=== PATIENT | female | born 1930 | race Two or more races ===

== ENCOUNTER 2016-07-31 20:27 | Inpatient (IN) | payer MEDICAID ==
[~2016-07-31] VITALS: Ht 167.6 cm; Wt 63.5 kg
[~2016-07-31 20:27] MED LIST: ALBUTEROL2.5 MG/3 M INH; ATENOLOL100 MG ORAL; ATIVAN1 MG ORAL; BENADRYL25 M3 PO; CARVEDILOL3.125 MG ORAL; CEPHALEXIN500 M1 ORAL; CLONIDINE HCL0.1 MG PO; COLACE100 MG ORAL; DONEPEZIL HCL10 M2 ORAL; IBUPROFEN600 MG ORAL; LEVAQUIN500 MG ORAL; LORAZEPAM1 MG ORAL; LOSARTAN POTASS50 MG ORAL; NORCO 10-325 T1 EACH ORAL; OMEPRAZOLE20 M3 ORAL; POTASSIUM20 MEQ/15 PO; PROTONIX40 MG ORAL; QUETIAPINE FUMA25 MG ORAL; RISPERDAL0.25 MG ORAL; RISPERDAL0.5 MG ORAL; SEROQUEL25 MG ORAL; SEROQUEL50 MG ORAL; TYLENOL EXTRA500 MG ORAL
--- NOTE | 2016-07-31 21:28 | Emergency Room Report ---
History of Present Illness General Chief Complaint: shortness of breath Source: Family Member Present Illness HPI Patient is a 86-year-old female who presented after increased fever difficulty breathing. Patient gradual onset of symptoms of the past 2 hours. Patient had a productive cough. Patient recently been discharged from the hospital after pneumonia. Patient prior history of IVC filter placement. She's not currently taking anticoagulation. Patient was noted to have increased difficulty breathing was brought back to the hospital.Per family she does not have a primary care Dr.Cough is reportedly productive nature. Allergies: Coded Allergies: No Known Allergies (Unverified , 05/07/16) Patient History Reviewed Nursing Documentation: PMH: Agreed, PSxH: Agreed Nursing Documentation-PMH Hx Cardiac Problems: Yes Hx Hypertension: Yes Hx Cancer: No Hx Gastrointestinal Problems: Yes Hx Neurological Problems: Yes - ANEURYSM BRAIN Hx Dementia: Yes Review of Systems All Other Systems: negative except mentioned in HPI Physical Exam General Appearance: moderate distress, lethargic ENT: other - dark fluid in oropharynx Neck: supple Respiratory: chest non-tender, lungs clear, normal breath sounds Cardiovascular #1: regular rate, rhythm, no edema Gastrointestinal: non tender, soft, no mass Musculoskeletal: back normal, digits/nails normal Neurologic: alert, oriented x3, responsive Psychiatric: judgement/insight normal Skin: normal color, no rash, warm/dry Medical Decision Making Diagnostic Impression: Primary Impression: HCAP (healthcare-associated pneumonia) Additional Impression: Sepsis ER Course Patient presented for shortness of breath.Differential included but was not limited to anemia, pneumonia, pneumothorax, myocardial infarction, pericardial effusion, congestive heart failure, acidosis. Because of complexity of patient' s case laboratory testing and imaging studies were ordered. The laboratory studies showed normal white blood count as well as normal lactate. Patient appears to have pneumonia. The patient may have some GI bleeding and she did have some dark material in her oropharynx. Dr. Cristi Hazel was contacted for inpatient management Labs Test 07/31/16 22:30 White Blood Count 6.9 K/UL (4.8-10.8) Red Blood Count 4.68 M/UL (4.20-5.40) Hemoglobin 13.6 G/DL (12.0-16.0) Hematocrit 43.5 % (37.0-47.0) Mean Corpuscular Volume 93 FL (80-99) Mean Corpuscular Hemoglobin 29.0 PG (27.0-31.0) Mean Corpuscular Hemoglobin Concent 31.2 G/DL (32.0-36.0) Red Cell Distribution Width 13.6 % (11.6-14.8) Platelet Count 149 K/UL (150-450) Mean Platelet Volume 9.0 FL (6.5-10.1) Neutrophils (%) (Auto) 65.3 % (45.0-75.0) Lymphocytes (%) (Auto) 16.9 % (20.0-45.0) Monocytes (%) (Auto) 12.9 % (1.0-10.0) Eosinophils (%) (Auto) 3.1 % (0.0-3.0) Basophils (%) (Auto) 1.8 % (0.0-2.0) Prothrombin Time 11.1 SEC (9.30-11.50) Prothromb Time International Ratio 1.1 (0.9-1.1) Activated Partial Thromboplast Time 26 SEC (23-33) Sodium Level 141 mEQ/L (135-145) Potassium Level 4.4 mEQ/L (3.4-4.9) Chloride Level 100 mEQ/L (98-107) Carbon Dioxide Level 29 mEQ/L (20-30) Anion Gap 12 (5-15) Blood Urea Nitrogen 10 mg/dL (7-23) Creatinine 0.8 mg/dL (0.5-0.9) Estimat Glomerular Filtration Rate mL/min (>60) Glucose Level 107 mg/dL (74-106) Lactic Acid Level 1.10 mmol/L (0.66-2.22) Calcium Level 9.1 mg/dL (8.6-10.2) Total Bilirubin 0.3 mg/dL (0.0-1.2) Aspartate Amino Transf (AST/SGOT) 18 U/L (5-40) Alanine Aminotransferase (ALT/SGPT) 11 U/L (3-33) Alkaline Phosphatase 85 U/L (35-104) Total Creatine Kinase 14 U/L (26-140) Creatine Kinase MB < 1.5 ng/mL (< 3.8) Creatine Kinase MB Relative Index Troponin I < 0.30 ng/mL (<=0.30) Total Protein 7.2 g/dL (6.6-8.7) Albumin 3.7 g/dL (3.5-5.2) Globulin 3.5 g/dL Albumin/Globulin Ratio 1.0 (1.0-2.7) EKG Diagnostic Results Rate: normal Rhythm: NSR ST Segments: no acute changes Rhythm Strip Diag. Results EP Interpretation: yes Rhythm: NSR, no PVC's, no ectopy Status: unchanged Disposition: ADMITTED INPATIENT CliffSimba Jul 31, 2016 21:28
[2016-07-31] MEDS ORDERED: Pantoprazole Inj IVP ONE (21:30)
[2016-07-31] MEDS ORDERED: Unasyn 3gm Inj ONE ×2 (22:52→23:54)
[2016-07-31] MEDS: Ampicillin/Sulbactam Sod 3 GM in NS 100 ML IVPB SCH ×2 (22:58→23:59)
[2016-07-31 23:04] LABS: BASOPHILS % (AUTO) 1.8 % (0.0-2.0); EOSINOPHILS % (AUTO) 3.1 % (0.0-3.0); LYMPHOCYTES % (AUTO) 16.9 % (20.0-45.0); MEAN CORPUSCULAR HGB CONC 31.2 G/DL (32.0-36.0); MEAN CORPUSCULAR VOLUME 93 FL (80-99); MONOCYTES % (AUTO) 12.9 % (1.0-10.0); NEUTROPHILS % (AUTO) 65.3 % (45.0-75.0); PLATELET COUNT 149 K/UL (150-450); RED BLOOD COUNT 4.68 M/UL (4.20-5.40); RED CELL DISTRIBUTION WIDTH 13.6 % (11.6-14.8); WHITE BLOOD COUNT 6.9 K/UL (4.8-10.8)
[2016-07-31 23:08] VITALS: BP 153/74
[2016-07-31 23:17] LABS: INR 1.1 (0.9-1.1); PROTHROMBIN TIME 11.1 SEC (9.30-11.50)
[2016-07-31 23:25] LABS: TROPONIN I < 0.30 ng/mL (<=0.30)
[2016-07-31 23:28] LABS: ALANINE AMINOTRANSFERASE 11 U/L (3-33); ANION GAP 12 (5-15); ASPARTATE AMINO TRANSFERASE 18 U/L (5-40); CALCIUM 9.1 mg/dL (8.6-10.2); CARBON DIOXIDE 29 mEQ/L (20-30); CHLORIDE 100 mEQ/L (98-107); CREATININE 0.8 mg/dL (0.5-0.9); HEMOLYSIS 9; POTASSIUM 4.4 mEQ/L (3.4-4.9); SODIUM 141 mEQ/L (135-145); TOTAL PROTEIN 7.2 g/dL (6.6-8.7)
[2016-07-31 23:38] LABS: CKMB < 1.5 ng/mL (< 3.8)
[2016-08-01] VITALS (8 sets, daily range): BP systolic 133–165; BP diastolic 70–92
[2016-08-01] MEDS ORDERED: Norco 10mg/325mg tab ORAL PRN (01:45)
[2016-08-01] MEDS ORDERED: DuoNeb 0.5-3(2.5)mg/3ml neb HHN PRN (01:45)
[2016-08-01] MEDS ORDERED: LORazepam 1mg tab ORAL PRN (01:45)
[2016-08-01] MEDS: Docusate 100mg cap ORAL SCH (09:16)
[2016-08-01] MEDS: Losartan 50mg tab ORAL SCH ×2 (09:16→22:17)
[2016-08-01] MEDS: Heparin 5000 units/ml inj SUBQ SCH ×2 (09:18→22:19)
[2016-08-01] MEDS ORDERED: Acetaminophen 650 MG SUPP RECTAL PRN (09:30)
--- NOTE | 2016-08-01 10:26 | Wound Care Consultation ---
Wound Assessment Wound Assessment #1: Wound Number: #1 Wound Present on Admission: Yes New Wound: No Status Change of Wound: No Wound Location Body Site: perineal area - extending to perianal Wound Type: chemical burn Chasidy Test: Does not Chasidy Percent of Wound [place]/Red: 100 Wound Drainage Amount: None Wound Drainage Odor: None/Absent Tissue Surrounding Wound: Macerated Wound General Appearance: Reddened, Open to air Wound Assessment #2: Wound Number: #2 Wound Present on Admission: Yes New Wound: No Status Change of Wound: No Wound Location Body Site Modif: right Wound Location Body Site: buttocks Wound Type: pressure ulcer Chasidy Test: Does not Chasidy Pressure Ulcer Stage: deep tissue injury Wound Thickness: Full Thickness Wound Length: 1.0 Wound Width: 1.0 Wound Depth: utd Percent of Wound Purple/Maroon: 100 Wound Drainage Amount: None Wound Drainage Odor: None/Absent Tissue Surrounding Wound: Erythemic Wound General Appearance: Reddened Wound Assessment #3: Wound Number: #3 Wound Present on Admission: Yes New Wound: No Status Change of Wound: No Wound Location Body Site Modif: mid Wound Location Body Site: sacral Wound Type: pressure ulcer Chasidy Test: Does not Chasidy Pressure Ulcer Stage: I Wound Thickness: Partial Thickness Wound Length: 4.0 Wound Width: 4.0 Percent of Wound [place]/Red: 100 Wound Drainage Amount: None Wound Drainage Odor: None/Absent Tissue Surrounding Wound: Erythemic Wound General Appearance: Reddened Wound Assessment #4: Wound Number: #4 Wound Present on Admission: Yes New Wound: No Status Change of Wound: No Wound Location Body Site Modif: left Wound Location Body Site: thigh - upper inner Wound Type: chemical burn Chasidy Test: Does not Chasidy Percent of Wound [place]/Red: 100 Wound Drainage Amount: None Wound Drainage Odor: None/Absent Tissue Surrounding Wound: Macerated Wound General Appearance: Reddened Wound Assessment #5: Wound Present on Admission: Yes New Wound: No Status Change of Wound: No Wound Location Body Site Modif: right Wound Location Body Site: thigh - upper inner Wound Type: pressure ulcer Chasidy Test: Does not Chasidy Percent of Wound [place]/Red: 100 Wound Drainage Amount: None Wound Drainage Odor: None/Absent Tissue Surrounding Wound: Macerated Wound General Appearance: Reddened Wound Comment #1 Perineal area extending to perianal chemical burn. #2 Right inner thigh Chemical Burn. #3 Left inner thigh Chemical Burn. #4 Mid Sacral Pressure Ulcer stage I. #5 Right Buttock Pressure Ulcer Deep Tissue Injury. Recommendation. -Local wound care as ordered. -Low air loss Overlay. -Keep Clean and dry. -Gentle pericare as needed. -Turn and reposition. -Assess and notify MD if any changes are noted. -Optimize Nutrition. JESSA SHAFFER Aug 01, 2016 10:26
--- NOTE | 2016-08-01 12:41 | Consultation ---
Consult Note Consult Note [id number] ANGEL WATERS M.D. Aug 01, 2016 12:41
[2016-08-01] MEDS: LORazepam Inj 2mg/ml 1ml IV PRN ×2 (13:59→18:56)
--- NOTE | 2016-08-01 14:57 | Pulmonology Progress Note ---
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 aneurysm, recent DVT S/P IVC f BIB family with several days of cough and low grade fevers. Tm 101.8, no WCt, on 1-2L O2. Cough productive of mucoid phlegm, ? had CXR in ED. Got Unasyn in ED, now on CTX per ID. Rosa puree diet, no N/V/D/C/abdominal pain or urinary complaints. No H/O lung dz PMH: Dementia, DVT S/P IVC filter, HTN, ? 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 MEDS: Reviewed SHx: No T/E/D use FHx: N/C ROS: Negative other than HPI Objective Last 24 Hour Vital Signs Date Time Temp Pulse Resp B/P Pulse Ox O2 Delivery O2 Flow Rate FiO2 08/01/16 12:00 97.7 74 24 141/81 94 Nasal Cannula 2.0 28 08/01/16 09:16 143/79 08/01/16 08:00 67 08/01/16 08:00 101.7 82 30 160/91 92 Nasal Cannula 2.0 08/01/16 07:55 97 Nasal Cannula 2.0 28 08/01/16 07:55 76 18 Nasal Cannula 2.0 08/01/16 04:38 98.2 75 30 143/79 93 Nasal Cannula 2.0 08/01/16 03:56 72 08/01/16 01:57 98.2 74 28 144/92 94 Nasal Cannula 2.0 08/01/16 01:51 77 08/01/16 01:35 100.1 76 29 133/70 95 Nasal Cannula 2.0 08/01/16 01:34 100.1 76 29 165/84 95 Nasal Cannula 2.0 08/01/16 00:07 100.1 76 29 165/84 95 Nasal Cannula 2.0 07/31/16 23:10 75 34 Nasal Cannula 3.0 07/31/16 23:08 100.1 75 34 153/74 96 Nasal Cannula 3.0 07/31/16 21:18 100.2 84 38 172/74 89 Nasal Cannula 2.0 Intake and Output 07/31/16 08/01/16 19:00 07:00 Intake Total 1100 ml Balance 1100 ml Intake IV Total 1100 ml # Voids 2 # Bowel Movements 1 General Appearance: no acute distress, other - demented female HEENT: normocephalic, atraumatic, mucous membranes moist Respiratory/Chest: rhonchi - scattered Cardiovascular: normal peripheral pulses, normal rate, regular rhythm Abdomen: normal bowel sounds, soft, non tender, no organomegaly, non distended Extremities: no cyanosis, no clubbing, no edema Laboratory Tests 07/31/16 22:30: White Blood Count 6.9, Red Blood Count 4.68, Hemoglobin 13.6, Hematocrit 43.5, Mean Corpuscular Volume 93, Mean Corpuscular Hemoglobin 29.0, Mean Corpuscular Hemoglobin Concent 31.2L, Red Cell Distribution Width 13.6, Platelet Count 149L , Mean Platelet Volume 9.0, Neutrophils (%) (Auto) 65.3, Lymphocytes (%) (Auto) 16.9L, Monocytes (%) (Auto) 12.9H, Eosinophils (%) (Auto) 3.1H, Basophils (%) ( Auto) 1.8, Prothrombin Time 11.1, Prothromb Time International Ratio 1.1, Activated Partial Thromboplast Time 26, Sodium Level 141, Potassium Level 4.4, Chloride Level 100, Carbon Dioxide Level 29, Anion Gap 12, Blood Urea Nitrogen 10, Creatinine 0.8, Estimat Glomerular Filtration Rate , Glucose Level 107H, Lactic Acid Level 1.10, Calcium Level 9.1, Total Bilirubin 0.3, Aspartate Amino Transf (AST/SGOT) 18, Alanine Aminotransferase (ALT/SGPT) 11, Alkaline Phosphatase 85, Total Creatine Kinase 14L, Creatine Kinase MB < 1.5, Creatine Kinase MB Relative Index , Troponin I < 0.30, Total Protein 7.2, Albumin 3.7, Globulin 3.5, Albumin/Globulin Ratio 1.0 Current Medications Medications (Trade) Dose Ordered Sig/[place] Route PRN Reason Start Time Stop Time Status Last Admin Dose Admin Acetaminophen 650 mg 650 mg Q4H PRN RECTAL Fever/Headache/Mild Pain 08/01/16 09:30 08/31/16 09:29 08/01/16 10:04 Acetaminophen/ Hydrocodone Bitart ([place] 10/325) 1 ea Q6H PRN ORAL Pain Scale (6-10) 08/01/16 01:45 08/08/16 01:44 Albuterol/ Ipratropium (DuoNeb 0.5-3(2.5)mg/3ml) 3 ml Q4H PRN HHN Shortness of Breath 08/01/16 01:45 08/06/16 01:44 Ceftriaxone Sodium/Dextrose (Rocephin/D5W 50ml) 50 ml @ 100 mls/hr Q24H IVPB 08/01/16 14:00 08/08/16 13:59 Clonidine HCl (Catapres) 0.1 mg Q6H PRN ORAL For High Blood Pressure 08/01/16 01:45 08/31/16 01:44 Dextrose (Dextrose 50%) STAT PRN IV Hypoglycemia 08/01/16 01:45 08/31/16 01:44 Diphenhydramine HCl (Benadryl) 25 mg Q6H PRN ORAL Itching/Pruritis 08/01/16 01:45 08/31/16 01:44 Docusate Sodium (Colace) 100 mg DAILY ORAL 08/01/16 09:00 08/31/16 08:59 08/01/16 09:16 Heparin Sodium (Porcine) (Heparin 5000 units/ml) 5,000 units EVERY 12 HOURS SUBQ 08/01/16 09:00 08/31/16 08:59 08/01/16 09:18 Lorazepam (Ativan 2mg/ml 1ml) 1 mg Q4H PRN IV For Anxiety 08/01/16 13:45 08/08/16 13:44 08/01/16 13:59 Lorazepam (Ativan) 1 mg Q8H PRN ORAL For Anxiety 08/01/16 01:45 08/08/16 01:44 Losartan Potassium (Cozaar) 50 mg Q12HR ORAL 08/01/16 09:00 08/31/16 08:59 08/01/16 09:16 Pantoprazole (Protonix) 40 mg Q12H PRN ORAL Abdominal cramps 08/01/16 01:45 08/31/16 01:44 ONUR RAINES M.D. Aug 01, 2016 14:57
[2016-08-01] MEDS: cefTRIAXone 1 GM in D5W 50 ML IVPB SCH (15:15)
--- NOTE | 2016-08-01 16:42 | Diagnostic Imaging Report ---
Indication: COPD, shortness of breath Technique: One view of the chest Comparison: 07/31/2016 Findings: Bilateral chronic appearing interstitial disease is again demonstrated. No new infiltrates. Heart size is normal. Aorta is tortuous and calcified. Findings are unchanged Impression: Unchanged, over one day, findings as above.
[2016-08-01] MEDS: guaiFENesin 600mg tab ORAL SCH (17:26)
--- NOTE | 2016-08-01 18:12 | Cardiac Electrophysiology PN ---
Subjective Subjective [id number] Objective Last 24 Hour Vital Signs Date Time Temp Pulse Resp B/P Pulse Ox O2 Delivery O2 Flow Rate FiO2 08/01/16 16:17 Nasal Cannula 2.0 08/01/16 16:13 98.2 84 21 135/73 93 Room Air 3.0 08/01/16 16:00 81 08/01/16 12:00 97.7 74 24 141/81 94 Nasal Cannula 2.0 08/01/16 10:34 97.7 08/01/16 09:16 143/79 08/01/16 08:00 67 08/01/16 08:00 101.7 82 30 160/91 92 Nasal Cannula 2.0 08/01/16 07:55 97 Nasal Cannula 2.0 08/01/16 07:55 76 18 Nasal Cannula 2.0 08/01/16 04:38 98.2 75 30 143/79 93 Nasal Cannula 2.0 08/01/16 03:56 72 08/01/16 01:57 98.2 74 28 144/92 94 Nasal Cannula 2.0 08/01/16 01:51 77 08/01/16 01:35 100.1 76 29 133/70 95 Nasal Cannula 2.0 08/01/16 01:34 100.1 76 29 165/84 95 Nasal Cannula 2.0 08/01/16 00:07 100.1 76 29 165/84 95 Nasal Cannula 2.0 07/31/16 23:10 75 34 Nasal Cannula 3.0 07/31/16 23:08 100.1 75 34 153/74 96 Nasal Cannula 3.0 07/31/16 21:18 100.2 84 38 172/74 89 Nasal Cannula 2.0 Intake and Output 07/31/16 08/01/16 19:00 07:00 Intake Total 1100 ml Balance 1100 ml Intake IV Total 1100 ml # Voids 2 # Bowel Movements 1 Laboratory Tests Test 07/31/16 22:30 08/01/16 16:15 White Blood Count 6.9 K/UL (4.8-10.8) Red Blood Count 4.68 M/UL (4.20-5.40) Hemoglobin 13.6 G/DL (12.0-16.0) Hematocrit 43.5 % (37.0-47.0) Mean Corpuscular Volume 93 FL (80-99) Mean Corpuscular Hemoglobin 29.0 PG (27.0-31.0) Mean Corpuscular Hemoglobin Concent 31.2 G/DL (32.0-36.0) L Red Cell Distribution Width 13.6 % (11.6-14.8) Platelet Count 149 K/UL (150-450) L Mean Platelet Volume 9.0 FL (6.5-10.1) Neutrophils (%) (Auto) 65.3 % (45.0-75.0) Lymphocytes (%) (Auto) 16.9 % (20.0-45.0) L Monocytes (%) (Auto) 12.9 % (1.0-10.0) H Eosinophils (%) (Auto) 3.1 % (0.0-3.0) H Basophils (%) (Auto) 1.8 % (0.0-2.0) Prothrombin Time 11.1 SEC (9.30-11.50) Prothromb Time International Ratio 1.1 (0.9-1.1) Activated Partial Thromboplast Time 26 SEC (23-33) Sodium Level 141 mEQ/L (135-145) Potassium Level 4.4 mEQ/L (3.4-4.9) Chloride Level 100 mEQ/L (98-107) Carbon Dioxide Level 29 mEQ/L (20-30) Anion Gap 12 (5-15) Blood Urea Nitrogen 10 mg/dL (7-23) Creatinine 0.8 mg/dL (0.5-0.9) Estimat Glomerular Filtration Rate mL/min (>60) Glucose Level 107 mg/dL (74-106) H Lactic Acid Level 1.10 mmol/L (0.66-2.22) Calcium Level 9.1 mg/dL (8.6-10.2) Total Bilirubin 0.3 mg/dL (0.0-1.2) Aspartate Amino Transf (AST/SGOT) 18 U/L (5-40) Alanine Aminotransferase (ALT/SGPT) 11 U/L (3-33) Alkaline Phosphatase 85 U/L (35-104) Total Creatine Kinase 14 U/L (26-140) L Creatine Kinase MB < 1.5 ng/mL (< 3.8) Creatine Kinase MB Relative Index Troponin I < 0.30 ng/mL (<=0.30) Total Protein 7.2 g/dL (6.6-8.7) Albumin 3.7 g/dL (3.5-5.2) Globulin 3.5 g/dL Albumin/Globulin Ratio 1.0 (1.0-2.7) D-Dimer 5730 ng/mL (<500) H Pro-B-Type Natriuretic Peptide 719 pg/mL (0-450) H TURNER ALLAN Aug 01, 2016 18:12
--- NOTE | 2016-08-01 18:17 | Consultation ---
DATE OF CONSULTATION: INFECTIOUS DISEASE CONSULTATION REFERRING PHYSICIAN: Cristi Hazel M.D. REASON FOR CONSULTATION: Evaluation of the patient for pneumonia, antibiotic management. HISTORY OF PRESENT ILLNESS: The patient is an 86-year-old female with multiple medical problems as listed below, who was admitted to this medical center for shortness of breath. The patient also has been recently admitted to this medical center due to E. coli and klebsiella urinary tract infection. The patient overall is a poor historian. This admission the patient was admitted for fever and pneumonia. Infectious Disease consultation has been requested for further evaluation of the patient's antibiotic management. PAST MEDICAL HISTORY: 1. History of cataract surgery. 2. History of dysphagia. 3. History of CVA. 4. History of brain aneurysm. 5. Dementia. 6. Hypertension. 7. History of urinary tract infection. 8. Depression. 9. Anxiety. MEDICATIONS: The patient received one dose of intravenous Unasyn in the emergency room. ALLERGIES: No known drug allergies. FAMILY HISTORY: Unavailable. REVIEW OF SYSTEMS: Limited, much of the information gathered as mentioned above. PHYSICAL EXAMINATION: VITAL SIGNS: Temperature 101.7 degrees, pulse 86, respiratory rate 18, and blood pressure 160/91. HEENT: Mild pale conjunctivae. NECK: No lymphadenopathy. CHEST: Coarse breathing sounds. HEART: S1 and S2. ABDOMEN: Soft and nontender. EXTREMITIES: No cyanosis. NEUROLOGIC: Awake. Poor historian. LABORATORY AND DIAGNOSTIC DATA: White blood cell 6.9, hemoglobin 13, and platelet 149,000. Urinalysis 20-30 white blood cells. BUN 10 and creatinine 0.8. ALT, AST, and alkaline phosphatase within normal range. Blood culture is pending. Urine is pending. Chest x-ray and laboratories pending. ASSESSMENT: The patient is an 86-year-old female with multiple medical problems as listed above, who came to the hospital with shortness of breath and fever. Chest x-ray result is pending, however, the patient's urinalysis showed significant pyuria. The patient may have underlying urinary tract infection. Also underlying pneumonia is a consideration. The patient would benefit from empiric antibiotic treatment till we get further information from cultures. PLAN: 1. We will start the patient on IV Rocephin. 2. Monitor blood cultures (blood, urine and sputum). 3. Chest x-ray. 4. Monitor CBC and BMP. Monitor the patient's clinical course and labs and based on those, we will do further recommendations. Thank you for this consultation. I will follow the patient during this hospitalization. Tai Reece M.D. DR: HUMAIRA JOB#: [id number] CC:
--- NOTE | 2016-08-01 21:10 | History and Physical ---
History of Present Illness General Date patient seen: Aug 01, 2016 Reason for Hospitalization: Dyspnea/Respdistress Present Illness HPI The patient is unable to provide any history at this time due to her mental state, sitter at bedside who reported pt being agitated throughout the day, history is therefore obtained from ED record, according to record, patient is an 86-year-old female, who presented from home with fever, difficulty breathing and productive cough. Patient was recently discharged from the hospital after being treated for pneumonia. 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 Not currently on anticoagulant. Allergies: Coded Allergies: No Known Allergies (Unverified , 05/07/16) Medication History Scheduled Cephalexin* (Cephalexin*), 500 MG ORAL BID, (Reported) Docusate Sodium* (Colace*), 100 MG ORAL DAILY, (Reported) Losartan Potassium* (Losartan Potassium*), 50 MG ORAL Q12HR, (Reported) Potassium Chloride (Potassium Chloride), 20 MEQ PO BID, (Reported) Scheduled PRN Acetaminophen* (Tylenol Extra Strength*), 650 MG ORAL Q4HR PRN for Mild Pain ( Pain Scale 1-3), (Reported) Albuterol Sulfate* (Albuterol Sulfate Hhn*), 3 ML INH Q4H PRN for Shortness of Breath, (Reported) Clonidine Hcl (Clonidine Hcl), 0.1 MG PO PRN PRN for For High Blood Pressure, ( Reported) Diphenhydramine HCl (Benadryl), 25 MG PO PRN PRN for Itching/Pruritis, (Reported ) Hydrocodone Bit/Acetaminophen 10-325* ([place] 10-325*), 1 TAB ORAL Q8HR PRN for Pain Scale (6-10), (Reported) Lorazepam* (Ativan*), 1 MG ORAL Q8HR PRN for For Anxiety, (Reported) Pantoprazole* (Protonix*), 40 MG ORAL Q12HR PRN for Abdominal cramps, (Reported) Patient History Limited by: medical condition Healthcare decision maker Mary Clemente (daughter) Resuscitation status Full Code Advanced Directive on File No Past Medical/Surgical History Past Medical/Surgical History: (1) History of cataract surgery (2) Dysphagia (3) CVA (cerebral vascular accident) (4) Brain aneurysm (5) Depression (6) HTN (hypertension) (7) Alzheimer's dementia (8) HCAP (healthcare-associated pneumonia) Family History Family History: Patient reports no known family medical history. Social History Social History: (1) Non-smoker (2) No history of alcohol use (3) No illicit drug use Review of Systems All Other Systems: negative except mentioned in HPI Physical Exam General Appearance: alert, confused Lines, tubes and drains: peripheral HEENT: normocephalic, atraumatic Neck: normal alignment, supple, normal inspection Respiratory/Chest: decreased breath sounds Cardiovascular/Chest: normal rate, regular rhythm, no JVD Abdomen: non tender, soft, no organomegaly, no mass Extremities: normal range of motion, non-tender, normal inspection, no calf tenderness Skin Exam: normal pigmentation, warm/dry Neurologic: alert, disoriented Last 24 Hour Vital Signs Date Time Temp Pulse Resp B/P Pulse Ox O2 Delivery O2 Flow Rate FiO2 08/01/16 18:56 95 Nasal Cannula 2.0 08/01/16 18:56 88 18 Nasal Cannula 2.0 08/01/16 18:56 Nasal Cannula 2.0 08/01/16 16:17 Nasal Cannula 2.0 08/01/16 16:13 98.2 84 21 135/73 93 Room Air 3.0 08/01/16 16:00 81 08/01/16 12:00 97.7 74 24 141/81 94 Nasal Cannula 2.0 08/01/16 10:34 97.7 08/01/16 09:16 143/79 08/01/16 08:00 67 08/01/16 08:00 101.7 82 30 160/91 92 Nasal Cannula 2.0 08/01/16 07:55 97 Nasal Cannula 2.0 08/01/16 07:55 76 18 Nasal Cannula 2.0 08/01/16 04:38 98.2 75 30 143/79 93 Nasal Cannula 2.0 08/01/16 03:56 72 08/01/16 01:57 98.2 74 28 144/92 94 Nasal Cannula 2.0 08/01/16 01:51 77 08/01/16 01:35 100.1 76 29 133/70 95 Nasal Cannula 2.0 08/01/16 01:34 100.1 76 29 165/84 95 Nasal Cannula 2.0 08/01/16 00:07 100.1 76 29 165/84 95 Nasal Cannula 2.0 07/31/16 23:10 75 34 Nasal Cannula 3.0 07/31/16 23:08 100.1 75 34 153/74 96 Nasal Cannula 3.0 07/31/16 21:18 100.2 84 38 172/74 89 Nasal Cannula 2.0 Intake and Output 07/31/16 08/01/16 19:00 07:00 Intake Total 1100 ml Balance 1100 ml IV Total 1100 ml # Voids 2 # Bowel Movements 1 Laboratory Tests Test 07/31/16 22:30 08/01/16 16:15 White Blood Count 6.9 K/UL (4.8-10.8) Red Blood Count 4.68 M/UL (4.20-5.40) Hemoglobin 13.6 G/DL (12.0-16.0) Hematocrit 43.5 % (37.0-47.0) Mean Corpuscular Volume 93 FL (80-99) Mean Corpuscular Hemoglobin 29.0 PG (27.0-31.0) Mean Corpuscular Hemoglobin Concent 31.2 G/DL (32.0-36.0) L Red Cell Distribution Width 13.6 % (11.6-14.8) Platelet Count 149 K/UL (150-450) L Mean Platelet Volume 9.0 FL (6.5-10.1) Neutrophils (%) (Auto) 65.3 % (45.0-75.0) Lymphocytes (%) (Auto) 16.9 % (20.0-45.0) L Monocytes (%) (Auto) 12.9 % (1.0-10.0) H Eosinophils (%) (Auto) 3.1 % (0.0-3.0) H Basophils (%) (Auto) 1.8 % (0.0-2.0) Prothrombin Time 11.1 SEC (9.30-11.50) Prothromb Time International Ratio 1.1 (0.9-1.1) Activated Partial Thromboplast Time 26 SEC (23-33) Sodium Level 141 mEQ/L (135-145) Potassium Level 4.4 mEQ/L (3.4-4.9) Chloride Level 100 mEQ/L (98-107) Carbon Dioxide Level 29 mEQ/L (20-30) Anion Gap 12 (5-15) Blood Urea Nitrogen 10 mg/dL (7-23) Creatinine 0.8 mg/dL (0.5-0.9) Estimat Glomerular Filtration Rate mL/min (>60) Glucose Level 107 mg/dL (74-106) H Lactic Acid Level 1.10 mmol/L (0.66-2.22) Calcium Level 9.1 mg/dL (8.6-10.2) Total Bilirubin 0.3 mg/dL (0.0-1.2) Aspartate Amino Transf (AST/SGOT) 18 U/L (5-40) Alanine Aminotransferase (ALT/SGPT) 11 U/L (3-33) Alkaline Phosphatase 85 U/L (35-104) Total Creatine Kinase 14 U/L (26-140) L Creatine Kinase MB < 1.5 ng/mL (< 3.8) Creatine Kinase MB Relative Index Troponin I < 0.30 ng/mL (<=0.30) Total Protein 7.2 g/dL (6.6-8.7) Albumin 3.7 g/dL (3.5-5.2) Globulin 3.5 g/dL Albumin/Globulin Ratio 1.0 (1.0-2.7) D-Dimer 5730 ng/mL (<500) H Pro-B-Type Natriuretic Peptide 719 pg/mL (0-450) H Height (Feet): 5 Height (Inches): 6.00 Weight (Pounds): 140 Medications Current Medications Medications (Trade) Dose Ordered Sig/Arabella Route PRN Reason Start Time Stop Time Status Last Admin Dose Admin Acetaminophen 650 mg 650 mg Q4H PRN RECTAL Fever/Headache/Mild Pain 08/01/16 09:30 08/31/16 09:29 08/01/16 10:04 Acetaminophen/ Hydrocodone Bitart ([place] [address]) 1 ea Q6H PRN ORAL Pain Scale (6-10) 08/01/16 01:45 08/08/16 01:44 Albuterol/ Ipratropium (DuoNeb 0.5-3(2.5)mg/3ml) 3 ml Q4H PRN HHN Shortness of Breath 08/01/16 01:45 08/06/16 01:44 Ceftriaxone Sodium/Dextrose (Rocephin/D5W 50ml) 50 ml @ 100 mls/hr Q24H IVPB 08/01/16 14:00 08/08/16 13:59 08/01/16 15:15 Clonidine HCl (Catapres) 0.1 mg Q6H PRN ORAL For High Blood Pressure 08/01/16 01:45 08/31/16 01:44 Dextrose (Dextrose 50%) STAT PRN IV Hypoglycemia 08/01/16 01:45 08/31/16 01:44 Diphenhydramine HCl (Benadryl) 25 mg Q6H PRN ORAL Itching/Pruritis 08/01/16 01:45 08/31/16 01:44 Docusate Sodium (Colace) 100 mg DAILY ORAL 08/01/16 09:00 08/31/16 08:59 08/01/16 09:16 Guaifenesin (Mucinex) 600 mg TWICE A DAY ORAL 08/01/16 18:00 08/31/16 17:59 08/01/16 17:26 Guaifenesin (Robitussin) 100 mg Q4H PRN ORAL For Cough 08/01/16 15:00 08/31/16 14:59 Heparin Sodium (Porcine) (Heparin 5000 units/ml) 5,000 units EVERY 12 HOURS SUBQ 08/01/16 09:00 08/31/16 08:59 08/01/16 09:18 Lorazepam (Ativan 2mg/ml 1ml) 1 mg Q4H PRN IV For Anxiety 08/01/16 13:45 08/08/16 13:44 08/01/16 18:56 Lorazepam (Ativan) 1 mg Q8H PRN ORAL For Anxiety 08/01/16 01:45 08/08/16 01:44 Losartan Potassium (Cozaar) 50 mg Q12HR ORAL 08/01/16 09:00 08/31/16 08:59 08/01/16 09:16 Pantoprazole (Protonix) 40 mg Q12H PRN ORAL Abdominal cramps 08/01/16 01:45 08/31/16 01:44 Objective Narrative XRAY Chest 1v Indication: COPD, shortness of breath Technique: One view of the chest Comparison: 07/31/2016 Findings: Bilateral chronic appearing interstitial disease is again demonstrated. No new infiltrates. Heart size is normal. Aorta is tortuous and calcified. Findings are unchanged Impression: Unchanged, over one day Assessment/Plan Problem List: (1) Dyspnea ICD Codes: R06.00 - Dyspnea, unspecified SNOMED: 511649407 (2) Respiratory distress ICD Codes: R06.00 - Dyspnea, unspecified SNOMED: 066337731 (3) Congestive heart failure (CHF) ICD Codes: I50.9 - Heart failure, unspecified SNOMED: 68956635 Assessment/Plan Pulmonary hygiene/mobilize per pulmo Continue neb prn and abx Continue abx per ID Hematology consult, will follow up with rec Cardiology consult DVT prophylaxis with Hep SQ Aspiration precautions Monitor volumes Chest CT angiogram to rule out pulmonary embolism Hellen Eaton N.P. Aug 01, 2016 21:10
[2016-08-02] VITALS: BP 138/75
--- NOTE | 2016-08-02 00:28 | Consultation ---
DATE OF CONSULTATION: 08/01/2016 CARDIOLOGY CONSULTATION REASON FOR CONSULTATION: Evaluation of hypertension and tachycardia, the patient also is short of breath. HISTORY OF PRESENT ILLNESS: The patient is an 86-year-old lady with history of hypertension, dementia, and history of DVT status post IVC filter as well as history of questionable abdominal aortic aneurysm brought in by family for several days of cough and low-grade fever. The patient had temperature of 101.8. The patient was started on antibiotic in the emergency room and was admitted to step-down unit for community-acquired pneumonia. Cardiology consultation was obtained for further evaluation and management. At the time of my evaluation, the patient is confused, pleasantly but denies any chest pain. REVIEW OF SYSTEMS: Negative. PAST MEDICAL HISTORY: 1. Hypertension. 2. History of brain aneurysm. 3. Dementia. 4. Deep venous thrombosis, status post IVC filter but not on any anticoagulation. PHYSICAL EXAMINATION: VITAL SIGNS: Blood pressure is 135/73, pulse 84, respirations 20, and temperature 98.2. HEAD AND NECK: Shows no JVD. LUNGS: Coarse rhonchi. CARDIOVASCULAR: Tachycardic S1 and S2 with no gallop or murmur. ABDOMEN: Soft. EXTREMITIES: No pitting edema. LABORATORY DATA: White count 6.9, hemoglobin 13.6, hematocrit 42.5, and platelet count 149,000. Sodium 141, potassium 4.4, BUN of 10, creatinine 0.8, and glucose of 107. Troponin is negative. INR is 1.1. D-dimer 5730. ASSESSMENT AND PLAN: 1. Shortness of breath and tachycardia as well as D-dimer more than 5000. The patient will be undergoing Chest CT angiogram to rule out pulmonary embolism and was already evaluated by Dr. Marcial Chambers. I will order an EKG as well as echocardiogram to evaluate for ejection fraction and wall motion abnormality as well. 2. Hypertension. Continue Cozaar 50 mg b.i.d. and p.r.n. clonidine. 3. Pneumonia on ceftriaxone and albuterol. Thank very much, Dr. Hazel, for allowing me to participate in the care of this patient. Please do not hesitate to contact for any questions regarding my evaluation. Jose Guadalupe Warren M.D. DR: Liudmila JOB#: [id number] CC:
[2016-08-02 04:00] VITALS: BP 138/97
--- NOTE | 2016-08-02 05:38 | Consultation ---
DATE OF CONSULTATION: 08/01/2016 NOTE: POOR AUDIO HEMATOLOGY/ONCOLOGY CONSULTATION CONSULTING PHYSICIAN: Cabrera Hernandez M.D. REQUESTING PHYSICIAN: Cristi Hazel M.D. REASON FOR CONSULTATION: Evaluation of thrombocytopenia and bilateral DVT. IDENTIFICATION: Dear Dr. Cristi Hazel, The patient is a pleasant 86-year-old female, who was seen before approximately two months ago in May. 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 At this time, she presents to [facility] with E. coli UTI, upon imaging of x-ray. Infectious Disease service was consulted. The patient was started on antibiotics and Hematology service was consulted DVT. PAST MEDICAL HISTORY: , CVA, brain aneurysm, depression, dementia, . PAST SURGICAL HISTORY: . MEDICATIONS: At home, Colace, . ALLERGIES: No known drug allergies. PAST SOCIAL HISTORY: No alcohol, tobacco, or illicit drug use. FAMILY HISTORY: Noncontributory. REVIEW OF SYSTEMS: Difficult to obtain, most of the history is obtained with the patient's . The patient denied headache, ____.Pulmonary: No coughing or shortness of breath. Cardiovascular: No chest pain, tightness, or palpitations. Gastrointestinal: No nausea, vomiting, or diarrhea. Genitourinary: No dysuria, frequency, or urgency. Musculoskeletal: No joint swelling, muscle pain, or trauma. Neurologic: . PHYSICAL EXAMINATION: GENERAL: The patient is in no acute distress. VITAL SIGNS: Temperature 100.2 degrees Fahrenheit, pulse of 84, respiratory rate , blood pressure 172/74, and pulse oximetry is 99% on 2 liters nasal cannula. PULMONARY: Decreased breath sounds bilaterally. CARDIOVASCULAR: Regular rate and rhythm. ABDOMEN: Soft, nontender, and nondistended. EXTREMITIES: A 1+ edema. LABORATORY DATA: WBC , hemoglobin 13.6, hematocrit 44, and platelet count of 129,000. Imaging, chest x-ray shows bilateral ____ interstitial disease. Doppler imaging done before approximately one month ago shows bilateral DVTs. Also the patient with elevated D-dimer concerning for history of ongoing given the patient's history of DVT in the past, which was documented. The patient is status post IVC filter placement and currently off the anticoagulation. DVT , status post IVC filter placement bilaterally of the femoral veins. has been improved. . Thrombocytopenia, new onset, currently . Pneumonia. of the right femoral. Status post open reduction and internal fixation. RECOMMENDATIONS: maintain hemoglobin above ____. lower extremities. Elevated D-dimer the patient is having active clotting, which will be evaluated with duplex . . Coumadin was discontinued. Considered Coumadin tomorrow evening if there is no contraindication of IVC filter. placed on approximately two to three months ago and should be removed with the patient is now being. We will discuss . Continue nutritional support. Followup Renal as well as Cardiology and Infectious Disease recommendations. Discussed with staff. Consider also in regards to restarting Coumadin. Thank you, Dr. Hazel, for this kind referral. Please do not hesitate to contact me with any further questions. Cabrera Hernandez M.D. DR: Catherine JOB#: [id number] CC:
[2016-08-02 05:47] LABS: BASOPHILS % (AUTO) 1.2 % (0.0-2.0); EOSINOPHILS % (AUTO) 2.3 % (0.0-3.0); LYMPHOCYTES % (AUTO) 20.9 % (20.0-45.0); MEAN CORPUSCULAR HEMOGLOBIN 29.9 PG (27.0-31.0); MEAN CORPUSCULAR HGB CONC 31.9 G/DL (32.0-36.0); MEAN CORPUSCULAR VOLUME 94 FL (80-99); MEAN PLATELET VOLUME 8.7 FL (6.5-10.1); MONOCYTES % (AUTO) 11.8 % (1.0-10.0); NEUTROPHILS % (AUTO) 63.9 % (45.0-75.0); PLATELET COUNT 152 K/UL (150-450); RED BLOOD COUNT 4.04 M/UL (4.20-5.40); RED CELL DISTRIBUTION WIDTH 13.8 % (11.6-14.8); WHITE BLOOD COUNT 6.1 K/UL (4.8-10.8)
[2016-08-02 05:59] LABS: ANION GAP 14 (5-15); CALCIUM 8.7 mg/dL (8.6-10.2); CARBON DIOXIDE 26 mEQ/L (20-30); CHLORIDE 98 mEQ/L (98-107); CREATININE 0.6 mg/dL (0.5-0.9); HEMOLYSIS 0; POTASSIUM 3.7 mEQ/L (3.4-4.9); SODIUM 138 mEQ/L (135-145)
[2016-08-02 06:00] LABS: TROPONIN I < 0.30 ng/mL (<=0.30)
[2016-08-02 08:00] VITALS: BP 148/91
[2016-08-02] MEDS: Losartan 50mg tab ORAL SCH ×2 (08:34→20:58)
[2016-08-02] MEDS: Docusate 100mg cap ORAL SCH (08:34)
[2016-08-02] MEDS: guaiFENesin 600mg tab ORAL SCH ×2 (08:44→17:51)
--- NOTE | 2016-08-02 08:44 | Diagnostic Imaging Report ---
ndication: Shortness of breath Technique: IV administration nonionic contrast. Spiral acquisitions obtained from the lung bases to the lung apices. Multiplanar and 3-D reconstructions were generated. Total dose length product 574 mGycm. CTDIvol(s) 12, 12, 12, 12, 12, 12, 17 mGy Comparison: None Findings: Exam is limited due to motion artifact. Pulmonary arterial opacification is adequate. No definite evidence of acute pulmonary embolus demonstrated. No evidence of thoracic aortic aneurysm or dissection. Normal caliber pulmonary arteries. Normal heart, no evidence of right ventricular chamber dilatation. Motion artifact limits assessment of the pulmonary parenchyma. There is diffuse groundglass opacity which is probably exaggerated by the motion artifact. Is there is bilateral diffuse mild centrilobular interstitial septal thickening, especially in the lower lobes. There may be some centrilobular micro-nodularity as well Some atelectatic bands are seen at the left lung base. Is questionably a cystic space in the superior segment of the right lower lobe. No focal dense consolidation is demonstrated. No effusions. A calcified granulomata is seen in the superior segment of the right lower lobe. There are also calcified granulomatous right hilar and paratracheal lymph nodes. The heart is normal in size, although there is suggestion of left ventricular muscular hypertrophy. There are prominent mediastinal lymph nodes, with large right paratracheal node measuring up to 22 mm in diameter. The included thyroid is unremarkable. No axillary or chest wall mass or adenopathy is demonstrated. There is a mild wedge compression fracture deformity of the T12 vertebral body. The included upper abdominal anatomy is unremarkable. Impression: Somewhat limited exam, due to respiratory motion artifact. Negative for acute pulmonary embolus or other acute thoracic vascular pathology Diffuse ground glass opacity, possibly due to respiratory motion artifact, but diffuse parenchymal disease such as pulmonary edema not excludable. Correlate with clinical findings Diffuse bilateral interstitial disease, possibly with micro-nodularity, disseminated inflammatory lesions a possibility. Evidence of old granulomatous disease T12 compression fracture deformity, age indeterminate but suspect chronic This agrees with the preliminary interpretation provided overnight by Dr. Patten The CT scanner at [facility] is accredited by the [employer] and the scans are performed using protocols designed to limit radiation exposure to as low as reasonably achievable to attain images of sufficient resolution adequate for diagnostic evaluation.
[2016-08-02] MEDS: Heparin 5000 units/ml inj SUBQ SCH (08:46)
--- NOTE | 2016-08-02 11:53 | Infectious Diseases Prog Note ---
Assessment/Plan Assessment/Plan A: The patient is an 86-year-old female Pneumonia Shortness of breath and fever Chest CT: Diffuse bilateral interstitial disease, possibly with micro- nodularity, disseminated inflammatory lesions a possibility. UTI , probable Blood Cx :GPC ? contaminant History of cataract surgery. History of dysphagia. CVA. History of brain aneurysm. Dementia. Hypertension. Depression. Anxiety pyuria. PLAN: Cont patient on IV Rocephin d # 2 , add Zithro and IV Vanco d# 1 Monitor blood cultures (blood, urine and sputum). Chest x-ray. Monitor CBC and BMP. Subjective Allergies: Coded Allergies: No Known Allergies (Unverified , 05/07/16) Objective Vital Signs Last 24 Hour Vital Signs Date Time Temp Pulse Resp B/P Pulse Ox O2 Delivery O2 Flow Rate FiO2 08/02/16 08:34 148/91 08/02/16 08:00 98.1 90 19 148/91 94 Room Air 08/02/16 08:00 86 08/02/16 04:00 85 08/02/16 04:00 97.3 82 22 138/97 96 Room Air 08/02/16 00:00 80 08/02/16 00:00 97.6 80 22 138/75 96 Room Air 08/01/16 22:17 142/80 08/01/16 20:00 98.4 87 22 142/80 95 Room Air 08/01/16 18:56 95 Nasal Cannula 2.0 28 08/01/16 18:56 88 18 Nasal Cannula 2.0 28 08/01/16 18:56 Nasal Cannula 2.0 28 08/01/16 16:17 Nasal Cannula 2.0 28 08/01/16 16:13 98.2 84 21 135/73 93 Room Air 3.0 08/01/16 16:00 81 08/01/16 12:00 97.7 74 24 141/81 94 Nasal Cannula 2.0 28 Height (Feet): 5 Height (Inches): 6.00 Weight (Pounds): 140 Microbiology Date/Time Source Procedure Growth Status 07/31/16 22:45 Blood Blood Culture - Preliminary Resulted 07/31/16 22:30 Blood Blood Culture - Preliminary Resulted 08/01/16 16:30 Sputum Expectorated Gram Stain - Final Resulted 08/01/16 16:30 Sputum Expectorated Sputum Culture - Preliminary Resulted 08/01/16 16:30 Urine,Clean Catch Urine Culture - Preliminary NO GROWTH Resulted Laboratory Tests Test 08/01/16 16:15 08/02/16 03:45 D-Dimer 5730 ng/mL (<500) H Pro-B-Type Natriuretic Peptide 719 pg/mL (0-450) H 642 pg/mL (0-450) H White Blood Count 6.1 K/UL (4.8-10.8) Red Blood Count 4.04 M/UL (4.20-5.40) L Hemoglobin 12.1 G/DL (12.0-16.0) Hematocrit 37.8 % (37.0-47.0) Mean Corpuscular Volume 94 FL (80-99) Mean Corpuscular Hemoglobin 29.9 PG (27.0-31.0) Mean Corpuscular Hemoglobin Concent 31.9 G/DL (32.0-36.0) L Red Cell Distribution Width 13.8 % (11.6-14.8) Platelet Count 152 K/UL (150-450) Mean Platelet Volume 8.7 FL (6.5-10.1) Neutrophils (%) (Auto) 63.9 % (45.0-75.0) Lymphocytes (%) (Auto) 20.9 % (20.0-45.0) Monocytes (%) (Auto) 11.8 % (1.0-10.0) H Eosinophils (%) (Auto) 2.3 % (0.0-3.0) Basophils (%) (Auto) 1.2 % (0.0-2.0) Sodium Level 138 mEQ/L (135-145) Potassium Level 3.7 mEQ/L (3.4-4.9) Chloride Level 98 mEQ/L (98-107) Carbon Dioxide Level 26 mEQ/L (20-30) Anion Gap 14 (5-15) Blood Urea Nitrogen 9 mg/dL (7-23) Creatinine 0.6 mg/dL (0.5-0.9) Estimat Glomerular Filtration Rate mL/min (>60) Glucose Level 86 mg/dL (74-106) Calcium Level 8.7 mg/dL (8.6-10.2) Troponin I < 0.30 ng/mL (<=0.30) Thyroid Stimulating Hormone (TSH) 2.200 uIU/mL (0.300-4.500) Free Thyroxine 1.17 ng/dL (0.86-1.85) Current Medications Medications (Trade) Dose Ordered Sig/Arabella Route PRN Reason Start Time Stop Time Status Last Admin Dose Admin Acetaminophen 650 mg 650 mg Q4H PRN RECTAL Fever/Headache/Mild Pain 08/01/16 09:30 08/31/16 09:29 08/01/16 10:04 Acetaminophen/ Hydrocodone Bitart ([place] 10) 1 ea Q6H PRN ORAL Pain Scale (6-10) 08/01/16 01:45 08/08/16 01:44 Albuterol/ Ipratropium (DuoNeb 0.5-3(2.5)mg/3ml) 3 ml Q4H PRN HHN Shortness of Breath 08/01/16 01:45 08/06/16 01:44 Ceftriaxone Sodium/Dextrose (Rocephin/D5W 50ml) 50 ml @ 100 mls/hr Q24H IVPB 08/01/16 14:00 08/08/16 13:59 08/01/16 15:15 Clonidine HCl (Catapres) 0.1 mg Q6H PRN ORAL For High Blood Pressure 08/01/16 01:45 08/31/16 01:44 Dextrose (Dextrose 50%) STAT PRN IV Hypoglycemia 08/01/16 01:45 08/31/16 01:44 Diphenhydramine HCl (Benadryl) 25 mg Q6H PRN ORAL Itching/Pruritis 08/01/16 01:45 08/31/16 01:44 Docusate Sodium (Colace) 100 mg DAILY ORAL 08/01/16 09:00 08/31/16 08:59 08/02/16 08:34 Guaifenesin (Mucinex) 600 mg TWICE A DAY ORAL 08/01/16 18:00 08/31/16 17:59 08/02/16 08:44 Guaifenesin (Robitussin) 100 mg Q4H PRN ORAL For Cough 08/01/16 15:00 08/31/16 14:59 Heparin Sodium (Porcine) (Heparin 5000 units/ml) 5,000 units EVERY 12 HOURS SUBQ 08/01/16 09:00 08/31/16 08:59 08/02/16 08:46 Lorazepam (Ativan 2mg/ml 1ml) 1 mg Q4H PRN IV For Anxiety 08/01/16 13:45 08/08/16 13:44 08/01/16 18:56 Lorazepam (Ativan) 1 mg Q8H PRN ORAL For Anxiety 08/01/16 01:45 08/08/16 01:44 Losartan Potassium (Cozaar) 50 mg Q12HR ORAL 08/01/16 09:00 08/31/16 08:59 08/02/16 08:34 Pantoprazole (Protonix) 40 mg Q12H PRN ORAL Abdominal cramps 08/01/16 01:45 08/31/16 01:44 ANGEL WATERS M.D. Aug 02, 2016 11:53
[2016-08-02 12:00] VITALS: BP 130/74
--- NOTE | 2016-08-02 12:53 | Pulmonology Progress Note ---
Assessment/Plan Problems: (1) HCAP (healthcare-associated pneumonia) (2) Alzheimer's dementia (3) HTN (hypertension) (4) DVT (deep venous thrombosis) (5) Gram positive bacterial infection Assessment & Plan: ? contaminant Assessment/Plan -Optimize pulmonary hygiene/mobilize as tolerated -PRN O2 -PRN nebs -Continue abx per ID, F/U repeat CX's -Monitor volumes -Has IVC filter, continue Hep SQ -ENDOSCOPY TECHNICIAN eval, aspiration precautions -F/U cards recs and TTE -Full code Subjective Allergies: Coded Allergies: No Known Allergies (Unverified , 05/07/16) Subjective Tm 98.4, VSS, stable on RA Cough better, + SOB, no F/C D-dimer > 5K --> CT-A: No PE + faint b nodularity and GGO's/poor study with lots of artifact Objective Last 24 Hour Vital Signs Date Time Temp Pulse Resp B/P Pulse Ox O2 Delivery O2 Flow Rate FiO2 08/02/16 12:00 90 08/02/16 08:34 148/91 08/02/16 08:00 98.1 90 19 148/91 94 Room Air 08/02/16 08:00 86 08/02/16 04:00 85 08/02/16 04:00 97.3 82 22 138/97 96 Room Air 08/02/16 00:00 80 08/02/16 00:00 97.6 80 22 138/75 96 Room Air 08/01/16 22:17 142/80 08/01/16 20:00 98.4 87 22 142/80 95 Room Air 08/01/16 18:56 95 Nasal Cannula 2.0 08/01/16 18:56 88 18 Nasal Cannula 2.0 08/01/16 18:56 Nasal Cannula 2.0 28 08/01/16 16:17 Nasal Cannula 2.0 08/01/16 16:13 98.2 84 21 135/73 93 Room Air 3.0 08/01/16 16:00 81 Intake and Output 08/01/16 08/02/16 19:00 07:00 Intake Total 290 ml 0 ml Output Total 800 ml Balance 290 ml -800 ml Intake Oral 240 ml 0 ml IV Total 50 ml Output Urine Total 800 ml # Bowel Movements 2 2 General Appearance: no acute distress, cachetic HEENT: normocephalic, atraumatic, mucous membranes moist Respiratory/Chest: chest wall non-tender, rhonchi - scattered Cardiovascular: normal peripheral pulses, normal rate, regular rhythm Abdomen: normal bowel sounds, soft, non tender, no organomegaly, non distended Extremities: no cyanosis, no clubbing, no edema Microbiology Date/Time Source Procedure Growth Status 07/31/16 22:45 Blood Blood Culture - Preliminary Resulted 07/31/16 22:30 Blood Blood Culture - Preliminary Resulted 08/01/16 16:30 Sputum Expectorated Gram Stain - Final Resulted 08/01/16 16:30 Sputum Expectorated Sputum Culture - Preliminary Resulted 08/01/16 16:30 Urine,Clean Catch Urine Culture - Preliminary NO GROWTH Resulted Laboratory Tests 08/01/16 16:15: D-Dimer 5730H, Pro-B-Type Natriuretic Peptide 719H 08/02/16 03:45: Pro-B-Type Natriuretic Peptide 642H, White Blood Count 6.1, Red Blood Count 4.04L, Hemoglobin 12.1, Hematocrit 37.8, Mean Corpuscular Volume 94, Mean Corpuscular Hemoglobin 29.9, Mean Corpuscular Hemoglobin Concent 31.9L, Red Cell Distribution Width 13.8, Platelet Count 152, Mean Platelet Volume 8.7, Neutrophils (%) (Auto) 63.9, Lymphocytes (%) (Auto) 20.9, Monocytes (%) (Auto) 11.8H, Eosinophils (%) (Auto) 2.3, Basophils (%) (Auto) 1.2, Sodium Level 138, Potassium Level 3.7, Chloride Level 98, Carbon Dioxide Level 26, Anion Gap 14, Blood Urea Nitrogen 9, Creatinine 0.6, Estimat Glomerular Filtration Rate , Glucose Level 86, Calcium Level 8.7, Troponin I < 0.30, Thyroid Stimulating Hormone (TSH) 2.200, Free Thyroxine 1.17 Current Medications Medications (Trade) Dose Ordered Sig/Arabella Route PRN Reason Start Time Stop Time Status Last Admin Dose Admin Acetaminophen 650 mg 650 mg Q4H PRN RECTAL Fever/Headache/Mild Pain 08/01/16 09:30 08/31/16 09:29 08/01/16 10:04 Acetaminophen/ Hydrocodone Bitart ([place] 10/325) 1 ea Q6H PRN ORAL Pain Scale (6-10) 08/01/16 01:45 08/08/16 01:44 Albuterol/ Ipratropium (DuoNeb 0.5-3(2.5)mg/3ml) 3 ml Q4H PRN HHN Shortness of Breath 08/01/16 01:45 08/06/16 01:44 Azithromycin/ Dextrose (Zithromax/D5W 250ml) 250 ml @ 250 mls/hr Q24HRS IVPB 08/02/16 12:00 08/08/16 12:59 UNV Ceftriaxone Sodium/Dextrose (Rocephin/D5W 50ml) 50 ml @ 100 mls/hr Q24H IVPB 08/01/16 14:00 08/08/16 13:59 08/01/16 15:15 Clonidine HCl (Catapres) 0.1 mg Q6H PRN ORAL For High Blood Pressure 08/01/16 01:45 08/31/16 01:44 Dextrose (Dextrose 50%) STAT PRN IV Hypoglycemia 08/01/16 01:45 08/31/16 01:44 Diphenhydramine HCl (Benadryl) 25 mg Q6H PRN ORAL Itching/Pruritis 08/01/16 01:45 08/31/16 01:44 Docusate Sodium (Colace) 100 mg DAILY ORAL 08/01/16 09:00 08/31/16 08:59 08/02/16 08:34 Guaifenesin (Mucinex) 600 mg TWICE A DAY ORAL 08/01/16 18:00 08/31/16 17:59 08/02/16 08:44 Guaifenesin (Robitussin) 100 mg Q4H PRN ORAL For Cough 08/01/16 15:00 08/31/16 14:59 Heparin Sodium (Porcine) (Heparin 5000 units/ml) 5,000 units EVERY 12 HOURS SUBQ 08/01/16 09:00 08/31/16 08:59 08/02/16 08:46 Lorazepam (Ativan 2mg/ml 1ml) 1 mg Q4H PRN IV For Anxiety 08/01/16 13:45 08/08/16 13:44 08/01/16 18:56 Lorazepam (Ativan) 1 mg Q8H PRN ORAL For Anxiety 08/01/16 01:45 08/08/16 01:44 Losartan Potassium (Cozaar) 50 mg Q12HR ORAL 08/01/16 09:00 08/31/16 08:59 08/02/16 08:34 Pantoprazole (Protonix) 40 mg Q12H PRN ORAL Abdominal cramps 08/01/16 01:45 08/31/16 01:44 Vancomycin HCl 1 ea 1 ea DAILY PRN MISC Per rx protocol 08/02/16 12:00 09/01/16 11:59 ONUR GAMBLE M.D. Aug 02, 2016 12:52
[2016-08-02] MEDS: cefTRIAXone 1 GM in D5W 50 ML IVPB SCH (13:21)
--- NOTE | 2016-08-02 14:01 | Cardiology Report ---
APPROVED REPORT EKG Measurement Heart [id number] Normal sinus rhythm Low voltage QRS Cannot rule out Anterior infarct, age undetermined Abnormal ECG
--- NOTE | 2016-08-02 14:24 | General Progress Note ---
Assessment/Plan Assessment/Plan ASSESSMENT: #. DVT of the lower extremities - s/p ivc filter and in recent past on coumadin --> Will see if IVC filter can be removed since was placed here and patient now not bleeding and h/h are adequate #. Anemia potentially secondary to anemia of chronic disease versus hemodilution. Improved #. Leukocytosis. Improved #. Trochanteric fracture of the right femur status post open reduction and internal fixation and repair pending further evaluation. #. Sepsis. #. Acute posthemorrhagic anemia. #. PNA RECOMMENDATIONS: 1. Consider to restart coumadin if IVC removed 2. DVT ppx heparin 3. Goal INR 2-3 if coumadin restated 4. Consider removal of IVC filter 5. Continue antibiotics as needed 6. Transfuse if hemoglobin less than 7.5 7. Continue nutritional support. 8. Staff Thank you, Cabrera Hernandez MD Subjective Constitutional: Reports: no symptoms HEENT: Reports: no symptoms Cardiovascular: Reports: no symptoms Respiratory: Reports: no symptoms Gastrointestinal/Abdominal: Reports: poor appetite Genitourinary: Reports: no symptoms Neurologic/Psychiatric: Reports: no symptoms Endocrine: Reports: no symptoms Hematologic/Lymphatic: Reports: anemia Allergies: Coded Allergies: No Known Allergies (Unverified , 05/07/16) Subjective stable, no issues overnight Objective Last 24 Hour Vital Signs Date Time Temp Pulse Resp B/P Pulse Ox O2 Delivery O2 Flow Rate FiO2 08/02/16 12:00 98.2 86 20 130/74 94 Room Air 08/02/16 12:00 90 08/02/16 08:34 148/91 08/02/16 08:00 98.1 90 19 148/91 94 Room Air 08/02/16 08:00 86 08/02/16 04:00 85 08/02/16 04:00 97.3 82 22 138/97 96 Room Air 08/02/16 00:00 80 08/02/16 00:00 97.6 80 22 138/75 96 Room Air 08/01/16 22:17 142/80 08/01/16 20:00 98.4 87 22 142/80 95 Room Air 08/01/16 18:56 95 Nasal Cannula 2.0 08/01/16 18:56 88 18 Nasal Cannula 2.0 08/01/16 18:56 Nasal Cannula 2.0 08/01/16 16:17 Nasal Cannula 2.0 28 08/01/16 16:13 98.2 84 21 135/73 93 Room Air 3.0 08/01/16 16:00 81 Intake and Output 08/01/16 08/02/16 19:00 07:00 Intake Total 290 ml 0 ml Output Total 800 ml Balance 290 ml -800 ml Intake Oral 240 ml 0 ml IV Total 50 ml Output Urine Total 800 ml # Bowel Movements 2 2 Laboratory Tests 08/01/16 16:15: D-Dimer 5730H, Pro-B-Type Natriuretic Peptide 719H 08/02/16 03:45: Pro-B-Type Natriuretic Peptide 642H, White Blood Count 6.1, Red Blood Count 4.04L, Hemoglobin 12.1, Hematocrit 37.8, Mean Corpuscular Volume 94, Mean Corpuscular Hemoglobin 29.9, Mean Corpuscular Hemoglobin Concent 31.9L, Red Cell Distribution Width 13.8, Platelet Count 152, Mean Platelet Volume 8.7, Neutrophils (%) (Auto) 63.9, Lymphocytes (%) (Auto) 20.9, Monocytes (%) (Auto) 11.8H, Eosinophils (%) (Auto) 2.3, Basophils (%) (Auto) 1.2, Sodium Level 138, Potassium Level 3.7, Chloride Level 98, Carbon Dioxide Level 26, Anion Gap 14, Blood Urea Nitrogen 9, Creatinine 0.6, Estimat Glomerular Filtration Rate , Glucose Level 86, Calcium Level 8.7, Troponin I < 0.30, Thyroid Stimulating Hormone (TSH) 2.200, Free Thyroxine 1.17 Height (Feet): 5 Height (Inches): 6.00 Weight (Pounds): 140 General Appearance: no apparent distress EENT: TMs normal Neck: supple Cardiovascular: regular rhythm Respiratory/Chest: normal breath sounds Abdomen: soft Extremities: non-tender Edema: 1+ Leg (L), 1+ Leg (R) Edema: mild edema Neurologic: alert Cabrera Hernandez Aug 02, 2016 14:24
[2016-08-02 16:00] VITALS: BP 138/85
[2016-08-02] MEDS ORDERED: Vancomycin 1gm/D5W 250ml IVPB ONE ×2 (16:00)
--- NOTE | 2016-08-02 16:17 | Cardiac Electrophysiology PN ---
Assessment/Plan Assessment/Plan 1. Shortness of breath and tachycardia as well as D-dimer more than 5000 and bilateral LE DVT. Chest CT angiogram showed no pulmonary embolism I will order an EKG as well as echocardiogram to evaluate for ejection fraction and wall motion abnormality as well. 2. Hypertension. Continue Cozaar 50 mg b.i.d. and p.r.n. clonidine. 3. Pneumonia on ceftriaxone and albuterol. 4. Bilateral LE DVT Heparin drip per Dr. Barron. S/P IVC filter. MONIQUE RN Subjective Subjective Alert in NAD. No arrhythmia on tele. Objective Last 24 Hour Vital Signs Date Time Temp Pulse Resp B/P Pulse Ox O2 Delivery O2 Flow Rate FiO2 08/02/16 12:00 98.2 86 20 130/74 94 Room Air 08/02/16 12:00 90 08/02/16 08:34 148/91 08/02/16 08:00 98.1 90 19 148/91 94 Room Air 08/02/16 08:00 86 08/02/16 06:55 93 Nasal Cannula 2.0 08/02/16 06:55 Nasal Cannula 2.0 28 08/02/16 06:55 94 20 Nasal Cannula 2.0 28 08/02/16 04:00 85 08/02/16 04:00 97.3 82 22 138/97 96 Room Air 08/02/16 00:00 80 08/02/16 00:00 97.6 80 22 138/75 96 Room Air 08/01/16 22:17 142/80 08/01/16 20:00 98.4 87 22 142/80 95 Room Air 08/01/16 18:56 95 Nasal Cannula 2.0 08/01/16 18:56 88 18 Nasal Cannula 2.0 08/01/16 18:56 Nasal Cannula 2.0 28 08/01/16 16:17 Nasal Cannula 2.0 08/01/16 16:13 98.2 84 21 135/73 93 Room Air 3.0 Intake and Output 08/01/16 08/02/16 19:00 07:00 Intake Total 290 ml 0 ml Output Total 800 ml Balance 290 ml -800 ml Intake Oral 240 ml 0 ml IV Total 50 ml Output Urine Total 800 ml # Bowel Movements 2 2 Laboratory Tests Test 08/01/16 16:15 08/02/16 03:45 D-Dimer 5730 ng/mL (<500) H Pro-B-Type Natriuretic Peptide 719 pg/mL (0-450) H 642 pg/mL (0-450) H White Blood Count 6.1 K/UL (4.8-10.8) Red Blood Count 4.04 M/UL (4.20-5.40) L Hemoglobin 12.1 G/DL (12.0-16.0) Hematocrit 37.8 % (37.0-47.0) Mean Corpuscular Volume 94 FL (80-99) Mean Corpuscular Hemoglobin 29.9 PG (27.0-31.0) Mean Corpuscular Hemoglobin Concent 31.9 G/DL (32.0-36.0) L Red Cell Distribution Width 13.8 % (11.6-14.8) Platelet Count 152 K/UL (150-450) Mean Platelet Volume 8.7 FL (6.5-10.1) Neutrophils (%) (Auto) 63.9 % (45.0-75.0) Lymphocytes (%) (Auto) 20.9 % (20.0-45.0) Monocytes (%) (Auto) 11.8 % (1.0-10.0) H Eosinophils (%) (Auto) 2.3 % (0.0-3.0) Basophils (%) (Auto) 1.2 % (0.0-2.0) Sodium Level 138 mEQ/L (135-145) Potassium Level 3.7 mEQ/L (3.4-4.9) Chloride Level 98 mEQ/L (98-107) Carbon Dioxide Level 26 mEQ/L (20-30) Anion Gap 14 (5-15) Blood Urea Nitrogen 9 mg/dL (7-23) Creatinine 0.6 mg/dL (0.5-0.9) Estimat Glomerular Filtration Rate mL/min (>60) Glucose Level 86 mg/dL (74-106) Calcium Level 8.7 mg/dL (8.6-10.2) Troponin I < 0.30 ng/mL (<=0.30) Thyroid Stimulating Hormone (TSH) 2.200 uIU/mL (0.300-4.500) Free Thyroxine 1.17 ng/dL (0.86-1.85) Microbiology Date/Time Source Procedure Growth Status 07/31/16 22:45 Blood Blood Culture - Preliminary Resulted 07/31/16 22:30 Blood Blood Culture - Preliminary Resulted 08/01/16 16:30 Sputum Expectorated Gram Stain - Final Resulted 08/01/16 16:30 Sputum Expectorated Sputum Culture - Preliminary Resulted 08/01/16 16:30 Urine,Clean Catch Urine Culture - Preliminary NO GROWTH Resulted Objective HEAD AND NECK: Shows no JVD. LUNGS: Coarse rhonchi. CARDIOVASCULAR: Tachycardic S1 and S2 with no gallop or murmur. ABDOMEN: Soft. EXTREMITIES: No pitting edema. TURNER ALLAN Aug 02, 2016 16:17
[2016-08-02] MEDS: Enoxaparin 60mg Inj SUBQ SCH (17:50)
--- NOTE | 2016-08-02 18:26 | General Progress Note ---
Assessment/Plan Problem List: (1) Dyspnea ICD Codes: R06.00 - Dyspnea, unspecified SNOMED: 369339776 (2) Respiratory distress ICD Codes: R06.00 - Dyspnea, unspecified SNOMED: 130743466 (3) Congestive heart failure (CHF) ICD Codes: I50.9 - Heart failure, unspecified SNOMED: 55588784 (4) HCAP (healthcare-associated pneumonia) ICD Codes: J18.9 - Pneumonia, unspecified organism SNOMED: 464468435 Status: stable, progressing Assessment/Plan Pulmonary hygiene/mobilize as tolerated per pulmo Continue abx per ID Hematology F/U Has IVC filter, continue lovenox SQ Aspiration precautions AM labs Subjective ROS Limited/Unobtainable: Yes Allergies: Coded Allergies: No Known Allergies (Unverified , 05/07/16) Subjective Pt's daughter at bedside upset that the pt was discharged last visit without a chest xray, she stated that she had to bring the pt back to the hospital when she could not stop coughing at home and was short of breath, stated that she was very disappointed with the care Objective Last 24 Hour Vital Signs Date Time Temp Pulse Resp B/P Pulse Ox O2 Delivery O2 Flow Rate FiO2 08/02/16 16:00 98.6 92 14 138/85 95 08/02/16 16:00 89 08/02/16 12:00 98.2 86 20 130/74 94 Room Air 08/02/16 12:00 90 08/02/16 08:34 148/91 08/02/16 08:00 98.1 90 19 148/91 94 Room Air 08/02/16 08:00 86 08/02/16 06:55 93 Nasal Cannula 2.0 28 08/02/16 06:55 Nasal Cannula 2.0 28 08/02/16 06:55 94 20 Nasal Cannula 2.0 28 08/02/16 04:00 85 08/02/16 04:00 97.3 82 22 138/97 96 Room Air 08/02/16 00:00 80 08/02/16 00:00 97.6 80 22 138/75 96 Room Air 08/01/16 22:17 142/80 08/01/16 20:00 98.4 87 22 142/80 95 Room Air 08/01/16 18:56 95 Nasal Cannula 2.0 28 08/01/16 18:56 88 18 Nasal Cannula 2.0 28 08/01/16 18:56 Nasal Cannula 2.0 28 Intake and Output 08/01/16 08/02/16 19:00 07:00 Intake Total 290 ml 0 ml Output Total 800 ml Balance 290 ml -800 ml Intake Oral 240 ml 0 ml IV Total 50 ml Output Urine Total 800 ml # Bowel Movements 2 2 Laboratory Tests 08/02/16 03:45: White Blood Count 6.1, Red Blood Count 4.04L, Hemoglobin 12.1, Hematocrit 37.8, Mean Corpuscular Volume 94, Mean Corpuscular Hemoglobin 29.9, Mean Corpuscular Hemoglobin Concent 31.9L, Red Cell Distribution Width 13.8, Platelet Count 152, Mean Platelet Volume 8.7, Neutrophils (%) (Auto) 63.9, Lymphocytes (%) (Auto) 20.9, Monocytes (%) (Auto) 11.8H, Eosinophils (%) (Auto) 2.3, Basophils (%) ( Auto) 1.2, Sodium Level 138, Potassium Level 3.7, Chloride Level 98, Carbon Dioxide Level 26, Anion Gap 14, Blood Urea Nitrogen 9, Creatinine 0.6, Estimat Glomerular Filtration Rate , Glucose Level 86, Calcium Level 8.7, Troponin I < 0.30, Pro-B-Type Natriuretic Peptide 642H, Thyroid Stimulating Hormone (TSH) 2.200, Free Thyroxine 1.17 Height (Feet): 5 Height (Inches): 6.00 Weight (Pounds): 140 General Appearance: no apparent distress, confused EENT: normal ENT inspection, TMs normal Neck: non-tender, normal alignment, supple, normal inspection Cardiovascular: normal rate, regular rhythm Respiratory/Chest: decreased breath sounds Abdomen: normal bowel sounds, non tender, soft, no organomegaly, no mass Pelvis: normal external exam Extremities: non-tender, normal inspection, no calf tenderness Neurologic: disoriented Skin: normal pigmentation, warm/dry Hellen Eaton N.P. Aug 02, 2016 18:26
[2016-08-02 20:00] VITALS: BP 167/91
[2016-08-03] VITALS (7 sets, daily range): BP systolic 124–161; BP diastolic 74–89
[2016-08-03 05:14] LABS: BASOPHILS % (AUTO) 2.1 % (0.0-2.0); EOSINOPHILS % (AUTO) 0.8 % (0.0-3.0); LYMPHOCYTES % (AUTO) 24.9 % (20.0-45.0); MEAN CORPUSCULAR HEMOGLOBIN 30.4 PG (27.0-31.0); MEAN CORPUSCULAR HGB CONC 33.1 G/DL (32.0-36.0); MEAN CORPUSCULAR VOLUME 92 FL (80-99); MEAN PLATELET VOLUME 7.8 FL (6.5-10.1); NEUTROPHILS % (AUTO) 57.3 % (45.0-75.0); PLATELET COUNT 128 K/UL (150-450); RED BLOOD COUNT 4.08 M/UL (4.20-5.40); RED CELL DISTRIBUTION WIDTH 13.1 % (11.6-14.8); WHITE BLOOD COUNT 5.2 K/UL (4.8-10.8)
[2016-08-03] MEDS: Enoxaparin 60mg Inj SUBQ SCH ×2 (06:14→17:44)
[2016-08-03 06:23] LABS: ANION GAP 12 (5-15); CALCIUM 8.8 mg/dL (8.6-10.2); CARBON DIOXIDE 29 mEQ/L (20-30); CHLORIDE 101 mEQ/L (98-107); CREATININE 0.7 mg/dL (0.5-0.9); HEMOLYSIS 4; POTASSIUM 3.3 mEQ/L (3.4-4.9); SODIUM 142 mEQ/L (135-145)
--- NOTE | 2016-08-03 07:48 | Infectious Diseases Prog Note ---
Assessment/Plan Assessment/Plan ASSESSMENT: 86-year-old female with: CONS bacteremia 11/05 r/o SBE, septic thrombophlebitis Pneumonia ?septic emboli - SCx Strep Chest CT: Diffuse bilateral interstitial disease, possibly with micro- nodularity, disseminated inflammatory lesions a possibility. UTI , probable - UCx(-) Fever - resolved, no leukocytosis Acute BLE DVT SP IVC filter CVA. History of brain aneurysm. Dementia. NKDA Full Code PLAN: Cont IV Rocephin d # 3, azithro, IV Vanco d# 2 Monitor blood cultures (blood, urine and sputum) - repeat blood cultures, check TTE Chest x-ray. Monitor CBC and BMP Subjective Allergies: Coded Allergies: No Known Allergies (Unverified , 05/07/16) Subjective fevers resolved Objective Vital Signs Last 24 Hour Vital Signs Date Time Temp Pulse Resp B/P Pulse Ox O2 Delivery O2 Flow Rate FiO2 08/03/16 04:00 91 08/03/16 04:00 97.2 84 20 158/79 95 Nasal Cannula 3.0 08/03/16 00:18 98.1 94 20 161/89 93 Room Air 08/03/16 00:00 94 08/02/16 20:58 167/91 08/02/16 20:00 90 08/02/16 20:00 98.2 91 26 167/91 95 Nasal Cannula 3.0 08/02/16 19:11 Nasal Cannula 2.0 28 08/02/16 19:11 95 Nasal Cannula 2.0 28 08/02/16 19:10 92 20 Nasal Cannula 2.0 28 08/02/16 16:00 98.6 92 14 138/85 95 08/02/16 16:00 89 08/02/16 12:00 98.2 86 20 130/74 94 Room Air 08/02/16 12:00 90 08/02/16 08:34 148/91 08/02/16 08:00 98.1 90 19 148/91 94 Room Air 08/02/16 08:00 86 Height (Feet): 5 Height (Inches): 6.00 Weight (Pounds): 140 General Appearance: no acute distress Respiratory/Chest: no respiratory distress Cardiovascular: normal rate, regular rhythm Abdomen: normal bowel sounds, soft, non tender, non distended Microbiology Date/Time Source Procedure Growth Status 07/31/16 22:45 Blood Blood Culture - Preliminary Staphylococcus Sp Coag Neg Resulted 07/31/16 22:30 Blood Blood Culture - Preliminary Staphylococcus Sp Coag Neg Resulted 08/01/16 16:30 Sputum Expectorated Gram Stain - Final Resulted 08/01/16 16:30 Sputum Culture - Preliminary Strep Species, Alpha Hemolytic Resulted 08/01/16 00:00 Nasal Nares MRSA Culture - Final NO METHICILLIN RESISTANT STAPH AUREUS... Complete 08/01/16 16:30 Urine,Clean Catch Urine Culture - Final NO GROWTH AFTER 48 HOURS Complete Laboratory Tests Test 08/03/16 04:30 White Blood Count 5.2 K/UL (4.8-10.8) Red Blood Count 4.08 M/UL (4.20-5.40) L Hemoglobin 12.4 G/DL (12.0-16.0) Hematocrit 37.5 % (37.0-47.0) Mean Corpuscular Volume 92 FL (80-99) Mean Corpuscular Hemoglobin 30.4 PG (27.0-31.0) Mean Corpuscular Hemoglobin Concent 33.1 G/DL (32.0-36.0) Red Cell Distribution Width 13.1 % (11.6-14.8) Platelet Count 128 K/UL (150-450) L Mean Platelet Volume 7.8 FL (6.5-10.1) Neutrophils (%) (Auto) 57.3 % (45.0-75.0) Lymphocytes (%) (Auto) 24.9 % (20.0-45.0) Monocytes (%) (Auto) 15.0 % (1.0-10.0) H Eosinophils (%) (Auto) 0.8 % (0.0-3.0) Basophils (%) (Auto) 2.1 % (0.0-2.0) H Sodium Level 142 mEQ/L (135-145) Potassium Level 3.3 mEQ/L (3.4-4.9) L Chloride Level 101 mEQ/L (98-107) Carbon Dioxide Level 29 mEQ/L (20-30) Anion Gap 12 (5-15) Blood Urea Nitrogen 6 mg/dL (7-23) L Creatinine 0.7 mg/dL (0.5-0.9) Estimat Glomerular Filtration Rate mL/min (>60) Glucose Level 102 mg/dL (74-106) Calcium Level 8.8 mg/dL (8.6-10.2) Current Medications Medications (Trade) Dose Ordered Sig/[place]ella Route PRN Reason Start Time Stop Time Status Last Admin Dose Admin Acetaminophen 650 mg 650 mg Q4H PRN RECTAL Fever/Headache/Mild Pain 08/01/16 09:30 08/31/16 09:29 08/01/16 10:04 Acetaminophen/ Hydrocodone Bitart ([place] 10/325) 1 ea Q6H PRN ORAL Pain Scale (6-10) 08/01/16 01:45 08/08/16 01:44 Albuterol/ Ipratropium (DuoNeb 0.5-3(2.5)mg/3ml) 3 ml Q4H PRN HHN Shortness of Breath 08/01/16 01:45 08/06/16 01:44 Azithromycin 500 mg/Dextrose 250 ml @ 250 mls/hr Q24HRS IV 08/02/16 15:00 08/08/16 15:59 08/02/16 15:12 Ceftriaxone Sodium/Dextrose (Rocephin/D5W 50ml) 50 ml @ 100 mls/hr Q24H IVPB 08/01/16 14:00 08/08/16 13:59 08/02/16 13:21 Clonidine HCl (Catapres) 0.1 mg Q6H PRN ORAL For High Blood Pressure 08/01/16 01:45 08/31/16 01:44 Dextrose (Dextrose 50%) STAT PRN IV Hypoglycemia 08/01/16 01:45 08/31/16 01:44 Diphenhydramine HCl (Benadryl) 25 mg Q6H PRN ORAL Itching/Pruritis 08/01/16 01:45 08/31/16 01:44 Docusate Sodium (Colace) 100 mg DAILY ORAL 08/01/16 09:00 08/31/16 08:59 08/02/16 08:34 Enoxaparin Sodium (Lovenox) 60 mg Q12HR@0600,1800 SUBQ 08/02/16 18:00 09/01/16 17:59 08/03/16 06:14 Guaifenesin (Mucinex) 600 mg TWICE A DAY ORAL 08/01/16 18:00 08/31/16 17:59 08/02/16 17:51 Guaifenesin (Robitussin) 100 mg Q4H PRN ORAL For Cough 08/01/16 15:00 08/31/16 14:59 Lorazepam (Ativan 2mg/ml 1ml) 1 mg Q4H PRN IV For Anxiety 08/01/16 13:45 08/08/16 13:44 08/01/16 18:56 Lorazepam (Ativan) 1 mg Q8H PRN ORAL For Anxiety 08/01/16 01:45 08/08/16 01:44 Losartan Potassium (Cozaar) 50 mg Q12HR ORAL 08/01/16 09:00 08/31/16 08:59 08/02/16 20:58 Pantoprazole (Protonix) 40 mg Q12H PRN ORAL Abdominal cramps 08/01/16 01:45 08/31/16 01:44 Vancomycin HCl 1 ea 1 ea DAILY PRN MISC Per rx protocol 08/02/16 12:00 09/01/16 11:59 Vancomycin HCl/ Dextrose (Vancomycin/D5W 250ml) 250 ml @ 167 mls/hr Q24H IVPB 08/03/16 16:00 08/08/16 15:59 FAISAL ALVARADO Aug 03, 2016 07:48
[2016-08-03] MEDS: Losartan 50mg tab ORAL SCH ×3 (09:00→22:05)
[2016-08-03] MEDS: Docusate 100mg cap ORAL SCH (09:00)
[2016-08-03] MEDS: guaiFENesin 600mg tab ORAL SCH ×3 (09:00→17:42)
[2016-08-03] MEDS: LORazepam Inj 2mg/ml 1ml IV PRN ×2 (09:17→18:19)
--- NOTE | 2016-08-03 11:47 | Nephrology Progress Note ---
Assessment/Plan Problem List: (1) Gram positive bacterial infection (2) Congestive heart failure (CHF) (3) Respiratory distress (4) HCAP (healthcare-associated pneumonia) (5) Dyspnea (6) Alzheimer's dementia (7) Dysphagia (8) CVA (cerebral vascular accident) (9) HTN (hypertension) Plan cont abx per ID. cardio following. tx to [place]. Subjective Subjective sleeping. had dose of ativan earlier for agitation. Objective Objective Last 24 Hour Vital Signs Date Time Temp Pulse Resp B/P Pulse Ox O2 Delivery O2 Flow Rate FiO2 08/03/16 08:18 Nasal Cannula 3.0 32 08/03/16 08:18 94 Nasal Cannula 3.0 32 08/03/16 08:17 90 20 Nasal Cannula 3.0 32 08/03/16 08:00 98.4 84 18 152/84 94 Nasal Cannula 3.0 08/03/16 08:00 83 08/03/16 04:00 91 08/03/16 04:00 97.2 84 20 158/79 95 Nasal Cannula 3.0 08/03/16 00:18 98.1 94 20 161/89 93 Room Air 08/03/16 00:00 94 08/02/16 20:58 167/91 08/02/16 20:00 90 08/02/16 20:00 98.2 91 26 167/91 95 Nasal Cannula 3.0 08/02/16 19:11 Nasal Cannula 2.0 28 08/02/16 19:11 95 Nasal Cannula 2.0 28 08/02/16 19:10 92 20 Nasal Cannula 2.0 28 08/02/16 16:00 98.6 92 14 138/85 95 08/02/16 16:00 89 08/02/16 12:00 98.2 86 20 130/74 94 Room Air 08/02/16 12:00 90 Intake and Output 08/02/16 08/03/16 19:00 07:00 Intake Total 580 ml 350 ml Output Total 600 ml 825 ml Balance -20 ml -475 ml Intake Oral 280 ml 350 ml IV Total 300 ml Output Urine Total 600 ml 825 ml # Bowel Movements 1 2 Laboratory Tests 08/03/16 04:30: White Blood Count 5.2, Red Blood Count 4.08L, Hemoglobin 12.4, Hematocrit 37.5, Mean Corpuscular Volume 92, Mean Corpuscular Hemoglobin 30.4, Mean Corpuscular Hemoglobin Concent 33.1, Red Cell Distribution Width 13.1, Platelet Count 128L, Mean Platelet Volume 7.8, Neutrophils (%) (Auto) 57.3, Lymphocytes (%) (Auto) 24.9, Monocytes (%) (Auto) 15.0H, Eosinophils (%) (Auto) 0.8, Basophils (%) ( Auto) 2.1H, Sodium Level 142, Potassium Level 3.3L, Chloride Level 101, Carbon Dioxide Level 29, Anion Gap 12, Blood Urea Nitrogen 6L, Creatinine 0.7, Estimat Glomerular Filtration Rate , Glucose Level 102, Calcium Level 8.8 Height (Feet): 5 Height (Inches): 6.00 Weight (Pounds): 140 General Appearance: no apparent distress Cardiovascular: normal rate, regular rhythm Respiratory/Chest: rhonchi - bilaterally Abdomen: non tender, soft Extremities: trace edema Neurologic: disoriented GONZALEZ ROSALES Aug 03, 2016 11:47
--- NOTE | 2016-08-03 12:27 | General Progress Note ---
Assessment/Plan Assessment/Plan ASSESSMENT: #. DVT of the lower extremities - s/p ivc filter and in recent past on coumadin --> IVC not removable #. Anemia potentially secondary to anemia of chronic disease versus hemodilution. Improved #. Leukocytosis. Improved #. Trochanteric fracture of the right femur status post open reduction and internal fixation and repair pending further evaluation. #. Sepsis. #. Acute posthemorrhagic anemia. #. PNA RECOMMENDATIONS: 1. Start coumadin 2. DVT ppx lovenox 3. Goal INR 2-3 4. Continue antibiotics as needed 5. Transfuse if hemoglobin less than 7.5 6. Continue nutritional support. 7. Staff Thank you, Cabrera Hernandez MD Subjective Constitutional: Reports: no symptoms HEENT: Reports: no symptoms Cardiovascular: Reports: no symptoms Respiratory: Reports: no symptoms Gastrointestinal/Abdominal: Reports: poor appetite Genitourinary: Reports: no symptoms Neurologic/Psychiatric: Reports: no symptoms Endocrine: Reports: no symptoms Hematologic/Lymphatic: Reports: anemia Allergies: Coded Allergies: No Known Allergies (Unverified , 05/07/16) Subjective stable, not bleeding Objective Last 24 Hour Vital Signs Date Time Temp Pulse Resp B/P Pulse Ox O2 Delivery O2 Flow Rate FiO2 08/03/16 11:48 97.9 89 20 140/86 94 Nasal Cannula 3.0 08/03/16 08:18 Nasal Cannula 3.0 32 08/03/16 08:18 94 Nasal Cannula 3.0 32 08/03/16 08:17 90 20 Nasal Cannula 3.0 32 08/03/16 08:00 98.4 84 18 152/84 94 Nasal Cannula 3.0 08/03/16 08:00 83 08/03/16 04:00 91 08/03/16 04:00 97.2 84 20 158/79 95 Nasal Cannula 3.0 08/03/16 00:18 98.1 94 20 161/89 93 Room Air 08/03/16 00:00 94 08/02/16 20:58 167/91 08/02/16 20:00 90 08/02/16 20:00 98.2 91 26 167/91 95 Nasal Cannula 3.0 08/02/16 19:11 Nasal Cannula 2.0 28 08/02/16 19:11 95 Nasal Cannula 2.0 28 08/02/16 19:10 92 20 Nasal Cannula 2.0 28 08/02/16 16:00 98.6 92 14 138/85 95 08/02/16 16:00 89 Intake and Output 08/02/16 08/03/16 19:00 07:00 Intake Total 580 ml 350 ml Output Total 600 ml 825 ml Balance -20 ml -475 ml Intake Oral 280 ml 350 ml IV Total 300 ml Output Urine Total 600 ml 825 ml # Bowel Movements 1 2 Laboratory Tests 08/03/16 04:30: White Blood Count 5.2, Red Blood Count 4.08L, Hemoglobin 12.4, Hematocrit 37.5, Mean Corpuscular Volume 92, Mean Corpuscular Hemoglobin 30.4, Mean Corpuscular Hemoglobin Concent 33.1, Red Cell Distribution Width 13.1, Platelet Count 128L, Mean Platelet Volume 7.8, Neutrophils (%) (Auto) 57.3, Lymphocytes (%) (Auto) 24.9, Monocytes (%) (Auto) 15.0H, Eosinophils (%) (Auto) 0.8, Basophils (%) ( Auto) 2.1H, Sodium Level 142, Potassium Level 3.3L, Chloride Level 101, Carbon Dioxide Level 29, Anion Gap 12, Blood Urea Nitrogen 6L, Creatinine 0.7, Estimat Glomerular Filtration Rate , Glucose Level 102, Calcium Level 8.8 Height (Feet): 5 Height (Inches): 6.00 Weight (Pounds): 140 General Appearance: no apparent distress EENT: TMs normal Neck: supple Cardiovascular: regular rhythm Respiratory/Chest: lungs clear Abdomen: no mass Extremities: non-tender Edema: no edema noted Leg (L), no edema noted Leg (R) Edema: mild edema Neurologic: alert Skin: warm/dry Cabrera Hernandez Aug 03, 2016 12:27
[2016-08-03] MEDS: KCl 10% 20 mEq/15ml liquid ORAL SCH ×2 (12:37→17:41)
[2016-08-03] MEDS: cefTRIAXone 1 GM in D5W 50 ML IVPB SCH (13:47)
[2016-08-03 13:49] LABS: INR 1.1 (0.9-1.1); PROTHROMBIN TIME 11.3 SEC (9.30-11.50)
[2016-08-03] MEDS: guaiFENesin 100mg/5ml Liq ud ORAL PRN ×2 (13:57→22:06)
--- NOTE | 2016-08-03 14:31 | Pulmonology Progress Note ---
Assessment/Plan Problems: (1) HCAP (healthcare-associated pneumonia) (2) Alzheimer's dementia (3) HTN (hypertension) (4) DVT (deep venous thrombosis) (5) Gram positive bacterial infection Assessment & Plan: ? contaminant Assessment/Plan -Optimize pulmonary hygiene/mobilize as tolerated -PRN O2 -PRN nebs -Continue abx per ID, F/U repeat CX's -Monitor volumes -Has IVC filter, now on LMWH + VKA per heme-onc -Diet per [employer] with STRICT aspiration precautions -F/U cards recs and TTE - If negative for IE will likely need DM -Full code Subjective Allergies: Coded Allergies: No Known Allergies (Unverified , 05/07/16) Subjective AFVSS, on 2-3 L O2, no cough, + SOB Was agitated earlier, now sleepy Started on Coumadin per heme, IVC filter not retrievable Objective Last 24 Hour Vital Signs Date Time Temp Pulse Resp B/P Pulse Ox O2 Delivery O2 Flow Rate FiO2 08/03/16 11:48 97.9 89 20 140/86 94 Nasal Cannula 3.0 08/03/16 08:18 Nasal Cannula 3.0 32 08/03/16 08:18 94 Nasal Cannula 3.0 32 08/03/16 08:17 90 20 Nasal Cannula 3.0 32 08/03/16 08:00 98.4 84 18 152/84 94 Nasal Cannula 3.0 08/03/16 08:00 83 08/03/16 04:00 91 08/03/16 04:00 97.2 84 20 158/79 95 Nasal Cannula 3.0 08/03/16 00:18 98.1 94 20 161/89 93 Room Air 08/03/16 00:00 94 08/02/16 20:58 167/91 08/02/16 20:00 90 08/02/16 20:00 98.2 91 26 167/91 95 Nasal Cannula 3.0 08/02/16 19:11 Nasal Cannula 2.0 28 08/02/16 19:11 95 Nasal Cannula 2.0 28 08/02/16 19:10 92 20 Nasal Cannula 2.0 28 08/02/16 16:00 98.6 92 14 138/85 95 08/02/16 16:00 89 Intake and Output 08/02/16 08/03/16 19:00 07:00 Intake Total 580 ml 350 ml Output Total 600 ml 825 ml Balance -20 ml -475 ml Intake Oral 280 ml 350 ml IV Total 300 ml Output Urine Total 600 ml 825 ml # Bowel Movements 1 2 General Appearance: no acute distress, cachetic, other - frail elderly female HEENT: normocephalic, atraumatic, mucous membranes moist Respiratory/Chest: chest wall non-tender, lungs clear, rhonchi - scattered faint Cardiovascular: normal peripheral pulses, normal rate, regular rhythm Abdomen: normal bowel sounds, soft, non tender, no organomegaly, non distended Extremities: no cyanosis, no clubbing, no edema Microbiology Date/Time Source Procedure Growth Status 07/31/16 22:45 Blood Blood Culture - Preliminary Staphylococcus Sp Coag Neg Resulted 07/31/16 22:30 Blood Blood Culture - Preliminary Staphylococcus Sp Coag Neg Resulted 08/01/16 16:30 Sputum Expectorated Gram Stain - Final Resulted 08/01/16 16:30 Sputum Culture - Preliminary Strep Species, Alpha Hemolytic Resulted 08/01/16 00:00 Nasal Nares MRSA Culture - Final NO METHICILLIN RESISTANT STAPH AUREUS... Complete 08/01/16 16:30 Urine,Clean Catch Urine Culture - Final NO GROWTH AFTER 48 HOURS Complete Laboratory Tests 08/03/16 04:30: White Blood Count 5.2, Red Blood Count 4.08L, Hemoglobin 12.4, Hematocrit 37.5, Mean Corpuscular Volume 92, Mean Corpuscular Hemoglobin 30.4, Mean Corpuscular Hemoglobin Concent 33.1, Red Cell Distribution Width 13.1, Platelet Count 128L, Mean Platelet Volume 7.8, Neutrophils (%) (Auto) 57.3, Lymphocytes (%) (Auto) 24.9, Monocytes (%) (Auto) 15.0H, Eosinophils (%) (Auto) 0.8, Basophils (%) ( Auto) 2.1H, Sodium Level 142, Potassium Level 3.3L, Chloride Level 101, Carbon Dioxide Level 29, Anion Gap 12, Blood Urea Nitrogen 6L, Creatinine 0.7, Estimat Glomerular Filtration Rate , Glucose Level 102, Calcium Level 8.8 08/03/16 13:30: Prothrombin Time 11.3, Prothromb Time International Ratio 1.1 Current Medications Medications (Trade) Dose Ordered Sig/Arabella Route PRN Reason Start Time Stop Time Status Last Admin Dose Admin Acetaminophen 650 mg 650 mg Q4H PRN RECTAL Fever/Headache/Mild Pain 08/01/16 09:30 08/31/16 09:29 08/01/16 10:04 Acetaminophen/ Hydrocodone Bitart ([place] [address]) 1 ea Q6H PRN ORAL Pain Scale (6-10) 08/01/16 01:45 08/08/16 01:44 Albuterol/ Ipratropium (DuoNeb 0.5-3(2.5)mg/3ml) 3 ml Q4H PRN HHN Shortness of Breath 08/01/16 01:45 08/06/16 01:44 Azithromycin 500 mg/Dextrose 250 ml @ 250 mls/hr Q24HRS IV 08/02/16 15:00 08/08/16 15:59 08/02/16 15:12 Ceftriaxone Sodium/Dextrose (Rocephin/D5W 50ml) 50 ml @ 100 mls/hr Q24H IVPB 08/01/16 14:00 08/08/16 13:59 08/03/16 13:47 Clonidine HCl (Catapres) 0.1 mg Q6H PRN ORAL For High Blood Pressure 08/01/16 01:45 08/31/16 01:44 Dextrose (Dextrose 50%) STAT PRN IV Hypoglycemia 08/01/16 01:45 08/31/16 01:44 Diphenhydramine HCl (Benadryl) 25 mg Q6H PRN ORAL Itching/Pruritis 08/01/16 01:45 08/31/16 01:44 Docusate Sodium (Colace) 100 mg DAILY ORAL 08/01/16 09:00 08/31/16 08:59 08/02/16 08:34 Enoxaparin Sodium (Lovenox) 60 mg Q12HR@0600,1800 SUBQ 08/02/16 18:00 09/01/16 17:59 08/03/16 06:14 Guaifenesin (Mucinex) 600 mg TWICE A DAY ORAL 08/01/16 18:00 08/31/16 17:59 08/02/16 17:51 Guaifenesin (Robitussin) 100 mg Q4H PRN ORAL For Cough 08/01/16 15:00 08/31/16 14:59 08/03/16 13:57 Lorazepam (Ativan 2mg/ml 1ml) 1 mg Q4H PRN IV For Anxiety 08/01/16 13:45 08/08/16 13:44 08/03/16 09:17 Lorazepam (Ativan) 1 mg Q8H PRN ORAL For Anxiety 08/01/16 01:45 08/08/16 01:44 Losartan Potassium (Cozaar) 50 mg Q12HR ORAL 08/01/16 09:00 08/31/16 08:59 08/02/16 20:58 Pantoprazole (Protonix) 40 mg Q12H PRN ORAL Abdominal cramps 08/01/16 01:45 08/31/16 01:44 Potassium Chloride (KCl 10% 20 mEq oral solution) 20 meq TWICE A DAY ORAL 08/03/16 12:00 09/02/16 11:59 08/03/16 12:37 Vancomycin HCl 1 ea 1 ea DAILY PRN MISC Per rx protocol 08/02/16 12:00 09/01/16 11:59 Vancomycin HCl/ Dextrose (Vancomycin/D5W 250ml) 250 ml @ 167 mls/hr Q24H IVPB 08/03/16 16:00 08/08/16 15:59 Warfarin Sodium (Coumadin per pharmacy) 1 ea DAILY PRN MISC Per rx protocol 08/03/16 12:30 09/02/16 12:29 ONUR RAINES M.D. Aug 03, 2016 14:31
--- NOTE | 2016-08-03 14:37 | Diagnostic Imaging Report ---
Indication: Shortness of breath Technique: One view of the chest Comparison: 07/20/2016 Findings: Interstitium appears slightly less prominent, may reflect improving bronchitis or interstitial edema. There is still some central bronchial wall thickening which is probably chronic. No acute consolidation. No effusions. The heart size is normal. Aorta is tortuous and calcified. Impression: No acute process. Findings as noted
--- NOTE | 2016-08-03 15:19 | Cardiac Electrophysiology PN ---
Assessment/Plan Assessment/Plan 1. Shortness of breath, tachycardia as well as D-dimer more than 5000 and bilateral LE DVT. Chest CT angiogram showed no pulmonary embolism. Echo pending. 2. Hypertension. Continue Cozaar 50 mg b.i.d. and p.r.n. clonidine. 3. Pneumonia on ceftriaxone and albuterol. 4. Bilateral LE DVT on Lovenox and coumadin per Dr. Barron. S/P IVC filter. DW RN Subjective Subjective No events overnight. Comfortable. No arrhythmia on tele. Objective Last 24 Hour Vital Signs Date Time Temp Pulse Resp B/P Pulse Ox O2 Delivery O2 Flow Rate FiO2 08/03/16 11:48 97.9 89 20 140/86 94 Nasal Cannula 3.0 08/03/16 08:18 Nasal Cannula 3.0 32 08/03/16 08:18 94 Nasal Cannula 3.0 32 08/03/16 08:17 90 20 Nasal Cannula 3.0 32 08/03/16 08:00 98.4 84 18 152/84 94 Nasal Cannula 3.0 08/03/16 08:00 83 08/03/16 04:00 91 08/03/16 04:00 97.2 84 20 158/79 95 Nasal Cannula 3.0 08/03/16 00:18 98.1 94 20 161/89 93 Room Air 08/03/16 00:00 94 08/02/16 20:58 167/91 08/02/16 20:00 90 08/02/16 20:00 98.2 91 26 167/91 95 Nasal Cannula 3.0 08/02/16 19:11 Nasal Cannula 2.0 28 08/02/16 19:11 95 Nasal Cannula 2.0 28 08/02/16 19:10 92 20 Nasal Cannula 2.0 28 08/02/16 16:00 98.6 92 14 138/85 95 08/02/16 16:00 89 Intake and Output 08/02/16 08/03/16 19:00 07:00 Intake Total 580 ml 350 ml Output Total 600 ml 825 ml Balance -20 ml -475 ml Intake Oral 280 ml 350 ml IV Total 300 ml Output Urine Total 600 ml 825 ml # Bowel Movements 1 2 Laboratory Tests Test 08/03/16 04:30 08/03/16 13:30 White Blood Count 5.2 K/UL (4.8-10.8) Red Blood Count 4.08 M/UL (4.20-5.40) L Hemoglobin 12.4 G/DL (12.0-16.0) Hematocrit 37.5 % (37.0-47.0) Mean Corpuscular Volume 92 FL (80-99) Mean Corpuscular Hemoglobin 30.4 PG (27.0-31.0) Mean Corpuscular Hemoglobin Concent 33.1 G/DL (32.0-36.0) Red Cell Distribution Width 13.1 % (11.6-14.8) Platelet Count 128 K/UL (150-450) L Mean Platelet Volume 7.8 FL (6.5-10.1) Neutrophils (%) (Auto) 57.3 % (45.0-75.0) Lymphocytes (%) (Auto) 24.9 % (20.0-45.0) Monocytes (%) (Auto) 15.0 % (1.0-10.0) H Eosinophils (%) (Auto) 0.8 % (0.0-3.0) Basophils (%) (Auto) 2.1 % (0.0-2.0) H Sodium Level 142 mEQ/L (135-145) Potassium Level 3.3 mEQ/L (3.4-4.9) L Chloride Level 101 mEQ/L (98-107) Carbon Dioxide Level 29 mEQ/L (20-30) Anion Gap 12 (5-15) Blood Urea Nitrogen 6 mg/dL (7-23) L Creatinine 0.7 mg/dL (0.5-0.9) Estimat Glomerular Filtration Rate mL/min (>60) Glucose Level 102 mg/dL (74-106) Calcium Level 8.8 mg/dL (8.6-10.2) Prothrombin Time 11.3 SEC (9.30-11.50) Prothromb Time International Ratio 1.1 (0.9-1.1) Microbiology Date/Time Source Procedure Growth Status 07/31/16 22:45 Blood Blood Culture - Preliminary Staphylococcus Sp Coag Neg Resulted 07/31/16 22:30 Blood Blood Culture - Preliminary Staphylococcus Sp Coag Neg Resulted 08/01/16 16:30 Sputum Expectorated Gram Stain - Final Resulted 08/01/16 16:30 Sputum Culture - Preliminary Strep Species, Alpha Hemolytic Resulted 08/01/16 00:00 Nasal Nares MRSA Culture - Final NO METHICILLIN RESISTANT STAPH AUREUS... Complete 08/01/16 16:30 Urine,Clean Catch Urine Culture - Final NO GROWTH AFTER 48 HOURS Complete Objective HEAD AND NECK: Shows no JVD. LUNGS: Coarse rhonchi. CARDIOVASCULAR: Tachycardic S1 and S2 with no gallop or murmur. ABDOMEN: Soft. EXTREMITIES: No pitting edema. TURNER ALLAN Aug 03, 2016 15:19
[2016-08-03] MEDS: Vancomycin 750mg/D5W 250ml IVPB SCH ×2 (16:27)
[2016-08-03] MEDS ORDERED: Tubing IV Secondary IV ONE ×2 (17:26→17:29)
[2016-08-03] MEDS ORDERED: NS 275ml ONE (17:29)
[2016-08-04 04:00] VITALS: BP 148/75
[2016-08-04 05:36] LABS: ANION GAP 11 (5-15); CALCIUM 8.8 mg/dL (8.6-10.2); CARBON DIOXIDE 29 mEQ/L (20-30); CHLORIDE 102 mEQ/L (98-107); CREATININE 0.6 mg/dL (0.5-0.9); HEMOLYSIS 10; POTASSIUM 4.2 mEQ/L (3.4-4.9); SODIUM 142 mEQ/L (135-145)
[2016-08-04 05:38] LABS: INR 1.1 (0.9-1.1); PROTHROMBIN TIME 11.2 SEC (9.30-11.50)
[2016-08-04] MEDS: Enoxaparin 60mg Inj SUBQ SCH ×2 (06:45→17:13)
[2016-08-04] MEDS: guaiFENesin 100mg/5ml Liq ud ORAL PRN ×2 (06:45→12:36)
--- NOTE | 2016-08-04 07:29 | Infectious Diseases Prog Note ---
Assessment/Plan Assessment/Plan ASSESSMENT: 86-year-old female with: CONS bacteremia 11/05 r/o SBE, septic thrombophlebitis - repeat BCx, TTE pending Pneumonia ?septic emboli - SCx Strep Chest CT: Diffuse bilateral interstitial disease, possibly with micro- nodularity, disseminated inflammatory lesions a possibility. UTI , probable - UCx(-) Fever - resolved, no leukocytosis Acute BLE DVT SP IVC filter CVA. History of brain aneurysm. Dementia. NKDA Full Code PLAN: Cont IV Rocephin d # 4, azithro, IV Vanco d# 3 f/u TTE Monitor blood cultures (blood, sputum) Chest x-ray. Monitor CBC and BMP Subjective Allergies: Coded Allergies: No Known Allergies (Unverified , 05/07/16) Subjective fevers resolved Objective Vital Signs Last 24 Hour Vital Signs Date Time Temp Pulse Resp B/P Pulse Ox O2 Delivery O2 Flow Rate FiO2 08/04/16 06:52 Nasal Cannula 2.5 08/04/16 06:51 97 Nasal Cannula 2.5 08/04/16 06:50 76 20 Nasal Cannula 2.5 08/04/16 04:00 97.7 81 22 148/75 95 Nasal Cannula 3.0 08/03/16 23:00 98.2 82 20 133/75 97 Nasal Cannula 3.0 08/03/16 22:05 150/70 08/03/16 20:00 99.1 89 22 151/77 95 Nasal Cannula 3.0 08/03/16 20:00 89 08/03/16 19:49 94 Nasal Cannula 3.0 32 08/03/16 19:49 Nasal Cannula 3.0 32 08/03/16 19:48 95 20 Nasal Cannula 3.0 32 08/03/16 16:00 85 08/03/16 16:00 97.7 89 22 124/74 95 Nasal Cannula 3.0 08/03/16 11:48 97.9 89 20 140/86 94 Nasal Cannula 3.0 08/03/16 08:18 Nasal Cannula 3.0 32 08/03/16 08:18 94 Nasal Cannula 3.0 32 08/03/16 08:17 90 20 Nasal Cannula 3.0 32 08/03/16 08:00 98.4 84 18 152/84 94 Nasal Cannula 3.0 08/03/16 08:00 83 Height (Feet): 5 Height (Inches): 6.00 Weight (Pounds): 140 General Appearance: no acute distress Respiratory/Chest: no respiratory distress Cardiovascular: normal rate, regular rhythm Abdomen: normal bowel sounds, soft, non tender, non distended Microbiology Date/Time Source Procedure Growth Status 08/01/16 16:30 Sputum Expectorated Gram Stain - Final Resulted 08/01/16 16:30 Sputum Culture - Preliminary Strep Species, Alpha Hemolytic Resulted 08/01/16 16:30 Urine,Clean Catch Urine Culture - Final NO GROWTH AFTER 48 HOURS Complete Laboratory Tests Test 08/03/16 13:30 08/04/16 03:40 Prothrombin Time 11.3 SEC (9.30-11.50) 11.2 SEC (9.30-11.50) Prothromb Time International Ratio 1.1 (0.9-1.1) 1.1 (0.9-1.1) Sodium Level 142 mEQ/L (135-145) Potassium Level 4.2 mEQ/L (3.4-4.9) Chloride Level 102 mEQ/L (98-107) Carbon Dioxide Level 29 mEQ/L (20-30) Anion Gap 11 (5-15) Blood Urea Nitrogen 5 mg/dL (7-23) L Creatinine 0.6 mg/dL (0.5-0.9) Estimat Glomerular Filtration Rate mL/min (>60) Glucose Level 102 mg/dL (74-106) Calcium Level 8.8 mg/dL (8.6-10.2) Current Medications Medications (Trade) Dose Ordered Sig/Arabella Route PRN Reason Start Time Stop Time Status Last Admin Dose Admin Acetaminophen 650 mg 650 mg Q4H PRN RECTAL Fever/Headache/Mild Pain 08/01/16 09:30 08/31/16 09:29 08/01/16 10:04 Acetaminophen/ Hydrocodone Bitart ([place] 10/325) 1 ea Q6H PRN ORAL Pain Scale (6-10) 08/01/16 01:45 08/08/16 01:44 Albuterol/ Ipratropium (DuoNeb 0.5-3(2.5)mg/3ml) 3 ml Q4H PRN HHN Shortness of Breath 08/01/16 01:45 08/06/16 01:44 Azithromycin 500 mg/Dextrose 250 ml @ 250 mls/hr Q24HRS IV 08/02/16 15:00 08/08/16 15:59 08/03/16 14:37 Ceftriaxone Sodium/Dextrose (Rocephin/D5W 50ml) 50 ml @ 100 mls/hr Q24H IVPB 08/01/16 14:00 08/08/16 13:59 08/03/16 13:47 Clonidine HCl (Catapres) 0.1 mg Q6H PRN ORAL For High Blood Pressure 08/01/16 01:45 08/31/16 01:44 Dextrose (Dextrose 50%) STAT PRN IV Hypoglycemia 08/01/16 01:45 08/31/16 01:44 Diphenhydramine HCl (Benadryl) 25 mg Q6H PRN ORAL Itching/Pruritis 08/01/16 01:45 08/31/16 01:44 Docusate Sodium (Colace) 100 mg DAILY ORAL 08/01/16 09:00 08/31/16 08:59 08/02/16 08:34 Enoxaparin Sodium (Lovenox) 60 mg Q12HR@0600,1800 SUBQ 08/02/16 18:00 09/01/16 17:59 08/04/16 06:45 Guaifenesin (Mucinex) 600 mg TWICE A DAY ORAL 08/01/16 18:00 08/31/16 17:59 08/03/16 17:42 Guaifenesin (Robitussin) 100 mg Q4H PRN ORAL For Cough 08/01/16 15:00 08/31/16 14:59 08/04/16 06:45 Lorazepam (Ativan 2mg/ml 1ml) 1 mg Q4H PRN IV For Anxiety 08/01/16 13:45 08/08/16 13:44 08/03/16 18:19 Lorazepam (Ativan) 1 mg Q8H PRN ORAL For Anxiety 08/01/16 01:45 08/08/16 01:44 Losartan Potassium (Cozaar) 50 mg Q12HR ORAL 08/01/16 09:00 08/31/16 08:59 08/03/16 22:05 Pantoprazole (Protonix) 40 mg Q12H PRN ORAL Abdominal cramps 08/01/16 01:45 08/31/16 01:44 Potassium Chloride (KCl 10% 20 mEq oral solution) 20 meq TWICE A DAY ORAL 08/03/16 12:00 09/02/16 11:59 08/03/16 17:41 Vancomycin HCl 1 ea 1 ea DAILY PRN MISC Per rx protocol 08/02/16 12:00 09/01/16 11:59 Vancomycin HCl/ Dextrose (Vancomycin/D5W 250ml) 250 ml @ 167 mls/hr Q24H IVPB 08/03/16 16:00 08/08/16 15:59 08/03/16 16:27 Warfarin Sodium (Coumadin per pharmacy) 1 ea DAILY PRN MISC Per rx protocol 08/03/16 12:30 09/02/16 12:29 Warfarin Sodium (Coumadin) 4 mg COUMADIN ONCE PO 08/04/16 18:30 08/04/16 18:31 FAISAL ALVARADO Aug 04, 2016 07:29
[2016-08-04 08:07] VITALS: BP 148/79
[2016-08-04] MEDS: guaiFENesin 600mg tab ORAL SCH ×2 (08:09→17:13)
[2016-08-04] MEDS: Losartan 50mg tab ORAL SCH ×2 (08:09→20:49)
[2016-08-04] MEDS: Docusate 100mg cap ORAL SCH (08:10)
[2016-08-04] MEDS ORDERED: Warfarin Sodium 4mg PO ONE ×2 (09:30→18:30)
--- NOTE | 2016-08-04 09:59 | General Progress Note ---
Assessment/Plan Assessment/Plan ASSESSMENT: #. DVT of the lower extremities - s/p ivc filter and in recent past on coumadin --> IVC not removable #. Anemia potentially secondary to anemia of chronic disease versus hemodilution. Improved #. Leukocytosis. Improved #. Trochanteric fracture of the right femur status post open reduction and internal fixation and repair pending further evaluation. #. Sepsis. #. s/p posthemorrhagic anemia. #. PNA RECOMMENDATIONS: 1. Continue coumadin 2. DVT ppx lovenox 3. Goal INR 2-3 4. Continue antibiotics as needed 5. Transfuse if hemoglobin < 7.5 6. Continue nutritional support. 7. Staff Thank you, Holden Hernandez MD Subjective Constitutional: Reports: no symptoms HEENT: Reports: no symptoms Cardiovascular: Reports: no symptoms Respiratory: Reports: no symptoms Gastrointestinal/Abdominal: Reports: poor appetite, poor fluid intake Genitourinary: Reports: no symptoms Neurologic/Psychiatric: Reports: no symptoms Endocrine: Reports: no symptoms Hematologic/Lymphatic: Reports: anemia Allergies: Coded Allergies: No Known Allergies (Unverified , 05/07/16) Subjective stable, no fevers or chills, no bleeding Objective Last 24 Hour Vital Signs Date Time Temp Pulse Resp B/P Pulse Ox O2 Delivery O2 Flow Rate FiO2 08/04/16 08:09 148/79 08/04/16 08:07 97.7 75 20 148/79 98 Nasal Cannula 3.0 08/04/16 08:00 74 08/04/16 06:52 Nasal Cannula 2.5 08/04/16 06:51 97 Nasal Cannula 2.5 08/04/16 06:50 76 20 Nasal Cannula 2.5 08/04/16 04:00 85 08/04/16 04:00 97.7 81 22 148/75 95 Nasal Cannula 3.0 08/03/16 23:00 98.2 82 20 133/75 97 Nasal Cannula 3.0 08/03/16 22:05 150/70 08/03/16 20:00 99.1 89 22 151/77 95 Nasal Cannula 3.0 08/03/16 20:00 89 08/03/16 19:49 94 Nasal Cannula 3.0 32 08/03/16 19:49 Nasal Cannula 3.0 32 08/03/16 19:48 95 20 Nasal Cannula 3.0 32 08/03/16 16:00 85 08/03/16 16:00 97.7 89 22 124/74 95 Nasal Cannula 3.0 08/03/16 11:48 97.9 89 20 140/86 94 Nasal Cannula 3.0 Intake and Output 08/03/16 08/04/16 19:00 07:00 Intake Total 1054 ml 75 ml Output Total 750 ml 725 ml Balance 304 ml -650 ml Intake Oral 420 ml 75 ml IV Total 634 ml Output Urine Total 750 ml 725 ml # Bowel Movements 4 3 Laboratory Tests 08/03/16 13:30: Prothrombin Time 11.3, Prothromb Time International Ratio 1.1 08/04/16 03:40: Prothrombin Time 11.2, Prothromb Time International Ratio 1.1, Sodium Level 142 , Potassium Level 4.2, Chloride Level 102, Carbon Dioxide Level 29, Anion Gap 11 , Blood Urea Nitrogen 5L, Creatinine 0.6, Estimat Glomerular Filtration Rate , Glucose Level 102, Calcium Level 8.8 Height (Feet): 5 Height (Inches): 6.00 Weight (Pounds): 140 General Appearance: no apparent distress EENT: TMs normal Neck: supple Cardiovascular: regular rhythm Respiratory/Chest: normal breath sounds Abdomen: non tender Extremities: normal range of motion Edema: 1+ Leg (L), 1+ Leg (R) Edema: mild edema Neurologic: alert Skin: warm/dry HOLDEN HERNANDEZ Aug 04, 2016 09:59
[2016-08-04 11:26] LABS: BASOPHILS % (AUTO) 1.5 % (0.0-2.0); EOSINOPHILS % (AUTO) 4.2 % (0.0-3.0); LYMPHOCYTES % (AUTO) 26.7 % (20.0-45.0); MEAN CORPUSCULAR HEMOGLOBIN 29.2 PG (27.0-31.0); MEAN CORPUSCULAR HGB CONC 30.8 G/DL (32.0-36.0); MEAN CORPUSCULAR VOLUME 95 FL (80-99); MEAN PLATELET VOLUME 7.1 FL (6.5-10.1); MONOCYTES % (AUTO) 18.7 % (1.0-10.0); PLATELET COUNT 144 K/UL (150-450); RED CELL DISTRIBUTION WIDTH 12.9 % (11.6-14.8); WHITE BLOOD COUNT 4.7 K/UL (4.8-10.8)
[2016-08-04 12:00] VITALS: BP 143/57
[2016-08-04] MEDS: cefTRIAXone 1 GM in D5W 50 ML IVPB SCH (13:42)
--- NOTE | 2016-08-04 13:46 | Pulmonology Progress Note ---
Assessment/Plan Problems: (1) HCAP (healthcare-associated pneumonia) (2) Alzheimer's dementia (3) HTN (hypertension) (4) DVT (deep venous thrombosis) (5) Gram positive bacterial infection Assessment & Plan: ? contaminant Assessment/Plan -Optimize pulmonary hygiene/mobilize as tolerated -PRN O2 -PRN nebs -Continue abx per ID, F/U repeat CX's -Monitor volumes -Has IVC filter, now on LMWH + VKA per heme-onc -Diet per [employer] with STRICT aspiration precautions -F/U cards recs and TTE - If negative for IE will likely need DM -Full code Subjective Allergies: Coded Allergies: No Known Allergies (Unverified , 05/07/16) Subjective AFVSS, on 2-3 L O2, no cough, no sig SOB Mood better Objective Last 24 Hour Vital Signs Date Time Temp Pulse Resp B/P Pulse Ox O2 Delivery O2 Flow Rate FiO2 08/04/16 12:00 71 08/04/16 12:00 97.5 78 22 143/57 97 Nasal Cannula 3.0 08/04/16 08:09 148/79 08/04/16 08:07 97.7 75 20 148/79 98 Nasal Cannula 3.0 08/04/16 08:00 74 08/04/16 06:52 Nasal Cannula 2.5 08/04/16 06:51 97 Nasal Cannula 2.5 08/04/16 06:50 76 20 Nasal Cannula 2.5 08/04/16 04:00 85 08/04/16 04:00 97.7 81 22 148/75 95 Nasal Cannula 3.0 08/03/16 23:00 98.2 82 20 133/75 97 Nasal Cannula 3.0 08/03/16 22:05 150/70 08/03/16 20:00 99.1 89 22 151/77 95 Nasal Cannula 3.0 08/03/16 20:00 89 08/03/16 19:49 94 Nasal Cannula 3.0 32 08/03/16 19:49 Nasal Cannula 3.0 32 08/03/16 19:48 95 20 Nasal Cannula 3.0 32 08/03/16 16:00 85 08/03/16 16:00 97.7 89 22 124/74 95 Nasal Cannula 3.0 Intake and Output 08/03/16 08/04/16 19:00 07:00 Intake Total 1054 ml 75 ml Output Total 750 ml 725 ml Balance 304 ml -650 ml Intake Oral 420 ml 75 ml IV Total 634 ml Output Urine Total 750 ml 725 ml # Bowel Movements 4 3 General Appearance: no acute distress, cachetic HEENT: normocephalic, mucous membranes moist Respiratory/Chest: chest wall non-tender, lungs clear, normal breath sounds, no respiratory distress Cardiovascular: normal peripheral pulses, normal rate, regular rhythm Abdomen: normal bowel sounds, soft, non tender, no organomegaly, non distended Extremities: no cyanosis, no clubbing, no edema Microbiology Date/Time Source Procedure Growth Status 08/01/16 16:30 Sputum Expectorated Gram Stain - Final Complete 08/01/16 16:30 Sputum Expectorated Sputum Culture - Final NORMAL UPPER RESPIRATORY VIKASH AT 48 ... Complete 08/01/16 16:30 Urine,Clean Catch Urine Culture - Final NO GROWTH AFTER 48 HOURS Complete Laboratory Tests 08/04/16 03:40: Prothrombin Time 11.2, Prothromb Time International Ratio 1.1, Sodium Level 142 , Potassium Level 4.2, Chloride Level 102, Carbon Dioxide Level 29, Anion Gap 11 , Blood Urea Nitrogen 5L, Creatinine 0.6, Estimat Glomerular Filtration Rate , Glucose Level 102, Calcium Level 8.8 08/04/16 11:20: White Blood Count 4.7L, Red Blood Count 4.20, Hemoglobin 12.2, Hematocrit 39.7, Mean Corpuscular Volume 95, Mean Corpuscular Hemoglobin 29.2, Mean Corpuscular Hemoglobin Concent 30.8L, Red Cell Distribution Width 12.9, Platelet Count 144L , Mean Platelet Volume 7.1, Neutrophils (%) (Auto) 49.0, Lymphocytes (%) (Auto) 26.7, Monocytes (%) (Auto) 18.7H, Eosinophils (%) (Auto) 4.2H, Basophils (%) ( Auto) 1.5 Current Medications Medications (Trade) Dose Ordered Sig/Arabella Route PRN Reason Start Time Stop Time Status Last Admin Dose Admin Acetaminophen 650 mg 650 mg Q4H PRN RECTAL Fever/Headache/Mild Pain 08/01/16 09:30 08/31/16 09:29 08/01/16 10:04 Acetaminophen/ Hydrocodone Bitart ([place] 10/325) 1 ea Q6H PRN ORAL Pain Scale (6-10) 08/01/16 01:45 08/08/16 01:44 Albuterol/ Ipratropium (DuoNeb 0.5-3(2.5)mg/3ml) 3 ml Q4H PRN HHN Shortness of Breath 08/01/16 01:45 08/06/16 01:44 Azithromycin 500 mg/Dextrose 250 ml @ 250 mls/hr Q24HRS IV 08/02/16 15:00 08/08/16 15:59 08/03/16 14:37 Ceftriaxone Sodium/Dextrose (Rocephin/D5W 50ml) 50 ml @ 100 mls/hr Q24H IVPB 08/01/16 14:00 08/08/16 13:59 08/04/16 13:42 Clonidine HCl (Catapres) 0.1 mg Q6H PRN ORAL For High Blood Pressure 08/01/16 01:45 08/31/16 01:44 Dextrose (Dextrose 50%) STAT PRN IV Hypoglycemia 08/01/16 01:45 08/31/16 01:44 Diphenhydramine HCl (Benadryl) 25 mg Q6H PRN ORAL Itching/Pruritis 08/01/16 01:45 08/31/16 01:44 Docusate Sodium (Colace) 100 mg DAILY ORAL 08/01/16 09:00 08/31/16 08:59 08/02/16 08:34 Enoxaparin Sodium (Lovenox) 60 mg Q12HR@0600,1800 SUBQ 08/02/16 18:00 09/01/16 17:59 08/04/16 06:45 Guaifenesin (Mucinex) 600 mg TWICE A DAY ORAL 08/01/16 18:00 08/31/16 17:59 08/04/16 08:09 Guaifenesin (Robitussin) 100 mg Q4H PRN ORAL For Cough 08/01/16 15:00 08/31/16 14:59 08/04/16 12:36 Lorazepam (Ativan 2mg/ml 1ml) 1 mg Q4H PRN IV For Anxiety 08/01/16 13:45 08/08/16 13:44 08/03/16 18:19 Lorazepam (Ativan) 1 mg Q8H PRN ORAL For Anxiety 08/01/16 01:45 08/08/16 01:44 Losartan Potassium (Cozaar) 50 mg Q12HR ORAL 08/01/16 09:00 08/31/16 08:59 08/04/16 08:09 Pantoprazole (Protonix) 40 mg Q12H PRN ORAL Abdominal cramps 08/01/16 01:45 08/31/16 01:44 Vancomycin HCl 1 ea 1 ea DAILY PRN MISC Per rx protocol 08/02/16 12:00 09/01/16 11:59 Vancomycin HCl/ Dextrose (Vancomycin/D5W 250ml) 250 ml @ 167 mls/hr Q24H IVPB 08/03/16 16:00 08/08/16 15:59 08/03/16 16:27 Warfarin Sodium (Coumadin per pharmacy) 1 ea DAILY PRN MISC Per rx protocol 08/03/16 12:30 09/02/16 12:29 ONUR RAINES M.D. Aug 04, 2016 13:46
[2016-08-04 16:00] VITALS: BP 138/73
[2016-08-04] MEDS: Vancomycin 750mg/D5W 250ml IVPB SCH ×2 (16:16)
[2016-08-04 20:00] VITALS: BP 150/78
[2016-08-04] MEDS ORDERED: Acetaminophen 650 MG SUPP RECTAL PRN (21:30)
[2016-08-04] MEDS ORDERED: DuoNeb 0.5-3(2.5)mg/3ml neb HHN PRN (21:45)
--- NOTE | 2016-08-04 22:38 | Nephrology Progress Note ---
Assessment/Plan Problem List: (1) Hypokalemia (2) DVT (deep venous thrombosis) (3) HTN (hypertension) (4) Alzheimer's dementia (5) Dysphagia (6) Depression (7) CVA (cerebral vascular accident) (8) Brain aneurysm (9) HCAP (healthcare-associated pneumonia) (10) Dyspnea (11) Congestive heart failure (CHF) (12) Gram positive bacterial infection Plan abx per ID. pulm hygiene. psych consult. Subjective Subjective transferred to AL. stable. confused and agitated. Objective Objective Last 24 Hour Vital Signs Date Time Temp Pulse Resp B/P Pulse Ox O2 Delivery O2 Flow Rate FiO2 08/04/16 20:49 130/68 08/04/16 20:00 97.8 85 18 150/78 98 Room Air 08/04/16 16:55 71 08/04/16 16:00 97.9 88 22 138/73 97 Nasal Cannula 2.0 08/04/16 12:00 71 08/04/16 12:00 97.5 78 22 143/57 97 Nasal Cannula 3.0 08/04/16 08:09 148/79 08/04/16 08:07 97.7 75 20 148/79 98 Nasal Cannula 3.0 08/04/16 08:00 74 08/04/16 06:52 Nasal Cannula 2.5 08/04/16 06:51 97 Nasal Cannula 2.5 08/04/16 06:50 76 20 Nasal Cannula 2.5 08/04/16 04:00 85 08/04/16 04:00 97.7 81 22 148/75 95 Nasal Cannula 3.0 08/03/16 23:00 98.2 82 20 133/75 97 Nasal Cannula 3.0 Intake and Output 08/03/16 08/04/16 19:00 07:00 Intake Total 1054 ml 75 ml Output Total 750 ml 725 ml Balance 304 ml -650 ml Intake Oral 420 ml 75 ml IV Total 634 ml Output Urine Total 750 ml 725 ml # Bowel Movements 4 3 Laboratory Tests 08/04/16 03:40: Prothrombin Time 11.2, Prothromb Time International Ratio 1.1, Sodium Level 142 , Potassium Level 4.2, Chloride Level 102, Carbon Dioxide Level 29, Anion Gap 11 , Blood Urea Nitrogen 5L, Creatinine 0.6, Estimat Glomerular Filtration Rate , Glucose Level 102, Calcium Level 8.8 08/04/16 11:20: White Blood Count 4.7L, Red Blood Count 4.20, Hemoglobin 12.2, Hematocrit 39.7, Mean Corpuscular Volume 95, Mean Corpuscular Hemoglobin 29.2, Mean Corpuscular Hemoglobin Concent 30.8L, Red Cell Distribution Width 12.9, Platelet Count 144L , Mean Platelet Volume 7.1, Neutrophils (%) (Auto) 49.0, Lymphocytes (%) (Auto) 26.7, Monocytes (%) (Auto) 18.7H, Eosinophils (%) (Auto) 4.2H, Basophils (%) ( Auto) 1.5 Height (Feet): 5 Height (Inches): 6.00 Weight (Pounds): 140 General Appearance: no apparent distress Cardiovascular: normal rate, regular rhythm Respiratory/Chest: decreased breath sounds Abdomen: non tender, soft Extremities: trace edema Neurologic: alert RISHABH PETERSON Aug 04, 2016 22:38
[2016-08-05] VITALS: BP 147/77
[2016-08-05] MEDS ORDERED: LORazepam 1mg tab ORAL PRN (01:45)
[2016-08-05 04:00] VITALS: BP 147/84
[2016-08-05 05:48] LABS: INR 1.1 (0.9-1.1); PROTHROMBIN TIME 11.6 SEC (9.30-11.50)
[2016-08-05] MEDS: Enoxaparin 60mg Inj SUBQ SCH ×2 (06:00→18:00)
[2016-08-05 08:00] VITALS: BP 161/85
--- NOTE | 2016-08-05 08:55 | Infectious Diseases Prog Note ---
Assessment/Plan Assessment/Plan ASSESSMENT: 86-year-old female with: CONS bacteremia 11/05 r/o SBE, septic thrombophlebitis - repeat BCx NGTD, TTE pending Pneumonia ?septic emboli - SCx NRF Chest CT: Diffuse bilateral interstitial disease, possibly with micro- nodularity, disseminated inflammatory lesions a possibility. UTI , probable - UCx(-) Fever - resolved, no leukocytosis Acute BLE DVT SP IVC filter CVA. History of brain aneurysm. Dementia. NKDA Full Code PLAN: Cont IV Rocephin d # 5, azithro, IV Vanco d# 4 f/u TTE Monitor blood cultures (blood) Chest x-ray. Monitor CBC and BMP Subjective Allergies: Coded Allergies: No Known Allergies (Unverified , 05/07/16) Subjective fevers resolved transferred 4E Objective Vital Signs Last 24 Hour Vital Signs Date Time Temp Pulse Resp B/P Pulse Ox O2 Delivery O2 Flow Rate FiO2 08/05/16 04:00 97.7 88 18 147/84 97 Room Air 08/05/16 00:00 97.7 76 18 147/77 99 Room Air 08/04/16 20:49 130/68 08/04/16 20:00 97.8 85 18 150/78 98 Room Air 08/04/16 16:55 71 08/04/16 16:00 97.9 88 22 138/73 97 Nasal Cannula 2.0 08/04/16 12:00 71 08/04/16 12:00 97.5 78 22 143/57 97 Nasal Cannula 3.0 Height (Feet): 5 Height (Inches): 6.00 Weight (Pounds): 140 General Appearance: no acute distress Respiratory/Chest: no respiratory distress Cardiovascular: normal rate, regular rhythm Abdomen: normal bowel sounds, soft, non tender, non distended Microbiology Date/Time Source Procedure Growth Status 08/03/16 10:15 Blood Blood Culture - Preliminary NO GROWTH AFTER 24 HOURS Resulted 08/03/16 10:00 Blood Blood Culture - Preliminary NO GROWTH AFTER 24 HOURS Resulted Laboratory Tests Test 08/04/16 11:20 08/05/16 04:15 White Blood Count 4.7 K/UL (4.8-10.8) L Red Blood Count 4.20 M/UL (4.20-5.40) Hemoglobin 12.2 G/DL (12.0-16.0) Hematocrit 39.7 % (37.0-47.0) Mean Corpuscular Volume 95 FL (80-99) Mean Corpuscular Hemoglobin 29.2 PG (27.0-31.0) Mean Corpuscular Hemoglobin Concent 30.8 G/DL (32.0-36.0) L Red Cell Distribution Width 12.9 % (11.6-14.8) Platelet Count 144 K/UL (150-450) L Mean Platelet Volume 7.1 FL (6.5-10.1) Neutrophils (%) (Auto) 49.0 % (45.0-75.0) Lymphocytes (%) (Auto) 26.7 % (20.0-45.0) Monocytes (%) (Auto) 18.7 % (1.0-10.0) H Eosinophils (%) (Auto) 4.2 % (0.0-3.0) H Basophils (%) (Auto) 1.5 % (0.0-2.0) Prothrombin Time 11.6 SEC (9.30-11.50) H Prothromb Time International Ratio 1.1 (0.9-1.1) Current Medications Medications (Trade) Dose Ordered Sig/Arabella Route PRN Reason Start Time Stop Time Status Last Admin Dose Admin Acetaminophen (Tylenol) 650 mg Q4H PRN RECTAL Fever/Headache/Mild Pain 08/04/16 21:30 09/03/16 21:29 Acetaminophen/ Hydrocodone Bitart ([place] 10/325) 1 ea Q6H PRN ORAL Pain Scale (6-10) 08/04/16 19:45 08/11/16 19:44 Albuterol/ Ipratropium (DuoNeb 0.5-3(2.5)mg/3ml) 3 ml Q4H PRN HHN Shortness of Breath 08/04/16 21:45 08/09/16 21:44 Azithromycin 500 mg/Dextrose 250 ml @ 250 mls/hr Q24HRS IV 08/05/16 15:00 08/08/16 15:01 Ceftriaxone Sodium 1 gm/ Dextrose 50 ml @ 100 mls/hr Q24H IVPB 08/05/16 14:00 08/12/16 13:59 Clonidine HCl (Catapres) 0.1 mg Q6H PRN ORAL For High Blood Pressure 08/04/16 19:45 09/03/16 19:44 Dextrose (Dextrose 50%) STAT PRN IV Hypoglycemia 08/05/16 01:45 09/04/16 01:44 Diphenhydramine HCl (Benadryl) 25 mg Q6H PRN ORAL Itching/Pruritis 08/04/16 19:45 09/03/16 19:44 Docusate Sodium (Colace) 100 mg DAILY ORAL 08/05/16 09:00 09/04/16 08:59 Enoxaparin Sodium (Lovenox) 60 mg Q12HR@0600,1800 SUBQ 08/05/16 06:00 09/04/16 05:59 Guaifenesin (Mucinex) 600 mg TWICE A DAY ORAL 08/05/16 09:00 09/04/16 08:59 Guaifenesin (Robitussin) 100 mg Q4H PRN ORAL For Cough 08/04/16 19:00 09/03/16 18:59 Lorazepam (Ativan 2mg/ml 1ml) 1 mg Q4H PRN IV For Anxiety 08/04/16 21:45 08/11/16 21:44 Lorazepam (Ativan) 1 mg Q8H PRN ORAL For Anxiety 08/05/16 01:45 08/12/16 01:44 Losartan Potassium (Cozaar) 50 mg Q12HR ORAL 08/04/16 21:00 09/03/16 20:59 08/04/16 20:49 Pantoprazole (Protonix) 40 mg Q12H PRN ORAL Abdominal cramps 08/05/16 01:45 09/04/16 01:44 Vancomycin HCl (Vanco rx to dose) 1 ea DAILY PRN MISC Per rx protocol 08/05/16 09:00 09/04/16 08:59 Vancomycin HCl/ Dextrose (Vancomycin/D5W 250ml) 250 ml @ 167 mls/hr Q24H IVPB 08/05/16 16:00 08/10/16 15:59 Warfarin Sodium (Coumadin per pharmacy) 1 ea DAILY PRN MISC Per rx protocol 08/05/16 09:00 09/04/16 08:59 FAISAL ALVARADO Aug 05, 2016 08:55
[2016-08-05] MEDS ORDERED: guaiFENesin 600mg tab ORAL SCH (09:00)
--- NOTE | 2016-08-05 09:13 | Pulmonology Progress Note ---
Assessment/Plan Problems: (1) HCAP (healthcare-associated pneumonia) (2) Alzheimer's dementia (3) HTN (hypertension) (4) DVT (deep venous thrombosis) (5) Gram positive bacterial infection Assessment & Plan: ? contaminant Assessment/Plan -Optimize pulmonary hygiene/mobilize as tolerated -PRN O2 -PRN nebs -Continue abx per ID, F/U repeat CX's -Monitor volumes -Has IVC filter, now on LMWH + VKA per heme-onc (INR 1.1) -Diet per [employer] with STRICT aspiration precautions -F/U cards recs and TTE - If negative for IE will likely need DM -Full code Subjective Allergies: Coded Allergies: No Known Allergies (Unverified , 05/07/16) Subjective AFVSS Now on RA No cough, no sig SOB Mood better Objective Last 24 Hour Vital Signs Date Time Temp Pulse Resp B/P Pulse Ox O2 Delivery O2 Flow Rate FiO2 08/05/16 04:00 97.7 88 18 147/84 97 Room Air 08/05/16 00:00 97.7 76 18 147/77 99 Room Air 08/04/16 20:49 130/68 08/04/16 20:00 97.8 85 18 150/78 98 Room Air 08/04/16 16:55 71 08/04/16 16:00 97.9 88 22 138/73 97 Nasal Cannula 2.0 08/04/16 12:00 71 08/04/16 12:00 97.5 78 22 143/57 97 Nasal Cannula 3.0 Intake and Output 08/04/16 08/05/16 19:00 07:00 Intake Total 820 ml 100 ml Output Total 175 ml 850 ml Balance 645 ml -750 ml Intake Oral 270 ml 100 ml IV Total 550 ml Output Urine Total 175 ml 850 ml # Bowel Movements 2 1 General Appearance: no acute distress, cachetic, other - confused HEENT: normocephalic, atraumatic, mucous membranes moist Respiratory/Chest: lungs clear, normal breath sounds, no respiratory distress Cardiovascular: normal peripheral pulses, normal rate, regular rhythm Abdomen: normal bowel sounds, soft, non tender, no organomegaly, non distended Extremities: no cyanosis, no clubbing, no edema Microbiology Date/Time Source Procedure Growth Status 08/03/16 10:15 Blood Blood Culture - Preliminary NO GROWTH AFTER 24 HOURS Resulted 08/03/16 10:00 Blood Blood Culture - Preliminary NO GROWTH AFTER 24 HOURS Resulted Laboratory Tests 08/04/16 11:20: White Blood Count 4.7L, Red Blood Count 4.20, Hemoglobin 12.2, Hematocrit 39.7, Mean Corpuscular Volume 95, Mean Corpuscular Hemoglobin 29.2, Mean Corpuscular Hemoglobin Concent 30.8L, Red Cell Distribution Width 12.9, Platelet Count 144L , Mean Platelet Volume 7.1, Neutrophils (%) (Auto) 49.0, Lymphocytes (%) (Auto) 26.7, Monocytes (%) (Auto) 18.7H, Eosinophils (%) (Auto) 4.2H, Basophils (%) ( Auto) 1.5 08/05/16 04:15: Prothrombin Time 11.6H, Prothromb Time International Ratio 1.1 Current Medications Medications (Trade) Dose Ordered Sig/Arab[place] Route PRN Reason Start Time Stop Time Status Last Admin Dose Admin Acetaminophen (Tylenol) 650 mg Q4H PRN RECTAL Fever/Headache/Mild Pain 08/04/16 21:30 09/03/16 21:29 Acetaminophen/ Hydrocodone Bitart ([place] 10/325) 1 ea Q6H PRN ORAL Pain Scale (6-10) 08/04/16 19:45 08/11/16 19:44 Albuterol/ Ipratropium (DuoNeb 0.5-3(2.5)mg/3ml) 3 ml Q4H PRN HHN Shortness of Breath 08/04/16 21:45 08/09/16 21:44 Azithromycin 500 mg/Dextrose 250 ml @ 250 mls/hr Q24HRS IV 08/05/16 15:00 08/08/16 15:01 Ceftriaxone Sodium 1 gm/ Dextrose 50 ml @ 100 mls/hr Q24H IVPB 08/05/16 14:00 08/12/16 13:59 Clonidine HCl (Catapres) 0.1 mg Q6H PRN ORAL For High Blood Pressure 08/04/16 19:45 09/03/16 19:44 Dextrose (Dextrose 50%) STAT PRN IV Hypoglycemia 08/05/16 01:45 09/04/16 01:44 Diphenhydramine HCl (Benadryl) 25 mg Q6H PRN ORAL Itching/Pruritis 08/04/16 19:45 09/03/16 19:44 Docusate Sodium (Colace) 100 mg DAILY ORAL 08/05/16 09:00 09/04/16 08:59 Enoxaparin Sodium (Lovenox) 60 mg Q12HR@0600,1800 SUBQ 08/05/16 06:00 09/04/16 05:59 Guaifenesin (Mucinex) 600 mg TWICE A DAY ORAL 08/05/16 09:00 09/04/16 08:59 Guaifenesin (Robitussin) 100 mg Q4H PRN ORAL For Cough 08/04/16 19:00 09/03/16 18:59 Lorazepam (Ativan 2mg/ml 1ml) 1 mg Q4H PRN IV For Anxiety 08/04/16 21:45 08/11/16 21:44 Lorazepam (Ativan) 1 mg Q8H PRN ORAL For Anxiety 08/05/16 01:45 08/12/16 01:44 Losartan Potassium (Cozaar) 50 mg Q12HR ORAL 08/04/16 21:00 09/03/16 20:59 08/04/16 20:49 Pantoprazole (Protonix) 40 mg Q12H PRN ORAL Abdominal cramps 08/05/16 01:45 09/04/16 01:44 Vancomycin HCl (Vanco rx to dose) 1 ea DAILY PRN MISC Per rx protocol 08/05/16 09:00 09/04/16 08:59 Vancomycin HCl/ Dextrose (Vancomycin/D5W 250ml) 250 ml @ 167 mls/hr Q24H IVPB 08/05/16 16:00 08/10/16 15:59 Warfarin Sodium (Coumadin per pharmacy) 1 ea DAILY PRN MISC Per rx protocol 08/05/16 09:00 09/04/16 08:59 ONUR RAINES M.D. Aug 05, 2016 09:13
[2016-08-05] MEDS: Docusate 100mg cap ORAL SCH (10:27)
[2016-08-05] MEDS: Losartan 50mg tab ORAL SCH ×2 (10:28→21:17)
--- NOTE | 2016-08-05 11:37 | General Progress Note ---
Assessment/Plan Assessment/Plan ASSESSMENT: #. DVT of the lower extremities - s/p ivc filter and in recent past on coumadin --> IVC is not removable #. Anemia potentially secondary to anemia of chronic disease - improved #. Leukocytosis. Improved #. Coagulopathy 2/2 coumadin #. Trochanteric fracture of the right femur status post open reduction and internal fixation and repair pending further evaluation. #. Sepsis. #. PNA RECOMMENDATIONS: 1. Continue coumadin 2. DVT ppx lovenox 3. Goal INR 2-3 4. Continue antibiotics as needed 5. Transfuse if hemoglobin < 7.5 6. Continue nutritional support. 7. Followup pulm recs 8. Staff Thank you, Cabrera Hernandez MD Subjective Constitutional: Reports: no symptoms HEENT: Reports: no symptoms Cardiovascular: Reports: no symptoms Respiratory: Reports: no symptoms Gastrointestinal/Abdominal: Reports: no symptoms Genitourinary: Reports: no symptoms Neurologic/Psychiatric: Reports: no symptoms Endocrine: Reports: no symptoms Hematologic/Lymphatic: Reports: anemia Allergies: Coded Allergies: No Known Allergies (Unverified , 05/07/16) Subjective stable, not bleeding, tolerating coumadin well Objective Last 24 Hour Vital Signs Date Time Temp Pulse Resp B/P Pulse Ox O2 Delivery O2 Flow Rate FiO2 08/05/16 10:28 161/85 08/05/16 08:19 99 Nasal Cannula 2.0 08/05/16 08:19 Nasal Cannula 2.0 08/05/16 08:19 77 18 Nasal Cannula 2.0 08/05/16 08:00 97.7 91 20 161/85 97 Nasal Cannula 08/05/16 04:00 97.7 88 18 147/84 97 Room Air 08/05/16 00:00 97.7 76 18 147/77 99 Room Air 08/04/16 20:49 130/68 08/04/16 20:00 97.8 85 18 150/78 98 Room Air 08/04/16 16:55 71 08/04/16 16:00 97.9 88 22 138/73 97 Nasal Cannula 2.0 08/04/16 12:00 71 08/04/16 12:00 97.5 78 22 143/57 97 Nasal Cannula 3.0 Intake and Output 08/04/16 08/05/16 19:00 07:00 Intake Total 820 ml 100 ml Output Total 175 ml 850 ml Balance 645 ml -750 ml Intake Oral 270 ml 100 ml IV Total 550 ml Output Urine Total 175 ml 850 ml # Bowel Movements 2 1 Laboratory Tests 08/05/16 04:15: Prothrombin Time 11.6H, Prothromb Time International Ratio 1.1 Height (Feet): 5 Height (Inches): 6.00 Weight (Pounds): 140 General Appearance: no apparent distress Neck: supple Cardiovascular: normal rate Respiratory/Chest: normal breath sounds Abdomen: no mass Extremities: non-tender Edema: no edema noted Leg (L), no edema noted Leg (R) Edema: mild edema Neurologic: alert Skin: normal pigmentation Cabrera Hernandez Aug 05, 2016 11:36
[2016-08-05 12:00] VITALS: BP 155/84
[2016-08-05] MEDS: cefTRIAXone 1 GM in D5W 50 ML IVPB SCH (13:53)
[2016-08-05 15:37] VITALS: BP 152/99
[2016-08-05] MEDS ORDERED: Vancomycin 750 MG in D5W 250 ML IVPB SCH (16:00)
[2016-08-05] MEDS ORDERED: Warfarin Sodium 5mg ORAL ONE (17:00)
--- NOTE | 2016-08-05 17:15 | Cardiac Electrophysiology PN ---
Assessment/Plan Assessment/Plan 1. Shortness of breath, tachycardia as well as D-dimer more than 5000 and bilateral LE DVT. Chest CT angiogram showed no pulmonary embolism. Echo still pending. 2. Hypertension. Continue Cozaar 50 mg b.i.d. 3. Pneumonia on ceftriaxone and albuterol. 4. Bilateral LE DVT on Lovenox and Coumadin. S/P IVC filter. MONIQUE RN Subjective Subjective No events overnight. Comfortable in NAD. Off tele now. Objective Last 24 Hour Vital Signs Date Time Temp Pulse Resp B/P Pulse Ox O2 Delivery O2 Flow Rate FiO2 08/05/16 15:37 97.5 102 18 152/99 96 Room Air 08/05/16 12:00 97.9 92 20 155/84 96 Nasal Cannula 08/05/16 10:28 161/85 08/05/16 08:19 99 Nasal Cannula 2.0 08/05/16 08:19 Nasal Cannula 2.0 08/05/16 08:19 77 18 Nasal Cannula 2.0 08/05/16 08:00 97.7 91 20 161/85 97 Nasal Cannula 08/05/16 04:00 97.7 88 18 147/84 97 Room Air 08/05/16 00:00 97.7 76 18 147/77 99 Room Air 08/04/16 20:49 130/68 08/04/16 20:00 97.8 85 18 150/78 98 Room Air Intake and Output 08/04/16 08/05/16 18:59 06:59 Intake Total 820 ml 100 ml Output Total 175 ml 850 ml Balance 645 ml -750 ml Intake Oral 270 ml 100 ml IV Total 550 ml Output Urine Total 175 ml 850 ml # Bowel Movements 2 1 Laboratory Tests Test 08/05/16 04:15 08/05/16 15:15 Prothrombin Time 11.6 SEC (9.30-11.50) H Prothromb Time International Ratio 1.1 (0.9-1.1) Vancomycin Level Trough 6.6 ug/mL (5.0-12.0) Microbiology Date/Time Source Procedure Growth Status 08/03/16 10:15 Blood Blood Culture - Preliminary NO GROWTH AFTER 24 HOURS Resulted 08/03/16 10:00 Blood Blood Culture - Preliminary NO GROWTH AFTER 24 HOURS Resulted Objective HEAD AND NECK: Shows no JVD. LUNGS: Coarse rhonchi. CARDIOVASCULAR: Regular S1 and S2 with no gallop or murmur. ABDOMEN: Soft. EXTREMITIES: No pitting edema. TURNER ALLAN Aug 05, 2016 17:15
[2016-08-05] MEDS ORDERED: NS 275ml ONE (17:43)
[2016-08-05] MEDS ORDERED: Vancomycin 1gm in D5W 250ml IVPB ONE (18:00)
[2016-08-05 20:00] VITALS: BP 155/85
[2016-08-05] MEDS: guaiFENesin 100mg/5ml Liq ud ORAL PRN (21:17)
[2016-08-06] VITALS: BP 154/90
--- NOTE | 2016-08-06 01:57 | Consultation ---
DATE OF CONSULTATION: 08/05/2016 PSYCHOTHERAPY CONSULTATION PROGRESS NOTE TREATING ATTENDING PHYSICIAN: Cristi Hazel M.D. HISTORY OF PRESENT ILLNESS: The patient is an 86-year-old female, admitted to the hospital for aspiration pneumonia. The patient has been very disorganized, confused, altered mental status, slightly irritable, agitated, irritated mood and affect and her agitation level has increased today. The patient seems more confused more today than she is actually. The patient has a history of dementia and depression, . The patient is agitated, irritable, confused, disorganized, . PAST MEDICAL HISTORY: Includes history of dementia, hypertension, depression, brain aneurysm, dysphagia, and CVA. ALLERGIES: The patient has no known drug allergies. SUBSTANCE ABUSE HISTORY: There is no indication of alcohol, illicit substance use, or smoking cigarettes. PSYCHIATRIC HISTORY: The patient has a history of depression and dementia. SOCIAL HISTORY: The patient is an 86-year-old female, financially sustained through [employer]. MENTAL STATUS EXAMINATION: The patient is alert and oriented x2. Mood is irritable. Affect labile. Thought process is disorganized. Thought content, confused. The patient has poor attention and concentration. Poor insight, judgment, and impulse control. DIAGNOSES: Cast[place] I Rule out major depressive disorder with psychotic features and rule out 02:16. Castalia II Deferred. Castalia III Per History and Physical. This clinician assessed this patient. Provided the patient with supportive psychotherapy and reality orientation. Continue with medication management and behavioral management. This clinician has reviewed the patient's chart. Discussed the treatment with the nursing staff. Nery Salazar PsyD. DR: ASA JOB#: [id number] CC:
[2016-08-06 04:00] VITALS: BP 156/88
[2016-08-06] MEDS: Vancomycin 750mg/D5W 250ml IVPB SCH ×4 (05:57→17:29)
[2016-08-06 07:16] LABS: INR 1.2 (0.9-1.1); PROTHROMBIN TIME 12.4 SEC (9.30-11.50)
[2016-08-06] MEDS: Enoxaparin 60mg Inj SUBQ SCH ×2 (07:56→18:00)
[2016-08-06 08:16] VITALS: BP 154/93
[2016-08-06] MEDS: Docusate 100mg cap ORAL SCH (08:34)
[2016-08-06] MEDS: Losartan 50mg tab ORAL SCH ×2 (08:34→21:59)
--- NOTE | 2016-08-06 09:36 | General Progress Note ---
Assessment/Plan Assessment/Plan ASSESSMENT: #. DVT of the bilateral lower extremities - s/p ivc permanent IVC filter and coumadin now restarted #. Anemia potentially secondary to anemia of chronic disease - improved #. Leukocytosis. Improved #. Coagulopathy 2/2 coumadin #. Trochanteric fracture of the right femur status post open reduction and internal fixation and repair #. Sepsis. #. PNA RECOMMENDATIONS: 1. Continue coumadin 2. Continue bridge ppx lovenox 3. Goal INR 2-3 4. Continue antibiotics as needed 5. Transfuse if hemoglobin < 7.5 6. Continue nutritional support. 7. Followup pulm, cards recs 8. Staff Thank you, Cabrera Hernandez MD Subjective Constitutional: Reports: no symptoms HEENT: Reports: no symptoms Cardiovascular: Reports: no symptoms Respiratory: Reports: no symptoms Gastrointestinal/Abdominal: Reports: poor appetite Genitourinary: Reports: no symptoms Neurologic/Psychiatric: Reports: no symptoms Endocrine: Reports: no symptoms Hematologic/Lymphatic: Reports: anemia Allergies: Coded Allergies: No Known Allergies (Unverified , 05/07/16) Subjective stable, not bleeding, tolerating coumadin, however this am refusing meds Objective Last 24 Hour Vital Signs Date Time Temp Pulse Resp B/P Pulse Ox O2 Delivery O2 Flow Rate FiO2 08/06/16 08:16 97.3 99 21 154/93 95 Nasal Cannula 2.0 08/06/16 04:00 97.9 88 18 156/88 98 Room Air 08/06/16 00:00 97.0 85 18 154/90 97 Nasal Cannula 08/05/16 21:17 155/85 08/05/16 20:00 97.7 70 17 155/85 98 Room Air 08/05/16 19:02 98 Nasal Cannula 2.0 08/05/16 19:02 Nasal Cannula 2.0 08/05/16 19:02 70 18 Nasal Cannula 2.0 08/05/16 15:37 97.5 102 18 152/99 96 Room Air 08/05/16 12:00 97.9 92 20 155/84 96 Nasal Cannula 08/05/16 10:28 161/85 Intake and Output 08/05/16 08/06/16 18:59 06:59 Intake Total 250 ml 400 ml Output Total 200 ml 1100 ml Balance 50 ml -700 ml Intake Oral 250 ml 400 ml Output Urine Total 200 ml 1100 ml Laboratory Tests 08/05/16 15:15: Vancomycin Level Trough 6.6 08/06/16 06:50: Prothrombin Time 12.4H, Prothromb Time International Ratio 1.2H Height (Feet): 5 Height (Inches): 6.00 Weight (Pounds): 140 General Appearance: no apparent distress EENT: TMs normal Neck: normal inspection Cardiovascular: regular rhythm Respiratory/Chest: lungs clear Abdomen: non tender Extremities: non-tender Edema: 1+ Leg (L), 1+ Leg (R) Edema: mild edema Neurologic: alert Skin: warm/dry Cabrera Hernandez Aug 06, 2016 09:36
--- NOTE | 2016-08-06 09:53 | Infectious Diseases Prog Note ---
Assessment/Plan Assessment/Plan ASSESSMENT: 86-year-old female with: CONS bacteremia / r/o SBE, septic thrombophlebitis - repeat BCx NGTD, TTE pending Pneumonia SCx NRF Chest CT: Diffuse bilateral interstitial disease, possibly with micro- nodularity, disseminated inflammatory lesions a possibility. UTI , probable - UCx(-) Fever - resolved, no leukocytosis Acute BLE DVT SP IVC filter CVA. History of brain aneurysm. Dementia. NKDA Full Code PLAN: Cont IV Rocephin d #6 /7 , azithro, IV Vanco d# 5 / 7 f/u TTE Monitor blood cultures (blood) Chest x-ray. Monitor CBC and BMP Subjective Constitutional: Denies: anorexia, chills, drenching sweats, fatigue, fever, no symptoms, other Allergies: Coded Allergies: No Known Allergies (Unverified , 05/07/16) Objective Vital Signs Last 24 Hour Vital Signs Date Time Temp Pulse Resp B/P Pulse Ox O2 Delivery O2 Flow Rate FiO2 08/06/16 08:16 97.3 99 21 154/93 95 Nasal Cannula 2.0 08/06/16 04:00 97.9 88 18 156/88 98 Room Air 08/06/16 00:00 97.0 85 18 154/90 97 Nasal Cannula 08/05/16 21:17 155/85 08/05/16 20:00 97.7 70 17 155/85 98 Room Air 08/05/16 19:02 98 Nasal Cannula 2.0 08/05/16 19:02 Nasal Cannula 2.0 08/05/16 19:02 70 18 Nasal Cannula 2.0 08/05/16 15:37 97.5 102 18 152/99 96 Room Air 08/05/16 12:00 97.9 92 20 155/84 96 Nasal Cannula 08/05/16 10:28 161/85 Height (Feet): 5 Height (Inches): 6.00 Weight (Pounds): 140 HEENT: anicteric Respiratory/Chest: lungs clear, normal breath sounds Cardiovascular: normal rate, regular rhythm Abdomen: soft, non tender, no organomegaly Microbiology Date/Time Source Procedure Growth Status 08/03/16 10:15 Blood Blood Culture - Preliminary NO GROWTH AFTER 48 HOURS Resulted 08/03/16 10:00 Blood Blood Culture - Preliminary NO GROWTH AFTER 48 HOURS Resulted Laboratory Tests Test 08/05/16 15:15 08/06/16 06:50 Vancomycin Level Trough 6.6 ug/mL (5.0-12.0) Prothrombin Time 12.4 SEC (9.30-11.50) H Prothromb Time International Ratio 1.2 (0.9-1.1) H Current Medications Medications (Trade) Dose Ordered Sig/Arabella Route PRN Reason Start Time Stop Time Status Last Admin Dose Admin Acetaminophen (Tylenol) 650 mg Q4H PRN RECTAL Fever/Headache/Mild Pain 08/04/16 21:30 09/03/16 21:29 Acetaminophen/ Hydrocodone Bitart ([place] 10/325) 1 ea Q6H PRN ORAL Pain Scale (6-10) 08/04/16 19:45 08/11/16 19:44 Albuterol/ Ipratropium (DuoNeb 0.5-3(2.5)mg/3ml) 3 ml Q4H PRN HHN Shortness of Breath 08/04/16 21:45 08/09/16 21:44 Azithromycin 500 mg/Dextrose 250 ml @ 250 mls/hr Q24HRS IV 08/05/16 15:00 08/08/16 15:01 08/05/16 14:46 Ceftriaxone Sodium/Dextrose (Rocephin/D5W 50ml) 50 ml @ 100 mls/hr Q24H IVPB 08/05/16 14:00 08/12/16 13:59 08/05/16 13:53 Clonidine HCl (Catapres) 0.1 mg Q6H PRN ORAL For High Blood Pressure 08/04/16 19:45 09/03/16 19:44 Dextrose (Dextrose 50%) STAT PRN IV Hypoglycemia 08/05/16 01:45 09/04/16 01:44 Diphenhydramine HCl (Benadryl) 25 mg Q6H PRN ORAL Itching/Pruritis 08/04/16 19:45 09/03/16 19:44 Docusate Sodium (Colace) 100 mg DAILY ORAL 08/05/16 09:00 09/04/16 08:59 08/05/16 10:27 Enoxaparin Sodium (Lovenox) 60 mg Q12HR@0600,1800 SUBQ 08/05/16 06:00 09/04/16 05:59 08/06/16 07:56 Guaifenesin (Robitussin) 100 mg Q4H PRN ORAL For Cough 08/04/16 19:00 09/03/16 18:59 08/05/16 21:17 Lorazepam (Ativan 2mg/ml 1ml) 1 mg Q4H PRN IV For Anxiety 08/04/16 21:45 08/11/16 21:44 Lorazepam (Ativan) 1 mg Q8H PRN ORAL For Anxiety 08/05/16 01:45 08/12/16 01:44 Losartan Potassium (Cozaar) 50 mg Q12HR ORAL 08/04/16 21:00 09/03/16 20:59 08/05/16 21:17 Pantoprazole (Protonix) 40 mg Q12H PRN ORAL Abdominal cramps 08/05/16 01:45 09/04/16 01:44 Vancomycin HCl (Vanco rx to dose) 1 ea DAILY PRN MISC Per rx protocol 08/05/16 09:00 09/04/16 08:59 Vancomycin HCl/ Dextrose (Vancomycin/D5W 250ml) 250 ml @ 167 mls/hr Q12HR@0500,1700 IVPB 08/06/16 05:00 08/11/16 04:59 08/06/16 05:57 Warfarin Sodium (Coumadin) 5 mg COUMADIN ONCE ORAL 08/06/16 17:00 08/06/16 17:01 Warfarin Sodium 1 ea 1 ea DAILY PRN MISC Per rx protocol 08/05/16 09:00 09/04/16 08:59 ANGEL WATERS M.D. Aug 06, 2016 09:53
[2016-08-06 11:39] VITALS: BP 153/77
--- NOTE | 2016-08-06 13:33 | Diagnostic Imaging Report ---
APPROVED REPORT CPT Code: 85515 Present Symptoms Lower Extremity Pain: Lower Extremity Edema: Right Shortness of breath BILATERAL: Venous imaging reveals acute thrombus in the common femoral to popliteal veins bilaterally. Imaging reveals patency of the calf veins bilaterally. The greater saphenous vein is within normal limits bilaterally. RENATO SOTO was notified of abnormal results at 1437 hours.
[2016-08-06] MEDS: cefTRIAXone 1 GM in D5W 50 ML IVPB SCH (13:54)
--- NOTE | 2016-08-06 14:08 | Diagnostic Imaging Report ---
Indication: Chest Pain Comparison: 08/01/16 A single view chest radiograph was obtained. Findings: Lungs are essentially clear. Heart size is borderline enlarged. Bones are osteopenic. Impression: No acute disease
[2016-08-06] MEDS: Norco 10mg/325mg tab ORAL PRN (15:53)
[2016-08-06 15:57] VITALS: BP 184/95
[2016-08-06] MEDS ORDERED: Warfarin Sodium 5mg ORAL ONE (17:00)
--- NOTE | 2016-08-06 17:34 | Cardiac Electrophysiology PN ---
Assessment/Plan Assessment/Plan 1. Shortness of breath, tachycardia as well as D-dimer more than 5000 and bilateral LE DVT. Chest CT angiogram showed no pulmonary embolism. Echo pending. 2. Hypertension. On Cozaar 50 mg b.i.d. 3. Pneumonia on ceftriaxone and albuterol. 4. Bilateral LE DVT on Lovenox and Coumadin. S/P IVC filter. DW RN Subjective Subjective Comfortable in NAD. Being fed by sitter. Objective Last 24 Hour Vital Signs Date Time Temp Pulse Resp B/P Pulse Ox O2 Delivery O2 Flow Rate FiO2 08/06/16 15:57 97.5 91 18 184/95 96 Room Air 08/06/16 15:55 178/96 08/06/16 11:39 97.5 82 20 153/77 95 Nasal Cannula 2.0 08/06/16 08:16 97.3 99 21 154/93 95 Nasal Cannula 2.0 08/06/16 08:14 99 18 Nasal Cannula 2.0 28 08/06/16 08:14 95 Nasal Cannula 2.0 28 08/06/16 08:14 Nasal Cannula 2.0 28 08/06/16 04:00 97.9 88 18 156/88 98 Room Air 08/06/16 00:00 97.0 85 18 154/90 97 Nasal Cannula 08/05/16 21:17 155/85 08/05/16 20:00 97.7 70 17 155/85 98 Room Air 08/05/16 19:02 98 Nasal Cannula 2.0 08/05/16 19:02 Nasal Cannula 2.0 08/05/16 19:02 70 18 Nasal Cannula 2.0 Intake and Output 08/05/16 08/06/16 19:00 07:00 Intake Total 250 ml 400 ml Output Total 200 ml 1100 ml Balance 50 ml -700 ml Intake Oral 250 ml 400 ml Output Urine Total 200 ml 1100 ml Laboratory Tests Test 08/06/16 06:50 Prothrombin Time 12.4 SEC (9.30-11.50) H Prothromb Time International Ratio 1.2 (0.9-1.1) H Objective HEAD AND NECK: Shows no JVD. LUNGS: Coarse rhonchi. CARDIOVASCULAR: Regular S1 and S2 with no gallop or murmur. ABDOMEN: Soft. EXTREMITIES: No pitting edema. TURNER ALLAN Aug 06, 2016 17:34
--- NOTE | 2016-08-06 18:26 | Pulmonology Progress Note ---
Assessment/Plan Problems: (1) HCAP (healthcare-associated pneumonia) (2) Alzheimer's dementia (3) HTN (hypertension) (4) DVT (deep venous thrombosis) (5) Gram positive bacterial infection Assessment & Plan: ? contaminant Assessment/Plan -Optimize pulmonary hygiene/mobilize as tolerated -PRN O2 -PRN nebs -Continue abx per ID, F/U repeat CX's (NGSF) -Monitor volumes -Has IVC filter, now on LMWH + VKA per heme-onc (INR 1.2) -Diet per [employer] with STRICT aspiration precautions -F/U cards recs and TTE - If negative for IE will likely need MD -Full code Subjective Allergies: Coded Allergies: No Known Allergies (Unverified , 05/07/16) Subjective AFVSS on RA -2L, repeat CXR JERRELL No cough, no sig SOB INR 1.2 Objective Last 24 Hour Vital Signs Date Time Temp Pulse Resp B/P Pulse Ox O2 Delivery O2 Flow Rate FiO2 08/06/16 15:57 97.5 91 18 184/95 96 Room Air 08/06/16 15:55 178/96 08/06/16 11:39 97.5 82 20 153/77 95 Nasal Cannula 2.0 08/06/16 08:16 97.3 99 21 154/93 95 Nasal Cannula 2.0 08/06/16 08:14 99 18 Nasal Cannula 2.0 28 08/06/16 08:14 95 Nasal Cannula 2.0 28 08/06/16 08:14 Nasal Cannula 2.0 28 08/06/16 04:00 97.9 88 18 156/88 98 Room Air 08/06/16 00:00 97.0 85 18 154/90 97 Nasal Cannula 08/05/16 21:17 155/85 08/05/16 20:00 97.7 70 17 155/85 98 Room Air 08/05/16 19:02 98 Nasal Cannula 2.0 08/05/16 19:02 Nasal Cannula 2.0 08/05/16 19:02 70 18 Nasal Cannula 2.0 Intake and Output 08/05/16 08/06/16 19:00 07:00 Intake Total 250 ml 400 ml Output Total 200 ml 1100 ml Balance 50 ml -700 ml Intake Oral 250 ml 400 ml Output Urine Total 200 ml 1100 ml General Appearance: no acute distress, cachetic HEENT: normocephalic, mucous membranes moist Respiratory/Chest: rhonchi - scatttered Cardiovascular: normal peripheral pulses, normal rate, regular rhythm Abdomen: normal bowel sounds, soft, non tender, no organomegaly, non distended , no mass Extremities: no cyanosis, no clubbing, no edema Laboratory Tests 08/06/16 06:50: Prothrombin Time 12.4H, Prothromb Time International Ratio 1.2H Current Medications Medications (Trade) Dose Ordered Sig/Arabella Route PRN Reason Start Time Stop Time Status Last Admin Dose Admin Acetaminophen (Tylenol) 650 mg Q4H PRN RECTAL Fever/Headache/Mild Pain 08/04/16 21:30 09/03/16 21:29 Acetaminophen/ Hydrocodone Bitart ([place] 10/325) 1 ea Q6H PRN ORAL Pain Scale (6-10) 08/04/16 19:45 08/11/16 19:44 08/06/16 15:53 Albuterol/ Ipratropium (DuoNeb 0.5-3(2.5)mg/3ml) 3 ml Q4H PRN HHN Shortness of Breath 08/04/16 21:45 08/09/16 21:44 Azithromycin 500 mg/Dextrose 250 ml @ 250 mls/hr Q24HRS IV 08/05/16 15:00 08/08/16 15:01 08/06/16 14:42 Ceftriaxone Sodium/Dextrose (Rocephin/D5W 50ml) 50 ml @ 100 mls/hr Q24H IVPB 08/05/16 14:00 08/12/16 13:59 08/06/16 13:54 Clonidine HCl (Catapres) 0.1 mg Q6H PRN ORAL For High Blood Pressure 08/04/16 19:45 09/03/16 19:44 08/06/16 15:55 Dextrose (Dextrose 50%) STAT PRN IV Hypoglycemia 08/05/16 01:45 09/04/16 01:44 Diphenhydramine HCl (Benadryl) 25 mg Q6H PRN ORAL Itching/Pruritis 08/04/16 19:45 09/03/16 19:44 Docusate Sodium (Colace) 100 mg DAILY ORAL 08/05/16 09:00 09/04/16 08:59 08/05/16 10:27 Enoxaparin Sodium (Lovenox) 60 mg Q12HR@0600,1800 SUBQ 08/05/16 06:00 09/04/16 05:59 08/06/16 07:56 Guaifenesin (Robitussin) 100 mg Q4H PRN ORAL For Cough 08/04/16 19:00 09/03/16 18:59 08/05/16 21:17 Lorazepam (Ativan 2mg/ml 1ml) 1 mg Q4H PRN IV For Anxiety 08/04/16 21:45 08/11/16 21:44 Lorazepam (Ativan) 1 mg Q8H PRN ORAL For Anxiety 08/05/16 01:45 08/12/16 01:44 Losartan Potassium (Cozaar) 50 mg Q12HR ORAL 08/04/16 21:00 09/03/16 20:59 08/05/16 21:17 Pantoprazole (Protonix) 40 mg Q12H PRN ORAL Abdominal cramps 08/05/16 01:45 09/04/16 01:44 Vancomycin HCl (Vanco rx to dose) 1 ea DAILY PRN MISC Per rx protocol 08/05/16 09:00 09/04/16 08:59 Vancomycin HCl/ Dextrose (Vancomycin/D5W 250ml) 250 ml @ 167 mls/hr Q12HR@0500,1700 IVPB 08/06/16 05:00 08/11/16 04:59 08/06/16 17:29 Warfarin Sodium 1 ea 1 ea DAILY PRN MISC Per rx protocol 08/05/16 09:00 09/04/16 08:59 ONUR RAINES M.D. Aug 06, 2016 18:26
[2016-08-06 19:44] VITALS: BP 143/85
--- NOTE | 2016-08-06 22:33 | Nephrology Progress Note ---
Assessment/Plan Problem List: (1) Hypokalemia Assessment: corrected. (2) DVT (deep venous thrombosis) (3) HTN (hypertension) (4) Alzheimer's dementia (5) Dysphagia (6) Depression (7) CVA (cerebral vascular accident) (8) Brain aneurysm (9) HCAP (healthcare-associated pneumonia) (10) Dyspnea (11) Congestive heart failure (CHF) (12) Gram positive bacterial infection Plan abx per ID. pulm hygiene. f/u recs per pulm and cardio. Subjective Subjective appears comfortable. no acute events. Objective Objective Last 24 Hour Vital Signs Date Time Temp Pulse Resp B/P Pulse Ox O2 Delivery O2 Flow Rate FiO2 08/06/16 21:59 143/85 08/06/16 19:44 97.9 93 16 143/85 97 Room Air 08/06/16 19:31 Nasal Cannula 2.0 28 08/06/16 19:31 98 Nasal Cannula 2.0 28 08/06/16 19:29 91 18 Nasal Cannula 2.0 28 08/06/16 15:57 97.5 91 18 184/95 96 Room Air 08/06/16 15:55 178/96 08/06/16 11:39 97.5 82 20 153/77 95 Nasal Cannula 2.0 08/06/16 08:16 97.3 99 21 154/93 95 Nasal Cannula 2.0 08/06/16 08:14 99 18 Nasal Cannula 2.0 28 08/06/16 08:14 95 Nasal Cannula 2.0 28 08/06/16 08:14 Nasal Cannula 2.0 28 08/06/16 04:00 97.9 88 18 156/88 98 Room Air 08/06/16 00:00 97.0 85 18 154/90 97 Nasal Cannula Intake and Output 08/05/16 08/06/16 19:00 07:00 Intake Total 250 ml 400 ml Output Total 200 ml 1100 ml Balance 50 ml -700 ml Intake Oral 250 ml 400 ml Output Urine Total 200 ml 1100 ml Laboratory Tests 08/06/16 06:50: Prothrombin Time 12.4H, Prothromb Time International Ratio 1.2H Height (Feet): 5 Height (Inches): 6.00 Weight (Pounds): 140 General Appearance: no apparent distress Cardiovascular: normal rate, regular rhythm Respiratory/Chest: rhonchi - bilaterally Abdomen: non tender, soft, no organomegaly Extremities: trace edema Neurologic: alert RISHABH PETERSON Aug 06, 2016 22:32
[2016-08-07] VITALS: BP 162/95
[2016-08-07] MEDS: LORazepam Inj 2mg/ml 1ml IV PRN ×2 (01:09→17:55)
[2016-08-07 04:00] VITALS: BP 156/86
[2016-08-07 04:48] LABS: BASOPHILS % (AUTO) 0.9 % (0.0-2.0); EOSINOPHILS % (AUTO) 5.4 % (0.0-3.0); LYMPHOCYTES % (AUTO) 30.6 % (20.0-45.0); MEAN CORPUSCULAR HEMOGLOBIN 29.3 PG (27.0-31.0); MEAN CORPUSCULAR HGB CONC 31.6 G/DL (32.0-36.0); MEAN CORPUSCULAR VOLUME 93 FL (80-99); MEAN PLATELET VOLUME 7.7 FL (6.5-10.1); MONOCYTES % (AUTO) 10.4 % (1.0-10.0); NEUTROPHILS % (AUTO) 52.7 % (45.0-75.0); PLATELET COUNT 165 K/UL (150-450); RED BLOOD COUNT 4.49 M/UL (4.20-5.40); RED CELL DISTRIBUTION WIDTH 12.5 % (11.6-14.8); WHITE BLOOD COUNT 7.5 K/UL (4.8-10.8)
[2016-08-07] MEDS: Vancomycin 750mg/D5W 250ml IVPB SCH ×4 (05:02→17:38)
[2016-08-07 05:07] LABS: INR 1.7 (0.9-1.1); PROTHROMBIN TIME 17.2 SEC (9.30-11.50)
[2016-08-07 05:08] LABS: ANION GAP 10 (5-15); CALCIUM 9.2 mg/dL (8.6-10.2); CARBON DIOXIDE 32 mEQ/L (20-30); CHLORIDE 100 mEQ/L (98-107); CREATININE 0.5 mg/dL (0.5-0.9); HEMOLYSIS 4; POTASSIUM 3.3 mEQ/L (3.4-4.9); SODIUM 142 mEQ/L (135-145)
[2016-08-07] MEDS: Enoxaparin 60mg Inj SUBQ SCH ×2 (05:36→17:41)
--- NOTE | 2016-08-07 05:42 | General Progress Note ---
Assessment/Plan Assessment/Plan ASSESSMENT: #. DVT of the bilateral lower extremities - s/p ivc permanent IVC filter and on coumadin, goal INR 2-3 #. Anemia potentially secondary to anemia of chronic disease - improved #. Leukocytosis. Improved #. Coagulopathy 2/2 coumadin #. Trochanteric fracture of the right femur status post open reduction and internal fixation and repair #. Sepsis. #. PNA RECOMMENDATIONS: 1. Continue coumadin 2. Continue bridge ppx lovenox 3. Goal INR 2-3 4. Continue antibiotics as needed 5. Transfuse if hemoglobin < 7.5 6. Continue nutritional support. 7. Followup pulm, cards recs 8. Staff Thank you, Cabrera Hernandez MD Subjective Constitutional: Reports: no symptoms HEENT: Reports: no symptoms Cardiovascular: Reports: no symptoms Respiratory: Reports: no symptoms Gastrointestinal/Abdominal: Reports: poor appetite Genitourinary: Reports: no symptoms Neurologic/Psychiatric: Reports: no symptoms Endocrine: Reports: no symptoms Hematologic/Lymphatic: Reports: anemia Allergies: Coded Allergies: No Known Allergies (Unverified , 05/07/16) Subjective stable, not bleeding, tolerating coumadin Objective Last 24 Hour Vital Signs Date Time Temp Pulse Resp B/P Pulse Ox O2 Delivery O2 Flow Rate FiO2 08/07/16 04:00 97.8 80 18 156/86 97 Nasal Cannula 2.0 08/07/16 00:00 97.7 94 19 162/95 96 Nasal Cannula 2.0 08/06/16 21:59 143/85 08/06/16 19:44 97.9 93 16 143/85 97 Room Air 08/06/16 19:31 Nasal Cannula 2.0 28 08/06/16 19:31 98 Nasal Cannula 2.0 28 08/06/16 19:29 91 18 Nasal Cannula 2.0 28 08/06/16 15:57 97.5 91 18 184/95 96 Room Air 08/06/16 15:55 178/96 08/06/16 11:39 97.5 82 20 153/77 95 Nasal Cannula 2.0 08/06/16 08:16 97.3 99 21 154/93 95 Nasal Cannula 2.0 08/06/16 08:14 99 18 Nasal Cannula 2.0 28 08/06/16 08:14 95 Nasal Cannula 2.0 28 08/06/16 08:14 Nasal Cannula 2.0 28 Intake and Output 08/06/16 08/07/16 19:00 07:00 Intake Total 240 ml 380 ml Output Total 300 ml 550 ml Balance -60 ml -170 ml Intake Oral 240 ml 380 ml Output Urine Total 300 ml 550 ml Laboratory Tests 08/06/16 06:50: Prothrombin Time 12.4H, Prothromb Time International Ratio 1.2H 08/07/16 04:00: Prothrombin Time 17.2H, Prothromb Time International Ratio 1.7H, White Blood Count 7.5, Red Blood Count 4.49, Hemoglobin 13.2, Hematocrit 41.7, Mean Corpuscular Volume 93, Mean Corpuscular Hemoglobin 29.3, Mean Corpuscular Hemoglobin Concent 31.6L, Red Cell Distribution Width 12.5, Platelet Count 165, Mean Platelet Volume 7.7, Neutrophils (%) (Auto) 52.7, Lymphocytes (%) (Auto) 30.6, Monocytes (%) (Auto) 10.4H, Eosinophils (%) (Auto) 5.4H, Basophils (%) ( Auto) 0.9, Sodium Level 142, Potassium Level 3.3L, Chloride Level 100, Carbon Dioxide Level 32H, Anion Gap 10, Blood Urea Nitrogen 5L, Creatinine 0.5, Estimat Glomerular Filtration Rate , Glucose Level 104, Calcium Level 9.2, Pro-B -Type Natriuretic Peptide 1044H, Random Vancomycin Level 16.3 Height (Feet): 5 Height (Inches): 6.00 Weight (Pounds): 140 General Appearance: no apparent distress EENT: TMs normal Neck: supple Cardiovascular: regular rhythm Respiratory/Chest: lungs clear Abdomen: non tender Extremities: non-tender Edema: 1+ Leg (L), 1+ Leg (R) Edema: mild edema Neurologic: alert Skin: warm/dry Cabrera Hernandez Aug 07, 2016 05:42
[2016-08-07 07:52] VITALS: BP 136/77
--- NOTE | 2016-08-07 09:02 | Infectious Diseases Prog Note ---
Assessment/Plan Assessment/Plan ASSESSMENT: 86-year-old female with: CONS bacteremia 11/05 r/o SBE, septic thrombophlebitis - repeat BCx NGTD, TTE pending Pneumonia SCx NRF Cxray 08/[address]: Diffuse bilateral interstitial disease, possibly with micro- nodularity, disseminated inflammatory lesions a possibility. UTI , probable - UCx(-) Fever - resolved, no leukocytosis Acute BLE DVT SP IVC filter CVA. History of brain aneurysm. Dementia. NKDA Full Code PLAN: Cont IV Rocephin d # 7 / , azithro, IV Vanco d# 6 / 7 f/u TTE Monitor blood cultures (blood) Chest x-ray. Monitor CBC and BMP Subjective Constitutional: Denies: anorexia, chills, drenching sweats, fatigue, fever, no symptoms, other Allergies: Coded Allergies: No Known Allergies (Unverified , 05/07/16) Objective Vital Signs Last 24 Hour Vital Signs Date Time Temp Pulse Resp B/P Pulse Ox O2 Delivery O2 Flow Rate FiO2 08/07/16 07:52 96.8 82 18 136/77 98 Nasal Cannula 2.0 08/07/16 04:00 97.8 80 18 156/86 97 Nasal Cannula 2.0 08/07/16 00:00 97.7 94 19 162/95 96 Nasal Cannula 2.0 08/06/16 21:59 143/85 08/06/16 19:44 97.9 93 16 143/85 97 Room Air 08/06/16 19:31 Nasal Cannula 2.0 28 08/06/16 19:31 98 Nasal Cannula 2.0 28 08/06/16 19:29 91 18 Nasal Cannula 2.0 28 08/06/16 15:57 97.5 91 18 184/95 96 Room Air 08/06/16 15:55 178/96 08/06/16 11:39 97.5 82 20 153/77 95 Nasal Cannula 2.0 Height (Feet): 5 Height (Inches): 6.00 Weight (Pounds): 140 HEENT: anicteric Respiratory/Chest: lungs clear Cardiovascular: normal peripheral pulses Abdomen: no organomegaly Laboratory Tests Test 08/07/16 04:00 White Blood Count 7.5 K/UL (4.8-10.8) Red Blood Count 4.49 M/UL (4.20-5.40) Hemoglobin 13.2 G/DL (12.0-16.0) Hematocrit 41.7 % (37.0-47.0) Mean Corpuscular Volume 93 FL (80-99) Mean Corpuscular Hemoglobin 29.3 PG (27.0-31.0) Mean Corpuscular Hemoglobin Concent 31.6 G/DL (32.0-36.0) L Red Cell Distribution Width 12.5 % (11.6-14.8) Platelet Count 165 K/UL (150-450) Mean Platelet Volume 7.7 FL (6.5-10.1) Neutrophils (%) (Auto) 52.7 % (45.0-75.0) Lymphocytes (%) (Auto) 30.6 % (20.0-45.0) Monocytes (%) (Auto) 10.4 % (1.0-10.0) H Eosinophils (%) (Auto) 5.4 % (0.0-3.0) H Basophils (%) (Auto) 0.9 % (0.0-2.0) Prothrombin Time 17.2 SEC (9.30-11.50) H Prothromb Time International Ratio 1.7 (0.9-1.1) H Sodium Level 142 mEQ/L (135-145) Potassium Level 3.3 mEQ/L (3.4-4.9) L Chloride Level 100 mEQ/L (98-107) Carbon Dioxide Level 32 mEQ/L (20-30) H Anion Gap 10 (5-15) Blood Urea Nitrogen 5 mg/dL (7-23) L Creatinine 0.5 mg/dL (0.5-0.9) Estimat Glomerular Filtration Rate mL/min (>60) Glucose Level 104 mg/dL (74-106) Calcium Level 9.2 mg/dL (8.6-10.2) Pro-B-Type Natriuretic Peptide 1044 pg/mL (0-450) H Random Vancomycin Level 16.3 ug/mL Current Medications Medications (Trade) Dose Ordered Sig/[place] Route PRN Reason Start Time Stop Time Status Last Admin Dose Admin Acetaminophen (Tylenol) 650 mg Q4H PRN RECTAL Fever/Headache/Mild Pain 08/04/16 21:30 09/03/16 21:29 Acetaminophen/ Hydrocodone Bitart ([place] 10/325) 1 ea Q6H PRN ORAL Pain Scale (6-10) 08/04/16 19:45 08/11/16 19:44 08/06/16 15:53 Albuterol/ Ipratropium (DuoNeb 0.5-3(2.5)mg/3ml) 3 ml Q4H PRN HHN Shortness of Breath 08/04/16 21:45 08/09/16 21:44 Azithromycin 500 mg/Dextrose 250 ml @ 250 mls/hr Q24HRS IV 08/05/16 15:00 08/08/16 15:01 08/06/16 14:42 Ceftriaxone Sodium/Dextrose (Rocephin/D5W 50ml) 50 ml @ 100 mls/hr Q24H IVPB 08/05/16 14:00 08/12/16 13:59 08/06/16 13:54 Clonidine HCl (Catapres) 0.1 mg Q6H PRN ORAL For High Blood Pressure 08/04/16 19:45 09/03/16 19:44 08/06/16 15:55 Dextrose (Dextrose 50%) STAT PRN IV Hypoglycemia 08/05/16 01:45 09/04/16 01:44 Diphenhydramine HCl (Benadryl) 25 mg Q6H PRN ORAL Itching/Pruritis 08/04/16 19:45 09/03/16 19:44 Docusate Sodium (Colace) 100 mg DAILY ORAL 08/05/16 09:00 09/04/16 08:59 08/05/16 10:27 Enoxaparin Sodium (Lovenox) 60 mg Q12HR@0600,1800 SUBQ 08/05/16 06:00 09/04/16 05:59 08/07/16 05:36 Guaifenesin (Robitussin) 100 mg Q4H PRN ORAL For Cough 08/04/16 19:00 09/03/16 18:59 08/05/16 21:17 Lorazepam (Ativan 2mg/ml 1ml) 1 mg Q4H PRN IV For Anxiety 08/04/16 21:45 08/11/16 21:44 08/07/16 01:09 Lorazepam (Ativan) 1 mg Q8H PRN ORAL For Anxiety 08/05/16 01:45 08/12/16 01:44 Losartan Potassium (Cozaar) 50 mg Q12HR ORAL 08/04/16 21:00 09/03/16 20:59 08/06/16 21:59 Pantoprazole (Protonix) 40 mg Q12H PRN ORAL Abdominal cramps 08/05/16 01:45 09/04/16 01:44 Vancomycin HCl (Vanco rx to dose) 1 ea DAILY PRN MISC Per rx protocol 08/05/16 09:00 09/04/16 08:59 Vancomycin HCl/ Dextrose (Vancomycin/D5W 250ml) 250 ml @ 167 mls/hr Q12HR@0500,1700 IVPB 08/06/16 05:00 08/11/16 04:59 08/07/16 05:02 Warfarin Sodium 1 ea 1 ea DAILY PRN MISC Per rx protocol 08/05/16 09:00 09/04/16 08:59 ANGEL WATERS M.D. Aug 07, 2016 09:02
--- NOTE | 2016-08-07 11:28 | Nephrology Progress Note ---
Assessment/Plan Problem List: (1) Dyspnea (2) Respiratory distress (3) Congestive heart failure (CHF) (4) HCAP (healthcare-associated pneumonia) Plan Cont abx per ID pulm hygiene. f/u recs per pulm and cardio. Subjective ROS Limited/Unobtainable: Yes Subjective In bed, in no distress, confused Objective Objective Last 24 Hour Vital Signs Date Time Temp Pulse Resp B/P Pulse Ox O2 Delivery O2 Flow Rate FiO2 08/07/16 10:15 Room Air 88 08/07/16 09:55 Nasal Cannula 2.0 28 08/07/16 09:55 93 18 Nasal Cannula 2.0 28 08/07/16 09:55 93 Nasal Cannula 2.0 28 08/07/16 07:52 96.8 82 18 136/77 98 Nasal Cannula 2.0 08/07/16 04:00 97.8 80 18 156/86 97 Nasal Cannula 2.0 08/07/16 00:00 97.7 94 19 162/95 96 Nasal Cannula 2.0 08/06/16 21:59 143/85 08/06/16 19:44 97.9 93 16 143/85 97 Room Air 08/06/16 19:31 Nasal Cannula 2.0 28 08/06/16 19:31 98 Nasal Cannula 2.0 28 08/06/16 19:29 91 18 Nasal Cannula 2.0 28 08/06/16 15:57 97.5 91 18 184/95 96 Room Air 08/06/16 15:55 178/96 08/06/16 11:39 97.5 82 20 153/77 95 Nasal Cannula 2.0 Intake and Output 08/06/16 08/07/16 19:00 07:00 Intake Total 240 ml 840 ml Output Total 300 ml 1300 ml Balance -60 ml -460 ml Intake Oral 240 ml 590 ml IV Total 250 ml Output Urine Total 300 ml 1300 ml Laboratory Tests 08/07/16 04:00: White Blood Count 7.5, Red Blood Count 4.49, Hemoglobin 13.2, Hematocrit 41.7, Mean Corpuscular Volume 93, Mean Corpuscular Hemoglobin 29.3, Mean Corpuscular Hemoglobin Concent 31.6L, Red Cell Distribution Width 12.5, Platelet Count 165, Mean Platelet Volume 7.7, Neutrophils (%) (Auto) 52.7, Lymphocytes (%) (Auto) 30.6, Monocytes (%) (Auto) 10.4H, Eosinophils (%) (Auto) 5.4H, Basophils (%) ( Auto) 0.9, Prothrombin Time 17.2H, Prothromb Time International Ratio 1.7H, Sodium Level 142, Potassium Level 3.3L, Chloride Level 100, Carbon Dioxide Level 32H, Anion Gap 10, Blood Urea Nitrogen 5L, Creatinine 0.5, Estimat Glomerular Filtration Rate , Glucose Level 104, Calcium Level 9.2, Pro-B-Type Natriuretic Peptide 1044H, Random Vancomycin Level 16.3 Height (Feet): 5 Height (Inches): 6.00 Weight (Pounds): 140 General Appearance: no apparent distress EENT: normal ENT inspection, TMs normal Neck: non-tender, normal alignment Cardiovascular: normal rate, regular rhythm, no JVD Abdomen: normal bowel sounds, non tender, soft Extremities: non-tender, normal inspection, no calf tenderness Neurologic: disoriented Hellen Eaton N.P. Aug 07, 2016 11:28
[2016-08-07] MEDS: Docusate 100mg cap ORAL SCH ×2 (11:36→11:59)
[2016-08-07] MEDS: Losartan 50mg tab ORAL SCH ×2 (11:36→11:59)
[2016-08-07 11:48] VITALS: BP 128/71
[2016-08-07] MEDS: cefTRIAXone 1 GM in D5W 50 ML IVPB SCH (13:42)
[2016-08-07] MEDS: D5 1/2NS w/KCl 20mEq 1,000 ML IV SCH (14:12)
[2016-08-07] MEDS: Nystatin Powder 100,000 units/gm 15gm TOPIC SCH ×2 (14:12→17:39)
[2016-08-07 16:00] VITALS: BP 148/76
--- NOTE | 2016-08-07 16:00 | Cardiac Electrophysiology PN ---
Assessment/Plan Assessment/Plan 1. Shortness of breath and bilateral LE DVT. Chest CT angiogram showed no pulmonary embolism.Reoredered Echo 2. Hypertension. On Cozaar 50 mg b.i.d. 3. Pneumonia on ceftriaxone and albuterol. 4. Bilateral LE DVT on Lovenox and Coumadin. S/P IVC filter. MONIQUE RN Subjective Subjective Comfortable in NAD. Sitter at bedside. No new events.. Objective Last 24 Hour Vital Signs Date Time Temp Pulse Resp B/P Pulse Ox O2 Delivery O2 Flow Rate FiO2 08/07/16 11:59 128/71 08/07/16 11:48 96.4 80 20 128/71 99 Nasal Cannula 2.0 08/07/16 11:36 136/77 08/07/16 10:15 Room Air 88 08/07/16 09:55 Nasal Cannula 2.0 28 08/07/16 09:55 93 18 Nasal Cannula 2.0 28 08/07/16 09:55 93 Nasal Cannula 2.0 28 08/07/16 07:52 96.8 82 18 136/77 98 Nasal Cannula 2.0 08/07/16 04:00 97.8 80 18 156/86 97 Nasal Cannula 2.0 08/07/16 00:00 97.7 94 19 162/95 96 Nasal Cannula 2.0 08/06/16 21:59 143/85 08/06/16 19:44 97.9 93 16 143/85 97 Room Air 08/06/16 19:31 Nasal Cannula 2.0 28 08/06/16 19:31 98 Nasal Cannula 2.0 28 08/06/16 19:29 91 18 Nasal Cannula 2.0 28 Intake and Output 08/06/16 08/07/16 19:00 07:00 Intake Total 240 ml 840 ml Output Total 300 ml 1300 ml Balance -60 ml -460 ml Intake Oral 240 ml 590 ml IV Total 250 ml Output Urine Total 300 ml 1300 ml Laboratory Tests Test 08/07/16 04:00 White Blood Count 7.5 K/UL (4.8-10.8) Red Blood Count 4.49 M/UL (4.20-5.40) Hemoglobin 13.2 G/DL (12.0-16.0) Hematocrit 41.7 % (37.0-47.0) Mean Corpuscular Volume 93 FL (80-99) Mean Corpuscular Hemoglobin 29.3 PG (27.0-31.0) Mean Corpuscular Hemoglobin Concent 31.6 G/DL (32.0-36.0) L Red Cell Distribution Width 12.5 % (11.6-14.8) Platelet Count 165 K/UL (150-450) Mean Platelet Volume 7.7 FL (6.5-10.1) Neutrophils (%) (Auto) 52.7 % (45.0-75.0) Lymphocytes (%) (Auto) 30.6 % (20.0-45.0) Monocytes (%) (Auto) 10.4 % (1.0-10.0) H Eosinophils (%) (Auto) 5.4 % (0.0-3.0) H Basophils (%) (Auto) 0.9 % (0.0-2.0) Prothrombin Time 17.2 SEC (9.30-11.50) H Prothromb Time International Ratio 1.7 (0.9-1.1) H Sodium Level 142 mEQ/L (135-145) Potassium Level 3.3 mEQ/L (3.4-4.9) L Chloride Level 100 mEQ/L (98-107) Carbon Dioxide Level 32 mEQ/L (20-30) H Anion Gap 10 (5-15) Blood Urea Nitrogen 5 mg/dL (7-23) L Creatinine 0.5 mg/dL (0.5-0.9) Estimat Glomerular Filtration Rate mL/min (>60) Glucose Level 104 mg/dL (74-106) Calcium Level 9.2 mg/dL (8.6-10.2) Pro-B-Type Natriuretic Peptide 1044 pg/mL (0-450) H Random Vancomycin Level 16.3 ug/mL Objective HEAD AND NECK: Shows no JVD. LUNGS: Coarse rhonchi. CARDIOVASCULAR: Regular S1 and S2 with no gallop or murmur. ABDOMEN: Soft. EXTREMITIES: No pitting edema. TURNER ALLAN Aug 07, 2016 16:00
[2016-08-07] MEDS ORDERED: Warfarin Sodium 4mg PO ONE (17:00)
[2016-08-07] MEDS ORDERED: Tubing IV Secondary IV ONE (17:25)
--- NOTE | 2016-08-07 17:48 | Pulmonology Progress Note ---
Assessment/Plan Assessment/Plan Assessment/Plan ASSESSMENT sepsis bacteremia ( CONS 11/05) r/o SBE, r/o septic thrombophlebitis PNA probable UTI dementia Hx of CVA Hx of brain aneurysm HTN bilateral DVT LE, s/p IVC filter dysphagia PLAN OF CARE Tight BP and BG control Aspiration precautions O2 HHN prn CXR 08/06 no acute disease abx, ID follows antitussive prn Subjective ROS Limited/Unobtainable: Yes Constitutional: Reports: fatigue Neurologic: Reports: confusion, weakness Allergies: Coded Allergies: No Known Allergies (Unverified , 05/07/16) Objective Last 24 Hour Vital Signs Date Time Temp Pulse Resp B/P Pulse Ox O2 Delivery O2 Flow Rate FiO2 08/07/16 16:00 97.7 81 20 148/76 99 Nasal Cannula 2.0 08/07/16 11:59 128/71 08/07/16 11:48 96.4 80 20 128/71 99 Nasal Cannula 2.0 08/07/16 11:36 136/77 08/07/16 10:15 Room Air 88 08/07/16 09:55 Nasal Cannula 2.0 28 08/07/16 09:55 93 18 Nasal Cannula 2.0 28 08/07/16 09:55 93 Nasal Cannula 2.0 28 08/07/16 07:52 96.8 82 18 136/77 98 Nasal Cannula 2.0 08/07/16 04:00 97.8 80 18 156/86 97 Nasal Cannula 2.0 08/07/16 00:00 97.7 94 19 162/95 96 Nasal Cannula 2.0 08/06/16 21:59 143/85 08/06/16 19:44 97.9 93 16 143/85 97 Room Air 08/06/16 19:31 Nasal Cannula 2.0 28 08/06/16 19:31 98 Nasal Cannula 2.0 28 08/06/16 19:29 91 18 Nasal Cannula 2.0 28 Intake and Output 08/06/16 08/07/16 19:00 07:00 Intake Total 240 ml 840 ml Output Total 300 ml 1300 ml Balance -60 ml -460 ml Intake Oral 240 ml 590 ml IV Total 250 ml Output Urine Total 300 ml 1300 ml General Appearance: no acute distress HEENT: normocephalic, atraumatic, PERRL Respiratory/Chest: chest wall non-tender, decreased breath sounds, accessory muscle use, rhonchi Breasts: no masses Cardiovascular: normal peripheral pulses, normal rate, regular rhythm, no JVD Abdomen: normal bowel sounds, soft, non tender, no organomegaly, non distended Genitourinary: normal external genitalia Extremities: no cyanosis Skin: rash, lesions Neurologic/Psychiatric: abnormal CN, motor weakness, sensory deficit, disoriented, unresponsiveness, aphasia, depressed affect Laboratory Tests 08/07/16 04:00: White Blood Count 7.5, Red Blood Count 4.49, Hemoglobin 13.2, Hematocrit 41.7, Mean Corpuscular Volume 93, Mean Corpuscular Hemoglobin 29.3, Mean Corpuscular Hemoglobin Concent 31.6L, Red Cell Distribution Width 12.5, Platelet Count 165, Mean Platelet Volume 7.7, Neutrophils (%) (Auto) 52.7, Lymphocytes (%) (Auto) 30.6, Monocytes (%) (Auto) 10.4H, Eosinophils (%) (Auto) 5.4H, Basophils (%) ( Auto) 0.9, Prothrombin Time 17.2H, Prothromb Time International Ratio 1.7H, Sodium Level 142, Potassium Level 3.3L, Chloride Level 100, Carbon Dioxide Level 32H, Anion Gap 10, Blood Urea Nitrogen 5L, Creatinine 0.5, Estimat Glomerular Filtration Rate , Glucose Level 104, Calcium Level 9.2, Pro-B-Type Natriuretic Peptide 1044H, Random Vancomycin Level 16.3 Current Medications Medications (Trade) Dose Ordered Sig/Arabella Route PRN Reason Start Time Stop Time Status Last Admin Dose Admin Acetaminophen (Tylenol) 650 mg Q4H PRN RECTAL Fever/Headache/Mild Pain 08/04/16 21:30 09/03/16 21:29 Acetaminophen/ Hydrocodone Bitart ([place] 10/325) 1 ea Q6H PRN ORAL Pain Scale (6-10) 08/04/16 19:45 08/11/16 19:44 08/06/16 15:53 Albuterol/ Ipratropium (DuoNeb 0.5-3(2.5)mg/3ml) 3 ml Q4H PRN HHN Shortness of Breath 08/04/16 21:45 08/09/16 21:44 Azithromycin 500 mg/Dextrose 250 ml @ 250 mls/hr Q24HRS IV 08/05/16 15:00 08/07/16 18:00 08/07/16 15:01 Ceftriaxone Sodium/Dextrose (Rocephin/D5W 50ml) 50 ml @ 100 mls/hr Q24H IVPB 08/05/16 14:00 08/07/16 18:00 08/07/16 13:42 Clonidine HCl (Catapres) 0.1 mg Q6H PRN ORAL For High Blood Pressure 08/04/16 19:45 09/03/16 19:44 08/06/16 15:55 Dextrose (Dextrose 50%) STAT PRN IV Hypoglycemia 08/05/16 01:45 09/04/16 01:44 Dextrose/ Electrolytes (D5 0.45%NS W/ KCl 20mEq) 1,000 ml @ 75 mls/hr [id number] IV 08/07/16 13:00 09/06/16 12:59 08/07/16 14:12 Diphenhydramine HCl (Benadryl) 25 mg Q6H PRN ORAL Itching/Pruritis 08/04/16 19:45 09/03/16 19:44 Docusate Sodium (Colace) 100 mg DAILY ORAL 08/05/16 09:00 09/04/16 08:59 08/07/16 11:36 Enoxaparin Sodium (Lovenox) 60 mg Q12HR@0600,1800 SUBQ 08/05/16 06:00 09/04/16 05:59 08/07/16 17:41 Guaifenesin (Robitussin) 100 mg Q4H PRN ORAL For Cough 08/04/16 19:00 09/03/16 18:59 08/05/16 21:17 Lorazepam (Ativan 2mg/ml 1ml) 1 mg Q4H PRN IV For Anxiety 08/04/16 21:45 08/11/16 21:44 08/07/16 01:09 Lorazepam (Ativan) 1 mg Q8H PRN ORAL For Anxiety 08/05/16 01:45 08/12/16 01:44 Losartan Potassium (Cozaar) 50 mg Q12HR ORAL 08/04/16 21:00 09/03/16 20:59 08/07/16 11:36 Nystatin 1 applic 1 applic THREE TIMES A DAY TOPIC 08/07/16 13:00 09/06/16 12:59 08/07/16 17:39 Pantoprazole (Protonix) 40 mg Q12H PRN ORAL Abdominal cramps 08/05/16 01:45 09/04/16 01:44 Vancomycin HCl (Vanco rx to dose) 1 ea DAILY PRN MISC Per rx protocol 08/05/16 09:00 09/04/16 08:59 Vancomycin HCl/ Dextrose (Vancomycin/D5W 250ml) 250 ml @ 167 mls/hr Q12HR@0500,1700 IVPB 08/06/16 05:00 08/11/16 04:59 08/07/16 17:38 Warfarin Sodium 1 ea 1 ea DAILY PRN MISC Per rx protocol 08/05/16 09:00 09/04/16 08:59 COLIN GRIMM Aug 07, 2016 17:48
[2016-08-07 20:00] VITALS: BP 133/60
[2016-08-08] VITALS: BP 131/88
[2016-08-08 04:00] VITALS: BP 121/98
[2016-08-08] MEDS: Vancomycin 750mg/D5W 250ml IVPB SCH ×4 (05:30→17:40)
[2016-08-08] MEDS: Enoxaparin 60mg Inj SUBQ SCH ×2 (05:51→17:50)
[2016-08-08] MEDS: D5 1/2NS w/KCl 20mEq 1,000 ML IV SCH (05:52)
[2016-08-08 08:00] VITALS: BP 144/84
[2016-08-08] MEDS: Losartan 50mg tab ORAL SCH ×2 (08:40→21:50)
[2016-08-08] MEDS: Nystatin Powder 100,000 units/gm 15gm TOPIC SCH ×3 (08:40→17:40)
[2016-08-08 10:53] LABS: INR 3.8 (0.9-1.1); PROTHROMBIN TIME 39.8 SEC (9.30-11.50)
[2016-08-08 11:32] VITALS: BP 115/86
--- NOTE | 2016-08-08 12:08 | Nephrology Progress Note ---
Assessment/Plan Problem List: (1) Hypokalemia Assessment: corrected. (2) DVT (deep venous thrombosis) (3) HTN (hypertension) (4) Alzheimer's dementia (5) Dysphagia (6) Depression (7) CVA (cerebral vascular accident) (8) Brain aneurysm (9) HCAP (healthcare-associated pneumonia) (10) Dyspnea (11) Congestive heart failure (CHF) (12) Gram positive bacterial infection Plan abx per ID. pulm hygiene. f/u recs per pulm and cardio. d/c planning - home with hh for am 08/09. Subjective Subjective appears comfortable. no acute events. Objective Objective Last 24 Hour Vital Signs Date Time Temp Pulse Resp B/P Pulse Ox O2 Delivery O2 Flow Rate FiO2 08/08/16 11:32 97.5 87 21 115/86 95 Nasal Cannula 2.0 08/08/16 10:10 Nasal Cannula 2.0 28 08/08/16 10:10 80 18 Nasal Cannula 2.0 28 08/08/16 10:10 96 Nasal Cannula 2.0 28 08/08/16 08:40 144/84 08/08/16 08:00 98.1 79 21 144/84 96 Room Air 08/08/16 04:00 98.1 92 19 121/98 97 Nasal Cannula 2.0 08/08/16 00:00 97.7 85 19 131/88 97 Nasal Cannula 2.0 08/07/16 20:33 97 Nasal Cannula 2.0 28 08/07/16 20:33 Nasal Cannula 2.0 28 08/07/16 20:32 80 18 Nasal Cannula 2.0 28 08/07/16 20:00 98.2 70 20 133/60 94 Nasal Cannula 2.0 08/07/16 16:00 97.7 81 20 148/76 99 Nasal Cannula 2.0 Intake and Output 08/07/16 08/08/16 19:00 07:00 Intake Total 909.5 ml 1073 ml Output Total 400 ml 625 ml Balance 509.5 ml 448 ml Intake Oral 300 ml 240 ml IV Total 609.5 ml 833 ml Output Urine Total 400 ml 625 ml # Voids 2 # Bowel Movements 1 1 Laboratory Tests 08/08/16 10:30: Prothrombin Time 39.8H, Prothromb Time International Ratio 3.8H Height (Feet): 5 Height (Inches): 6.00 Weight (Pounds): 140 General Appearance: no apparent distress Cardiovascular: normal rate, regular rhythm Respiratory/Chest: decreased breath sounds Abdomen: non tender, soft Extremities: trace edema Neurologic: alert RISHABH PETERSON Aug 08, 2016 12:08
[2016-08-08 16:00] VITALS: BP 153/85
--- NOTE | 2016-08-08 16:49 | General Progress Note ---
Assessment/Plan Assessment/Plan ASSESSMENT: #. DVT of the bilateral lower extremities - s/p ivc permanent IVC filter and on coumadin, goal INR 2-3 #. Anemia potentially secondary to anemia of chronic disease - has improved #. Leukocytosis. Improved #. Coagulopathy 2/2 coumadin #. Trochanteric fracture of the right femur status post open reduction and internal fixation and repair #. Sepsis #. PNA RECOMMENDATIONS: 1. Continue coumadin 2. Continue bridge ppx lovenox 3. Goal INR 2-3 4. Continue antibiotics as needed 5. Transfuse if hemoglobin < 7.5 6. Continue nutritional support. 7. Followup pulm, cards, renal recs 8. Staff Thank you, Cabrera Hernandez MD Subjective Constitutional: Reports: no symptoms HEENT: Reports: no symptoms Cardiovascular: Reports: no symptoms Respiratory: Reports: no symptoms Gastrointestinal/Abdominal: Reports: poor appetite Genitourinary: Reports: no symptoms Neurologic/Psychiatric: Reports: no symptoms Endocrine: Reports: no symptoms Hematologic/Lymphatic: Reports: anemia Allergies: Coded Allergies: No Known Allergies (Unverified , 05/07/16) Subjective stable, is not bleeding, tolerating coumadin/lovenox Objective Last 24 Hour Vital Signs Date Time Temp Pulse Resp B/P Pulse Ox O2 Delivery O2 Flow Rate FiO2 08/08/16 11:32 97.5 87 21 115/86 95 Nasal Cannula 2.0 08/08/16 10:10 Nasal Cannula 2.0 28 08/08/16 10:10 80 18 Nasal Cannula 2.0 28 08/08/16 10:10 96 Nasal Cannula 2.0 28 08/08/16 08:40 144/84 08/08/16 08:00 98.1 79 21 144/84 96 Room Air 08/08/16 04:00 98.1 92 19 121/98 97 Nasal Cannula 2.0 08/08/16 00:00 97.7 85 19 131/88 97 Nasal Cannula 2.0 08/07/16 20:33 97 Nasal Cannula 2.0 28 08/07/16 20:33 Nasal Cannula 2.0 28 08/07/16 20:32 80 18 Nasal Cannula 2.0 28 08/07/16 20:00 98.2 70 20 133/60 94 Nasal Cannula 2.0 Intake and Output 08/07/16 08/08/16 19:00 07:00 Intake Total 909.5 ml 1073 ml Output Total 400 ml 625 ml Balance 509.5 ml 448 ml Intake Oral 300 ml 240 ml IV Total 609.5 ml 833 ml Output Urine Total 400 ml 625 ml # Voids 2 # Bowel Movements 1 1 Laboratory Tests 08/08/16 10:30: Prothrombin Time 39.8H, Prothromb Time International Ratio 3.8H Height (Feet): 5 Height (Inches): 6.00 Weight (Pounds): 140 General Appearance: no apparent distress EENT: TMs normal Neck: normal alignment Cardiovascular: normal rate Respiratory/Chest: normal breath sounds Abdomen: non tender Extremities: non-tender Edema: 1+ Leg (L), 1+ Leg (R) Edema: mild edema Neurologic: alert Skin: warm/dry Cabrera Hernandez Aug 08, 2016 16:49
--- NOTE | 2016-08-08 17:14 | Infectious Diseases Prog Note ---
Assessment/Plan Assessment/Plan ASSESSMENT: 86-year-old female with: CONS bacteremia 11/05 r/o SBE, septic thrombophlebitis - repeat BCx NGTD, TTE pending Pneumonia SCx NRF Cxray 08/[address]: Diffuse bilateral interstitial disease, possibly with micro- nodularity, disseminated inflammatory lesions a possibility. UTI , probable - UCx(-) Fever - resolved, no leukocytosis Acute BLE DVT SP IVC filter CVA. History of brain aneurysm. Dementia. NKDA Full Code PLAN: Cont IV Rocephin d # 7 / , azithro, IV Vanco d# 6 / 7 f/u TTE Monitor blood cultures (blood) Chest x-ray. Monitor CBC and BMP Subjective Allergies: Coded Allergies: No Known Allergies (Unverified , 05/07/16) Objective Vital Signs Last 24 Hour Vital Signs Date Time Temp Pulse Resp B/P Pulse Ox O2 Delivery O2 Flow Rate FiO2 08/08/16 16:00 97.7 87 20 153/85 96 Nasal Cannula 2.0 08/08/16 11:32 97.5 87 21 115/86 95 Nasal Cannula 2.0 08/08/16 10:10 Nasal Cannula 2.0 28 08/08/16 10:10 80 18 Nasal Cannula 2.0 28 08/08/16 10:10 96 Nasal Cannula 2.0 28 08/08/16 08:40 144/84 08/08/16 08:00 98.1 79 21 144/84 96 Room Air 08/08/16 04:00 98.1 92 19 121/98 97 Nasal Cannula 2.0 08/08/16 00:00 97.7 85 19 131/88 97 Nasal Cannula 2.0 08/07/16 20:33 97 Nasal Cannula 2.0 28 08/07/16 20:33 Nasal Cannula 2.0 28 08/07/16 20:32 80 18 Nasal Cannula 2.0 28 08/07/16 20:00 98.2 70 20 133/60 94 Nasal Cannula 2.0 Height (Feet): 5 Height (Inches): 6.00 Weight (Pounds): 140 Laboratory Tests Test 08/08/16 10:30 Prothrombin Time 39.8 SEC (9.30-11.50) H Prothromb Time International Ratio 3.8 (0.9-1.1) H Current Medications Medications (Trade) Dose Ordered Sig/Arabella Route PRN Reason Start Time Stop Time Status Last Admin Dose Admin Acetaminophen (Tylenol) 650 mg Q4H PRN RECTAL Fever/Headache/Mild Pain 08/04/16 21:30 09/03/16 21:29 Acetaminophen/ Hydrocodone Bitart ([place] 10/325) 1 ea Q6H PRN ORAL Pain Scale (6-10) 08/04/16 19:45 08/11/16 19:44 08/06/16 15:53 Albuterol/ Ipratropium (DuoNeb 0.5-3(2.5)mg/3ml) 3 ml Q4H PRN HHN Shortness of Breath 08/04/16 21:45 08/09/16 21:44 Clonidine HCl (Catapres) 0.1 mg Q6H PRN ORAL For High Blood Pressure 08/04/16 19:45 09/03/16 19:44 08/06/16 15:55 Dextrose (Dextrose 50%) STAT PRN IV Hypoglycemia 08/05/16 01:45 09/04/16 01:44 Diphenhydramine HCl (Benadryl) 25 mg Q6H PRN ORAL Itching/Pruritis 08/04/16 19:45 09/03/16 19:44 Docusate Sodium (Colace) 100 mg DAILY ORAL 08/05/16 09:00 09/04/16 08:59 08/07/16 11:36 Enoxaparin Sodium (Lovenox) 60 mg Q12HR@0600,1800 SUBQ 08/05/16 06:00 09/04/16 05:59 08/08/16 05:51 Guaifenesin (Robitussin) 100 mg Q4H PRN ORAL For Cough 08/04/16 19:00 09/03/16 18:59 08/05/16 21:17 Lorazepam (Ativan 2mg/ml 1ml) 1 mg Q4H PRN IV For Anxiety 08/04/16 21:45 08/11/16 21:44 08/07/16 17:55 Lorazepam (Ativan) 1 mg Q8H PRN ORAL For Anxiety 08/05/16 01:45 08/12/16 01:44 Losartan Potassium (Cozaar) 50 mg Q12HR ORAL 08/04/16 21:00 09/03/16 20:59 08/08/16 08:40 Nystatin (Nystop Powder) 1 applic THREE TIMES A DAY TOPIC 08/07/16 13:00 09/06/16 12:59 08/08/16 13:27 Pantoprazole (Protonix) 40 mg Q12H PRN ORAL Abdominal cramps 08/05/16 01:45 09/04/16 01:44 Vancomycin HCl (Vanco rx to dose) 1 ea DAILY PRN MISC Per rx protocol 08/05/16 09:00 09/04/16 08:59 Vancomycin HCl/ Dextrose (Vancomycin/D5W 250ml) 250 ml @ 167 mls/hr Q12HR@0500,1700 IVPB 08/06/16 05:00 08/11/16 04:59 08/08/16 05:30 Warfarin Sodium 1 ea 1 ea DAILY PRN MISC Per rx protocol 08/05/16 09:00 09/04/16 08:59 ANGEL WATERS M.D. Aug 08, 2016 17:14
--- NOTE | 2016-08-08 18:17 | Cardiac Electrophysiology PN ---
Assessment/Plan Assessment/Plan 1. Shortness of breath and bilateral LE DVT. Chest CT angiogram showed no pulmonary embolism. Echo pending. 2. Hypertension. On Cozaar 50 mg b.i.d. 3. Pneumonia on ceftriaxone and albuterol. 4. Bilateral LE DVT on Coumadin. S/P IVC filter. MONIQUE RN Subjective Subjective Comfortable in NAD.Sitter at bedside. No new events.No chest pain or SOB Objective Last 24 Hour Vital Signs Date Time Temp Pulse Resp B/P Pulse Ox O2 Delivery O2 Flow Rate FiO2 08/08/16 16:00 97.7 87 20 153/85 96 Nasal Cannula 2.0 08/08/16 11:32 97.5 87 21 115/86 95 Nasal Cannula 2.0 08/08/16 10:10 Nasal Cannula 2.0 28 08/08/16 10:10 80 18 Nasal Cannula 2.0 28 08/08/16 10:10 96 Nasal Cannula 2.0 28 08/08/16 08:40 144/84 08/08/16 08:00 98.1 79 21 144/84 96 Room Air 08/08/16 04:00 98.1 92 19 121/98 97 Nasal Cannula 2.0 08/08/16 00:00 97.7 85 19 131/88 97 Nasal Cannula 2.0 08/07/16 20:33 97 Nasal Cannula 2.0 28 08/07/16 20:33 Nasal Cannula 2.0 28 08/07/16 20:32 80 18 Nasal Cannula 2.0 28 08/07/16 20:00 98.2 70 20 133/60 94 Nasal Cannula 2.0 Intake and Output 08/07/16 08/08/16 19:00 07:00 Intake Total 909.5 ml 1073 ml Output Total 400 ml 625 ml Balance 509.5 ml 448 ml Intake Oral 300 ml 240 ml IV Total 609.5 ml 833 ml Output Urine Total 400 ml 625 ml # Voids 2 # Bowel Movements 1 1 Laboratory Tests Test 08/08/16 10:30 Prothrombin Time 39.8 SEC (9.30-11.50) H Prothromb Time International Ratio 3.8 (0.9-1.1) H Objective HEAD AND NECK: Shows no JVD. LUNGS: Coarse rhonchi. CARDIOVASCULAR: Regular S1 and S2 with no gallop or murmur. ABDOMEN: Soft. EXTREMITIES: No pitting edema. TOLUIE,TURNRE Aug 08, 2016 18:17
[2016-08-08 19:00] VITALS: BP 168/86
--- NOTE | 2016-08-08 19:41 | Infectious Diseases Prog Note ---
Assessment/Plan Assessment/Plan ASSESSMENT: 86-year-old female with: CONS bacteremia 11/05 r/o SBE, septic thrombophlebitis - repeat BCx NGTD, TTE pending Pneumonia SCx NRF Cxray 08/[address]: Diffuse bilateral interstitial disease, possibly with micro- nodularity, disseminated inflammatory lesions a possibility. UTI , probable - UCx(-) Fever - resolved, no leukocytosis Acute BLE DVT SP IVC filter CVA. History of brain aneurysm. Dementia. NKDA Full Code PLAN: ( SP IV Rocephin azithro, IV Vanco d# ) f/u TTE Monitor blood cultures (blood) Chest x-ray. Monitor CBC and BMP Subjective Constitutional: Denies: anorexia, chills, drenching sweats, fatigue, fever, no symptoms, other Allergies: Coded Allergies: No Known Allergies (Unverified , 05/07/16) Objective Vital Signs Last 24 Hour Vital Signs Date Time Temp Pulse Resp B/P Pulse Ox O2 Delivery O2 Flow Rate FiO2 08/08/16 19:29 95 Nasal Cannula 2.0 28 08/08/16 19:29 Nasal Cannula 2.0 28 08/08/16 19:28 81 18 Nasal Cannula 2.0 28 08/08/16 16:00 97.7 87 20 153/85 96 Nasal Cannula 2.0 08/08/16 11:32 97.5 87 21 115/86 95 Nasal Cannula 2.0 08/08/16 10:10 Nasal Cannula 2.0 28 08/08/16 10:10 80 18 Nasal Cannula 2.0 28 08/08/16 10:10 96 Nasal Cannula 2.0 28 08/08/16 08:40 144/84 08/08/16 08:00 98.1 79 21 144/84 96 Room Air 08/08/16 04:00 98.1 92 19 121/98 97 Nasal Cannula 2.0 08/08/16 00:00 97.7 85 19 131/88 97 Nasal Cannula 2.0 08/07/16 20:33 97 Nasal Cannula 2.0 28 08/07/16 20:33 Nasal Cannula 2.0 28 08/07/16 20:32 80 18 Nasal Cannula 2.0 28 08/07/16 20:00 98.2 70 20 133/60 94 Nasal Cannula 2.0 Height (Feet): 5 Height (Inches): 6.00 Weight (Pounds): 140 HEENT: atraumatic Respiratory/Chest: normal breath sounds Cardiovascular: normal rate Abdomen: soft, non tender Laboratory Tests Test 08/08/16 10:30 Prothrombin Time 39.8 SEC (9.30-11.50) H Prothromb Time International Ratio 3.8 (0.9-1.1) H Current Medications Medications (Trade) Dose Ordered Sig/Arabella Route PRN Reason Start Time Stop Time Status Last Admin Dose Admin Acetaminophen (Tylenol) 650 mg Q4H PRN RECTAL Fever/Headache/Mild Pain 08/04/16 21:30 09/03/16 21:29 Acetaminophen/ Hydrocodone Bitart ([place] 10/325) 1 ea Q6H PRN ORAL Pain Scale (6-10) 08/04/16 19:45 08/11/16 19:44 08/06/16 15:53 Albuterol/ Ipratropium (DuoNeb 0.5-3(2.5)mg/3ml) 3 ml Q4H PRN HHN Shortness of Breath 08/04/16 21:45 08/09/16 21:44 Clonidine HCl (Catapres) 0.1 mg Q6H PRN ORAL For High Blood Pressure 08/04/16 19:45 09/03/16 19:44 08/06/16 15:55 Dextrose (Dextrose 50%) STAT PRN IV Hypoglycemia 08/05/16 01:45 09/04/16 01:44 Diphenhydramine HCl (Benadryl) 25 mg Q6H PRN ORAL Itching/Pruritis 08/04/16 19:45 09/03/16 19:44 Docusate Sodium (Colace) 100 mg DAILY ORAL 08/05/16 09:00 09/04/16 08:59 08/07/16 11:36 Enoxaparin Sodium (Lovenox) 60 mg Q12HR@0600,1800 SUBQ 08/05/16 06:00 09/04/16 05:59 08/08/16 17:50 Guaifenesin (Robitussin) 100 mg Q4H PRN ORAL For Cough 08/04/16 19:00 09/03/16 18:59 08/05/16 21:17 Lorazepam (Ativan 2mg/ml 1ml) 1 mg Q4H PRN IV For Anxiety 08/04/16 21:45 08/11/16 21:44 08/07/16 17:55 Losartan Potassium (Cozaar) 50 mg Q12HR ORAL 08/04/16 21:00 09/03/16 20:59 08/08/16 08:40 Nystatin (Nystop Powder) 1 applic THREE TIMES A DAY TOPIC 08/07/16 13:00 09/06/16 12:59 08/08/16 17:40 Pantoprazole (Protonix) 40 mg Q12H PRN ORAL Abdominal cramps 08/05/16 01:45 09/04/16 01:44 Vancomycin HCl (Vanco rx to dose) 1 ea DAILY PRN MISC Per rx protocol 08/05/16 09:00 09/04/16 08:59 Vancomycin HCl/ Dextrose (Vancomycin/D5W 250ml) 250 ml @ 167 mls/hr Q12HR@0500,1700 IVPB 08/06/16 05:00 08/11/16 04:59 08/08/16 17:40 Warfarin Sodium 1 ea 1 ea DAILY PRN MISC Per rx protocol 08/05/16 09:00 09/04/16 08:59 ANGEL WATERS M.D. Aug 08, 2016 19:41
[2016-08-08] MEDS ORDERED: Tubing IV Secondary IV ONE (22:35)
[2016-08-09] VITALS (7 sets, daily range): BP systolic 149–179; BP diastolic 78–104
--- NOTE | 2016-08-09 08:49 | Pulmonology Progress Note ---
Assessment/Plan Assessment/Plan ASSESSMENT sepsis bacteremia ( CONS 11/05) r/o SBE, r/o septic thrombophlebitis PNA probable UTI dementia Hx of CVA Hx of brain aneurysm HTN bilateral DVT LE, s/p IVC filter dysphagia PLAN OF CARE MS floor O2 HHN prn CXR 08/06 no acute disease abx, ID follows antitussive prn last set of blood cx negative preliminary ( prior 11/05 + CONS) ECHO with preserved EF 65 and RVSP of 31, mild LVH, no evidence of vegetation cardio follows BP management with ARB, stable Venous Duplex + bilateral LE DVT, s/p IVC filter CTA no PE on Coumadin per pharmacy ,was on Lovenox as well till yesterday INR-3.8 on 08/08, off Lovenox, keep INR in therapeutic range GI prophylaxis aspiration precautions diet as per ST recommendation case discussed and evaluated by supervising physician Subjective Allergies: Coded Allergies: No Known Allergies (Unverified , 05/07/16) Subjective afebrile, no leucocytosis, no signs of respirator distress off Lovenox Objective Last 24 Hour Vital Signs Date Time Temp Pulse Resp B/P Pulse Ox O2 Delivery O2 Flow Rate FiO2 08/09/16 08:38 98.4 95 15 149/104 92 Nasal Cannula 08/09/16 04:29 167/96 08/09/16 04:00 97.9 88 18 167/96 94 Nasal Cannula 2.0 08/09/16 00:00 97.0 87 18 156/78 98 Room Air 08/08/16 21:50 168/86 08/08/16 21:50 168/86 08/08/16 19:29 95 Nasal Cannula 2.0 28 08/08/16 19:29 Nasal Cannula 2.0 28 08/08/16 19:28 81 18 Nasal Cannula 2.0 28 08/08/16 19:00 97.5 82 20 168/86 93 Nasal Cannula 2.0 08/08/16 16:00 97.7 87 20 153/85 96 Nasal Cannula 2.0 08/08/16 11:32 97.5 87 21 115/86 95 Nasal Cannula 2.0 08/08/16 10:10 Nasal Cannula 2.0 28 08/08/16 10:10 80 18 Nasal Cannula 2.0 28 08/08/16 10:10 96 Nasal Cannula 2.0 28 Intake and Output 08/08/16 08/09/16 18:59 06:59 Intake Total 782 ml 323 ml Output Total 600 ml 1700 ml Balance 182 ml -1377 ml Intake Oral 240 ml 240 ml IV Total 542 ml 83 ml Output Urine Total 600 ml 1700 ml # Bowel Movements 1 General Appearance: no acute distress HEENT: normocephalic, atraumatic, PERRL Respiratory/Chest: chest wall non-tender, no respiratory distress, no accessory muscle use, rhonchi - few scattered Cardiovascular: normal rate, regular rhythm, no JVD Abdomen: normal bowel sounds, soft, non tender Genitourinary: normal external genitalia Extremities: no edema, pedal pulses normal Neurologic/Psychiatric: abnormal gait - bedridden, alert Musculoskeletal: atrophy - BLE Laboratory Tests 08/08/16 10:30: Prothrombin Time 39.8H, Prothromb Time International Ratio 3.8H Current Medications Medications (Trade) Dose Ordered Sig/Arabella Route PRN Reason Start Time Stop Time Status Last Admin Dose Admin Acetaminophen (Tylenol) 650 mg Q4H PRN RECTAL Fever/Headache/Mild Pain 08/04/16 21:30 09/03/16 21:29 Acetaminophen/ Hydrocodone Bitart ([place] 10/325) 1 ea Q6H PRN ORAL Pain Scale (6-10) 08/04/16 19:45 08/11/16 19:44 08/06/16 15:53 Albuterol/ Ipratropium (DuoNeb 0.5-3(2.5)mg/3ml) 3 ml Q4H PRN HHN Shortness of Breath 08/04/16 21:45 08/09/16 21:44 Clonidine HCl (Catapres) 0.1 mg Q6H PRN ORAL For High Blood Pressure 08/04/16 19:45 09/03/16 19:44 08/09/16 04:29 Dextrose (Dextrose 50%) STAT PRN IV Hypoglycemia 08/05/16 01:45 09/04/16 01:44 Diphenhydramine HCl (Benadryl) 25 mg Q6H PRN ORAL Itching/Pruritis 08/04/16 19:45 09/03/16 19:44 Docusate Sodium (Colace) 100 mg DAILY ORAL 08/05/16 09:00 09/04/16 08:59 08/07/16 11:36 Guaifenesin (Robitussin) 100 mg Q4H PRN ORAL For Cough 08/04/16 19:00 09/03/16 18:59 08/05/16 21:17 Lorazepam (Ativan 2mg/ml 1ml) 1 mg Q4H PRN IV For Anxiety 08/04/16 21:45 08/11/16 21:44 08/07/16 17:55 Losartan Potassium (Cozaar) 50 mg Q12HR ORAL 08/04/16 21:00 09/03/16 20:59 08/08/16 21:50 Nystatin (Nystop Powder) 1 applic THREE TIMES A DAY TOPIC 08/07/16 13:00 09/06/16 12:59 08/08/16 17:40 Pantoprazole (Protonix) 40 mg Q12H PRN ORAL Abdominal cramps 08/05/16 01:45 09/04/16 01:44 Warfarin Sodium (Coumadin per pharmacy) 1 ea DAILY PRN MISC Per rx protocol 08/05/16 09:00 09/04/16 08:59 Talon (Dimitriosbenedict)Meli NP Aug 09, 2016 08:49
--- NOTE | 2016-08-09 09:35 | Cardiac Electrophysiology PN ---
Assessment/Plan Status Narrative Echo 05/16/2016 M-mode measurements of left ventricle not obtainable due to cardiac position (angle) Normal left ventricular chamber size, systolic function and wall motion to extent visualized. Left ventricular ejection fraction estimated to be 65 %. Moderate left ventricular hypertrophy by 2-D. No evidence of pericardial effusion. All other cardiac chamber sizes are within normal limits. Focal aortic valve sclerosis with adequate cusp excursion. Thickened mitral valve leaflets with normal excursion. Mitral annulus and aortic root calcification. Pulmonic valve not well visualized. Normal tricuspid valve structure. IVC at normal size with physiologic collapse. A color flow and spectral Doppler study was performed and revealed: Mild aortic regurgitation. Mild mitral regurgitation. Mitral diastolic velocities suggest reduced left ventricular relaxation c/w mild LV diastolic dysfunction (Grade I). Trace to mild tricuspid regurgitation. Tricuspid systolic velocities suggests peak right ventricular systolic pressure of 31 mmHg. Assessment/Plan 1. Shortness of breath and bilateral LE DVT. Chest CT angiogram , no pulmonary embolism. Echo 05/2016 EF 65% 2. Hypertension. On Cozaar 50 mg b.i.d. 3. Pneumonia on ceftriaxone and albuterol. 4. Bilateral LE DVT on Coumadin. S/P IVC filter. 5. Dysphagia. MONIQUE RN Subjective Subjective Confused and at times agitated this am. Was aspirating/coughing with her breakfast per sitter.No new events.No chest pain or SOB Objective Last 24 Hour Vital Signs Date Time Temp Pulse Resp B/P Pulse Ox O2 Delivery O2 Flow Rate FiO2 08/09/16 08:38 98.4 95 15 149/104 92 Nasal Cannula 08/09/16 04:29 167/96 08/09/16 04:00 97.9 88 18 167/96 94 Nasal Cannula 2.0 08/09/16 00:00 97.0 87 18 156/78 98 Room Air 08/08/16 21:50 168/86 08/08/16 21:50 168/86 08/08/16 19:29 95 Nasal Cannula 2.0 28 08/08/16 19:29 Nasal Cannula 2.0 28 08/08/16 19:28 81 18 Nasal Cannula 2.0 28 08/08/16 19:00 97.5 82 20 168/86 93 Nasal Cannula 2.0 08/08/16 16:00 97.7 87 20 153/85 96 Nasal Cannula 2.0 08/08/16 11:32 97.5 87 21 115/86 95 Nasal Cannula 2.0 08/08/16 10:10 Nasal Cannula 2.0 28 08/08/16 10:10 80 18 Nasal Cannula 2.0 28 08/08/16 10:10 96 Nasal Cannula 2.0 28 Intake and Output 08/08/16 08/09/16 19:00 07:00 Intake Total 782 ml 323 ml Output Total 600 ml 1700 ml Balance 182 ml -1377 ml Intake Oral 240 ml 240 ml IV Total 542 ml 83 ml Output Urine Total 600 ml 1700 ml # Bowel Movements 1 Laboratory Tests Test 08/08/16 10:30 Prothrombin Time 39.8 SEC (9.30-11.50) H Prothromb Time International Ratio 3.8 (0.9-1.1) H Objective HEAD AND NECK: Shows no JVD. LUNGS: Coarse rhonchi. CARDIOVASCULAR: Regular S1 and S2 with no gallop or murmur. ABDOMEN: Soft. EXTREMITIES: No pitting edema. TURNER ALLAN Aug 09, 2016 09:35
[2016-08-09] MEDS: Losartan 50mg tab ORAL SCH ×2 (09:58→20:27)
[2016-08-09] MEDS: Docusate 100mg cap ORAL SCH (09:58)
--- NOTE | 2016-08-09 11:11 | Infectious Diseases Prog Note ---
Assessment/Plan Assessment/Plan ASSESSMENT: 86-year-old female with: CONS bacteremia ? contaminant , - repeat BCx NGTD, TTE EF 65% Pneumonia SCx NRF Resp viral Panel : +ve for RSV Cxray 08/[address]: Diffuse bilateral interstitial disease, possibly with micro- nodularity, disseminated inflammatory lesions a possibility. UTI , probable - UCx(-) Fever - resolved, no leukocytosis Acute BLE DVT SP IVC filter CVA. History of brain aneurysm. Dementia. NKDA Full Code PLAN: Monitor pt off of AB Rx ( no indication of ribavirin at this point ) ( SP IV Rocephin azithro, IV Vanco d# ) Monitor blood cultures (blood) Chest x-ray. Monitor CBC and BMP Subjective Constitutional: Denies: anorexia, chills, drenching sweats, fatigue, fever, no symptoms, other Allergies: Coded Allergies: No Known Allergies (Unverified , 05/07/16) Objective Vital Signs Last 24 Hour Vital Signs Date Time Temp Pulse Resp B/P Pulse Ox O2 Delivery O2 Flow Rate FiO2 08/09/16 09:58 149/104 08/09/16 08:38 98.4 95 15 149/104 92 Nasal Cannula 08/09/16 04:29 167/96 08/09/16 04:00 97.9 88 18 167/96 94 Nasal Cannula 2.0 08/09/16 00:00 97.0 87 18 156/78 98 Room Air 08/08/16 21:50 168/86 08/08/16 21:50 168/86 08/08/16 19:29 95 Nasal Cannula 2.0 28 08/08/16 19:29 Nasal Cannula 2.0 28 08/08/16 19:28 81 18 Nasal Cannula 2.0 28 08/08/16 19:00 97.5 82 20 168/86 93 Nasal Cannula 2.0 08/08/16 16:00 97.7 87 20 153/85 96 Nasal Cannula 2.0 08/08/16 11:32 97.5 87 21 115/86 95 Nasal Cannula 2.0 Height (Feet): 5 Height (Inches): 6.00 Weight (Pounds): 140 HEENT: anicteric Respiratory/Chest: normal breath sounds Cardiovascular: regular rhythm Abdomen: no organomegaly Current Medications Medications (Trade) Dose Ordered Sig/Arabella Route PRN Reason Start Time Stop Time Status Last Admin Dose Admin Acetaminophen (Tylenol) 650 mg Q4H PRN RECTAL Fever/Headache/Mild Pain 08/04/16 21:30 09/03/16 21:29 Acetaminophen/ Hydrocodone Bitart ([place] 10/325) 1 ea Q6H PRN ORAL Pain Scale (6-10) 08/04/16 19:45 08/11/16 19:44 08/06/16 15:53 Albuterol/ Ipratropium (DuoNeb 0.5-3(2.5)mg/3ml) 3 ml Q4H PRN HHN Shortness of Breath 08/04/16 21:45 08/09/16 21:44 Clonidine HCl (Catapres) 0.1 mg Q6H PRN ORAL For High Blood Pressure 08/04/16 19:45 09/03/16 19:44 08/09/16 04:29 Dextrose (Dextrose 50%) STAT PRN IV Hypoglycemia 08/05/16 01:45 09/04/16 01:44 Diphenhydramine HCl (Benadryl) 25 mg Q6H PRN ORAL Itching/Pruritis 08/04/16 19:45 09/03/16 19:44 Docusate Sodium (Colace) 100 mg DAILY ORAL 08/05/16 09:00 09/04/16 08:59 08/09/16 09:58 Guaifenesin (Robitussin) 100 mg Q4H PRN ORAL For Cough 08/04/16 19:00 09/03/16 18:59 08/05/16 21:17 Lorazepam (Ativan 2mg/ml 1ml) 1 mg Q4H PRN IV For Anxiety 08/04/16 21:45 08/11/16 21:44 08/07/16 17:55 Losartan Potassium (Cozaar) 50 mg Q12HR ORAL 08/04/16 21:00 09/03/16 20:59 08/09/16 09:58 Nystatin (Nystop Powder) 1 applic THREE TIMES A DAY TOPIC 08/07/16 13:00 09/06/16 12:59 08/08/16 17:40 Pantoprazole (Protonix) 40 mg Q12H PRN ORAL Abdominal cramps 08/05/16 01:45 09/04/16 01:44 Warfarin Sodium (Coumadin per pharmacy) 1 ea DAILY PRN MISC Per rx protocol 08/05/16 09:00 09/04/16 08:59 ANGEL WATERS M.D. Aug 09, 2016 11:11
[2016-08-09] MEDS: Nystatin Powder 100,000 units/gm 15gm TOPIC SCH ×3 (11:34→20:28)
[2016-08-09] MEDS ORDERED: DuoNeb 0.5-3(2.5)mg/3ml neb HHN PRN (13:45)
[2016-08-09 16:42] LABS: INR 2.6 (0.9-1.1); PROTHROMBIN TIME 27.6 SEC (9.30-11.50)
[2016-08-09] MEDS ORDERED: Warfarin Sodium 2.5mg ORAL ONE (18:00)
--- NOTE | 2016-08-09 18:35 | Nephrology Progress Note ---
Assessment/Plan Problem List: (1) Dyspnea (2) Respiratory distress (3) Congestive heart failure (CHF) (4) HCAP (healthcare-associated pneumonia) Plan Cont abx per ID pulm hygiene. f/u recs per pulm and cardio. AM labs Subjective ROS Limited/Unobtainable: Yes Subjective In bed, in no distress, confused Objective Objective Last 24 Hour Vital Signs Date Time Temp Pulse Resp B/P Pulse Ox O2 Delivery O2 Flow Rate FiO2 08/09/16 16:00 98.0 100 17 179/93 92 Nasal Cannula 08/09/16 11:58 97.7 91 16 149/94 95 Nasal Cannula 08/09/16 09:58 149/104 08/09/16 09:55 95 Nasal Cannula 2.0 28 08/09/16 09:55 Nasal Cannula 2.0 28 08/09/16 09:55 89 16 Nasal Cannula 2.0 28 08/09/16 08:38 98.4 95 15 149/104 92 Nasal Cannula 08/09/16 04:29 167/96 08/09/16 04:00 97.9 88 18 167/96 94 Nasal Cannula 2.0 08/09/16 00:00 97.0 87 18 156/78 98 Room Air 08/08/16 21:50 168/86 08/08/16 21:50 168/86 08/08/16 19:29 95 Nasal Cannula 2.0 28 08/08/16 19:29 Nasal Cannula 2.0 28 08/08/16 19:28 81 18 Nasal Cannula 2.0 28 08/08/16 19:00 97.5 82 20 168/86 93 Nasal Cannula 2.0 Intake and Output 08/08/16 08/09/16 19:00 07:00 Intake Total 782 ml 323 ml Output Total 600 ml 1700 ml Balance 182 ml -1377 ml Intake Oral 240 ml 240 ml IV Total 542 ml 83 ml Output Urine Total 600 ml 1700 ml # Bowel Movements 1 Laboratory Tests 08/09/16 14:40: Prothrombin Time 27.6H, Prothromb Time International Ratio 2.6H Height (Feet): 5 Height (Inches): 6.00 Weight (Pounds): 140 General Appearance: confused EENT: normal ENT inspection Neck: normal alignment, supple Cardiovascular: normal rate, regular rhythm, no JVD Respiratory/Chest: normal breath sounds, no respiratory distress Abdomen: normal bowel sounds, non tender, soft Extremities: normal range of motion, non-tender Neurologic: disoriented Hellen Eaton N.P. Aug 09, 2016 18:35
--- NOTE | 2016-08-09 19:33 | General Progress Note ---
Assessment/Plan Assessment/Plan ASSESSMENT: #. DVT of the bilateral lower extremities - s/p ivc permanent IVC filter and on coumadin, goal INR 2-3 #. Anemia potentially secondary to anemia of chronic disease - stable #. Leukocytosis. Improved #. Coagulopathy 2/2 coumadin #. Trochanteric fracture of the right femur status post open reduction and internal fixation and repair #. Sepsis #. PNA RECOMMENDATIONS: 1. Continue coumadin 2. D/C lovenox 3. Goal INR 2-3 4. Continue antibiotics as needed 5. Transfuse if hemoglobin < 7.5 6. Continue nutritional support. 7. Followup pulm, cards, renal recs 8. Staff Thank you, Cabrera Hernandez MD Subjective Constitutional: Reports: no symptoms HEENT: Reports: no symptoms Cardiovascular: Reports: no symptoms Respiratory: Reports: no symptoms Gastrointestinal/Abdominal: Reports: poor appetite Genitourinary: Reports: no symptoms Neurologic/Psychiatric: Reports: no symptoms Endocrine: Reports: no symptoms Hematologic/Lymphatic: Reports: anemia Allergies: Coded Allergies: No Known Allergies (Unverified , 05/07/16) Subjective stable, is not bleeding, tolerating coumadin Objective Last 24 Hour Vital Signs Date Time Temp Pulse Resp B/P Pulse Ox O2 Delivery O2 Flow Rate FiO2 08/09/16 16:00 98.0 100 17 179/93 92 Nasal Cannula 08/09/16 11:58 97.7 91 16 149/94 95 Nasal Cannula 08/09/16 09:58 149/104 08/09/16 09:55 95 Nasal Cannula 2.0 28 08/09/16 09:55 Nasal Cannula 2.0 28 08/09/16 09:55 89 16 Nasal Cannula 2.0 28 08/09/16 08:38 98.4 95 15 149/104 92 Nasal Cannula 08/09/16 04:29 167/96 08/09/16 04:00 97.9 88 18 167/96 94 Nasal Cannula 2.0 08/09/16 00:00 97.0 87 18 156/78 98 Room Air 08/08/16 21:50 168/86 08/08/16 21:50 168/86 Intake and Output 08/08/16 08/09/16 19:00 07:00 Intake Total 782 ml 323 ml Output Total 600 ml 1700 ml Balance 182 ml -1377 ml Intake Oral 240 ml 240 ml IV Total 542 ml 83 ml Output Urine Total 600 ml 1700 ml # Bowel Movements 1 Laboratory Tests 08/09/16 14:40: Prothrombin Time 27.6H, Prothromb Time International Ratio 2.6H Height (Feet): 5 Height (Inches): 6.00 Weight (Pounds): 140 General Appearance: no apparent distress EENT: TMs normal Neck: normal alignment Cardiovascular: normal rate Respiratory/Chest: chest wall non-tender Abdomen: non tender Extremities: non-tender Edema: no edema noted Leg (L), no edema noted Leg (R) Edema: mild edema Neurologic: alert Skin: warm/dry Cabrera Hernandez Aug 09, 2016 19:33
[2016-08-10] VITALS (7 sets, daily range): BP systolic 121–174; BP diastolic 65–92
[2016-08-10 07:34] LABS: ANION GAP 11 (5-15); CALCIUM 9.7 mg/dL (8.6-10.2); CARBON DIOXIDE 33 mEQ/L (20-30); CHLORIDE 104 mEQ/L (98-107); CREATININE 0.6 mg/dL (0.5-0.9); HEMOLYSIS 5; POTASSIUM 2.9 mEQ/L (3.4-4.9); SODIUM 148 mEQ/L (135-145)
[2016-08-10 07:39] LABS: BASOPHILS % (AUTO) 0.9 % (0.0-2.0); LYMPHOCYTES % (AUTO) 23.2 % (20.0-45.0); MEAN CORPUSCULAR HEMOGLOBIN 30.4 PG (27.0-31.0); MEAN CORPUSCULAR HGB CONC 33.4 G/DL (32.0-36.0); MEAN CORPUSCULAR VOLUME 91 FL (80-99); MEAN PLATELET VOLUME 8.4 FL (6.5-10.1); MONOCYTES % (AUTO) 8.9 % (1.0-10.0); NEUTROPHILS % (AUTO) 62.9 % (45.0-75.0); PLATELET COUNT 202 K/UL (150-450); RED BLOOD COUNT 4.24 M/UL (4.20-5.40); RED CELL DISTRIBUTION WIDTH 12.9 % (11.6-14.8); WHITE BLOOD COUNT 7.3 K/UL (4.8-10.8)
[2016-08-10 08:05] LABS: INR 2.1 (0.9-1.1); PROTHROMBIN TIME 21.8 SEC (9.30-11.50)
--- NOTE | 2016-08-10 08:44 | Wound Care Consultation ---
Wound Assessment Wound Assessment #1: Wound Present on Admission: Yes New Wound: No Status Change of Wound: No Wound Location Body Site Modif: right Wound Location Body Site: thigh - upper inner thigh Wound Type: chemical burn Chasidy Test: Does not Chasidy Percent of Wound Bruning/Red: 100 Wound Drainage Amount: None Wound Drainage Odor: None/Absent Tissue Surrounding Wound: Macerated Wound General Appearance: Reddened Wound Assessment #2: Wound Number: #2 Wound Present on Admission: Yes New Wound: No Status Change of Wound: No Wound Location Body Site Modif: left Wound Location Body Site: thigh - upper inner thigh Wound Type: chemical burn Chasidy Test: Does not Chasidy Percent of Wound Bruning/Red: 100 Wound Drainage Amount: None Wound Drainage Odor: None/Absent Tissue Surrounding Wound: Macerated Wound General Appearance: Reddened Wound Assessment #3: Wound Number: #3 Wound Present on Admission: Yes New Wound: No Status Change of Wound: No Wound Location Body Site: perineal area Wound Type: chemical burn Chasidy Test: Does not Chasidy Percent of Wound Bruning/Red: 100 Wound Drainage Amount: None Wound Drainage Odor: None/Absent Tissue Surrounding Wound: Intact Wound General Appearance: Reddened Wound Assessment #4: Wound Number: #4 Wound Present on Admission: Yes New Wound: No Status Change of Wound: No Wound Location Body Site Modif: mid Wound Location Body Site: sacral Wound Type: pressure ulcer Chasidy Test: Does not Chasidy Pressure Ulcer Stage: I Wound Thickness: Partial Thickness Wound Length: 1.0 Wound Width: 1.0 Percent of Wound Bruning/Red: 100 Wound Drainage Amount: None Wound Drainage Odor: None/Absent Tissue Surrounding Wound: Intact Wound General Appearance: Reddened Wound Assessment #5: Wound Number: #5 Wound Present on Admission: Yes New Wound: No Status Change of Wound: No Wound Location Body Site Modif: right Wound Location Body Site: buttocks Wound Type: pressure ulcer Pressure Ulcer Stage: deep tissue injury Wound Drainage Amount: None Wound Drainage Odor: None/Absent Tissue Surrounding Wound: Intact - resolved. Wound General Appearance: Open to air, Clean/Dry Wound Assessment #6: Wound Number: #6 Wound Present on Admission: No New Wound: Yes Status Change of Wound: No Wound Location Body Site Modif: right Wound Location Body Site: buttocks Wound Type: other - self-inflicted scratches. Wound Thickness: Partial Thickness Wound Length: 1.0 Wound Width: 1.0 Percent of Wound Bruning/Red: 100 Wound Drainage Amount: None Wound Drainage Odor: None/Absent Tissue Surrounding Wound: Erythemic Wound Assessment #7: Wound Number: #7 Wound Present on Admission: No New Wound: Yes Status Change of Wound: No Wound Location Body Site Modif: left Wound Location Body Site: buttocks Wound Type: other - self- inflicted scratches Chasidy Test: Does not Chasidy Wound Thickness: Partial Thickness Wound Length: 1.0 Wound Width: 1.0 Percent of Wound Bruning/Red: 100 Wound Drainage Amount: None Wound Drainage Odor: None/Absent Tissue Surrounding Wound: Erythemic Wound Comment #1 Left upper inner thigh chemical burn. #2 Right upper inner thigh chemical burn. #3 Perineal area chemical burn. #4 Mid Sacral Pressure Ulcer Stage I. #5 Right Buttock Admitted Deep Tissue Injury -Resolved. #6 Right Buttock Self -Inflicted Scratches. #7 Left Buttock Self-Inflicted Scratches. Recommendation -Apply Low Air Loss Overlay. -Local wound care as ordered. -Keep clean and dry. -Gentle pericare. -Optimize nutrition. -Heel Protectors as needed. -Offload both heels and feetr. -Turn and reposition. -Avoid shear and friction to skin. -Assess and follow up with MD if any changes are noted. Upon body reassessment noted good progress to all admitted sites, noted decrease in size to mid sacral , perineal area,left upper inner thigh and right upper inner thigh noted with less chemical burn present, Right Buttock Deep tissue injury noted resolved.Current treatment is effective . Upon assessment however noted patient scratching buttocks noted self -inflicted scratches to left and right buttocks, site cleansed ,pat dry, applied skin barrier cream. JESSA SHAFFER Aug 10, 2016 08:44
[2016-08-10] MEDS: Nystatin Powder 100,000 units/gm 15gm TOPIC SCH ×3 (09:00→17:26)
[2016-08-10] MEDS: Norco 10mg/325mg tab ORAL PRN (09:15)
[2016-08-10] MEDS: Losartan 50mg tab ORAL SCH ×2 (09:15→21:06)
[2016-08-10] MEDS: Docusate 100mg cap ORAL SCH (09:15)
--- NOTE | 2016-08-10 09:53 | General Progress Note ---
Assessment/Plan Assessment/Plan ASSESSMENT: #. DVT of the bilateral lower extremities - s/p ivc permanent IVC filter and on coumadin, goal INR 2-3 #. Anemia potentially secondary to anemia of chronic disease - stable #. Leukocytosis. Improved #. Coagulopathy 2/2 coumadin #. Trochanteric fracture of the right femur status post open reduction and internal fixation and repair #. Sepsis #. PNA RECOMMENDATIONS: 1. Continue coumadin 2. D/C lovenox 3. Goal INR 2-3 4. Continue antibiotics prn basis 5. Transfuse if hemoglobin < 7.0 6. Continue nutritional support. 7. Followup pulm, cards, renal recs 8. Staff Thank you, Holden Hernandez MD Subjective Constitutional: Reports: no symptoms HEENT: Reports: no symptoms Cardiovascular: Reports: no symptoms Respiratory: Reports: no symptoms Gastrointestinal/Abdominal: Reports: poor appetite Genitourinary: Reports: no symptoms Neurologic/Psychiatric: Reports: no symptoms Endocrine: Reports: no symptoms Hematologic/Lymphatic: Reports: anemia Allergies: Coded Allergies: No Known Allergies (Unverified , 05/07/16) Subjective stable, no fevers or chills, not bleeding Objective Last 24 Hour Vital Signs Date Time Temp Pulse Resp B/P Pulse Ox O2 Delivery O2 Flow Rate FiO2 08/10/16 09:15 126/84 08/10/16 07:00 72 18 Nasal Cannula 2.0 28 08/10/16 07:00 Nasal Cannula 2.0 28 08/10/16 07:00 98 Nasal Cannula 2.0 28 08/10/16 04:00 98.2 69 19 126/84 98 Nasal Cannula 2.0 08/10/16 00:00 99.7 78 18 121/88 96 Nasal Cannula 2.0 08/09/16 20:49 97 Nasal Cannula 2.0 28 08/09/16 20:49 Nasal Cannula 2.0 28 08/09/16 20:48 104 18 Nasal Cannula 2.0 28 08/09/16 20:28 161/89 08/09/16 20:27 161/89 08/09/16 20:00 97.7 98 18 161/93 96 Nasal Cannula 2.0 08/09/16 18:00 153/90 08/09/16 16:00 98.0 100 17 179/93 92 Nasal Cannula 08/09/16 11:58 97.7 91 16 149/94 95 Nasal Cannula 08/09/16 09:58 149/104 08/09/16 09:55 95 Nasal Cannula 2.0 28 08/09/16 09:55 Nasal Cannula 2.0 28 08/09/16 09:55 89 16 Nasal Cannula 2.0 28 Intake and Output 08/09/16 08/10/16 19:00 07:00 Intake Total 400 ml 320 ml Output Total 300 ml 400 ml Balance 100 ml -80 ml Intake Oral 400 ml 320 ml Output Urine Total 300 ml 400 ml Laboratory Tests 08/09/16 14:40: Prothrombin Time 27.6H, Prothromb Time International Ratio 2.6H 08/10/16 05:20: Prothrombin Time 21.8H, Prothromb Time International Ratio 2.1H, White Blood Count 7.3, Red Blood Count 4.24, Hemoglobin 12.9, Hematocrit 38.6, Mean Corpuscular Volume 91, Mean Corpuscular Hemoglobin 30.4, Mean Corpuscular Hemoglobin Concent 33.4, Red Cell Distribution Width 12.9, Platelet Count 202, Mean Platelet Volume 8.4, Neutrophils (%) (Auto) 62.9, Lymphocytes (%) (Auto) 23.2, Monocytes (%) (Auto) 8.9, Eosinophils (%) (Auto) 4.0H, Basophils (%) (Auto ) 0.9, Sodium Level 148H, Potassium Level 2.9L, Chloride Level 104, Carbon Dioxide Level 33H, Anion Gap 11, Blood Urea Nitrogen 10, Creatinine 0.6, Estimat Glomerular Filtration Rate , Glucose Level 120H, Calcium Level 9.7 Height (Feet): 5 Height (Inches): 6.00 Weight (Pounds): 140 General Appearance: no apparent distress EENT: TMs normal Neck: supple Cardiovascular: regular rhythm Respiratory/Chest: lungs clear Abdomen: soft Extremities: normal inspection Edema: 1+ Leg (L), 1+ Leg (R) Edema: mild edema Neurologic: alert Skin: warm/dry HOLDEN HERNANDEZ Aug 10, 2016 09:53
--- NOTE | 2016-08-10 11:17 | Diagnostic Imaging Report ---
Indication: Dyspnea Comparison: 08/06/16 A single view chest radiograph was obtained. Findings: Heart is enlarged. Aorta is enlarged and calcified. Interstitium and pulmonary vascularity are mildly prominent. Bones are osteopenic. Impression: No acute disease
--- NOTE | 2016-08-10 13:16 | Cardiac Electrophysiology PN ---
Assessment/Plan Status Narrative Echo 05/16/2016 M-mode measurements of left ventricle not obtainable due to cardiac position (angle) Normal left ventricular chamber size, systolic function and wall motion to extent visualized. Left ventricular ejection fraction estimated to be 65 %. Moderate left ventricular hypertrophy by 2-D. No evidence of pericardial effusion. All other cardiac chamber sizes are within normal limits. Focal aortic valve sclerosis with adequate cusp excursion. Thickened mitral valve leaflets with normal excursion. Mitral annulus and aortic root calcification. Pulmonic valve not well visualized. Normal tricuspid valve structure. IVC at normal size with physiologic collapse. A color flow and spectral Doppler study was performed and revealed: Mild aortic regurgitation. Mild mitral regurgitation. Mitral diastolic velocities suggest reduced left ventricular relaxation c/w mild LV diastolic dysfunction (Grade I). Trace to mild tricuspid regurgitation. Tricuspid systolic velocities suggests peak right ventricular systolic pressure of 31 mmHg. Assessment/Plan 1. Shortness of breath and bilateral LE DVT. Chest CT angiogram , no pulmonary embolism. Echo 05/2016 EF 65%. No [place]. 2. Hypertension. On Cozaar 50 mg b.i.d. 3. Pneumonia 4. Bilateral LE DVT on Coumadin. S/P IVC filter. 5. Dysphagia. DW RN Subjective Subjective Still Confused and at times agitated per sitter. No new events overnight. Objective Last 24 Hour Vital Signs Date Time Temp Pulse Resp B/P Pulse Ox O2 Delivery O2 Flow Rate FiO2 08/10/16 10:16 98.2 08/10/16 09:15 126/84 08/10/16 07:00 72 18 Nasal Cannula 2.0 28 08/10/16 07:00 Nasal Cannula 2.0 28 08/10/16 07:00 98 Nasal Cannula 2.0 28 08/10/16 04:00 98.2 69 19 126/84 98 Nasal Cannula 2.0 08/10/16 00:00 99.7 78 18 121/88 96 Nasal Cannula 2.0 08/09/16 20:49 97 Nasal Cannula 2.0 28 08/09/16 20:49 Nasal Cannula 2.0 28 08/09/16 20:48 104 18 Nasal Cannula 2.0 28 08/09/16 20:28 161/89 08/09/16 20:27 161/89 08/09/16 20:00 97.7 98 18 161/93 96 Nasal Cannula 2.0 08/09/16 18:00 153/90 08/09/16 16:00 98.0 100 17 179/93 92 Nasal Cannula Intake and Output 08/09/16 08/10/16 19:00 07:00 Intake Total 400 ml 320 ml Output Total 300 ml 400 ml Balance 100 ml -80 ml Intake Oral 400 ml 320 ml Output Urine Total 300 ml 400 ml Laboratory Tests Test 08/09/16 14:40 08/10/16 05:20 Prothrombin Time 27.6 SEC (9.30-11.50) H 21.8 SEC (9.30-11.50) H Prothromb Time International Ratio 2.6 (0.9-1.1) H 2.1 (0.9-1.1) H White Blood Count 7.3 K/UL (4.8-10.8) Red Blood Count 4.24 M/UL (4.20-5.40) Hemoglobin 12.9 G/DL (12.0-16.0) Hematocrit 38.6 % (37.0-47.0) Mean Corpuscular Volume 91 FL (80-99) Mean Corpuscular Hemoglobin 30.4 PG (27.0-31.0) Mean Corpuscular Hemoglobin Concent 33.4 G/DL (32.0-36.0) Red Cell Distribution Width 12.9 % (11.6-14.8) Platelet Count 202 K/UL (150-450) Mean Platelet Volume 8.4 FL (6.5-10.1) Neutrophils (%) (Auto) 62.9 % (45.0-75.0) Lymphocytes (%) (Auto) 23.2 % (20.0-45.0) Monocytes (%) (Auto) 8.9 % (1.0-10.0) Eosinophils (%) (Auto) 4.0 % (0.0-3.0) H Basophils (%) (Auto) 0.9 % (0.0-2.0) Sodium Level 148 mEQ/L (135-145) H Potassium Level 2.9 mEQ/L (3.4-4.9) L Chloride Level 104 mEQ/L (98-107) Carbon Dioxide Level 33 mEQ/L (20-30) H Anion Gap 11 (5-15) Blood Urea Nitrogen 10 mg/dL (7-23) Creatinine 0.6 mg/dL (0.5-0.9) Estimat Glomerular Filtration Rate mL/min (>60) Glucose Level 120 mg/dL (74-106) H Calcium Level 9.7 mg/dL (8.6-10.2) Objective HEAD AND NECK: Shows no JVD. LUNGS: Coarse rhonchi. CARDIOVASCULAR: Regular S1 and S2 with no gallop or murmur. ABDOMEN: Soft. EXTREMITIES: No pitting edema. TURNER ALLAN Aug 10, 2016 13:16
--- NOTE | 2016-08-10 15:14 | Pulmonology Progress Note ---
Assessment/Plan Assessment/Plan covering for dr Chambers ASSESSMENT sepsis bacteremia ( CONS 11/05) r/o SBE, r/o septic thrombophlebitis PNA probable UTI dementia Hx of CVA Hx of brain aneurysm HTN bilateral DVT LE, s/p IVC filter dysphagia PLAN OF CARE MS floor O2 HHN prn CXR 08/06 no acute disease abx, ID follows antitussive prn last set of blood cx negative preliminary ( prior 11/05 + CONS) ECHO with preserved EF 65 %and RVSP of 31, mild LVH, no evidence of vegetation cardio follows BP management with ARB, stable Venous Duplex + bilateral LE DVT, s/p IVC filter CTA no PE on Coumadin per pharmacy , INR-2.1 therapeutic K replaced, check K and Mg in am GI prophylaxis aspiration precautions diet as per ST recommendation , however appetite poor and coughing with this diet may need PEG - per PMD case discussed and evaluated by supervising physician Subjective Allergies: Coded Allergies: No Known Allergies (Unverified , 05/07/16) Subjective afebrile, no leucocytosis, no signs of respirator distress off Lovenox K-2.9 Objective Last 24 Hour Vital Signs Date Time Temp Pulse Resp B/P Pulse Ox O2 Delivery O2 Flow Rate FiO2 08/10/16 12:00 98.3 17 132/66 Nasal Cannula 2.0 08/10/16 10:16 98.2 08/10/16 09:15 126/84 08/10/16 08:55 97.5 17 148/79 96 Nasal Cannula 08/10/16 07:00 72 18 Nasal Cannula 2.0 28 08/10/16 07:00 Nasal Cannula 2.0 28 08/10/16 07:00 98 Nasal Cannula 2.0 28 08/10/16 04:00 98.2 69 19 126/84 98 Nasal Cannula 2.0 08/10/16 00:00 99.7 78 18 121/88 96 Nasal Cannula 2.0 08/09/16 20:49 97 Nasal Cannula 2.0 28 08/09/16 20:49 Nasal Cannula 2.0 28 08/09/16 20:48 104 18 Nasal Cannula 2.0 28 08/09/16 20:28 161/89 08/09/16 20:27 161/89 08/09/16 20:00 97.7 98 18 161/93 96 Nasal Cannula 2.0 08/09/16 18:00 153/90 08/09/16 16:00 98.0 100 17 179/93 92 Nasal Cannula Intake and Output 08/09/16 08/10/16 19:00 07:00 Intake Total 400 ml 320 ml Output Total 300 ml 400 ml Balance 100 ml -80 ml Intake Oral 400 ml 320 ml Output Urine Total 300 ml 400 ml Objective General Appearance: no acute distress HEENT: normocephalic, atraumatic, PERRL Respiratory/Chest: chest wall non-tender, no respiratory distress, no accessory muscle use, rhonchi - few scattered Cardiovascular: normal rate, regular rhythm, no JVD Abdomen: normal bowel sounds, soft, non tender Genitourinary: normal external genitalia Extremities: no edema, pedal pulses normal Neurologic/Psychiatric: abnormal gait - bedridden, alert Musculoskeletal: atrophy - BLE Laboratory Tests 08/10/16 05:20: White Blood Count 7.3, Red Blood Count 4.24, Hemoglobin 12.9, Hematocrit 38.6, Mean Corpuscular Volume 91, Mean Corpuscular Hemoglobin 30.4, Mean Corpuscular Hemoglobin Concent 33.4, Red Cell Distribution Width 12.9, Platelet Count 202, Mean Platelet Volume 8.4, Neutrophils (%) (Auto) 62.9, Lymphocytes (%) (Auto) 23.2, Monocytes (%) (Auto) 8.9, Eosinophils (%) (Auto) 4.0H, Basophils (%) (Auto ) 0.9, Prothrombin Time 21.8H, Prothromb Time International Ratio 2.1H, Sodium Level 148H, Potassium Level 2.9L, Chloride Level 104, Carbon Dioxide Level 33H, Anion Gap 11, Blood Urea Nitrogen 10, Creatinine 0.6, Estimat Glomerular Filtration Rate , Glucose Level 120H, Calcium Level 9.7 Current Medications Medications (Trade) Dose Ordered Sig/Arabella Route PRN Reason Start Time Stop Time Status Last Admin Dose Admin Acetaminophen (Tylenol) 650 mg Q4H PRN RECTAL Fever/Headache/Mild Pain 08/04/16 21:30 09/03/16 21:29 Acetaminophen/ Hydrocodone Bitart ([place] 10/325) 1 ea Q6H PRN ORAL Pain Scale (6-10) 08/04/16 19:45 08/11/16 19:44 08/10/16 09:15 Albuterol/ Ipratropium (DuoNeb 0.5-3(2.5)mg/3ml) 3 ml Q4H PRN HHN Shortness of Breath 08/09/16 13:45 08/14/16 23:59 Clonidine HCl (Catapres) 0.1 mg Q6H PRN ORAL For High Blood Pressure 08/04/16 19:45 09/03/16 19:44 08/09/16 20:28 Dextrose (Dextrose 50%) STAT PRN IV Hypoglycemia 08/05/16 01:45 09/04/16 01:44 Diphenhydramine HCl (Benadryl) 25 mg Q6H PRN ORAL Itching/Pruritis 08/04/16 19:45 09/03/16 19:44 Docusate Sodium (Colace) 100 mg DAILY ORAL 08/05/16 09:00 09/04/16 08:59 08/10/16 09:15 Guaifenesin (Robitussin) 100 mg Q4H PRN ORAL For Cough 08/04/16 19:00 09/03/16 18:59 08/05/16 21:17 Lorazepam (Ativan 2mg/ml 1ml) 1 mg Q4H PRN IV For Anxiety 08/04/16 21:45 08/11/16 21:44 08/07/16 17:55 Losartan Potassium (Cozaar) 50 mg Q12HR ORAL 08/04/16 21:00 09/03/16 20:59 08/10/16 09:15 Nystatin (Nystop Powder) 1 applic THREE TIMES A DAY TOPIC 08/07/16 13:00 09/06/16 12:59 08/09/16 20:28 Pantoprazole (Protonix) 40 mg Q12H PRN ORAL Abdominal cramps 08/05/16 01:45 09/04/16 01:44 08/10/16 09:15 Potassium Chloride (K-Dur) 40 meq ONCE ONCE ORAL 08/10/16 16:00 08/10/16 16:01 Warfarin Sodium (Coumadin per pharmacy) 1 ea DAILY PRN MISC Per rx protocol 08/05/16 09:00 09/04/16 08:59 Warfarin Sodium (Coumadin) 2.5 mg ONCE ONCE ORAL 08/10/16 17:00 08/10/16 17:01 Talon ([facility]),Meli SNOW Aug 10, 2016 15:14
[2016-08-10] MEDS ORDERED: Warfarin Sodium 2.5mg ORAL ONE (17:00)
[2016-08-10] MEDS: LORazepam Inj 2mg/ml 1ml IV PRN (19:44)
[2016-08-10] MEDS: guaiFENesin 100mg/5ml Liq ud ORAL PRN (19:44)
[2016-08-10] MEDS ORDERED: Norco 10mg/325mg tab ORAL PRN (19:45)
[2016-08-11] VITALS: BP 117/60
[2016-08-11 04:00] VITALS: BP 119/59
--- NOTE | 2016-08-11 07:10 | General Progress Note ---
Assessment/Plan Assessment/Plan ASSESSMENT: #. DVT of the bilateral lower extremities - s/p ivc permanent IVC filter and on coumadin, goal INR 2-3 #. Anemia potentially secondary to anemia of chronic disease - stable #. Leukocytosis. Improved #. Coagulopathy 2/2 coumadin #. Trochanteric fracture of the right femur status post open reduction and internal fixation and repair #. Sepsis #. PNA RECOMMENDATIONS: 1. Continue coumadin 2. Monitor for bleed with cbc 3. Goal INR 2-3 4. Continue antibiotics prn basis 5. Transfuse if hemoglobin < 7.0 6. Continue nutritional support. 7. Followup pulm, cards, renal recs 8. Staff Thank you, Holden Hernandez MD Subjective Constitutional: Reports: no symptoms HEENT: Reports: no symptoms Cardiovascular: Reports: no symptoms Respiratory: Reports: no symptoms Gastrointestinal/Abdominal: Reports: poor appetite Genitourinary: Reports: no symptoms Neurologic/Psychiatric: Reports: no symptoms Endocrine: Reports: no symptoms Hematologic/Lymphatic: Reports: anemia Allergies: Coded Allergies: No Known Allergies (Unverified , 05/07/16) Subjective stable, not bleeding Objective Last 24 Hour Vital Signs Date Time Temp Pulse Resp B/P Pulse Ox O2 Delivery O2 Flow Rate FiO2 08/11/16 04:00 97.0 64 18 119/59 95 Nasal Cannula 2.0 08/11/16 00:00 97.2 95 18 117/60 95 Nasal Cannula 2.0 08/10/16 22:07 75 18 Nasal Cannula 2.0 28 08/10/16 22:07 Nasal Cannula 2.0 28 08/10/16 22:07 98 Nasal Cannula 2.0 28 08/10/16 21:06 148/92 08/10/16 20:00 97.7 18 148/92 97 Nasal Cannula 2.0 08/10/16 19:00 97.7 79 20 148/92 95 Nasal Cannula 2.0 08/10/16 18:49 162/80 08/10/16 15:51 97.2 75 20 174/65 97 Nasal Cannula 2.0 08/10/16 12:00 98.3 17 132/66 Nasal Cannula 2.0 08/10/16 10:16 98.2 08/10/16 09:15 126/84 08/10/16 08:55 97.5 17 148/79 96 Nasal Cannula Intake and Output 08/10/16 08/11/16 19:00 07:00 Intake Total 250 ml 120 ml Output Total 550 ml Balance 250 ml -430 ml Intake Oral 250 ml 120 ml Output Urine Total 550 ml # Bowel Movements 2 1 Height (Feet): 5 Height (Inches): 6.00 Weight (Pounds): 140 General Appearance: no apparent distress EENT: TMs normal Neck: supple Cardiovascular: regular rhythm Respiratory/Chest: lungs clear Abdomen: non tender Extremities: non-tender Edema: no edema noted Leg (L), no edema noted Leg (R) Neurologic: alert Skin: warm/dry HOLDEN HERNANDEZ Aug 11, 2016 07:10
[2016-08-11 08:29] VITALS: BP 141/65
--- NOTE | 2016-08-11 10:33 | Cardiology Report ---
APPROVED REPORT EXAM: Two-dimensional and M-mode echocardiogram with Doppler and color Doppler. INDICATION Congestive Heart Failure M-Mode DIMENSIONS IVSd1.7 (0.7-1.1cm)Left Atrium (MM)3.4 (1.6-4.0cm) LVDd4.0 (3.5-5.6cm)Aortic Root2.7 (2.0-3.7cm) PWd.7 (0.7-1.1cm)Aortic Cusp Exc.1.5 (1.5-2.0cm) LVDs2.5 (2.5-4.0cm) PWs1.3 cm Normal left ventricular chamber size, systolic function and wall motion. Left ventricular ejection fraction estimated to be 50-55%. Moderate left ventricular hypertrophy. All other cardiac chamber sizes are within normal limits. Mild focal aortic valve sclerosis with adequate cusp excursion Mildly thickened mitral valve leaflets with normal excursion. Mild mitral annulus and aortic root calcification. Pulmonic valve not well visualized. Normal tricuspid valve structure. A color flow and spectral Doppler study was performed and revealed: Mild aortic regurgitation. Mild mitral regurgitation. Mitral diastolic velocities suggest reduced left ventricular relaxation c/w mild LV diastolic dysfunction (Grade I). Trace tricuspid regurgitation. Tricuspid systolic velocities suggests peak right ventricular systolic pressure of 35 mmHg.
[2016-08-11] MEDS: Docusate 100mg cap ORAL SCH (10:34)
[2016-08-11] MEDS: Losartan 50mg tab ORAL SCH ×2 (10:34→20:06)
[2016-08-11] MEDS: Nystatin Powder 100,000 units/gm 15gm TOPIC SCH ×3 (10:34→18:50)
[2016-08-11 11:53] LABS: ANION GAP 6 (5-15); CALCIUM 9.1 mg/dL (8.6-10.2); CARBON DIOXIDE 34 mEQ/L (20-30); CHLORIDE 104 mEQ/L (98-107); CREATININE 0.5 mg/dL (0.5-0.9); HEMOLYSIS 6; POTASSIUM 3.7 mEQ/L (3.4-4.9); SODIUM 144 mEQ/L (135-145)
[2016-08-11 11:58] VITALS: BP 157/87
--- NOTE | 2016-08-11 12:07 | Infectious Diseases Prog Note ---
Assessment/Plan Assessment/Plan ASSESSMENT: 86-year-old female with: CONS bacteremia ? contaminant , - repeat BCx NGTD, TTE EF 65% no Veg Pneumonia SCx NRF Resp viral Panel : +ve for RSV Cxray 08/[address]: Diffuse bilateral interstitial disease, possibly with micro- nodularity, disseminated inflammatory lesions a possibility. UTI , probable - UCx(-) Fever - resolved, no leukocytosis Acute BLE DVT SP IVC filter CVA. History of brain aneurysm. Dementia. NKDA Full Code PLAN: Monitor pt off of AB Rx ( no indication of ribavirin at this point ) ( SP IV Rocephin azithro, IV Vanco d# ) Chest x-ray. Monitor CBC and BMP Subjective Constitutional: Denies: anorexia, chills, drenching sweats, fatigue, fever, no symptoms, other Allergies: Coded Allergies: No Known Allergies (Unverified , 05/07/16) Objective Vital Signs Last 24 Hour Vital Signs Date Time Temp Pulse Resp B/P Pulse Ox O2 Delivery O2 Flow Rate FiO2 08/11/16 11:58 97.3 76 20 157/87 97 Room Air 08/11/16 10:34 141/65 08/11/16 08:29 97.5 61 20 141/65 97 Nasal Cannula 08/11/16 08:00 Nasal Cannula 2.0 28 08/11/16 08:00 97 Nasal Cannula 2.0 28 08/11/16 08:00 61 18 Nasal Cannula 2.0 28 08/11/16 04:00 97.0 64 18 119/59 95 Nasal Cannula 2.0 08/11/16 00:00 97.2 95 18 117/60 95 Nasal Cannula 2.0 08/10/16 22:07 75 18 Nasal Cannula 2.0 28 08/10/16 22:07 Nasal Cannula 2.0 28 08/10/16 22:07 98 Nasal Cannula 2.0 28 08/10/16 21:06 148/92 08/10/16 20:00 97.7 18 148/92 97 Nasal Cannula 2.0 08/10/16 19:00 97.7 79 20 148/92 95 Nasal Cannula 2.0 08/10/16 18:49 162/80 08/10/16 15:51 97.2 75 20 174/65 97 Nasal Cannula 2.0 Height (Feet): 5 Height (Inches): 6.00 Weight (Pounds): 140 HEENT: anicteric Respiratory/Chest: normal breath sounds Cardiovascular: normal rate Abdomen: no organomegaly Extremities: no clubbing Laboratory Tests Test 08/11/16 11:00 Sodium Level 144 mEQ/L (135-145) Potassium Level 3.7 mEQ/L (3.4-4.9) Chloride Level 104 mEQ/L (98-107) Carbon Dioxide Level 34 mEQ/L (20-30) H Anion Gap 6 (5-15) Blood Urea Nitrogen 10 mg/dL (7-23) Creatinine 0.5 mg/dL (0.5-0.9) Estimat Glomerular Filtration Rate mL/min (>60) Glucose Level 108 mg/dL (74-106) H Calcium Level 9.1 mg/dL (8.6-10.2) Magnesium Level 1.8 mg/dL (1.7-2.5) Current Medications Medications (Trade) Dose Ordered Sig/Arabella Route PRN Reason Start Time Stop Time Status Last Admin Dose Admin Acetaminophen (Tylenol) 650 mg Q4H PRN RECTAL Fever/Headache/Mild Pain 08/04/16 21:30 09/03/16 21:29 Acetaminophen/ Hydrocodone Bitart ([place] 10/325) 1 ea Q6H PRN ORAL Pain Scale (6-10) 08/10/16 19:45 08/17/16 23:59 Albuterol/ Ipratropium (DuoNeb 0.5-3(2.5)mg/3ml) 3 ml Q4H PRN HHN Shortness of Breath 08/09/16 13:45 08/14/16 23:59 Clonidine HCl (Catapres) 0.1 mg Q6H PRN ORAL For High Blood Pressure 08/04/16 19:45 09/03/16 19:44 08/10/16 18:49 Dextrose (Dextrose 50%) STAT PRN IV Hypoglycemia 08/05/16 01:45 09/04/16 01:44 Diphenhydramine HCl (Benadryl) 25 mg Q6H PRN ORAL Itching/Pruritis 08/04/16 19:45 09/03/16 19:44 Docusate Sodium (Colace) 100 mg DAILY ORAL 08/05/16 09:00 09/04/16 08:59 1/8/17 10:34 Guaifenesin (Robitussin) 100 mg Q4H PRN ORAL For Cough 08/04/16 19:00 09/03/16 18:59 08/10/16 19:44 Lorazepam (Ativan 2mg/ml 1ml) 1 mg Q4H PRN IV For Anxiety 08/10/16 17:45 08/17/16 23:59 08/10/16 19:44 Losartan Potassium (Cozaar) 50 mg Q12HR ORAL 08/04/16 21:00 09/03/16 20:59 08/11/16 10:34 Nystatin (Nystop Powder) 1 applic THREE TIMES A DAY TOPIC 08/07/16 13:00 09/06/16 12:59 08/11/16 10:34 Pantoprazole (Protonix) 40 mg Q12H PRN ORAL Abdominal cramps 08/05/16 01:45 09/04/16 01:44 08/10/16 09:15 Warfarin Sodium (Coumadin per pharmacy) 1 ea DAILY PRN MISC Per rx protocol 08/05/16 09:00 09/04/16 08:59 ANGEL WATERS M.D. Aug 11, 2016 12:07
--- NOTE | 2016-08-11 12:37 | Pulmonology Progress Note ---
Assessment/Plan Assessment/Plan covering for dr Chambers ASSESSMENT sepsis bacteremia ( CONS 11/05) r/o SBE, r/o septic thrombophlebitis PNA probable UTI dementia Hx of CVA Hx of brain aneurysm HTN bilateral DVT LE, s/p IVC filter dysphagia PLAN OF CARE MS floor O2 HHN prn CXR 08/06 no acute disease abx, ID follows antitussive prn last set of blood cx negative preliminary ( prior 11/05 + CONS) ECHO with preserved EF 65 %and RVSP of 31, mild LVH, no evidence of vegetation cardio follows BP management with ARB, stable Venous Duplex + bilateral LE DVT, s/p IVC filter CTA no PE on Coumadin per pharmacy , INR-2.1 therapeutic K and Mg stable after replacement of K GI prophylaxis aspiration precautions diet as per ST recommendation , however appetite poor and coughing with this diet may need PEG - per PMD case discussed and evaluated by supervising physician Subjective Allergies: Coded Allergies: No Known Allergies (Unverified , 05/07/16) Subjective afebrile, no leucocytosis, no signs of respirator distress off Lovenox Objective Last 24 Hour Vital Signs Date Time Temp Pulse Resp B/P Pulse Ox O2 Delivery O2 Flow Rate FiO2 08/11/16 11:58 97.3 76 20 157/87 97 Room Air 08/11/16 10:34 141/65 08/11/16 08:29 97.5 61 20 141/65 97 Nasal Cannula 08/11/16 08:00 Nasal Cannula 2.0 28 08/11/16 08:00 97 Nasal Cannula 2.0 28 08/11/16 08:00 61 18 Nasal Cannula 2.0 28 08/11/16 04:00 97.0 64 18 119/59 95 Nasal Cannula 2.0 08/11/16 00:00 97.2 95 18 117/60 95 Nasal Cannula 2.0 08/10/16 22:07 75 18 Nasal Cannula 2.0 28 08/10/16 22:07 Nasal Cannula 2.0 28 08/10/16 22:07 98 Nasal Cannula 2.0 28 08/10/16 21:06 148/92 08/10/16 20:00 97.7 18 148/92 97 Nasal Cannula 2.0 08/10/16 19:00 97.7 79 20 148/92 95 Nasal Cannula 2.0 08/10/16 18:49 162/80 1/7/17 15:51 97.2 75 20 174/65 97 Nasal Cannula 2.0 Intake and Output 08/10/16 08/11/16 19:00 07:00 Intake Total 250 ml 120 ml Output Total 550 ml Balance 250 ml -430 ml Intake Oral 250 ml 120 ml Output Urine Total 550 ml # Bowel Movements 2 1 Objective General Appearance: no acute distress HEENT: normocephalic, atraumatic, PERRL Respiratory/Chest: chest wall non-tender, no respiratory distress, no accessory muscle use, rhonchi - few scattered Cardiovascular: normal rate, regular rhythm, no JVD Abdomen: normal bowel sounds, soft, non tender Genitourinary: normal external genitalia Extremities: no edema, pedal pulses normal Neurologic/Psychiatric: abnormal gait - bedridden, alert Musculoskeletal: atrophy - BLE Laboratory Tests 08/11/16 11:00: Sodium Level 144, Potassium Level 3.7, Chloride Level 104, Carbon Dioxide Level 34H, Anion Gap 6, Blood Urea Nitrogen 10, Creatinine 0.5, Estimat Glomerular Filtration Rate , Glucose Level 108H, Calcium Level 9.1, Magnesium Level 1.8 Current Medications Medications (Trade) Dose Ordered Sig/Arabella Route PRN Reason Start Time Stop Time Status Last Admin Dose Admin Acetaminophen (Tylenol) 650 mg Q4H PRN RECTAL Fever/Headache/Mild Pain 08/04/16 21:30 09/03/16 21:29 Acetaminophen/ Hydrocodone Bitart ([place] 10/325) 1 ea Q6H PRN ORAL Pain Scale (6-10) 08/10/16 19:45 08/17/16 23:59 Albuterol/ Ipratropium (DuoNeb 0.5-3(2.5)mg/3ml) 3 ml Q4H PRN HHN Shortness of Breath 08/09/16 13:45 08/14/16 23:59 Clonidine HCl (Catapres) 0.1 mg Q6H PRN ORAL For High Blood Pressure 08/04/16 19:45 09/03/16 19:44 08/10/16 18:49 Dextrose (Dextrose 50%) STAT PRN IV Hypoglycemia 08/05/16 01:45 09/04/16 01:44 Diphenhydramine HCl (Benadryl) 25 mg Q6H PRN ORAL Itching/Pruritis 08/04/16 19:45 09/03/16 19:44 Docusate Sodium (Colace) 100 mg DAILY ORAL 08/05/16 09:00 09/04/16 08:59 08/11/16 10:34 Guaifenesin (Robitussin) 100 mg Q4H PRN ORAL For Cough 08/04/16 19:00 09/03/16 18:59 08/10/16 19:44 Lorazepam (Ativan 2mg/ml 1ml) 1 mg Q4H PRN IV For Anxiety 08/10/16 17:45 08/17/16 23:59 08/10/16 19:44 Losartan Potassium (Cozaar) 50 mg Q12HR ORAL 08/04/16 21:00 09/03/16 20:59 08/11/16 10:34 Nystatin (Nystop Powder) 1 applic THREE TIMES A DAY TOPIC 08/07/16 13:00 09/06/16 12:59 08/11/16 10:34 Pantoprazole (Protonix) 40 mg Q12H PRN ORAL Abdominal cramps 08/05/16 01:45 09/04/16 01:44 08/10/16 09:15 Warfarin Sodium (Coumadin per pharmacy) 1 ea DAILY PRN MISC Per rx protocol 08/05/16 09:00 09/04/16 08:59 Talon ([facility])Meli NP Aug 11, 2016 12:37
[2016-08-11 13:45] LABS: EOSINOPHILS % (AUTO) 3.5 % (0.0-3.0); LYMPHOCYTES % (AUTO) 22.5 % (20.0-45.0); MEAN CORPUSCULAR HEMOGLOBIN 29.3 PG (27.0-31.0); MEAN CORPUSCULAR HGB CONC 31.6 G/DL (32.0-36.0); MEAN CORPUSCULAR VOLUME 93 FL (80-99); MEAN PLATELET VOLUME 6.8 FL (6.5-10.1); MONOCYTES % (AUTO) 9.2 % (1.0-10.0); NEUTROPHILS % (AUTO) 63.8 % (45.0-75.0); PLATELET COUNT 195 K/UL (150-450); RED BLOOD COUNT 4.16 M/UL (4.20-5.40); RED CELL DISTRIBUTION WIDTH 13.3 % (11.6-14.8); WHITE BLOOD COUNT 6.9 K/UL (4.8-10.8)
--- NOTE | 2016-08-11 13:50 | Cardiac Electrophysiology PN ---
Assessment/Plan Status Narrative Echo 05/16/2016 M-mode measurements of left ventricle not obtainable due to cardiac position (angle) Normal left ventricular chamber size, systolic function and wall motion to extent visualized. Left ventricular ejection fraction estimated to be 65 %. Moderate left ventricular hypertrophy by 2-D. No evidence of pericardial effusion. All other cardiac chamber sizes are within normal limits. Focal aortic valve sclerosis with adequate cusp excursion. Thickened mitral valve leaflets with normal excursion. Mitral annulus and aortic root calcification. Pulmonic valve not well visualized. Normal tricuspid valve structure. IVC at normal size with physiologic collapse. A color flow and spectral Doppler study was performed and revealed: Mild aortic regurgitation. Mild mitral regurgitation. Mitral diastolic velocities suggest reduced left ventricular relaxation c/w mild LV diastolic dysfunction (Grade I). Trace to mild tricuspid regurgitation. Tricuspid systolic velocities suggests peak right ventricular systolic pressure of 31 mmHg. Assessment/Plan 1. Shortness of breath and bilateral LE DVT. Ruled out for pulmonary embolism. Echo 05/2016 EF 65%. No MD. 2. Hypertension. On Cozaar 50 mg b.i.d. 3. Pneumonia 4. Bilateral LE DVT on Coumadin. S/P IVC filter. 5. Dysphagia. DW RN Subjective Subjective Alert in NAD with no new events overnight.RN at bedside. Objective Last 24 Hour Vital Signs Date Time Temp Pulse Resp B/P Pulse Ox O2 Delivery O2 Flow Rate FiO2 08/11/16 11:58 97.3 76 20 157/87 97 Room Air 08/11/16 10:34 141/65 08/11/16 08:29 97.5 61 20 141/65 97 Nasal Cannula 08/11/16 08:00 Nasal Cannula 2.0 28 08/11/16 08:00 97 Nasal Cannula 2.0 28 08/11/16 08:00 61 18 Nasal Cannula 2.0 28 08/11/16 04:00 97.0 64 18 119/59 95 Nasal Cannula 2.0 08/11/16 00:00 97.2 95 18 117/60 95 Nasal Cannula 2.0 08/10/16 22:07 75 18 Nasal Cannula 2.0 28 08/10/16 22:07 Nasal Cannula 2.0 28 08/10/16 22:07 98 Nasal Cannula 2.0 28 08/10/16 21:06 148/92 08/10/16 20:00 97.7 18 148/92 97 Nasal Cannula 2.0 1/7/17 19:00 97.7 79 20 148/92 95 Nasal Cannula 2.0 08/10/16 18:49 162/80 08/10/16 15:51 97.2 75 20 174/65 97 Nasal Cannula 2.0 Intake and Output 08/10/16 08/11/16 19:00 07:00 Intake Total 250 ml 120 ml Output Total 550 ml Balance 250 ml -430 ml Intake Oral 250 ml 120 ml Output Urine Total 550 ml # Bowel Movements 2 1 Laboratory Tests Test 08/11/16 11:00 08/11/16 13:15 Sodium Level 144 mEQ/L (135-145) Potassium Level 3.7 mEQ/L (3.4-4.9) Chloride Level 104 mEQ/L (98-107) Carbon Dioxide Level 34 mEQ/L (20-30) H Anion Gap 6 (5-15) Blood Urea Nitrogen 10 mg/dL (7-23) Creatinine 0.5 mg/dL (0.5-0.9) Estimat Glomerular Filtration Rate mL/min (>60) Glucose Level 108 mg/dL (74-106) H Calcium Level 9.1 mg/dL (8.6-10.2) Magnesium Level 1.8 mg/dL (1.7-2.5) White Blood Count 6.9 K/UL (4.8-10.8) Red Blood Count 4.16 M/UL (4.20-5.40) L Hemoglobin 12.2 G/DL (12.0-16.0) Hematocrit 38.5 % (37.0-47.0) Mean Corpuscular Volume 93 FL (80-99) Mean Corpuscular Hemoglobin 29.3 PG (27.0-31.0) Mean Corpuscular Hemoglobin Concent 31.6 G/DL (32.0-36.0) L Red Cell Distribution Width 13.3 % (11.6-14.8) Platelet Count 195 K/UL (150-450) Mean Platelet Volume 6.8 FL (6.5-10.1) Neutrophils (%) (Auto) 63.8 % (45.0-75.0) Lymphocytes (%) (Auto) 22.5 % (20.0-45.0) Monocytes (%) (Auto) 9.2 % (1.0-10.0) Eosinophils (%) (Auto) 3.5 % (0.0-3.0) H Basophils (%) (Auto) 1.0 % (0.0-2.0) Prothrombin Time Pending Prothromb Time International Ratio Pending Objective HEAD AND NECK: Shows no JVD. LUNGS: Coarse rhonchi. CARDIOVASCULAR: Regular S1 and S2 with no gallop or murmur. ABDOMEN: Soft. EXTREMITIES: No pitting edema. TURNER ALLAN Aug 11, 2016 13:50
[2016-08-11 13:55] LABS: INR 2.8 (0.9-1.1); PROTHROMBIN TIME 29.6 SEC (9.30-11.50)
--- NOTE | 2016-08-11 13:57 | Nephrology Progress Note ---
Assessment/Plan Problem List: (1) Gram positive bacterial infection (2) Congestive heart failure (CHF) (3) Respiratory distress (4) HCAP (healthcare-associated pneumonia) (5) Dyspnea (6) Alzheimer's dementia (7) Dysphagia (8) CVA (cerebral vascular accident) (9) HTN (hypertension) Plan cont abx per ID. cardio following. d/c plan home with home health in am once home O2 available. Subjective Subjective appears comfortable. no acute events. Objective Objective Last 24 Hour Vital Signs Date Time Temp Pulse Resp B/P Pulse Ox O2 Delivery O2 Flow Rate FiO2 08/11/16 11:58 97.3 76 20 157/87 97 Room Air 08/11/16 10:34 141/65 08/11/16 08:29 97.5 61 20 141/65 97 Nasal Cannula 08/11/16 08:00 Nasal Cannula 2.0 28 08/11/16 08:00 97 Nasal Cannula 2.0 28 08/11/16 08:00 61 18 Nasal Cannula 2.0 28 08/11/16 04:00 97.0 64 18 119/59 95 Nasal Cannula 2.0 08/11/16 00:00 97.2 95 18 117/60 95 Nasal Cannula 2.0 08/10/16 22:07 75 18 Nasal Cannula 2.0 28 08/10/16 22:07 Nasal Cannula 2.0 28 08/10/16 22:07 98 Nasal Cannula 2.0 28 08/10/16 21:06 148/92 08/10/16 20:00 97.7 18 148/92 97 Nasal Cannula 2.0 08/10/16 19:00 97.7 79 20 148/92 95 Nasal Cannula 2.0 08/10/16 18:49 162/80 08/10/16 15:51 97.2 75 20 174/65 97 Nasal Cannula 2.0 Intake and Output 08/10/16 08/11/16 19:00 07:00 Intake Total 250 ml 120 ml Output Total 550 ml Balance 250 ml -430 ml Intake Oral 250 ml 120 ml Output Urine Total 550 ml # Bowel Movements 2 1 Laboratory Tests 08/11/16 11:00: Sodium Level 144, Potassium Level 3.7, Chloride Level 104, Carbon Dioxide Level 34H, Anion Gap 6, Blood Urea Nitrogen 10, Creatinine 0.5, Estimat Glomerular Filtration Rate , Glucose Level 108H, Calcium Level 9.1, Magnesium Level 1.8 08/11/16 13:15: White Blood Count 6.9, Red Blood Count 4.16L, Hemoglobin 12.2, Hematocrit 38.5, Mean Corpuscular Volume 93, Mean Corpuscular Hemoglobin 29.3, Mean Corpuscular Hemoglobin Concent 31.6L, Red Cell Distribution Width 13.3, Platelet Count 195, Mean Platelet Volume 6.8, Neutrophils (%) (Auto) 63.8, Lymphocytes (%) (Auto) 22.5, Monocytes (%) (Auto) 9.2, Eosinophils (%) (Auto) 3.5H, Basophils (%) (Auto ) 1.0, Prothrombin Time [Pending], Prothromb Time International Ratio [Pending] Height (Feet): 5 Height (Inches): 6.00 Weight (Pounds): 140 General Appearance: no apparent distress Cardiovascular: normal rate, regular rhythm Respiratory/Chest: lungs clear Abdomen: non tender, soft GONZALEZ ROSALES Aug 11, 2016 13:57
[2016-08-11 15:51] VITALS: BP 154/81
[2016-08-11] MEDS ORDERED: Warfarin Sodium 1mg ORAL ONE (17:00)
[2016-08-11] MEDS ORDERED: Warfarin Sodium 2.5mg ORAL ONE (17:00)
[2016-08-11 19:00] VITALS: BP 163/93
[2016-08-12] VITALS: BP 158/83
[2016-08-12 04:00] VITALS: BP 153/95
[2016-08-12 08:36] LABS: INR 2.4 (0.9-1.1)
[2016-08-12] MEDS: Losartan 50mg tab ORAL SCH ×2 (10:13→20:20)
[2016-08-12] MEDS: Nystatin Powder 100,000 units/gm 15gm TOPIC SCH ×3 (10:13→18:06)
[2016-08-12] MEDS: Docusate 100mg cap ORAL SCH (10:14)
[2016-08-12 12:00] VITALS: BP 146/82
--- NOTE | 2016-08-12 12:29 | General Progress Note ---
Assessment/Plan Assessment/Plan ASSESSMENT: #. DVT of the bilateral lower extremities - s/p ivc permanent IVC filter and on coumadin, goal INR 2-3 #. Anemia potentially secondary to anemia of chronic disease - stable #. Leukocytosis. Improved #. Coagulopathy 2/2 coumadin #. Trochanteric fracture of the right femur status post open reduction and internal fixation and repair #. Sepsis #. PNA RECOMMENDATIONS: 1. Continue coumadin 2. Monitor for bleed with cbc 3. Goal INR 2-3 4. Continue antibiotics prn basis 5. Transfuse if hemoglobin < 7 6. Continue nutritional support 7. Followup pulm, cards, renal recs 8. Staff Thank you, Cabrera Hernandez MD Subjective Constitutional: Reports: no symptoms HEENT: Reports: no symptoms Cardiovascular: Reports: no symptoms Respiratory: Reports: no symptoms Gastrointestinal/Abdominal: Reports: no symptoms Genitourinary: Reports: no symptoms Neurologic/Psychiatric: Reports: no symptoms Endocrine: Reports: no symptoms Hematologic/Lymphatic: Reports: anemia Allergies: Coded Allergies: No Known Allergies (Unverified , 05/07/16) Subjective stable, is not bleeding, tolerating coumadin Objective Last 24 Hour Vital Signs Date Time Temp Pulse Resp B/P Pulse Ox O2 Delivery O2 Flow Rate FiO2 08/12/16 10:13 153/95 08/12/16 08:00 98.1 112 22 97 Nasal Cannula 2.0 08/12/16 07:42 Nasal Cannula 2.0 28 08/12/16 07:41 95 Nasal Cannula 2.0 28 08/12/16 07:40 90 18 Nasal Cannula 2.0 28 08/12/16 04:00 97.7 90 18 153/95 95 Nasal Cannula 2.0 08/12/16 00:00 97.9 88 20 158/83 94 Nasal Cannula 2.0 08/11/16 20:06 163/93 08/11/16 19:30 Nasal Cannula 2.0 28 08/11/16 19:30 96 Nasal Cannula 2.0 28 08/11/16 19:30 66 18 Nasal Cannula 2.0 28 08/11/16 19:00 98.6 100 20 163/93 93 Room Air 08/11/16 15:51 96.8 71 20 154/81 92 Room Air Intake and Output 08/11/16 08/12/16 19:00 07:00 Intake Total 240 ml 240 ml Output Total 200 ml 1000 ml Balance 40 ml -760 ml Intake Oral 240 ml 240 ml Output Urine Total 200 ml 1000 ml # Bowel Movements 1 Laboratory Tests 08/11/16 13:15: White Blood Count 6.9, Red Blood Count 4.16L, Hemoglobin 12.2, Hematocrit 38.5, Mean Corpuscular Volume 93, Mean Corpuscular Hemoglobin 29.3, Mean Corpuscular Hemoglobin Concent 31.6L, Red Cell Distribution Width 13.3, Platelet Count 195, Mean Platelet Volume 6.8, Neutrophils (%) (Auto) 63.8, Lymphocytes (%) (Auto) 22.5, Monocytes (%) (Auto) 9.2, Eosinophils (%) (Auto) 3.5H, Basophils (%) (Auto ) 1.0, Prothrombin Time 29.6H, Prothromb Time International Ratio 2.8H 08/12/16 06:35: Prothrombin Time 25.0H, Prothromb Time International Ratio 2.4H Height (Feet): 5 Height (Inches): 6.00 Weight (Pounds): 140 General Appearance: WD/WN EENT: pharynx normal Neck: supple Cardiovascular: regular rhythm Respiratory/Chest: lungs clear Abdomen: soft Extremities: non-tender Edema: mild edema Neurologic: alert Skin: warm/dry Cabrera Hernandez Aug 12, 2016 12:29
--- NOTE | 2016-08-12 15:06 | Nephrology Progress Note ---
Assessment/Plan Problem List: (1) Dyspnea (2) Respiratory distress (3) Congestive heart failure (CHF) (4) HCAP (healthcare-associated pneumonia) Plan Cont abx per ID pulm hygiene. f/u recs per pulm and cardio. Continue coumadin - inr goal 2-3 Subjective ROS Limited/Unobtainable: Yes Subjective In bed, in no distress, confused Objective Objective Last 24 Hour Vital Signs Date Time Temp Pulse Resp B/P Pulse Ox O2 Delivery O2 Flow Rate FiO2 08/12/16 12:00 97.0 101 18 146/82 98 Room Air 08/12/16 10:13 153/95 08/12/16 08:00 98.1 112 22 97 Nasal Cannula 2.0 08/12/16 07:42 Nasal Cannula 2.0 28 08/12/16 07:41 95 Nasal Cannula 2.0 28 08/12/16 07:40 90 18 Nasal Cannula 2.0 28 08/12/16 04:00 97.7 90 18 153/95 95 Nasal Cannula 2.0 08/12/16 00:00 97.9 88 20 158/83 94 Nasal Cannula 2.0 08/11/16 20:06 163/93 08/11/16 19:30 Nasal Cannula 2.0 28 08/11/16 19:30 96 Nasal Cannula 2.0 28 08/11/16 19:30 66 18 Nasal Cannula 2.0 28 08/11/16 19:00 98.6 100 20 163/93 93 Room Air 08/11/16 15:51 96.8 71 20 154/81 92 Room Air Intake and Output 08/11/16 08/12/16 19:00 07:00 Intake Total 240 ml 240 ml Output Total 200 ml 1000 ml Balance 40 ml -760 ml Intake Oral 240 ml 240 ml Output Urine Total 200 ml 1000 ml # Bowel Movements 1 Laboratory Tests 08/12/16 06:35: Prothrombin Time 25.0H, Prothromb Time International Ratio 2.4H Height (Feet): 5 Height (Inches): 6.00 Weight (Pounds): 140 General Appearance: confused EENT: normal ENT inspection Neck: normal alignment Cardiovascular: normal peripheral pulses, regular rhythm Respiratory/Chest: normal breath sounds, no respiratory distress Abdomen: soft, no organomegaly Extremities: normal inspection, no calf tenderness Neurologic: disoriented Egwu,Hellen Muñiz Aug 12, 2016 15:06
--- NOTE | 2016-08-12 15:49 | Diagnostic Imaging Report ---
Indications: hip pain Findings: Single view of the right hip obtained portably Comparison: 06/21/16 Right hip prosthesis present. Study is done portably and of limited value. There is fracture of the greater and lesser trochanter which was noted previously as well. No gross change. Impression: No obvious new fracture. Study is limited.
[2016-08-12 16:00] VITALS: BP 159/78
[2016-08-12] MEDS ORDERED: Warfarin Sodium 2mg ORAL ONE (17:00)
--- NOTE | 2016-08-12 17:09 | Infectious Diseases Prog Note ---
Assessment/Plan Assessment/Plan ASSESSMENT: 86-year-old female with: Pneumonia - RVP(+) RSV Chest CT: Diffuse bilateral interstitial disease, possibly with micro- nodularity, disseminated inflammatory lesions a possibility. CONS bacteremia - repeat BCx(-) 08/03, TTE(-) SBE UTI , probable - UCx(-) Fever - resolved, no leukocytosis Acute BLE DVT SP IVC filter CVA. History of brain aneurysm. Dementia. NKDA Full Code PLAN: monitor pt off of antimicrobials ( SP IV Rocephin, azithro, IV Vanco d# 7 / ) monitor CBC, temperatures monitor BMP monitor CXR Subjective Allergies: Coded Allergies: No Known Allergies (Unverified , 05/07/16) Subjective remains afebrile. comfortable Objective Vital Signs Last 24 Hour Vital Signs Date Time Temp Pulse Resp B/P Pulse Ox O2 Delivery O2 Flow Rate FiO2 08/12/16 12:00 97.0 101 18 146/82 98 Room Air 08/12/16 10:13 153/95 08/12/16 08:00 98.1 112 22 97 Nasal Cannula 2.0 08/12/16 07:42 Nasal Cannula 2.0 28 08/12/16 07:41 95 Nasal Cannula 2.0 28 08/12/16 07:40 90 18 Nasal Cannula 2.0 28 08/12/16 04:00 97.7 90 18 153/95 95 Nasal Cannula 2.0 08/12/16 00:00 97.9 88 20 158/83 94 Nasal Cannula 2.0 08/11/16 20:06 163/93 08/11/16 19:30 Nasal Cannula 2.0 28 08/11/16 19:30 96 Nasal Cannula 2.0 28 08/11/16 19:30 66 18 Nasal Cannula 2.0 28 08/11/16 19:00 98.6 100 20 163/93 93 Room Air Height (Feet): 5 Height (Inches): 6.00 Weight (Pounds): 140 General Appearance: no acute distress Respiratory/Chest: no respiratory distress Cardiovascular: normal rate, regular rhythm Abdomen: normal bowel sounds, soft, non tender, non distended Laboratory Tests Test 08/12/16 06:35 Prothrombin Time 25.0 SEC (9.30-11.50) H Prothromb Time International Ratio 2.4 (0.9-1.1) H Current Medications Medications (Trade) Dose Ordered Sig/Arabella Route PRN Reason Start Time Stop Time Status Last Admin Dose Admin Acetaminophen (Tylenol) 650 mg Q4H PRN RECTAL Fever/Headache/Mild Pain 08/04/16 21:30 09/03/16 21:29 Acetaminophen/ Hydrocodone Bitart ([place] 10/325) 1 ea Q6H PRN ORAL Pain Scale (6-10) 08/10/16 19:45 08/17/16 23:59 Albuterol/ Ipratropium (DuoNeb 0.5-3(2.5)mg/3ml) 3 ml Q4H PRN HHN Shortness of Breath 08/09/16 13:45 08/14/16 23:59 Clonidine HCl (Catapres) 0.1 mg Q6H PRN ORAL For High Blood Pressure 08/04/16 19:45 09/03/16 19:44 08/10/16 18:49 Dextrose (Dextrose 50%) STAT PRN IV Hypoglycemia 08/05/16 01:45 09/04/16 01:44 Diphenhydramine HCl (Benadryl) 25 mg Q6H PRN ORAL Itching/Pruritis 08/04/16 19:45 09/03/16 19:44 Docusate Sodium (Colace) 100 mg DAILY ORAL 08/05/16 09:00 09/04/16 08:59 08/12/16 10:14 Guaifenesin (Robitussin) 100 mg Q4H PRN ORAL For Cough 08/04/16 19:00 09/03/16 18:59 08/10/16 19:44 Lorazepam (Ativan 2mg/ml 1ml) 1 mg Q4H PRN IV For Anxiety 08/10/16 17:45 08/17/16 23:59 08/10/16 19:44 Losartan Potassium (Cozaar) 50 mg Q12HR ORAL 08/04/16 21:00 09/03/16 20:59 08/12/16 10:13 Nystatin (Nystop Powder) 1 applic THREE TIMES A DAY TOPIC 08/07/16 13:00 09/06/16 12:59 08/12/16 13:01 Pantoprazole (Protonix) 40 mg Q12H PRN ORAL Abdominal cramps 08/05/16 01:45 09/04/16 01:44 08/10/16 09:15 Warfarin Sodium (Coumadin per pharmacy) 1 ea DAILY PRN MISC Per rx protocol 08/05/16 09:00 09/04/16 08:59 FAISAL ALVARADO Aug 12, 2016 17:09
--- NOTE | 2016-08-12 19:11 | Pulmonology Progress Note ---
Assessment/Plan Problems: (1) HCAP (healthcare-associated pneumonia) (2) Alzheimer's dementia (3) HTN (hypertension) (4) DVT (deep venous thrombosis) (5) Gram positive bacterial infection Assessment & Plan: ? contaminant Repeat Cx's neg TTE without veg (6) RSV (acute bronchiolitis due to respiratory syncytial virus) Assessment/Plan -Optimize pulmonary hygiene/mobilize as tolerated -PRN O2 -PRN nebs -Observe off Abx per ID -Monitor volumes -Has IVC filter, continue coumadin per heme-onc -Diet per [employer] with STRICT aspiration precautions -Full code Subjective Allergies: Coded Allergies: No Known Allergies (Unverified , 05/07/16) Subjective Events reviewed AFVSS, O2 needs stable RSV +, off Abx Rosa diet Objective Last 24 Hour Vital Signs Date Time Temp Pulse Resp B/P Pulse Ox O2 Delivery O2 Flow Rate FiO2 08/12/16 16:00 98.4 88 20 159/78 100 Nasal Cannula 2.0 08/12/16 12:00 97.0 101 18 146/82 98 Room Air 08/12/16 10:13 153/95 08/12/16 08:00 98.1 112 22 97 Nasal Cannula 2.0 08/12/16 07:42 Nasal Cannula 2.0 28 08/12/16 07:41 95 Nasal Cannula 2.0 28 08/12/16 07:40 90 18 Nasal Cannula 2.0 28 08/12/16 04:00 97.7 90 18 153/95 95 Nasal Cannula 2.0 08/12/16 00:00 97.9 88 20 158/83 94 Nasal Cannula 2.0 08/11/16 20:06 163/93 08/11/16 19:30 Nasal Cannula 2.0 28 08/11/16 19:30 96 Nasal Cannula 2.0 28 08/11/16 19:30 66 18 Nasal Cannula 2.0 28 Intake and Output 08/11/16 08/12/16 19:00 07:00 Intake Total 240 ml 240 ml Output Total 200 ml 1000 ml Balance 40 ml -760 ml Intake Oral 240 ml 240 ml Output Urine Total 200 ml 1000 ml # Bowel Movements 1 General Appearance: no acute distress, other - elderly demented HEENT: normocephalic, atraumatic, mucous membranes moist Respiratory/Chest: chest wall non-tender, lungs clear, normal breath sounds, no respiratory distress Cardiovascular: normal peripheral pulses, normal rate, regular rhythm Abdomen: normal bowel sounds, soft, non tender, no organomegaly, non distended , no mass Extremities: no cyanosis, no clubbing, no edema Laboratory Tests 08/12/16 06:35: Prothrombin Time 25.0H, Prothromb Time International Ratio 2.4H Current Medications Medications (Trade) Dose Ordered Sig/Arabella Route PRN Reason Start Time Stop Time Status Last Admin Dose Admin Acetaminophen (Tylenol) 650 mg Q4H PRN RECTAL Fever/Headache/Mild Pain 08/04/16 21:30 09/03/16 21:29 Acetaminophen/ Hydrocodone Bitart ([place] 10/325) 1 ea Q6H PRN ORAL Pain Scale (6-10) 08/10/16 19:45 08/17/16 23:59 Albuterol/ Ipratropium (DuoNeb 0.5-3(2.5)mg/3ml) 3 ml Q4H PRN HHN Shortness of Breath 08/09/16 13:45 08/14/16 23:59 Clonidine HCl (Catapres) 0.1 mg Q6H PRN ORAL For High Blood Pressure 08/04/16 19:45 09/03/16 19:44 08/10/16 18:49 Dextrose (Dextrose 50%) STAT PRN IV Hypoglycemia 08/05/16 01:45 09/04/16 01:44 Diphenhydramine HCl (Benadryl) 25 mg Q6H PRN ORAL Itching/Pruritis 08/04/16 19:45 09/03/16 19:44 Docusate Sodium (Colace) 100 mg DAILY ORAL 08/05/16 09:00 09/04/16 08:59 08/12/16 10:14 Guaifenesin (Robitussin) 100 mg Q4H PRN ORAL For Cough 08/04/16 19:00 09/03/16 18:59 08/10/16 19:44 Lorazepam (Ativan 2mg/ml 1ml) 1 mg Q4H PRN IV For Anxiety 08/10/16 17:45 08/17/16 23:59 08/10/16 19:44 Losartan Potassium (Cozaar) 50 mg Q12HR ORAL 08/04/16 21:00 09/03/16 20:59 08/12/16 10:13 Nystatin (Nystop Powder) 1 applic THREE TIMES A DAY TOPIC 08/07/16 13:00 09/06/16 12:59 08/12/16 18:06 Pantoprazole (Protonix) 40 mg Q12H PRN ORAL Abdominal cramps 08/05/16 01:45 09/04/16 01:44 08/10/16 09:15 Warfarin Sodium (Coumadin per pharmacy) 1 ea DAILY PRN MISC Per rx protocol 08/05/16 09:00 09/04/16 08:59 ONUR RAINES M.D. Aug 12, 2016 19:11
[2016-08-12 19:58] VITALS: BP 154/86
[2016-08-13 04:00] VITALS: BP 162/92
[2016-08-13 08:00] VITALS: BP 161/90
--- NOTE | 2016-08-13 09:42 | Pulmonology Progress Note ---
Assessment/Plan Problems: (1) HCAP (healthcare-associated pneumonia) (2) Alzheimer's dementia (3) HTN (hypertension) (4) DVT (deep venous thrombosis) (5) Gram positive bacterial infection Assessment & Plan: ? contaminant Repeat Cx's neg TTE without veg (6) RSV (acute bronchiolitis due to respiratory syncytial virus) Assessment/Plan -Optimize pulmonary hygiene/mobilize as tolerated -PRN O2 -RTC and PRN DUOnebs\ -Mucinex and PRN Robitussijn -Observe off Abx per ID -Check repeat CXR -PT/OT, OOB -IS -Monitor volumes -Has IVC filter, continue coumadin per heme-onc -Diet per [employer] with STRICT aspiration precautions -Full code Subjective Allergies: Coded Allergies: No Known Allergies (Unverified , 05/07/16) Subjective AFVSS, O2 needs stable Occasionally coughing, not mobilizing much Rosa diet Objective Last 24 Hour Vital Signs Date Time Temp Pulse Resp B/P Pulse Ox O2 Delivery O2 Flow Rate FiO2 08/13/16 07:58 Nasal Cannula 2.0 28 08/13/16 07:57 97 Nasal Cannula 2.0 28 08/13/16 07:56 93 18 Nasal Cannula 2.0 28 08/13/16 04:00 99.1 81 20 162/92 98 Nasal Cannula 2.0 08/12/16 20:20 154/86 08/12/16 19:58 99.1 104 20 154/86 98 Nasal Cannula 2.0 08/12/16 19:30 Nasal Cannula 2.0 28 08/12/16 19:30 80 20 Nasal Cannula 2.0 28 08/12/16 19:30 94 Nasal Cannula 2.0 28 08/12/16 16:00 98.4 88 20 159/78 100 Nasal Cannula 2.0 08/12/16 12:00 97.0 101 18 146/82 98 Room Air 08/12/16 10:13 153/95 Intake and Output 08/12/16 08/13/16 19:00 07:00 Intake Total 300 ml Output Total 175 ml 500 ml Balance -175 ml -200 ml Intake Oral 300 ml Output Urine Total 175 ml 500 ml General Appearance: no acute distress, cachetic, other - frail elderly HEENT: normocephalic, atraumatic, mucous membranes moist Respiratory/Chest: rhonchi - scattered clear with coughing Cardiovascular: normal peripheral pulses, normal rate, regular rhythm Abdomen: normal bowel sounds, soft, non tender, no organomegaly, non distended , no mass Extremities: no cyanosis, no clubbing, no edema Current Medications Medications (Trade) Dose Ordered Sig/Arabella Route PRN Reason Start Time Stop Time Status Last Admin Dose Admin Acetaminophen (Tylenol) 650 mg Q4H PRN RECTAL Fever/Headache/Mild Pain 08/04/16 21:30 09/03/16 21:29 Acetaminophen/ Hydrocodone Bitart ([employer] 10/325) 1 ea Q6H PRN ORAL Pain Scale (6-10) 08/10/16 19:45 08/17/16 23:59 Albuterol/ Ipratropium (DuoNeb 0.5-3(2.5)mg/3ml) 3 ml Q4H PRN HHN Shortness of Breath 08/09/16 13:45 08/14/16 23:59 Clonidine HCl (Catapres) 0.1 mg Q6H PRN ORAL For High Blood Pressure 08/04/16 19:45 09/03/16 19:44 08/10/16 18:49 Dextrose (Dextrose 50%) STAT PRN IV Hypoglycemia 08/05/16 01:45 09/04/16 01:44 Diphenhydramine HCl (Benadryl) 25 mg Q6H PRN ORAL Itching/Pruritis 08/04/16 19:45 09/03/16 19:44 08/12/16 20:20 Docusate Sodium (Colace) 100 mg DAILY ORAL 08/05/16 09:00 09/04/16 08:59 08/12/16 10:14 Guaifenesin (Robitussin) 100 mg Q4H PRN ORAL For Cough 08/04/16 19:00 09/03/16 18:59 08/10/16 19:44 Lorazepam (Ativan 2mg/ml 1ml) 1 mg Q4H PRN IV For Anxiety 08/10/16 17:45 08/17/16 23:59 08/10/16 19:44 Losartan Potassium (Cozaar) 50 mg Q12HR ORAL 08/04/16 21:00 09/03/16 20:59 08/12/16 20:20 Nystatin (Nystop Powder) 1 applic THREE TIMES A DAY TOPIC 08/07/16 13:00 09/06/16 12:59 08/12/16 18:06 Pantoprazole (Protonix) 40 mg Q12H PRN ORAL Abdominal cramps 08/05/16 01:45 09/04/16 01:44 08/10/16 09:15 Warfarin Sodium (Coumadin per pharmacy) 1 ea DAILY PRN MISC Per rx protocol 08/05/16 09:00 09/04/16 08:59 ONUR RAINES M.D. Aug 13, 2016 09:42
[2016-08-13] MEDS: Nystatin Powder 100,000 units/gm 15gm TOPIC SCH ×3 (10:13→17:59)
[2016-08-13] MEDS: Losartan 50mg tab ORAL SCH ×2 (10:15→21:55)
[2016-08-13] MEDS: Docusate 100mg cap ORAL SCH (10:16)
[2016-08-13 10:37] LABS: INR 1.8 (0.9-1.1); PROTHROMBIN TIME 18.8 SEC (9.30-11.50)
[2016-08-13] MEDS: LORazepam Inj 2mg/ml 1ml IV PRN (10:59)
[2016-08-13 12:00] VITALS: BP 148/73
--- NOTE | 2016-08-13 12:17 | Nephrology Progress Note ---
Assessment/Plan Problem List: (1) Hypokalemia Assessment: corrected. (2) DVT (deep venous thrombosis) (3) HTN (hypertension) (4) Alzheimer's dementia (5) Dysphagia (6) Depression (7) CVA (cerebral vascular accident) (8) Brain aneurysm (9) HCAP (healthcare-associated pneumonia) (10) Dyspnea (11) Congestive heart failure (CHF) (12) Gram positive bacterial infection Plan abx per ID. pulm hygiene. f/u recs per pulm and cardio. d/c plan home with home O2. Subjective Subjective appears comfortable. no acute events. Objective Objective Last 24 Hour Vital Signs Date Time Temp Pulse Resp B/P Pulse Ox O2 Delivery O2 Flow Rate FiO2 08/13/16 10:16 162/92 08/13/16 10:15 162/92 08/13/16 07:58 Nasal Cannula 2.0 28 08/13/16 07:57 97 Nasal Cannula 2.0 28 08/13/16 07:56 93 18 Nasal Cannula 2.0 28 08/13/16 04:00 99.1 81 20 162/92 98 Nasal Cannula 2.0 08/12/16 20:20 154/86 08/12/16 19:58 99.1 104 20 154/86 98 Nasal Cannula 2.0 08/12/16 19:30 Nasal Cannula 2.0 28 08/12/16 19:30 80 20 Nasal Cannula 2.0 28 08/12/16 19:30 94 Nasal Cannula 2.0 28 08/12/16 16:00 98.4 88 20 159/78 100 Nasal Cannula 2.0 Intake and Output 08/12/16 08/13/16 19:00 07:00 Intake Total 300 ml Output Total 175 ml 500 ml Balance -175 ml -200 ml Intake Oral 300 ml Output Urine Total 175 ml 500 ml Laboratory Tests 08/13/16 09:50: Prothrombin Time 18.8H, Prothromb Time International Ratio 1.8H Height (Feet): 5 Height (Inches): 6.00 Weight (Pounds): 140 General Appearance: no apparent distress Cardiovascular: normal rate, regular rhythm Respiratory/Chest: lungs clear Abdomen: non tender, soft RISHABH PETERSON Aug 13, 2016 12:17
[2016-08-13] MEDS: DuoNeb 0.5-3(2.5)mg/3ml neb HHN SCH ×3 (13:00→19:39)
[2016-08-13] MEDS: guaiFENesin 600mg tab ORAL SCH ×2 (13:31→17:59)
--- NOTE | 2016-08-13 14:54 | Nephrology Progress Note ---
Assessment/Plan Problem List: (1) Dyspnea (2) Respiratory distress (3) Congestive heart failure (CHF) (4) HCAP (healthcare-associated pneumonia) Plan pulm hygiene. f/u recs per pulm and cardio. Continue coumadin per hem- Goal INR 2-3 Continue nutritional support DC plan - home with oxygen Subjective ROS Limited/Unobtainable: Yes Subjective In bed, in no distress, confused Objective Objective Last 24 Hour Vital Signs Date Time Temp Pulse Resp B/P Pulse Ox O2 Delivery O2 Flow Rate FiO2 08/13/16 13:25 Room Air 21 08/13/16 13:25 Room Air 08/13/16 12:00 97.0 78 20 148/73 98 Room Air 08/13/16 10:16 162/92 08/13/16 10:15 162/92 08/13/16 08:00 98.7 83 20 161/90 98 Nasal Cannula 2.0 08/13/16 07:58 Nasal Cannula 2.0 28 08/13/16 07:57 97 Nasal Cannula 2.0 28 08/13/16 07:56 93 18 Nasal Cannula 2.0 28 08/13/16 04:00 99.1 81 20 162/92 98 Nasal Cannula 2.0 08/12/16 20:20 154/86 08/12/16 19:58 99.1 104 20 154/86 98 Nasal Cannula 2.0 08/12/16 19:30 Nasal Cannula 2.0 28 08/12/16 19:30 80 20 Nasal Cannula 2.0 28 08/12/16 19:30 94 Nasal Cannula 2.0 28 08/12/16 16:00 98.4 88 20 159/78 100 Nasal Cannula 2.0 Intake and Output 08/12/16 08/13/16 19:00 07:00 Intake Total 300 ml Output Total 175 ml 500 ml Balance -175 ml -200 ml Intake Oral 300 ml Output Urine Total 175 ml 500 ml Laboratory Tests 08/13/16 09:50: Prothrombin Time 18.8H, Prothromb Time International Ratio 1.8H Height (Feet): 5 Height (Inches): 6.00 Weight (Pounds): 140 General Appearance: no apparent distress EENT: normal ENT inspection Neck: normal alignment, supple, normal inspection Cardiovascular: normal rate, regular rhythm, no JVD Respiratory/Chest: decreased breath sounds Abdomen: normal bowel sounds, non tender, soft Extremities: non-tender, normal inspection Neurologic: disoriented Hellen Eaton N.P. Aug 13, 2016 14:53
[2016-08-13 16:00] VITALS: BP 131/58
--- NOTE | 2016-08-13 16:49 | Infectious Diseases Prog Note ---
Assessment/Plan Assessment/Plan ASSESSMENT: 86-year-old female with: Pneumonia - RVP(+) RSV Chest CT: Diffuse bilateral interstitial disease, possibly with micro- nodularity, disseminated inflammatory lesions a possibility. CONS bacteremia - repeat BCx(-) 08/03, TTE(-) SBE SP Rx UTI , probable - UCx(-) SP Rx Fever - resolved, no leukocytosis Acute BLE DVT SP IVC filter CVA. History of brain aneurysm. Dementia. NKDA Full Code PLAN: ok to DC off of antimicrobials from ID standpoint ( SP IV Rocephin, azithro, IV Vanco d# 7 / ) monitor CBC, temperatures monitor BMP monitor CXR Subjective Allergies: Coded Allergies: No Known Allergies (Unverified , 05/07/16) Subjective remains afebrile. comfortable Objective Vital Signs Last 24 Hour Vital Signs Date Time Temp Pulse Resp B/P Pulse Ox O2 Delivery O2 Flow Rate FiO2 08/13/16 16:00 97.5 72 20 131/58 92 Room Air 08/13/16 13:25 Room Air 21 08/13/16 13:25 Room Air 08/13/16 12:00 97.0 78 20 148/73 98 Room Air 08/13/16 10:16 162/92 08/13/16 10:15 162/92 08/13/16 08:00 98.7 83 20 161/90 98 Nasal Cannula 2.0 08/13/16 07:58 Nasal Cannula 2.0 28 08/13/16 07:57 97 Nasal Cannula 2.0 28 08/13/16 07:56 93 18 Nasal Cannula 2.0 28 08/13/16 04:00 99.1 81 20 162/92 98 Nasal Cannula 2.0 08/12/16 20:20 154/86 08/12/16 19:58 99.1 104 20 154/86 98 Nasal Cannula 2.0 08/12/16 19:30 Nasal Cannula 2.0 28 08/12/16 19:30 80 20 Nasal Cannula 2.0 28 08/12/16 19:30 94 Nasal Cannula 2.0 28 Height (Feet): 5 Height (Inches): 6.00 Weight (Pounds): 140 General Appearance: no acute distress Respiratory/Chest: no respiratory distress Cardiovascular: normal rate, regular rhythm Abdomen: normal bowel sounds, soft, non tender, non distended Laboratory Tests Test 08/13/16 09:50 Prothrombin Time 18.8 SEC (9.30-11.50) H Prothromb Time International Ratio 1.8 (0.9-1.1) H Current Medications Medications (Trade) Dose Ordered Sig/Arabella Route PRN Reason Start Time Stop Time Status Last Admin Dose Admin Acetaminophen (Tylenol) 650 mg Q4H PRN RECTAL Fever/Headache/Mild Pain 08/04/16 21:30 09/03/16 21:29 Acetaminophen/ Hydrocodone Bitart ([place] 10/325) 1 ea Q6H PRN ORAL Pain Scale (6-10) 08/10/16 19:45 08/17/16 23:59 Albuterol/ Ipratropium (DuoNeb 0.5-3(2.5)mg/3ml) 3 ml Q4H PRN HHN Shortness of Breath 08/09/16 13:45 08/14/16 23:59 Albuterol/ Ipratropium (DuoNeb 0.5-3(2.5)mg/3ml) 3 ml Q6HRT HHN 08/13/16 13:00 08/18/16 12:59 Clonidine HCl (Catapres) 0.1 mg Q6H PRN ORAL For High Blood Pressure 08/04/16 19:45 09/03/16 19:44 08/13/16 10:16 Dextrose (Dextrose 50%) STAT PRN IV Hypoglycemia 08/05/16 01:45 09/04/16 01:44 Diphenhydramine HCl (Benadryl) 25 mg Q6H PRN ORAL Itching/Pruritis 08/04/16 19:45 09/03/16 19:44 08/12/16 20:20 Docusate Sodium (Colace) 100 mg DAILY ORAL 08/05/16 09:00 09/04/16 08:59 08/13/16 10:16 Guaifenesin (Mucinex) 600 mg TWICE A DAY ORAL 08/13/16 11:00 09/12/16 10:59 08/13/16 13:31 Guaifenesin (Robitussin) 100 mg Q4H PRN ORAL For Cough 08/04/16 19:00 09/03/16 18:59 08/10/16 19:44 Lorazepam (Ativan 2mg/ml 1ml) 1 mg Q4H PRN IV For Anxiety 08/10/16 17:45 08/17/16 23:59 08/13/16 10:59 Losartan Potassium (Cozaar) 50 mg Q12HR ORAL 08/04/16 21:00 09/03/16 20:59 08/13/16 10:15 Nystatin (Nystop Powder) 1 applic THREE TIMES A DAY TOPIC 08/07/16 13:00 09/06/16 12:59 08/13/16 13:34 Pantoprazole (Protonix) 40 mg Q12H PRN ORAL Abdominal cramps 08/05/16 01:45 09/04/16 01:44 08/10/16 09:15 Warfarin Sodium (Coumadin per pharmacy) 1 ea DAILY PRN MISC Per rx protocol 08/05/16 09:00 09/04/16 08:59 Warfarin Sodium (Coumadin) 4 mg COUMADIN PO 08/13/16 17:00 08/13/16 17:01 FAISAL ALVARADO Aug 13, 2016 16:49
--- NOTE | 2016-08-13 16:54 | General Progress Note ---
Assessment/Plan Assessment/Plan ASSESSMENT: #. DVT of the bilateral lower extremities - s/p ivc permanent IVC filter and on coumadin, goal INR 2-3 #. Anemia potentially secondary to anemia of chronic disease - stable #. Leukocytosis. Improved #. Coagulopathy 2/2 coumadin #. Trochanteric fracture of the right femur status post open reduction and internal fixation and repair #. Sepsis #. PNA RECOMMENDATIONS: 1. Continue coumadin 2. Monitor for bleed with cbc 3. Goal INR 2-3 4. Continue antibiotics prn basis 5. Transfuse if hgb < 7 6. Continue nutritional support 7. Followup pulm, cards, renal recs 8. Staff Thank you, Cabrera Hernandez MD Subjective Constitutional: Reports: no symptoms HEENT: Reports: no symptoms Cardiovascular: Reports: no symptoms Respiratory: Reports: no symptoms Gastrointestinal/Abdominal: Reports: poor appetite Genitourinary: Reports: no symptoms Neurologic/Psychiatric: Reports: no symptoms Endocrine: Reports: no symptoms Hematologic/Lymphatic: Reports: anemia Allergies: Coded Allergies: No Known Allergies (Unverified , 05/07/16) Subjective stable, not bleeding, tolerating coumadin Objective Last 24 Hour Vital Signs Date Time Temp Pulse Resp B/P Pulse Ox O2 Delivery O2 Flow Rate FiO2 08/13/16 16:00 97.5 72 20 131/58 92 Room Air 08/13/16 13:25 Room Air 21 08/13/16 13:25 Room Air 08/13/16 12:00 97.0 78 20 148/73 98 Room Air 08/13/16 10:16 162/92 08/13/16 10:15 162/92 08/13/16 08:00 98.7 83 20 161/90 98 Nasal Cannula 2.0 08/13/16 07:58 Nasal Cannula 2.0 28 08/13/16 07:57 97 Nasal Cannula 2.0 28 08/13/16 07:56 93 18 Nasal Cannula 2.0 28 08/13/16 04:00 99.1 81 20 162/92 98 Nasal Cannula 2.0 08/12/16 20:20 154/86 08/12/16 19:58 99.1 104 20 154/86 98 Nasal Cannula 2.0 08/12/16 19:30 Nasal Cannula 2.0 28 08/12/16 19:30 80 20 Nasal Cannula 2.0 28 08/12/16 19:30 94 Nasal Cannula 2.0 28 Intake and Output 08/12/16 08/13/16 19:00 07:00 Intake Total 300 ml Output Total 175 ml 500 ml Balance -175 ml -200 ml Intake Oral 300 ml Output Urine Total 175 ml 500 ml Laboratory Tests 08/13/16 09:50: Prothrombin Time 18.8H, Prothromb Time International Ratio 1.8H Height (Feet): 5 Height (Inches): 6.00 Weight (Pounds): 140 General Appearance: alert EENT: normal ENT inspection Neck: normal inspection Cardiovascular: regular rhythm Respiratory/Chest: no respiratory distress Genitourinary/Rectal: heme negative stool Extremities: no calf tenderness Edema: 1+ Leg (L), 1+ Leg (R) Edema: mild edema Neurologic: alert Skin: normal pigmentation Cabrera Hernandez Aug 13, 2016 16:54
[2016-08-13] MEDS ORDERED: Warfarin Sodium 4mg PO SCH (17:00)
--- NOTE | 2016-08-13 18:29 | Cardiac Electrophysiology PN ---
Assessment/Plan Status Narrative Echo 05/16/2016 M-mode measurements of left ventricle not obtainable due to cardiac position (angle) Normal left ventricular chamber size, systolic function and wall motion to extent visualized. Left ventricular ejection fraction estimated to be 65 %. Moderate left ventricular hypertrophy by 2-D. No evidence of pericardial effusion. All other cardiac chamber sizes are within normal limits. Focal aortic valve sclerosis with adequate cusp excursion. Thickened mitral valve leaflets with normal excursion. Mitral annulus and aortic root calcification. Pulmonic valve not well visualized. Normal tricuspid valve structure. IVC at normal size with physiologic collapse. A color flow and spectral Doppler study was performed and revealed: Mild aortic regurgitation. Mild mitral regurgitation. Mitral diastolic velocities suggest reduced left ventricular relaxation c/w mild LV diastolic dysfunction (Grade I). Trace to mild tricuspid regurgitation. Tricuspid systolic velocities suggests peak right ventricular systolic pressure of 31 mmHg. Assessment/Plan 1. Shortness of breath and bilateral LE DVT. Ruled out for pulmonary embolism. On Coumadin anyway for DVT. Echo 05/2016 EF 65%. No UT. 2. Hypertension. On Cozaar 50 mg b.i.d. 3. Pneumonia 4. Bilateral LE DVT on Coumadin. S/P IVC filter. 5. Dysphagia. MONIQUE RN Subjective Subjective Awake in NAD with no new events.Sitter at bedside. Objective Last 24 Hour Vital Signs Date Time Temp Pulse Resp B/P Pulse Ox O2 Delivery O2 Flow Rate FiO2 08/13/16 16:00 97.5 72 20 131/58 92 Room Air 08/13/16 13:25 Room Air 21 08/13/16 13:25 Room Air 08/13/16 12:00 97.0 78 20 148/73 98 Room Air 08/13/16 10:16 162/92 08/13/16 10:15 162/92 08/13/16 08:00 98.7 83 20 161/90 98 Nasal Cannula 2.0 08/13/16 07:58 Nasal Cannula 2.0 28 08/13/16 07:57 97 Nasal Cannula 2.0 28 08/13/16 07:56 93 18 Nasal Cannula 2.0 28 08/13/16 04:00 99.1 81 20 162/92 98 Nasal Cannula 2.0 08/12/16 20:20 154/86 08/12/16 19:58 99.1 104 20 154/86 98 Nasal Cannula 2.0 08/12/16 19:30 Nasal Cannula 2.0 28 08/12/16 19:30 80 20 Nasal Cannula 2.0 28 08/12/16 19:30 94 Nasal Cannula 2.0 28 Intake and Output 08/12/16 08/13/16 19:00 07:00 Intake Total 300 ml Output Total 175 ml 500 ml Balance -175 ml -200 ml Intake Oral 300 ml Output Urine Total 175 ml 500 ml Laboratory Tests Test 08/13/16 09:50 Prothrombin Time 18.8 SEC (9.30-11.50) H Prothromb Time International Ratio 1.8 (0.9-1.1) H Objective HEAD AND NECK: Shows no JVD. LUNGS: Coarse rhonchi. CARDIOVASCULAR: Regular S1 and S2 with no gallop or murmur. ABDOMEN: Soft. EXTREMITIES: No pitting edema. TURNER ALLAN Aug 13, 2016 18:29
[2016-08-13 20:00] VITALS: BP 151/87
[2016-08-13 23:55] VITALS: BP 128/68
[2016-08-14] MEDS: DuoNeb 0.5-3(2.5)mg/3ml neb HHN SCH ×4 (00:30→19:50)
[2016-08-14 04:00] VITALS: BP 132/107
[2016-08-14 07:04] LABS: INR 1.8 (0.9-1.1); PROTHROMBIN TIME 18.2 SEC (9.30-11.50)
[2016-08-14 07:13] LABS: ANION GAP 9 (5-15); BASOPHILS % (AUTO) 1.1 % (0.0-2.0); CALCIUM 9.1 mg/dL (8.6-10.2); CARBON DIOXIDE 32 mEQ/L (20-30); CHLORIDE 103 mEQ/L (98-107); CREATININE 0.6 mg/dL (0.5-0.9); EOSINOPHILS % (AUTO) 6.6 % (0.0-3.0); HEMOLYSIS 6; MEAN CORPUSCULAR HGB CONC 30.3 G/DL (32.0-36.0); MEAN CORPUSCULAR VOLUME 96 FL (80-99); MEAN PLATELET VOLUME 7.7 FL (6.5-10.1); MONOCYTES % (AUTO) 10.5 % (1.0-10.0); NEUTROPHILS % (AUTO) 56.8 % (45.0-75.0); PLATELET COUNT 172 K/UL (150-450); POTASSIUM 3.7 mEQ/L (3.4-4.9); RED BLOOD COUNT 3.91 M/UL (4.20-5.40); RED CELL DISTRIBUTION WIDTH 13.4 % (11.6-14.8); SODIUM 144 mEQ/L (135-145); WHITE BLOOD COUNT 7.6 K/UL (4.8-10.8)
[2016-08-14 07:46] VITALS: BP 137/98
[2016-08-14] MEDS ORDERED: Warfarin Sodium 3mg ORAL SCH (10:00)
--- NOTE | 2016-08-14 10:19 | Cardiac Electrophysiology PN ---
Assessment/Plan Status Narrative Echo 05/16/2016 M-mode measurements of left ventricle not obtainable due to cardiac position (angle) Normal left ventricular chamber size, systolic function and wall motion to extent visualized. Left ventricular ejection fraction estimated to be 65 %. Moderate left ventricular hypertrophy by 2-D. No evidence of pericardial effusion. All other cardiac chamber sizes are within normal limits. Focal aortic valve sclerosis with adequate cusp excursion. Thickened mitral valve leaflets with normal excursion. Mitral annulus and aortic root calcification. Pulmonic valve not well visualized. Normal tricuspid valve structure. IVC at normal size with physiologic collapse. A color flow and spectral Doppler study was performed and revealed: Mild aortic regurgitation. Mild mitral regurgitation. Mitral diastolic velocities suggest reduced left ventricular relaxation c/w mild LV diastolic dysfunction (Grade I). Trace to mild tricuspid regurgitation. Tricuspid systolic velocities suggests peak right ventricular systolic pressure of 31 mmHg. Assessment/Plan 1. Shortness of breath and bilateral LE DVT. No pulmonary embolism. On Coumadin for DVT. Echo 05/2016 EF 65%. No ME. 2. Hypertension. On Cozaar 50 mg b.i.d. 3. Pneumonia 4. Bilateral LE DVT on Coumadin. S/P IVC filter. 5. Dysphagia. MONIQUE RN Subjective Subjective Awake in NAD with no new events.Sitter at bedside.At times get agitated. Wants to wear a face mask! Objective Last 24 Hour Vital Signs Date Time Temp Pulse Resp B/P Pulse Ox O2 Delivery O2 Flow Rate FiO2 08/14/16 07:46 97.2 89 22 137/98 98 Nasal Cannula 2.0 08/14/16 07:33 80 18 100 Nasal Cannula 2.0 08/14/16 07:26 Nasal Cannula 2.0 28 08/14/16 07:26 98 Nasal Cannula 2.0 28 08/14/16 07:26 73 18 98 Nasal Cannula 2.0 08/14/16 04:00 98.8 110 17 132/107 94 Nasal Cannula 2.0 08/14/16 00:31 74 18 98 Nasal Cannula 2.0 08/14/16 00:31 72 18 98 Nasal Cannula 2.0 08/13/16 23:55 98.2 70 20 128/68 98 Room Air 08/13/16 21:55 151/87 08/13/16 20:00 97.7 90 18 151/87 96 Nasal Cannula 2.0 08/13/16 19:42 76 18 98 Nasal Cannula 2.0 08/13/16 19:41 76 18 98 Nasal Cannula 2.0 08/13/16 19:41 Nasal Cannula 2.0 28 08/13/16 19:40 96 Nasal Cannula 2.0 28 08/13/16 16:00 97.5 72 20 131/58 92 Room Air 08/13/16 13:25 Room Air 21 08/13/16 13:25 Room Air 08/13/16 12:00 97.0 78 20 148/73 98 Room Air Intake and Output 08/13/16 08/14/16 19:00 07:00 Intake Total 120 ml 180 ml Output Total 360 ml Balance 120 ml -180 ml Intake Oral 120 ml 180 ml Output Urine Total 360 ml # Bowel Movements 1 Laboratory Tests Test 08/14/16 05:40 White Blood Count 7.6 K/UL (4.8-10.8) Red Blood Count 3.91 M/UL (4.20-5.40) L Hemoglobin 11.3 G/DL (12.0-16.0) L Hematocrit 37.5 % (37.0-47.0) Mean Corpuscular Volume 96 FL (80-99) Mean Corpuscular Hemoglobin 29.0 PG (27.0-31.0) Mean Corpuscular Hemoglobin Concent 30.3 G/DL (32.0-36.0) L Red Cell Distribution Width 13.4 % (11.6-14.8) Platelet Count 172 K/UL (150-450) Mean Platelet Volume 7.7 FL (6.5-10.1) Neutrophils (%) (Auto) 56.8 % (45.0-75.0) Lymphocytes (%) (Auto) 25.0 % (20.0-45.0) Monocytes (%) (Auto) 10.5 % (1.0-10.0) H Eosinophils (%) (Auto) 6.6 % (0.0-3.0) H Basophils (%) (Auto) 1.1 % (0.0-2.0) Prothrombin Time 18.2 SEC (9.30-11.50) H Prothromb Time International Ratio 1.8 (0.9-1.1) H Sodium Level 144 mEQ/L (135-145) Potassium Level 3.7 mEQ/L (3.4-4.9) Chloride Level 103 mEQ/L (98-107) Carbon Dioxide Level 32 mEQ/L (20-30) H Anion Gap 9 (5-15) Blood Urea Nitrogen 11 mg/dL (7-23) Creatinine 0.6 mg/dL (0.5-0.9) Estimat Glomerular Filtration Rate mL/min (>60) Glucose Level 91 mg/dL (74-106) Calcium Level 9.1 mg/dL (8.6-10.2) Objective HEAD AND NECK: Shows no JVD. LUNGS: Clear CARDIOVASCULAR: Regular S1 and S2 with no gallop or murmur. ABDOMEN: Soft. EXTREMITIES: No pitting edema. TURNER ALLAN Aug 14, 2016 10:19
--- NOTE | 2016-08-14 11:46 | Diagnostic Imaging Report ---
Indication: Dyspnea Comparison: 08/10/16 A single view chest radiograph was obtained. Findings: Cardiomegaly is stable. Aorta is also mildly enlarged. Lungs are essentially clear. Bones are osteopenic. Impression: No acute disease
[2016-08-14 12:00] VITALS: BP 154/79
--- NOTE | 2016-08-14 12:25 | Nephrology Progress Note ---
Assessment/Plan Problem List: (1) Dyspnea (2) Respiratory distress (3) Congestive heart failure (CHF) (4) HCAP (healthcare-associated pneumonia) (5) DVT (deep venous thrombosis) (6) Alzheimer's dementia Plan pulm hygiene. f/u recs per pulm and cardio. Continue coumadin per hem- Goal INR 2-3 Continue nutritional support DC plan - home with oxygen Subjective ROS Limited/Unobtainable: Yes Subjective In bed, in no distress, having lunch Objective Objective Last 24 Hour Vital Signs Date Time Temp Pulse Resp B/P Pulse Ox O2 Delivery O2 Flow Rate FiO2 08/14/16 07:46 97.2 89 22 137/98 98 Nasal Cannula 2.0 08/14/16 07:33 80 18 100 Nasal Cannula 2.0 08/14/16 07:26 Nasal Cannula 2.0 28 08/14/16 07:26 98 Nasal Cannula 2.0 28 08/14/16 07:26 73 18 98 Nasal Cannula 2.0 08/14/16 04:00 98.8 110 17 132/107 94 Nasal Cannula 2.0 08/14/16 00:31 74 18 98 Nasal Cannula 2.0 08/14/16 00:31 72 18 98 Nasal Cannula 2.0 08/13/16 23:55 98.2 70 20 128/68 98 Room Air 08/13/16 21:55 151/87 08/13/16 20:00 97.7 90 18 151/87 96 Nasal Cannula 2.0 08/13/16 19:42 76 18 98 Nasal Cannula 2.0 08/13/16 19:41 76 18 98 Nasal Cannula 2.0 08/13/16 19:41 Nasal Cannula 2.0 28 08/13/16 19:40 96 Nasal Cannula 2.0 28 08/13/16 16:00 97.5 72 20 131/58 92 Room Air 08/13/16 13:25 Room Air 21 08/13/16 13:25 Room Air Intake and Output 08/13/16 08/14/16 19:00 07:00 Intake Total 120 ml 180 ml Output Total 360 ml Balance 120 ml -180 ml Intake Oral 120 ml 180 ml Output Urine Total 360 ml # Bowel Movements 1 Laboratory Tests 08/14/16 05:40: White Blood Count 7.6, Red Blood Count 3.91L, Hemoglobin 11.3L, Hematocrit 37.5 , Mean Corpuscular Volume 96, Mean Corpuscular Hemoglobin 29.0, Mean Corpuscular Hemoglobin Concent 30.3L, Red Cell Distribution Width 13.4, Platelet Count 172, Mean Platelet Volume 7.7, Neutrophils (%) (Auto) 56.8, Lymphocytes (%) (Auto) 25.0, Monocytes (%) (Auto) 10.5H, Eosinophils (%) (Auto) 6.6H, Basophils (%) (Auto) 1.1, Prothrombin Time 18.2H, Prothromb Time International Ratio 1.8H, Sodium Level 144, Potassium Level 3.7, Chloride Level 103, Carbon Dioxide Level 32H, Anion Gap 9, Blood Urea Nitrogen 11, Creatinine 0.6, Estimat Glomerular Filtration Rate , Glucose Level 91, Calcium Level 9.1 Height (Feet): 5 Height (Inches): 6.00 Weight (Pounds): 140 General Appearance: no apparent distress, confused EENT: normal ENT inspection Neck: normal alignment, supple, normal inspection Cardiovascular: normal rate, regular rhythm Respiratory/Chest: normal breath sounds, no respiratory distress Abdomen: normal bowel sounds, non tender, soft Extremities: normal range of motion Neurologic: alert, oriented x 3, responsive, normal mood/affect Hellen Eaton N.P. Aug 14, 2016 12:25
--- NOTE | 2016-08-14 13:48 | Pulmonology Progress Note ---
Assessment/Plan Problems: (1) HCAP (healthcare-associated pneumonia) (2) Alzheimer's dementia (3) HTN (hypertension) (4) DVT (deep venous thrombosis) (5) Gram positive bacterial infection Assessment & Plan: ? contaminant Repeat Cx's neg TTE without veg (6) RSV (acute bronchiolitis due to respiratory syncytial virus) Assessment/Plan -Optimize pulmonary hygiene/mobilize as tolerated -PRN O2 -RTC and PRN DUOnebs -Mucinex and PRN Robitussijn -Observe off Abx per ID -Need to repeat CT chest in 2 weeks to ensure resolution of GGO's -PT/OT, OOB -IS -Monitor volumes -Has IVC filter, continue coumadin per heme-onc -Diet per [employer] with STRICT aspiration precautions -Full code Subjective Allergies: Coded Allergies: No Known Allergies (Unverified , 05/07/16) Subjective AFVSS, O2 needs stable No cough, no SOB Rosa diet Objective Last 24 Hour Vital Signs Date Time Temp Pulse Resp B/P Pulse Ox O2 Delivery O2 Flow Rate FiO2 08/14/16 12:00 97.7 88 19 154/79 99 Nasal Cannula 2.0 08/14/16 07:46 97.2 89 22 137/98 98 Nasal Cannula 2.0 08/14/16 07:33 80 18 100 Nasal Cannula 2.0 08/14/16 07:26 Nasal Cannula 2.0 28 08/14/16 07:26 98 Nasal Cannula 2.0 28 08/14/16 07:26 73 18 98 Nasal Cannula 2.0 08/14/16 04:00 98.8 110 17 132/107 94 Nasal Cannula 2.0 08/14/16 00:31 74 18 98 Nasal Cannula 2.0 08/14/16 00:31 72 18 98 Nasal Cannula 2.0 08/13/16 23:55 98.2 70 20 128/68 98 Room Air 08/13/16 21:55 151/87 08/13/16 20:00 97.7 90 18 151/87 96 Nasal Cannula 2.0 08/13/16 19:42 76 18 98 Nasal Cannula 2.0 08/13/16 19:41 76 18 98 Nasal Cannula 2.0 08/13/16 19:41 Nasal Cannula 2.0 28 08/13/16 19:40 96 Nasal Cannula 2.0 28 08/13/16 16:00 97.5 72 20 131/58 92 Room Air Intake and Output 08/13/16 08/14/16 19:00 07:00 Intake Total 120 ml 180 ml Output Total 360 ml Balance 120 ml -180 ml Intake Oral 120 ml 180 ml Output Urine Total 360 ml # Bowel Movements 1 General Appearance: no acute distress, cachetic, other - frail confused elderly female HEENT: normocephalic, atraumatic, mucous membranes moist Respiratory/Chest: chest wall non-tender, lungs clear, normal breath sounds, no respiratory distress Cardiovascular: normal peripheral pulses, normal rate, regular rhythm Abdomen: normal bowel sounds, soft, non tender, no organomegaly, non distended Extremities: no cyanosis, no clubbing, no edema Laboratory Tests 08/14/16 05:40: White Blood Count 7.6, Red Blood Count 3.91L, Hemoglobin 11.3L, Hematocrit 37.5 , Mean Corpuscular Volume 96, Mean Corpuscular Hemoglobin 29.0, Mean Corpuscular Hemoglobin Concent 30.3L, Red Cell Distribution Width 13.4, Platelet Count 172, Mean Platelet Volume 7.7, Neutrophils (%) (Auto) 56.8, Lymphocytes (%) (Auto) 25.0, Monocytes (%) (Auto) 10.5H, Eosinophils (%) (Auto) 6.6H, Basophils (%) (Auto) 1.1, Prothrombin Time 18.2H, Prothromb Time International Ratio 1.8H, Sodium Level 144, Potassium Level 3.7, Chloride Level 103, Carbon Dioxide Level 32H, Anion Gap 9, Blood Urea Nitrogen 11, Creatinine 0.6, Estimat Glomerular Filtration Rate , Glucose Level 91, Calcium Level 9.1 Current Medications Medications (Trade) Dose Ordered Sig/Arabella Route PRN Reason Start Time Stop Time Status Last Admin Dose Admin Acetaminophen (Tylenol) 650 mg Q4H PRN RECTAL Fever/Headache/Mild Pain 08/04/16 21:30 09/03/16 21:29 Acetaminophen/ Hydrocodone Bitart ([place] 10/325) 1 ea Q6H PRN ORAL Pain Scale (6-10) 08/10/16 19:45 08/17/16 23:59 Albuterol/ Ipratropium (DuoNeb 0.5-3(2.5)mg/3ml) 3 ml Q4H PRN HHN Shortness of Breath 08/09/16 13:45 08/14/16 23:59 Albuterol/ Ipratropium (DuoNeb 0.5-3(2.5)mg/3ml) 3 ml Q6HRT HHN 08/13/16 13:00 08/18/16 12:59 08/14/16 13:36 Clonidine HCl (Catapres) 0.1 mg Q6H PRN ORAL For High Blood Pressure 08/04/16 19:45 09/03/16 19:44 08/13/16 10:16 Dextrose (Dextrose 50%) STAT PRN IV Hypoglycemia 08/05/16 01:45 09/04/16 01:44 Diphenhydramine HCl (Benadryl) 25 mg Q6H PRN ORAL Itching/Pruritis 08/04/16 19:45 09/03/16 19:44 08/12/16 20:20 Docusate Sodium (Colace) 100 mg DAILY ORAL 08/05/16 09:00 09/04/16 08:59 08/13/16 10:16 Guaifenesin (Mucinex) 600 mg TWICE A DAY ORAL 08/13/16 11:00 09/12/16 10:59 08/13/16 17:59 Guaifenesin (Robitussin) 100 mg Q4H PRN ORAL For Cough 08/04/16 19:00 09/03/16 18:59 08/10/16 19:44 Lorazepam (Ativan 2mg/ml 1ml) 1 mg Q4H PRN IV For Anxiety 08/10/16 17:45 08/17/16 23:59 08/13/16 10:59 Losartan Potassium (Cozaar) 50 mg Q12HR ORAL 08/04/16 21:00 09/03/16 20:59 08/13/16 21:55 Nystatin (Nystop Powder) 1 applic THREE TIMES A DAY TOPIC 08/07/16 13:00 09/06/16 12:59 08/13/16 17:59 Pantoprazole (Protonix) 40 mg Q12H PRN ORAL Abdominal cramps 08/05/16 01:45 09/04/16 01:44 08/10/16 09:15 Warfarin Sodium (Coumadin per pharmacy) 1 ea DAILY PRN MISC Per rx protocol 08/05/16 09:00 09/04/16 08:59 ONUR RAINES M.D. Aug 14, 2016 13:48
[2016-08-14] MEDS: Docusate 100mg cap ORAL SCH (15:04)
[2016-08-14] MEDS: Losartan 50mg tab ORAL SCH ×2 (15:05→21:30)
[2016-08-14] MEDS: Nystatin Powder 100,000 units/gm 15gm TOPIC SCH ×3 (15:48→18:35)
--- NOTE | 2016-08-14 15:57 | Infectious Diseases Prog Note ---
Assessment/Plan Assessment/Plan ASSESSMENT: 86-year-old female with: Pneumonia - RVP(+) RSV CXR 08/13: Lungs are essentially clear Chest CT: Diffuse bilateral interstitial disease, possibly with micro- nodularity, disseminated inflammatory lesions a possibility. CONS bacteremia - repeat BCx(-) 08/03, TTE(-) SBE SP Rx UTI , probable - UCx(-) SP Rx Fever - resolved, no leukocytosis Acute BLE DVT SP IVC filter CVA. History of brain aneurysm. Dementia. NKDA Full Code PLAN: ok to DC off of antimicrobials from ID standpoint ( SP IV Rocephin, azithro, IV Vanco d# 7 / ) monitor CBC, temperatures monitor BMP monitor CXR Subjective Allergies: Coded Allergies: No Known Allergies (Unverified , 05/07/16) Subjective remains afebrile. comfortable Objective Vital Signs Last 24 Hour Vital Signs Date Time Temp Pulse Resp B/P Pulse Ox O2 Delivery O2 Flow Rate FiO2 08/14/16 15:05 124/78 08/14/16 12:00 97.7 88 19 154/79 99 Nasal Cannula 2.0 08/14/16 07:46 97.2 89 22 137/98 98 Nasal Cannula 2.0 08/14/16 07:33 80 18 100 Nasal Cannula 2.0 08/14/16 07:26 Nasal Cannula 2.0 28 08/14/16 07:26 98 Nasal Cannula 2.0 28 08/14/16 07:26 73 18 98 Nasal Cannula 2.0 08/14/16 04:00 98.8 110 17 132/107 94 Nasal Cannula 2.0 08/14/16 00:31 74 18 98 Nasal Cannula 2.0 08/14/16 00:31 72 18 98 Nasal Cannula 2.0 08/13/16 23:55 98.2 70 20 128/68 98 Room Air 08/13/16 21:55 151/87 08/13/16 20:00 97.7 90 18 151/87 96 Nasal Cannula 2.0 08/13/16 19:42 76 18 98 Nasal Cannula 2.0 08/13/16 19:41 76 18 98 Nasal Cannula 2.0 08/13/16 19:41 Nasal Cannula 2.0 28 08/13/16 19:40 96 Nasal Cannula 2.0 28 08/13/16 16:00 97.5 72 20 131/58 92 Room Air Height (Feet): 5 Height (Inches): 6.00 Weight (Pounds): 140 General Appearance: no acute distress Respiratory/Chest: no respiratory distress Cardiovascular: normal rate, regular rhythm Abdomen: normal bowel sounds, soft, non tender, non distended Laboratory Tests Test 08/14/16 05:40 White Blood Count 7.6 K/UL (4.8-10.8) Red Blood Count 3.91 M/UL (4.20-5.40) L Hemoglobin 11.3 G/DL (12.0-16.0) L Hematocrit 37.5 % (37.0-47.0) Mean Corpuscular Volume 96 FL (80-99) Mean Corpuscular Hemoglobin 29.0 PG (27.0-31.0) Mean Corpuscular Hemoglobin Concent 30.3 G/DL (32.0-36.0) L Red Cell Distribution Width 13.4 % (11.6-14.8) Platelet Count 172 K/UL (150-450) Mean Platelet Volume 7.7 FL (6.5-10.1) Neutrophils (%) (Auto) 56.8 % (45.0-75.0) Lymphocytes (%) (Auto) 25.0 % (20.0-45.0) Monocytes (%) (Auto) 10.5 % (1.0-10.0) H Eosinophils (%) (Auto) 6.6 % (0.0-3.0) H Basophils (%) (Auto) 1.1 % (0.0-2.0) Prothrombin Time 18.2 SEC (9.30-11.50) H Prothromb Time International Ratio 1.8 (0.9-1.1) H Sodium Level 144 mEQ/L (135-145) Potassium Level 3.7 mEQ/L (3.4-4.9) Chloride Level 103 mEQ/L (98-107) Carbon Dioxide Level 32 mEQ/L (20-30) H Anion Gap 9 (5-15) Blood Urea Nitrogen 11 mg/dL (7-23) Creatinine 0.6 mg/dL (0.5-0.9) Estimat Glomerular Filtration Rate mL/min (>60) Glucose Level 91 mg/dL (74-106) Calcium Level 9.1 mg/dL (8.6-10.2) Current Medications Medications (Trade) Dose Ordered Sig/Arabella Route PRN Reason Start Time Stop Time Status Last Admin Dose Admin Acetaminophen (Tylenol) 650 mg Q4H PRN RECTAL Fever/Headache/Mild Pain 08/04/16 21:30 09/03/16 21:29 Acetaminophen/ Hydrocodone Bitart ([place] 10/325) 1 ea Q6H PRN ORAL Pain Scale (6-10) 08/10/16 19:45 08/17/16 23:59 Albuterol/ Ipratropium (DuoNeb 0.5-3(2.5)mg/3ml) 3 ml Q4H PRN HHN Shortness of Breath 08/09/16 13:45 08/14/16 23:59 Albuterol/ Ipratropium (DuoNeb 0.5-3(2.5)mg/3ml) 3 ml Q6HRT HHN 08/13/16 13:00 08/18/16 12:59 08/14/16 13:36 Clonidine HCl (Catapres) 0.1 mg Q6H PRN ORAL For High Blood Pressure 08/04/16 19:45 09/03/16 19:44 08/13/16 10:16 Dextrose (Dextrose 50%) STAT PRN IV Hypoglycemia 08/05/16 01:45 09/04/16 01:44 Diphenhydramine HCl (Benadryl) 25 mg Q6H PRN ORAL Itching/Pruritis 08/04/16 19:45 09/03/16 19:44 08/12/16 20:20 Docusate Sodium (Colace) 100 mg DAILY ORAL 08/05/16 09:00 09/04/16 08:59 08/14/16 15:04 Guaifenesin (Mucinex) 600 mg TWICE A DAY ORAL 08/13/16 11:00 09/12/16 10:59 08/13/16 17:59 Guaifenesin (Robitussin) 100 mg Q4H PRN ORAL For Cough 08/04/16 19:00 09/03/16 18:59 08/10/16 19:44 Lorazepam (Ativan 2mg/ml 1ml) 1 mg Q4H PRN IV For Anxiety 08/10/16 17:45 08/17/16 23:59 08/13/16 10:59 Losartan Potassium (Cozaar) 50 mg Q12HR ORAL 08/04/16 21:00 09/03/16 20:59 08/14/16 15:05 Nystatin (Nystop Powder) 1 applic THREE TIMES A DAY TOPIC 08/07/16 13:00 09/06/16 12:59 08/14/16 15:48 Pantoprazole (Protonix) 40 mg Q12H PRN ORAL Abdominal cramps 08/05/16 01:45 09/04/16 01:44 08/10/16 09:15 Warfarin Sodium (Coumadin per pharmacy) 1 ea DAILY PRN MISC Per rx protocol 08/05/16 09:00 09/04/16 08:59 FAISAL ALVARADO Aug 14, 2016 15:57
[2016-08-14 16:00] VITALS: BP 156/84
[2016-08-14] MEDS: guaiFENesin 600mg tab ORAL SCH ×2 (16:00→18:30)
--- NOTE | 2016-08-14 16:56 | General Progress Note ---
Assessment/Plan Assessment/Plan ASSESSMENT: #. DVT of the bilateral lower extremities - s/p ivc permanent IVC filter and on coumadin, goal INR 2-3 #. Anemia potentially secondary to anemia of chronic disease - stable #. Leukocytosis. Improved #. Coagulopathy 2/2 coumadin #. Trochanteric fracture of the right femur status post open reduction and internal fixation and repair #. Sepsis #. PNA RECOMMENDATIONS: 1. Continue coumadin 2. Monitor for bleed with cbc 3. Goal INR 2-3 4. Continue antibiotics prn basis 5. Transfuse if hgb < 7 6. Continue nutritional support 7. Followup pulm, cards, renal recs 8. Staff Thank you, Cabrera Hernandez MD Subjective Constitutional: Reports: no symptoms HEENT: Reports: no symptoms Cardiovascular: Reports: no symptoms Respiratory: Reports: no symptoms Gastrointestinal/Abdominal: Reports: poor appetite Genitourinary: Reports: no symptoms Neurologic/Psychiatric: Reports: no symptoms Endocrine: Reports: no symptoms Hematologic/Lymphatic: Reports: anemia Allergies: Coded Allergies: No Known Allergies (Unverified , 05/07/16) Subjective stable, not bleeding, is tolerating coumadin Objective Last 24 Hour Vital Signs Date Time Temp Pulse Resp B/P Pulse Ox O2 Delivery O2 Flow Rate FiO2 08/14/16 16:00 97.9 99 20 156/84 95 Room Air 08/14/16 15:05 124/78 08/14/16 12:00 97.7 88 19 154/79 99 Nasal Cannula 2.0 08/14/16 07:46 97.2 89 22 137/98 98 Nasal Cannula 2.0 08/14/16 07:33 80 18 100 Nasal Cannula 2.0 08/14/16 07:26 Nasal Cannula 2.0 28 08/14/16 07:26 98 Nasal Cannula 2.0 28 08/14/16 07:26 73 18 98 Nasal Cannula 2.0 08/14/16 04:00 98.8 110 17 132/107 94 Nasal Cannula 2.0 08/14/16 00:31 74 18 98 Nasal Cannula 2.0 08/14/16 00:31 72 18 98 Nasal Cannula 2.0 08/13/16 23:55 98.2 70 20 128/68 98 Room Air 08/13/16 21:55 151/87 08/13/16 20:00 97.7 90 18 151/87 96 Nasal Cannula 2.0 08/13/16 19:42 76 18 98 Nasal Cannula 2.0 08/13/16 19:41 76 18 98 Nasal Cannula 2.0 08/13/16 19:41 Nasal Cannula 2.0 28 08/13/16 19:40 96 Nasal Cannula 2.0 28 Intake and Output 08/13/16 08/14/16 19:00 07:00 Intake Total 120 ml 180 ml Output Total 360 ml Balance 120 ml -180 ml Intake Oral 120 ml 180 ml Output Urine Total 360 ml # Bowel Movements 1 Laboratory Tests 08/14/16 05:40: White Blood Count 7.6, Red Blood Count 3.91L, Hemoglobin 11.3L, Hematocrit 37.5 , Mean Corpuscular Volume 96, Mean Corpuscular Hemoglobin 29.0, Mean Corpuscular Hemoglobin Concent 30.3L, Red Cell Distribution Width 13.4, Platelet Count 172, Mean Platelet Volume 7.7, Neutrophils (%) (Auto) 56.8, Lymphocytes (%) (Auto) 25.0, Monocytes (%) (Auto) 10.5H, Eosinophils (%) (Auto) 6.6H, Basophils (%) (Auto) 1.1, Prothrombin Time 18.2H, Prothromb Time International Ratio 1.8H, Sodium Level 144, Potassium Level 3.7, Chloride Level 103, Carbon Dioxide Level 32H, Anion Gap 9, Blood Urea Nitrogen 11, Creatinine 0.6, Estimat Glomerular Filtration Rate , Glucose Level 91, Calcium Level 9.1 Height (Feet): 5 Height (Inches): 6.00 Weight (Pounds): 140 General Appearance: no apparent distress EENT: TMs normal Neck: supple Cardiovascular: regular rhythm Respiratory/Chest: normal breath sounds Abdomen: non tender Extremities: non-tender Edema: no edema noted Leg (L), no edema noted Leg (R) Edema: mild edema Neurologic: alert Skin: warm/dry Cabrera Hernandez Aug 14, 2016 16:56
[2016-08-14 20:00] VITALS: BP 150/75
[2016-08-15] VITALS: BP 158/100
[2016-08-15] MEDS: DuoNeb 0.5-3(2.5)mg/3ml neb HHN SCH ×4 (01:07→19:58)
[2016-08-15] MEDS: LORazepam Inj 2mg/ml 1ml IV PRN (01:57)
[2016-08-15 04:00] VITALS: BP 116/61
[2016-08-15 07:35] LABS: BASOPHILS % (AUTO) 0.9 % (0.0-2.0); LYMPHOCYTES % (AUTO) 25.5 % (20.0-45.0); MEAN CORPUSCULAR HEMOGLOBIN 29.5 PG (27.0-31.0); MEAN CORPUSCULAR HGB CONC 32.2 G/DL (32.0-36.0); MEAN CORPUSCULAR VOLUME 92 FL (80-99); MEAN PLATELET VOLUME 8.4 FL (6.5-10.1); NEUTROPHILS % (AUTO) 57.6 % (45.0-75.0); PLATELET COUNT 164 K/UL (150-450); RED BLOOD COUNT 3.67 M/UL (4.20-5.40); RED CELL DISTRIBUTION WIDTH 13.4 % (11.6-14.8)
[2016-08-15 07:40] LABS: ANION GAP 11 (5-15); CALCIUM 9.2 mg/dL (8.6-10.2); CARBON DIOXIDE 32 mEQ/L (20-30); CHLORIDE 104 mEQ/L (98-107); CREATININE 0.6 mg/dL (0.5-0.9); HEMOLYSIS 3; POTASSIUM 3.1 mEQ/L (3.4-4.9); SODIUM 147 mEQ/L (135-145)
[2016-08-15 08:00] VITALS: BP 114/61
[2016-08-15] MEDS: Losartan 50mg tab ORAL SCH ×2 (09:43→21:21)
[2016-08-15] MEDS: Nystatin Powder 100,000 units/gm 15gm TOPIC SCH ×3 (09:43→19:37)
[2016-08-15] MEDS: Docusate 100mg cap ORAL SCH (09:44)
[2016-08-15] MEDS: guaiFENesin 600mg tab ORAL SCH ×2 (09:45→19:52)
--- NOTE | 2016-08-15 17:11 | General Progress Note ---
Assessment/Plan Assessment/Plan ASSESSMENT: #. DVT of the bilateral lower extremities - s/p ivc permanent IVC filter and on coumadin, goal INR 2-3 #. Anemia potentially secondary to anemia of chronic disease - stable #. Leukocytosis. Improved #. Coagulopathy 2/2 coumadin #. Trochanteric fracture of the right femur status post open reduction and internal fixation and repair #. Sepsis #. PNA RECOMMENDATIONS: 1. Continue coumadin 2. Monitor for bleed with cbc 3. Goal INR 2-3 4. Continue antibiotics prn basis 5. Transfuse if hgb < 7 6. Continue nutritional support 7. Followup pulm, cards, renal recs 8. Staff Thank you, Cabrera Hernandez MD Subjective Constitutional: Reports: no symptoms HEENT: Reports: no symptoms Cardiovascular: Reports: no symptoms Respiratory: Reports: no symptoms Gastrointestinal/Abdominal: Reports: poor appetite Genitourinary: Reports: no symptoms Neurologic/Psychiatric: Reports: no symptoms Endocrine: Reports: no symptoms Hematologic/Lymphatic: Reports: anemia Allergies: Coded Allergies: No Known Allergies (Unverified , 05/07/16) Subjective stable, not bleeding, tolerating coumadin Objective Last 24 Hour Vital Signs Date Time Temp Pulse Resp B/P Pulse Ox O2 Delivery O2 Flow Rate FiO2 08/15/16 13:14 75 18 99 Nasal Cannula 2.0 08/15/16 13:03 74 18 99 Nasal Cannula 2.0 28 08/15/16 09:43 138/77 08/15/16 08:00 97.5 88 18 114/61 95 Nasal Cannula 2.0 08/15/16 07:22 82 18 98 Nasal Cannula 2.0 28 08/15/16 07:15 97 Nasal Cannula 2.0 28 08/15/16 07:12 Nasal Cannula 2.0 28 08/15/16 06:50 82 18 97 Nasal Cannula 2.0 08/15/16 04:00 97.7 89 24 116/61 97 Room Air 2.0 08/15/16 01:18 103 18 98 Nasal Cannula 2.0 28 08/15/16 01:08 101 18 97 Nasal Cannula 2.0 08/15/16 00:00 97.7 113 20 158/100 95 Room Air 2.0 08/14/16 21:30 130/77 08/14/16 20:00 98.2 99 20 150/75 98 Nasal Cannula 2.0 08/14/16 20:00 96 18 99 Nasal Cannula 2.0 28 08/14/16 19:52 Nasal Cannula 2.0 28 08/14/16 19:52 98 18 97 Nasal Cannula 2.0 08/14/16 19:51 97 Nasal Cannula 2.0 28 Intake and Output 08/14/16 08/15/16 19:00 07:00 Intake Total 200 ml Output Total 300 ml 750 ml Balance -100 ml -750 ml Intake Oral 200 ml Output Urine Total 300 ml 750 ml # Bowel Movements 1 Laboratory Tests 08/15/16 06:35: White Blood Count 8.0, Red Blood Count 3.67L, Hemoglobin 10.8L, Hematocrit 33.6L , Mean Corpuscular Volume 92, Mean Corpuscular Hemoglobin 29.5, Mean Corpuscular Hemoglobin Concent 32.2, Red Cell Distribution Width 13.4, Platelet Count 164, Mean Platelet Volume 8.4, Neutrophils (%) (Auto) 57.6, Lymphocytes (% ) (Auto) 25.5, Monocytes (%) (Auto) 11.0H, Eosinophils (%) (Auto) 5.0H, Basophils (%) (Auto) 0.9, Sodium Level 147H, Potassium Level 3.1L, Chloride Level 104, Carbon Dioxide Level 32H, Anion Gap 11, Blood Urea Nitrogen 11, Creatinine 0.6, Estimat Glomerular Filtration Rate , Glucose Level 103, Calcium Level 9.2 Height (Feet): 5 Height (Inches): 6.00 Weight (Pounds): 140 General Appearance: no apparent distress EENT: TMs normal Neck: supple Cardiovascular: regular rhythm Respiratory/Chest: chest wall non-tender Abdomen: no organomegaly Pelvis: no masses Extremities: non-tender Edema: no edema noted Leg (L), no edema noted Leg (R) Edema: mild edema Neurologic: no motor/sensory deficits, responsive Skin: warm/dry Cabrera Hernandez Aug 15, 2016 17:11
--- NOTE | 2016-08-15 18:27 | Cardiac Electrophysiology PN ---
Assessment/Plan Status Narrative Echo 05/16/2016 M-mode measurements of left ventricle not obtainable due to cardiac position (angle) Normal left ventricular chamber size, systolic function and wall motion to extent visualized. Left ventricular ejection fraction estimated to be 65 %. Moderate left ventricular hypertrophy by 2-D. No evidence of pericardial effusion. All other cardiac chamber sizes are within normal limits. Focal aortic valve sclerosis with adequate cusp excursion. Thickened mitral valve leaflets with normal excursion. Mitral annulus and aortic root calcification. Pulmonic valve not well visualized. Normal tricuspid valve structure. IVC at normal size with physiologic collapse. A color flow and spectral Doppler study was performed and revealed: Mild aortic regurgitation. Mild mitral regurgitation. Mitral diastolic velocities suggest reduced left ventricular relaxation c/w mild LV diastolic dysfunction (Grade I). Trace to mild tricuspid regurgitation. Tricuspid systolic velocities suggests peak right ventricular systolic pressure of 31 mmHg. Assessment/Plan 1. Shortness of breath. Echo 05/2016 EF 65%. No [place].Resolved. 2. Bilateral LE DVT without pulmonary embolism. On Coumadin, S/P IVC filter. 3. Hypertension. On Cozaar 50 mg b.i.d. 4. Pneumonia 5. Dysphagia. MONIQUE RN Subjective Subjective Awake in NAD with no new events.Sitter at bedside. Objective Last 24 Hour Vital Signs Date Time Temp Pulse Resp B/P Pulse Ox O2 Delivery O2 Flow Rate FiO2 08/15/16 13:14 75 18 99 Nasal Cannula 2.0 08/15/16 13:03 74 18 99 Nasal Cannula 2.0 28 08/15/16 09:43 138/77 08/15/16 08:00 97.5 88 18 114/61 95 Nasal Cannula 2.0 08/15/16 07:22 82 18 98 Nasal Cannula 2.0 28 08/15/16 07:15 97 Nasal Cannula 2.0 28 08/15/16 07:12 Nasal Cannula 2.0 28 08/15/16 06:50 82 18 97 Nasal Cannula 2.0 08/15/16 04:00 97.7 89 24 116/61 97 Room Air 2.0 08/15/16 01:18 103 18 98 Nasal Cannula 2.0 28 08/15/16 01:08 101 18 97 Nasal Cannula 2.0 08/15/16 00:00 97.7 113 20 158/100 95 Room Air 2.0 08/14/16 21:30 130/77 08/14/16 20:00 98.2 99 20 150/75 98 Nasal Cannula 2.0 08/14/16 20:00 96 18 99 Nasal Cannula 2.0 28 08/14/16 19:52 Nasal Cannula 2.0 28 08/14/16 19:52 98 18 97 Nasal Cannula 2.0 08/14/16 19:51 97 Nasal Cannula 2.0 28 Intake and Output 08/14/16 08/15/16 19:00 07:00 Intake Total 200 ml Output Total 300 ml 750 ml Balance -100 ml -750 ml Intake Oral 200 ml Output Urine Total 300 ml 750 ml # Bowel Movements 1 Laboratory Tests Test 08/15/16 06:35 White Blood Count 8.0 K/UL (4.8-10.8) Red Blood Count 3.67 M/UL (4.20-5.40) L Hemoglobin 10.8 G/DL (12.0-16.0) L Hematocrit 33.6 % (37.0-47.0) L Mean Corpuscular Volume 92 FL (80-99) Mean Corpuscular Hemoglobin 29.5 PG (27.0-31.0) Mean Corpuscular Hemoglobin Concent 32.2 G/DL (32.0-36.0) Red Cell Distribution Width 13.4 % (11.6-14.8) Platelet Count 164 K/UL (150-450) Mean Platelet Volume 8.4 FL (6.5-10.1) Neutrophils (%) (Auto) 57.6 % (45.0-75.0) Lymphocytes (%) (Auto) 25.5 % (20.0-45.0) Monocytes (%) (Auto) 11.0 % (1.0-10.0) H Eosinophils (%) (Auto) 5.0 % (0.0-3.0) H Basophils (%) (Auto) 0.9 % (0.0-2.0) Sodium Level 147 mEQ/L (135-145) H Potassium Level 3.1 mEQ/L (3.4-4.9) L Chloride Level 104 mEQ/L (98-107) Carbon Dioxide Level 32 mEQ/L (20-30) H Anion Gap 11 (5-15) Blood Urea Nitrogen 11 mg/dL (7-23) Creatinine 0.6 mg/dL (0.5-0.9) Estimat Glomerular Filtration Rate mL/min (>60) Glucose Level 103 mg/dL (74-106) Calcium Level 9.2 mg/dL (8.6-10.2) Objective HEAD AND NECK: Shows no JVD. LUNGS: Clear CARDIOVASCULAR: Regular S1 and S2 with no gallop or murmur. ABDOMEN: Soft. EXTREMITIES: No pitting edema. TURNER ALLAN Aug 15, 2016 18:27
--- NOTE | 2016-08-15 18:45 | Pulmonology Progress Note ---
Assessment/Plan Problems: (1) HCAP (healthcare-associated pneumonia) (2) Alzheimer's dementia (3) HTN (hypertension) (4) DVT (deep venous thrombosis) (5) Gram positive bacterial infection Assessment & Plan: ? contaminant Repeat Cx's neg TTE without veg (6) RSV (acute bronchiolitis due to respiratory syncytial virus) Assessment/Plan -Optimize pulmonary hygiene/mobilize as tolerated -PRN O2 -TID and PRN DUOnebs -Mucinex and PRN Robitussijn -Observe off Abx per ID -Need to repeat CT chest in 2 weeks to ensure resolution of GGO's -PT/OT, OOB -IS -Monitor volumes -Has IVC filter, continue coumadin per heme-onc -Diet per [employer] with STRICT aspiration precautions -Full code Subjective Allergies: Coded Allergies: No Known Allergies (Unverified , 05/07/16) Subjective AFVSS, O2 needs stable No cough, no SOB Rosa diet Objective Last 24 Hour Vital Signs Date Time Temp Pulse Resp B/P Pulse Ox O2 Delivery O2 Flow Rate FiO2 08/15/16 13:14 75 18 99 Nasal Cannula 2.0 08/15/16 13:03 74 18 99 Nasal Cannula 2.0 28 08/15/16 09:43 138/77 08/15/16 08:00 97.5 88 18 114/61 95 Nasal Cannula 2.0 08/15/16 07:22 82 18 98 Nasal Cannula 2.0 28 08/15/16 07:15 97 Nasal Cannula 2.0 28 08/15/16 07:12 Nasal Cannula 2.0 28 08/15/16 06:50 82 18 97 Nasal Cannula 2.0 08/15/16 04:00 97.7 89 24 116/61 97 Room Air 2.0 08/15/16 01:18 103 18 98 Nasal Cannula 2.0 28 08/15/16 01:08 101 18 97 Nasal Cannula 2.0 08/15/16 00:00 97.7 113 20 158/100 95 Room Air 2.0 08/14/16 21:30 130/77 08/14/16 20:00 98.2 99 20 150/75 98 Nasal Cannula 2.0 08/14/16 20:00 96 18 99 Nasal Cannula 2.0 28 08/14/16 19:52 Nasal Cannula 2.0 28 08/14/16 19:52 98 18 97 Nasal Cannula 2.0 08/14/16 19:51 97 Nasal Cannula 2.0 28 Intake and Output 08/14/16 08/15/16 19:00 07:00 Intake Total 200 ml Output Total 300 ml 750 ml Balance -100 ml -750 ml Intake Oral 200 ml Output Urine Total 300 ml 750 ml # Bowel Movements 1 General Appearance: no acute distress, cachetic, other - frail elderly HEENT: normocephalic, atraumatic, anicteric, mucous membranes moist Respiratory/Chest: chest wall non-tender, lungs clear, normal breath sounds, no respiratory distress, no accessory muscle use Cardiovascular: normal peripheral pulses, normal rate, regular rhythm Abdomen: normal bowel sounds, soft, non tender, no organomegaly, non distended Extremities: no cyanosis, no clubbing, no edema Laboratory Tests 08/15/16 06:35: White Blood Count 8.0, Red Blood Count 3.67L, Hemoglobin 10.8L, Hematocrit 33.6L , Mean Corpuscular Volume 92, Mean Corpuscular Hemoglobin 29.5, Mean Corpuscular Hemoglobin Concent 32.2, Red Cell Distribution Width 13.4, Platelet Count 164, Mean Platelet Volume 8.4, Neutrophils (%) (Auto) 57.6, Lymphocytes (% ) (Auto) 25.5, Monocytes (%) (Auto) 11.0H, Eosinophils (%) (Auto) 5.0H, Basophils (%) (Auto) 0.9, Sodium Level 147H, Potassium Level 3.1L, Chloride Level 104, Carbon Dioxide Level 32H, Anion Gap 11, Blood Urea Nitrogen 11, Creatinine 0.6, Estimat Glomerular Filtration Rate , Glucose Level 103, Calcium Level 9.2 Current Medications Medications (Trade) Dose Ordered Sig/Arabella Route PRN Reason Start Time Stop Time Status Last Admin Dose Admin Acetaminophen (Tylenol) 650 mg Q4H PRN RECTAL Fever/Headache/Mild Pain 08/04/16 21:30 09/03/16 21:29 Acetaminophen/ Hydrocodone Bitart ([place] 10/325) 1 ea Q6H PRN ORAL Pain Scale (6-10) 08/10/16 19:45 08/17/16 23:59 Albuterol/ Ipratropium (DuoNeb 0.5-3(2.5)mg/3ml) 3 ml Q4H PRN HHN Shortness of Breath 08/09/16 13:45 08/14/16 23:59 Albuterol/ Ipratropium (DuoNeb 0.5-3(2.5)mg/3ml) 3 ml Q6HRT HHN 08/13/16 13:00 08/18/16 12:59 08/15/16 13:04 Clonidine HCl (Catapres) 0.1 mg Q6H PRN ORAL For High Blood Pressure 08/04/16 19:45 09/03/16 19:44 08/13/16 10:16 Dextrose (Dextrose 50%) STAT PRN IV Hypoglycemia 08/05/16 01:45 09/04/16 01:44 Diphenhydramine HCl (Benadryl) 25 mg Q6H PRN ORAL Itching/Pruritis 08/04/16 19:45 09/03/16 19:44 08/12/16 20:20 Docusate Sodium (Colace) 100 mg DAILY ORAL 08/05/16 09:00 09/04/16 08:59 08/15/16 09:44 Guaifenesin (Mucinex) 600 mg TWICE A DAY ORAL 08/13/16 11:00 09/12/16 10:59 08/14/16 16:00 Guaifenesin (Robitussin) 100 mg Q4H PRN ORAL For Cough 08/04/16 19:00 09/03/16 18:59 08/10/16 19:44 Lorazepam (Ativan 2mg/ml 1ml) 1 mg Q4H PRN IV For Anxiety 08/10/16 17:45 08/17/16 23:59 08/15/16 01:57 Losartan Potassium (Cozaar) 50 mg Q12HR ORAL 08/04/16 21:00 09/03/16 20:59 08/15/16 09:43 Nystatin (Nystop Powder) 1 applic THREE TIMES A DAY TOPIC 08/07/16 13:00 09/06/16 12:59 08/15/16 13:45 Pantoprazole (Protonix) 40 mg Q12H PRN ORAL Abdominal cramps 08/05/16 01:45 09/04/16 01:44 08/10/16 09:15 Warfarin Sodium (Coumadin per pharmacy) 1 ea DAILY PRN MISC Per rx protocol 08/05/16 09:00 09/04/16 08:59 ONUR RAINES M.D. Aug 15, 2016 18:45
[2016-08-15 20:00] VITALS: BP 156/90
[2016-08-15 20:28] LABS: INR 2.8 (0.9-1.1); PROTHROMBIN TIME 29.7 SEC (9.30-11.50)
[2016-08-15] MEDS: Warfarin Sodium 3mg ORAL SCH (23:56)
[2016-08-16] VITALS: BP 150/79
[2016-08-16 04:00] VITALS: BP 153/79
[2016-08-16] MEDS: DuoNeb 0.5-3(2.5)mg/3ml neb HHN SCH ×2 (07:57→13:58)
[2016-08-16 08:15] VITALS: BP 149/95
--- NOTE | 2016-08-16 08:35 | Nephrology Progress Note ---
Assessment/Plan Problem List: (1) Hypokalemia Assessment: corrected. (2) DVT (deep venous thrombosis) (3) HTN (hypertension) (4) Alzheimer's dementia (5) Dysphagia (6) Depression (7) CVA (cerebral vascular accident) (8) Brain aneurysm (9) HCAP (healthcare-associated pneumonia) (10) Dyspnea (11) Congestive heart failure (CHF) (12) Gram positive bacterial infection Plan abx per ID. pulm hygiene. f/u recs per pulm and cardio. d/c plan home with home O2. Subjective Subjective late entry for 08/15 - no acute events. Objective Objective Last 24 Hour Vital Signs Date Time Temp Pulse Resp B/P Pulse Ox O2 Delivery O2 Flow Rate FiO2 08/16/16 08:15 98.3 91 20 149/95 95 Nasal Cannula 2.0 08/16/16 07:29 Nasal Cannula 2.0 28 08/16/16 07:29 88 18 96 Nasal Cannula 2.0 28 08/16/16 07:29 92 Nasal Cannula 2.0 28 08/16/16 07:29 83 18 92 Nasal Cannula 2.0 28 08/16/16 04:00 97.0 75 18 153/79 96 Nasal Cannula 2.0 08/16/16 00:00 97.3 93 20 150/79 94 Nasal Cannula 2.0 08/15/16 21:21 138/77 08/15/16 20:07 69 18 98 Nasal Cannula 2.0 28 08/15/16 20:00 97.0 93 18 156/90 93 Nasal Cannula 2.0 08/15/16 19:58 Nasal Cannula 2.0 28 08/15/16 19:58 67 18 97 Nasal Cannula 2.0 28 08/15/16 19:58 97 Nasal Cannula 2.0 28 08/15/16 13:14 75 18 99 Nasal Cannula 2.0 08/15/16 13:03 74 18 99 Nasal Cannula 2.0 28 08/15/16 09:43 138/77 Intake and Output 08/15/16 08/16/16 19:00 07:00 Intake Total 200 ml Output Total 150 ml 595 ml Balance 50 ml -595 ml Intake Oral 200 ml Output Urine Total 150 ml 595 ml Laboratory Tests 08/15/16 19:20: Prothrombin Time 29.7H, Prothromb Time International Ratio 2.8H Height (Feet): 5 Height (Inches): 6.00 Weight (Pounds): 140 General Appearance: no apparent distress Cardiovascular: normal rate, regular rhythm Respiratory/Chest: decreased breath sounds Abdomen: non tender, soft Extremities: trace edema Neurologic: alert RISHABH PETERSON Aug 16, 2016 08:35
[2016-08-16] MEDS: Docusate 100mg cap ORAL SCH (10:19)
[2016-08-16] MEDS: Nystatin Powder 100,000 units/gm 15gm TOPIC SCH ×2 (10:19→13:00)
[2016-08-16] MEDS: Losartan 50mg tab ORAL SCH (10:20)
[2016-08-16 10:31] LABS: INR 2.5 (0.9-1.1); PROTHROMBIN TIME 25.9 SEC (9.30-11.50)
[2016-08-16] MEDS: guaiFENesin 600mg tab ORAL SCH (10:50)
--- NOTE | 2016-08-16 11:20 | General Progress Note ---
Assessment/Plan Assessment/Plan ASSESSMENT: #. DVT of the bilateral lower extremities - s/p ivc permanent IVC filter and on coumadin, goal INR 2-3 #. Anemia potentially secondary to anemia of chronic disease - stable #. Leukocytosis. Improved #. Coagulopathy 2/2 coumadin #. Trochanteric fracture of the right femur status post open reduction and internal fixation and repair #. Sepsis #. PNA RECOMMENDATIONS: 1. Continue coumadin 2. Monitor for bleed with cbc 3. Goal INR 2-3 4. Continue antibiotics prn basis 5. Transfuse if hgb < 7 6. Nutritional support 7. Followup pulm, cards, renal recs 8. Staff Thank you, Cabrera Hernandez MD Subjective Constitutional: Reports: no symptoms HEENT: Reports: no symptoms Cardiovascular: Reports: no symptoms Respiratory: Reports: no symptoms Gastrointestinal/Abdominal: Reports: poor appetite Genitourinary: Reports: no symptoms Neurologic/Psychiatric: Reports: no symptoms Endocrine: Reports: no symptoms Hematologic/Lymphatic: Reports: anemia Allergies: Coded Allergies: No Known Allergies (Unverified , 05/07/16) Subjective stable, not bleeding, tolerating coumadin well Objective Last 24 Hour Vital Signs Date Time Temp Pulse Resp B/P Pulse Ox O2 Delivery O2 Flow Rate FiO2 08/16/16 10:20 140/77 08/16/16 08:15 98.3 91 20 149/95 95 Nasal Cannula 2.0 08/16/16 07:29 Nasal Cannula 2.0 28 08/16/16 07:29 88 18 96 Nasal Cannula 2.0 28 08/16/16 07:29 92 Nasal Cannula 2.0 28 08/16/16 07:29 83 18 92 Nasal Cannula 2.0 28 08/16/16 04:00 97.0 75 18 153/79 96 Nasal Cannula 2.0 08/16/16 00:00 97.3 93 20 150/79 94 Nasal Cannula 2.0 08/15/16 21:21 138/77 08/15/16 20:07 69 18 98 Nasal Cannula 2.0 28 08/15/16 20:00 97.0 93 18 156/90 93 Nasal Cannula 2.0 08/15/16 19:58 Nasal Cannula 2.0 28 08/15/16 19:58 67 18 97 Nasal Cannula 2.0 28 08/15/16 19:58 97 Nasal Cannula 2.0 28 08/15/16 13:14 75 18 99 Nasal Cannula 2.0 08/15/16 13:03 74 18 99 Nasal Cannula 2.0 28 Intake and Output 08/15/16 08/16/16 19:00 07:00 Intake Total 200 ml Output Total 150 ml 595 ml Balance 50 ml -595 ml Intake Oral 200 ml Output Urine Total 150 ml 595 ml Laboratory Tests 08/15/16 19:20: Prothrombin Time 29.7H, Prothromb Time International Ratio 2.8H 08/16/16 09:30: Prothrombin Time 25.9H, Prothromb Time International Ratio 2.5H Height (Feet): 5 Height (Inches): 6.00 Weight (Pounds): 140 General Appearance: alert EENT: normal ENT inspection Neck: normal alignment Cardiovascular: normal rate Respiratory/Chest: normal breath sounds Abdomen: no organomegaly Extremities: non-tender Edema: no edema noted Leg (L), no edema noted Leg (R) Edema: trace edema Neurologic: alert Skin: warm/dry Cabrera Hernandez Aug 16, 2016 11:20
--- NOTE | 2016-08-16 11:30 | Cardiac Electrophysiology PN ---
Assessment/Plan Status Narrative Echo 05/16/2016 M-mode measurements of left ventricle not obtainable due to cardiac position (angle) Normal left ventricular chamber size, systolic function and wall motion to extent visualized. Left ventricular ejection fraction estimated to be 65 %. Moderate left ventricular hypertrophy by 2-D. No evidence of pericardial effusion. All other cardiac chamber sizes are within normal limits. Focal aortic valve sclerosis with adequate cusp excursion. Thickened mitral valve leaflets with normal excursion. Mitral annulus and aortic root calcification. Pulmonic valve not well visualized. Normal tricuspid valve structure. IVC at normal size with physiologic collapse. A color flow and spectral Doppler study was performed and revealed: Mild aortic regurgitation. Mild mitral regurgitation. Mitral diastolic velocities suggest reduced left ventricular relaxation c/w mild LV diastolic dysfunction (Grade I). Trace to mild tricuspid regurgitation. Tricuspid systolic velocities suggests peak right ventricular systolic pressure of 31 mmHg. Assessment/Plan 1. Shortness of breath. Echo 05/2016 EF 65%. No FL. Resolved. 2. Bilateral LE DVT without pulmonary embolism. On Coumadin, S/P IVC filter. 3. Hypertension. On Losartan 50 mg b.i.d. 4. Pneumonia 5. Dysphagia. MONIQUE RN Subjective Subjective Awake in NAD with no new events. Objective Last 24 Hour Vital Signs Date Time Temp Pulse Resp B/P Pulse Ox O2 Delivery O2 Flow Rate FiO2 08/16/16 10:20 140/77 08/16/16 08:15 98.3 91 20 149/95 95 Nasal Cannula 2.0 08/16/16 07:29 Nasal Cannula 2.0 28 08/16/16 07:29 88 18 96 Nasal Cannula 2.0 28 08/16/16 07:29 92 Nasal Cannula 2.0 28 08/16/16 07:29 83 18 92 Nasal Cannula 2.0 28 08/16/16 04:00 97.0 75 18 153/79 96 Nasal Cannula 2.0 08/16/16 00:00 97.3 93 20 150/79 94 Nasal Cannula 2.0 08/15/16 21:21 138/77 08/15/16 20:07 69 18 98 Nasal Cannula 2.0 28 08/15/16 20:00 97.0 93 18 156/90 93 Nasal Cannula 2.0 08/15/16 19:58 Nasal Cannula 2.0 28 08/15/16 19:58 67 18 97 Nasal Cannula 2.0 28 08/15/16 19:58 97 Nasal Cannula 2.0 28 08/15/16 13:14 75 18 99 Nasal Cannula 2.0 08/15/16 13:03 74 18 99 Nasal Cannula 2.0 28 Intake and Output 08/15/16 08/16/16 19:00 07:00 Intake Total 200 ml Output Total 150 ml 595 ml Balance 50 ml -595 ml Intake Oral 200 ml Output Urine Total 150 ml 595 ml Laboratory Tests Test 08/15/16 19:20 08/16/16 09:30 Prothrombin Time 29.7 SEC (9.30-11.50) H 25.9 SEC (9.30-11.50) H Prothromb Time International Ratio 2.8 (0.9-1.1) H 2.5 (0.9-1.1) H Objective HEAD AND NECK: Shows no JVD. LUNGS: Clear CARDIOVASCULAR: Regular S1 and S2 with no gallop or murmur. ABDOMEN: Soft. EXTREMITIES: No pitting edema. TURNER ALLAN Aug 16, 2016 11:30
[2016-08-16 11:39] VITALS: BP 143/74
[2016-08-16] MEDS ORDERED: Warfarin Sodium 3mg ORAL ONE (13:00)
--- NOTE | 2016-08-16 13:44 | Infectious Diseases Prog Note ---
Assessment/Plan Assessment/Plan ASSESSMENT: 86-year-old female with: Pneumonia - RVP(+) RSV CXR 08/13: Lungs are essentially clear Chest CT: Diffuse bilateral interstitial disease, possibly with micro- nodularity, disseminated inflammatory lesions a possibility. CONS bacteremia - repeat BCx(-) 08/03, TTE(-) SBE SP Rx UTI , probable - UCx(-) SP Rx Fever - resolved, no leukocytosis Acute BLE DVT SP IVC filter CVA. History of brain aneurysm. Dementia. NKDA Full Code PLAN: ok to DC off of antimicrobials from ID standpoint ( SP IV Rocephin, azithro, IV Vanco d# 7 / ) monitor CBC, temperatures monitor BMP monitor CXR Subjective Allergies: Coded Allergies: No Known Allergies (Unverified , 05/07/16) Subjective remains afebrile. comfortable for possible DC Objective Vital Signs Last 24 Hour Vital Signs Date Time Temp Pulse Resp B/P Pulse Ox O2 Delivery O2 Flow Rate FiO2 08/16/16 11:39 98.1 82 20 143/74 95 Room Air 08/16/16 10:20 140/77 08/16/16 08:15 98.3 91 20 149/95 95 Nasal Cannula 2.0 08/16/16 07:29 Nasal Cannula 2.0 28 08/16/16 07:29 88 18 96 Nasal Cannula 2.0 28 08/16/16 07:29 92 Nasal Cannula 2.0 28 08/16/16 07:29 83 18 92 Nasal Cannula 2.0 28 08/16/16 04:00 97.0 75 18 153/79 96 Nasal Cannula 2.0 08/16/16 00:00 97.3 93 20 150/79 94 Nasal Cannula 2.0 08/15/16 21:21 138/77 08/15/16 20:07 69 18 98 Nasal Cannula 2.0 28 08/15/16 20:00 97.0 93 18 156/90 93 Nasal Cannula 2.0 08/15/16 19:58 Nasal Cannula 2.0 28 08/15/16 19:58 67 18 97 Nasal Cannula 2.0 28 08/15/16 19:58 97 Nasal Cannula 2.0 28 Height (Feet): 5 Height (Inches): 6.00 Weight (Pounds): 140 General Appearance: no acute distress Respiratory/Chest: no respiratory distress Cardiovascular: normal rate, regular rhythm Abdomen: normal bowel sounds, soft, non tender, non distended Laboratory Tests Test 08/15/16 19:20 08/16/16 09:30 Prothrombin Time 29.7 SEC (9.30-11.50) H 25.9 SEC (9.30-11.50) H Prothromb Time International Ratio 2.8 (0.9-1.1) H 2.5 (0.9-1.1) H Current Medications Medications (Trade) Dose Ordered Sig/Arabella Route PRN Reason Start Time Stop Time Status Last Admin Dose Admin Acetaminophen (Tylenol) 650 mg Q4H PRN RECTAL Fever/Headache/Mild Pain 08/04/16 21:30 09/03/16 21:29 Acetaminophen/ Hydrocodone Bitart ([place] 10/325) 1 ea Q6H PRN ORAL Pain Scale (6-10) 08/10/16 19:45 08/17/16 23:59 Albuterol/ Ipratropium (DuoNeb 0.5-3(2.5)mg/3ml) 3 ml Q4H PRN HHN Shortness of Breath 08/09/16 13:45 08/14/16 23:59 Albuterol/ Ipratropium (DuoNeb 0.5-3(2.5)mg/3ml) 3 ml TIDRT HHN 08/15/16 19:00 08/20/16 18:59 08/16/16 07:57 Clonidine HCl (Catapres) 0.1 mg Q6H PRN ORAL For High Blood Pressure 08/04/16 19:45 09/03/16 19:44 08/13/16 10:16 Dextrose (Dextrose 50%) STAT PRN IV Hypoglycemia 08/05/16 01:45 09/04/16 01:44 Diphenhydramine HCl (Benadryl) 25 mg Q6H PRN ORAL Itching/Pruritis 08/04/16 19:45 09/03/16 19:44 08/12/16 20:20 Docusate Sodium (Colace) 100 mg DAILY ORAL 08/05/16 09:00 09/04/16 08:59 08/16/16 10:19 Guaifenesin (Mucinex) 600 mg TWICE A DAY ORAL 08/13/16 11:00 09/12/16 10:59 08/15/16 19:52 Guaifenesin (Robitussin) 100 mg Q4H PRN ORAL For Cough 08/04/16 19:00 09/03/16 18:59 08/10/16 19:44 Lorazepam (Ativan 2mg/ml 1ml) 1 mg Q4H PRN IV For Anxiety 08/10/16 17:45 08/17/16 23:59 08/15/16 01:57 Losartan Potassium (Cozaar) 50 mg Q12HR ORAL 08/04/16 21:00 09/03/16 20:59 08/16/16 10:20 Nystatin (Nystop Powder) 1 applic THREE TIMES A DAY TOPIC 08/07/16 13:00 09/06/16 12:59 08/16/16 10:19 Pantoprazole (Protonix) 40 mg Q12H PRN ORAL Abdominal cramps 08/05/16 01:45 09/04/16 01:44 08/10/16 09:15 Warfarin Sodium (Coumadin per pharmacy) 1 ea DAILY PRN MISC Per rx protocol 08/05/16 09:00 09/04/16 08:59 FAISAL ALVARADO Aug 16, 2016 13:44
[2016-08-16] MEDS: Warfarin Sodium 3mg ORAL SCH (14:20)
[2016-08-16 16:00] VITALS: BP 152/77
--- NOTE | 2016-08-22 18:19 | Discharge Summary ---
Discharge Summary Hospital Course Date of Admission Jul 31, 2016 at 22:00 Date of Discharge Aug 16, 2016 at 17:00 Admitting Diagnosis aspiration pneumonia HPI Joanna Clemente is a 86 year old female who was admitted on Jul 31, 2016 at 22:00 for Aspiration Pneumonia Hospital Course [id number] Discharge Discharge Disposition Patient was discharged to Home (01) Discharge Diagnoses: Roseann Hutchins NP Aug 22, 2016 18:19
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
== END 2016-08-16 17:00 | disposition home or self-care (01) | DRG 139 ==
LOC: EMR 21:26 → 2W 22:00 → EDBEDREQ 22:05 → 4E 08-04 18:53
DX: J18.9 Pneumonia, unspecified organism (principal); L89.151 Pressure ulcer of sacral region, stage 1; L89.319 Pressure ulcer of right buttock, unspecified stage; I82.413 Acute embolism and thrombosis of femoral vein, bilateral; R78.81 Bacteremia; I50.9 Heart failure, unspecified; N39.0 Urinary tract infection, site not specified; E87.5 Hyperkalemia; G30.9 Alzheimer's disease, unspecified; F02.80 Dementia in other diseases classified elsewhere, unspecified severity, without behavioral disturbance, psychotic disturbance, mood disturbance, and anxiety; R13.10 Dysphagia, unspecified; I82.509 Chronic embolism and thrombosis of unspecified deep veins of unspecified lower extremity; I10 Essential (primary) hypertension; I82.433 Acute embolism and thrombosis of popliteal vein, bilateral; Z86.73 Personal history of transient ischemic attack (TIA), and cerebral infarction without residual deficits; F32.9 Major depressive disorder, single episode, unspecified; F41.9 Anxiety disorder, unspecified; D63.8 Anemia in other chronic diseases classified elsewhere; J21.0 Acute bronchiolitis due to respiratory syncytial virus
CPT/HCPCS: 36415; 71010; 71275; 80048; 80053; 80202; 82550; 82553; 83605; 83735; 83880; 84439; 84443; 84484; 85025; 85379; 85610; 85730; 87040; 87070; 87081; 87086; 87181; 87205; 93005; 93306; 93970; 94640; 94664; 94760; J7620; J8499

== ENCOUNTER 2016-12-20 23:15 | Emergency (ER) | payer MEDICAID ==
[~2016-12-20] VITALS: Ht 165.1 cm; Wt 59.0 kg
[2016-12-20 23:33] VITALS: BP 144/59
[2016-12-21 01:06] VITALS: BP 119/50
[2016-12-21] MEDS ORDERED: AZITHROMYCIN250 MG ORAL (01:28)
--- NOTE | 2016-12-21 01:28 | Emergency Room Report ---
History of Present Illness General Chief Complaint: Multiple Trauma/Fall Source: Family Member, Medical Record Present Illness HPI Is an 86-year-old female who has a history dementia. She had a recent fall with hip fracture status post surgery. Now she is in a wheelchair. She was brought in by her daughter for chief complaint of right ankle pain. She stood up from the wheelchair yesterday and felt backward. Chief the wheelchair. No trauma to the head. Since then daughter said the right ankle is swollen. Patient does not complain of pain in that area. Daughter said that she also has a chronic cough the last 2 weeks. Nonproductive in nature. No fever or chills. No nausea no vomiting. No chest pain. Allergies: Coded Allergies: No Known Allergies (Unverified , 05/07/16) Patient History Past Medical History: see triage record, old chart reviewed Past Surgical History: other Pertinent Family History: none Social History: Denies: smoking Now: No Immunizations: other Reviewed Nursing Documentation: PMH: Agreed, PSxH: Agreed Nursing Documentation-PMH Past Medical History: No History, Except For Hx Cardiac Problems: Yes Hx Hypertension: Yes Hx Cancer: No Hx Gastrointestinal Problems: Yes Hx Neurological Problems: Yes - ANEURYSM BRAIN Hx Dementia: Yes Review of Systems Eye: Denies: blurred vision, eye pain ENT: Denies: ear pain, nose congestion, throat swelling Respiratory: Reports: cough, Denies: shortness of breath Cardiovascular: Denies: chest pain, palpitations Gastrointestinal: Denies: abdominal pain, diarrhea, nausea, vomiting Musculoskeletal: Reports: joint swelling, Denies: back pain, joint pain Skin: Denies: rash Neurological: Denies: headache, numbness Endocrine: Denies: increased thirst, increased urine Hematologic/Lymphatic: Denies: easy bruising All Other Systems: negative except mentioned in HPI Physical Exam Vital Signs Date Time Temp Pulse Resp B/P Pulse Ox O2 Delivery O2 Flow Rate FiO2 12/20/16 23:31 97.2 78 23 144/59 96 Room Air vitals normal Sp02 EP Interpretation: reviewed, normal General Appearance: well appearing, no apparent distress, alert Head: normocephalic, atraumatic Eyes: bilateral eye EOMI, bilateral eye PERRL ENT: hearing grossly normal, normal pharynx Neck: full range of motion, supple, no meningismus Respiratory: chest non-tender, lungs clear, normal breath sounds Cardiovascular #1: regular rate, rhythm, no murmur Gastrointestinal: normal bowel sounds, non tender, no mass, no organomegaly, no bruit, non-distended Musculoskeletal: back normal, normal range of motion, other - edema to right lateral malleolus. Psychiatric: mood/affect normal Skin: warm/dry Medical Decision Making Diagnostic Impression: Primary Impression: Upper respiratory infection, acute Additional Impression: Right ankle sprain Qualified Codes: S93.411A - Sprain of calcaneofibular ligament of right ankle , initial encounter ER Course Patient present with a fall and right ankle sprain. No fracture or dislocation. No evidence of hip dislocation. Because of the coughing 2 weeks will go ahead and put on antibiotics for that she does have pneumonia, CHF, ACS to name a few. Chest X-Ray Diagnostic Results EP Interpretation: Yes Findings: no consolidation, no effusion, no pneumothorax, no acute cardiopulmonary disease Number of Views: 1 Other X-Ray Diagnostic Results Other X-Ray Diagnostic Results : X-Ray Ordered: xr right ankle. Date: December 21, 2016 Time: 01:27 EP Interpretation: Yes Findings: no fractures, no dislocation, no soft tissue swelling, other - degenerative changes. Number of Views: 3 Last Vital Signs Date Time Temp Pulse Resp B/P Pulse Ox O2 Delivery O2 Flow Rate FiO2 12/21/16 01:06 62 28 119/50 95 Room Air 12/20/16 23:33 97.2 Status: improved Disposition: HOME, SELF-CARE Condition: Stable Scripts Azithromycin* (ZITHROMAX*) 250 Mg Tablet 250 MG ORAL DAILY, #6 TAB 0 Refills Take two tablets by mouth today, then take one tablet by mouth daily for four days Prov: MARIELLA TIWARI M.D. 12/21/16 Referrals: NON PHYSICIAN (PCP) Additional Instructions: Followup with your DrJayson in 7 days. Return if worse. MARIELLA TIWARI M.D. December 21, 2016 01:28
[2016-12-21 01:40] VITALS: BP 119/50
--- NOTE | 2016-12-21 08:32 | Diagnostic Imaging Report ---
Indications: Shortness of breath Technique: AP chest Findings: Comparison: 08/13/2016 Cardiac silhouette remains normal in size. Pulmonary vasculature remains within normal limits. Curvilinear density in the face overlies the medial aspect of the right lower lung, through which the bronchovascular markings are easily seen. Mildly increased interstitial markings persist in both lung bases. Lungs and pleura remain otherwise clear. Mild calcification and elongation of the aortic arch are again noted. Filter is present in the region of the inferior vena cava. IMPRESSION: New density interface overlying medial right lung base most likely represent skin fold. Upright PA and lateral chest radiographs with better inspiratory effort and optimal technique recommended for more complete evaluation. Otherwise no evidence of acute disease, unchanged Stable chronic changes as described
--- NOTE | 2016-12-21 08:34 | Diagnostic Imaging Report ---
Indications: Fall, right ankle injury and pain Technique: 3 views right ankle. Findings: Comparison: None Posterior margin of the calcaneus excluded from lateral image. Anterolateral soft tissues are significantly swollen.. No fracture, dislocation, joint space widening , medial soft tissue swelling, foreign body/gas, or other acute changes are identified. IMPRESSION: Consider ATFL sprain No other evidence of acute injury, limited as described.
== END 2016-12-21 01:40 | disposition home or self-care (01) ==
LOC: EMR 23:55
DX: S93.411A Sprain of calcaneofibular ligament of right ankle, initial encounter (principal); J06.9 Acute upper respiratory infection, unspecified; W05.0XXA Fall from non-moving wheelchair, initial encounter; Z91.81 History of falling; Y93.9 Activity, unspecified; Y92.9 Unspecified place or not applicable; I10 Essential (primary) hypertension; F03.90 Unspecified dementia, unspecified severity, without behavioral disturbance, psychotic disturbance, mood disturbance, and anxiety
CPT/HCPCS: 71010; 99283

== ENCOUNTER 2018-03-28 21:10 | Inpatient (IN) | payer MEDICAID ==
[~2018-03-28] VITALS: Ht 165.1 cm; Wt 74.4 kg
[~2018-03-28 21:10] MED LIST changes: +AZITHROMYCIN250 MG ORAL
--- NOTE | 2018-03-28 22:13 | Emergency Room Report ---
History of Present Illness General Chief Complaint: Edema Source: Family Member, Medical Record Present Illness HPI This is an 87-year-old [place] female with history of high blood pressure, dementia with psychotic feature, and right hip replacement in the past. She presents with chief complaint of fever and right leg swelling. Onset last night. Also with redness. Similar symptom in the past with cellulitis. No nausea no vomiting. No chest pain. History is otherwise limited on this patient because of her dementia. History is through her daughter. Allergies: Coded Allergies: No Known Allergies (Unverified , 05/07/16) Patient History Past Medical History: see triage record, old chart reviewed, HTN, dementia Past Surgical History: other Pertinent Family History: none Social History: Denies: smoking Now: No Immunizations: other Reviewed Nursing Documentation: PMH: Agreed; PSxH: Agreed Nursing Documentation-PMH Hx Cardiac Problems: Yes Hx Hypertension: Yes Hx Cancer: No Hx Gastrointestinal Problems: Yes Hx Neurological Problems: Yes - ANEURYSM BRAIN Hx Dementia: Yes Review of Systems Constitutional: Reports: fever Eye: Denies: eye pain, blurred vision ENT: Denies: ear pain, nose congestion, throat swelling Respiratory: Denies: cough, shortness of breath Cardiovascular: Denies: chest pain, palpitations Gastrointestinal: Denies: abdominal pain, diarrhea, nausea, vomiting Musculoskeletal: Reports: joint swelling; Denies: back pain, joint pain Skin: Denies: rash Neurological: Denies: headache, numbness Endocrine: Denies: increased thirst, increased urine Hematologic/Lymphatic: Denies: easy bruising All Other Systems: negative except mentioned in HPI Physical Exam Vital Signs Date Time Temp Pulse Resp B/P (MAP) Pulse Ox O2 Delivery O2 Flow Rate FiO2 03/28/18 21:51 97.0 70 16 144/74 91 Room Air 97.0 vitals normal Sp02 EP Interpretation: reviewed, normal General Appearance: well appearing, no apparent distress, alert, obese Head: normocephalic, atraumatic Eyes: bilateral eye PERRL, bilateral eye EOMI ENT: hearing grossly normal, normal pharynx Neck: full range of motion, supple, no meningismus Respiratory: chest non-tender, lungs clear, normal breath sounds Cardiovascular #1: regular rate, rhythm, no murmur Gastrointestinal: normal bowel sounds, non tender, no mass, no organomegaly, no bruit, non-distended Musculoskeletal: back normal, gait/station normal, normal range of motion, other - Right lower leg with edema, cellulitis and warmth. Minimal tenderness to palpation. Pulses normal. Neurologic: alert, oriented x3 Psychiatric: mood/affect normal Skin: warm/dry Medical Decision Making Diagnostic Impression: Primary Impression: Acute DVT (deep venous thrombosis) Qualified Codes: I82.411 - Acute embolism and thrombosis of right femoral vein Additional Impressions: UTI (urinary tract infection) Qualified Codes: N30.00 - Acute cystitis without hematuria Alzheimer's dementia Qualified Codes: G30.1 - Alzheimer's disease with late onset; F02.80 - Dementia in other diseases classified elsewhere without behavioral disturbance ER Course Patient presents with left leg edema and erythema. She is positive for DVT. Also has UTI. Antibiotics given. Lovenox given. She is a fall risk so questionable long-term anti-coagulation needed to be addressed. She may benefit from a IVC filter. I will defer this to the admitting doctor and survey interviewer. Lab Results Impression labs unremarkable EKG Diagnostic Results Rate: normal Rhythm: NSR ST Segments: no acute changes Rhythm Strip Diag. Results Rhythm Strip Time: 01:15 EP Interpretation: yes Rate: 73 Rhythm: NSR Chest X-Ray Diagnostic Results Chest X-Ray Diagnostic Results : Chest X-Ray Ordered: Yes # of Views/Limited/Complete: 1 View Indication: Chest Pain EP Interpretation: Yes Interpretation: no consolidation, no effusion, no pneumothorax, no acute cardiopulmonary disease Impression: No acute disease Electronically Signed by: Fidel Alexander MD CT/MRI/US Diagnostic Results CT/MRI/US Diagnostic Results : Imaging Test Ordered: Right leg US Impression Positive for DVT of the femoral vein. Read by patient service representative. Last Vital Signs Date Time Temp Pulse Resp B/P (MAP) Pulse Ox O2 Delivery O2 Flow Rate FiO2 03/28/18 21:51 97.0 70 16 144/74 91 Room Air 97.0 Status: improved Disposition: ADMITTED INPATIENT Condition: Serious FIDEL ALEXANDER M.D. Mar 28, 2018 22:13
[2018-03-28 22:50] VITALS: BP 144/74
--- NOTE | 2018-03-28 23:04 | Diagnostic Imaging Report ---
EXAM: XR Chest, 1 View CLINICAL HISTORY: SOB TECHNIQUE: Frontal view of the chest. COMPARISON: Compared to 12/21/16. FINDINGS: Lungs: Some mild increased interstitial markings are suspected in the lungs which are likely slightly more prominent compared to the prior exam. This may be related to some interstitial edema. No definite plain film evidence for focal infiltrate. Pleural space: No plain film evidence for pneumothorax. Heart: Prominence of the cardiac silhouette. Mediastinum: Unremarkable. Bones/joints: Degenerative changes of the thoracic spine. Degenerative changes of the left acromioclavicular joint. Vasculature: Calcifications are projected in the aortic knob. Upper abdomen: An IVC filter is projected along the right side of the lumbar spine which is partially imaged. IMPRESSION: 1. Some mild increased interstitial markings are suspected in the lungs which are likely slightly more prominent compared to the prior exam. This may be related to some interstitial edema. 2. Prominence of the cardiac silhouette.
[2018-03-28] MEDS ORDERED: Enoxaparin 80mg Inj SUBQ ONE (23:15)
[2018-03-28 23:23] LABS: ANION GAP 7 mmol/L (5-15); BLOOD UREA NITROGEN 18 mg/dL (7-18); CALCIUM 9.1 MG/DL (8.5-10.1); CARBON DIOXIDE 26 MMOL/L (21-32); CHLORIDE 106 MMOL/L (98-107); CREATININE 0.8 MG/DL (0.55-1.30); POTASSIUM 5.2 MMOL/L (3.5-5.1); SODIUM 139 MMOL/L (136-145)
[2018-03-28 23:28] LABS: ALANINE AMINOTRANSFERASE 15 U/L (12-78); ALBUMIN 3.2 G/DL (3.4-5.0); ALBUMIN/GLOBULIN RATIO 0.7 (1.0-2.7); ALKALINE PHOSPHATASE 68 U/L (46-116); ASPARTATE AMINO TRANSFERASE 25 U/L (15-37); BILIRUBIN,TOTAL 0.4 MG/DL (0.2-1.0)
[2018-03-28 23:29] LABS: INR 1.2 (0.9-1.1)
[2018-03-28 23:49] LABS: APPEARANCE,URINE CLEAR; BILIRUBIN, URINE NEGATIVE (NEGATIVE); COLOR,URINE PALE YELLOW; GLUCOSE, URINE (UA) NEGATIVE (NEGATIVE); KETONES,URINE NEGATIVE (NEGATIVE); LEUKOCYTE ESTERASE ,URINE 2+ (NEGATIVE); NITRITE,URINE POSITIVE (NEGATIVE); PH,URINE 7 (4.5-8.0); PROTEIN,URINE 1+ (NEGATIVE); UROBILINOGEN,URINE NORMAL MG/DL (0.0-1.0)
[2018-03-29] MEDS ORDERED: cefTRIAXone 1 GM in NS 55 ML IVPB ONE (00:45)
[2018-03-29 01:35] LABS: BASOPHILS % (AUTO) 1.4 % (0.0-2.0); EOSINOPHILS % (AUTO) 4.8 % (0.0-3.0); HEMATOCRIT 42.8 % (37.0-47.0); HEMOGLOBIN 13.4 G/DL (12.0-16.0); LYMPHOCYTES % (AUTO) 27.9 % (20.0-45.0); MEAN CORPUSCULAR VOLUME 86 FL (80-99); MONOCYTES % (AUTO) 9.8 % (1.0-10.0); NEUTROPHILS % (AUTO) 56.1 % (45.0-75.0); PLATELET COUNT 144 K/UL (150-450); RED BLOOD COUNT 4.96 M/UL (4.20-5.40); RED CELL DISTRIBUTION WIDTH 12.8 % (11.6-14.8); WHITE BLOOD COUNT 8.6 K/UL (4.8-10.8)
[2018-03-29 02:30] VITALS: BP 145/70
[2018-03-29] MEDS ORDERED: LORAZEPAM2 MG ORAL (05:38)
[2018-03-29] MEDS ORDERED: RISPERDAL1 MG/1 ML PO (05:38)
[2018-03-29] MEDS ORDERED: ARICEPT23 MG ORAL (05:45)
[2018-03-29] MEDS ORDERED: OMEPRAZOLE20 M2 ORAL (05:45)
[2018-03-29] MEDS ORDERED: TENORMIN100 MG ORAL (05:45)
[2018-03-29] MEDS ORDERED: QUETIAPINE FUM300 MG ORAL (05:48)
[2018-03-29] MEDS: Cefepime HCl 1 GM in D5W 55 ML IVPB SCH (07:53)
[2018-03-29] MEDS ORDERED: Acetaminophen 500mg (ES) tab ORAL PRN (08:00)
[2018-03-29] MEDS ORDERED: HYDROcodone/Acetamin 10/325 tab ORAL PRN (08:00)
[2018-03-29] MEDS ORDERED: Albuterol ud Inhalation HHN PRN (08:00)
[2018-03-29] MEDS: Furosemide 40mg tab ORAL SCH (08:56)
[2018-03-29] MEDS: Docusate 100mg cap ORAL SCH (08:56)
[2018-03-29] MEDS: Losartan 50mg tab ORAL SCH ×2 (08:57→21:50)
[2018-03-29] MEDS: Enoxaparin Sodium 300mg/3ml vial SUBQ SCH ×2 (08:58→21:49)
[2018-03-29 09:00] VITALS: BP 177/76
[2018-03-29 16:13] VITALS: BP 152/76
[2018-03-29] MEDS ORDERED: Warfarin Sodium 5mg ORAL ONE (17:00)
[2018-03-29 20:00] VITALS: BP 169/80
[2018-03-29] MEDS: Donepezil 10mg tab ORAL SCH (21:50)
[2018-03-29] MEDS: LORazepam 1mg tab ORAL SCH (21:51)
[2018-03-30] VITALS: BP 101/52
--- NOTE | 2018-03-30 01:00 | History and Physical Report ---
DATE OF ADMISSION: 03/29/2018 CHIEF COMPLAINT/REASON FOR HOSPITALIZATION: The patient is admitted with DVT. HISTORY OF PRESENT ILLNESS: The patient has a history of dementia, hypertension, gastritis, and prior DVT and IVC filter. She lives at home. History is taken from the family. She presents with a swollen right leg and evidence on noninvasive studies of an acute femoral DVT. There was also some evidence of possibly urinary tract infection with pyuria. 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 PAST MEDICAL HISTORY: Significant for CVA with left-sided weakness. MEDICATIONS: At home include atenolol 25 mg b.i.d., donepezil 10 mg daily, lorazepam 2 mg at bedtime, omeprazole 20 mg daily, and Risperdal 1.5 mg at noon and 1 mg at bedtime. ALLERGIES: None. REVIEW OF SYSTEMS: The patient is unable. Major problems as above. CODE STATUS: DNR. PHYSICAL EXAMINATION: GENERAL: The patient is an obese lady, lying in bed, in no acute distress. VITAL SIGNS: Temperature 98.5 degrees, pulse 70, respirations 33, blood pressure 177/76, and O2 saturation 95%. HEENT: Sclerae are nonicteric. Ocular motions intact in all directions. Oral mucosa slightly dry. NECK: No adenopathy or thyroid enlargement. LUNGS: Clear. HEART: Regular rhythm. No murmur. ABDOMEN: Soft without organomegaly or masses. EXTREMITIES: Marked swelling and some redness of the right lower extremities. Trace edema in left lower extremities. Degenerative changes in the knees. NEUROLOGIC: She is alert, confused, disoriented, somewhat hyperventilating. She moves all extremities, still has residual left-sided weakness. LABORATORY AND DIAGNOSTIC DATA: Laboratories reviewed. IMPRESSION: 1. DVT. 2. History of dementia. 3. History of CVA. 4. Obesity. 5. Osteoarthritis. 6. Gastritis. 7. History of hypertension. 8. History of IVC filter. 9. Pyuria, possibly urinary tract infection. PLAN: The patient is started on Lovenox and Coumadin. This is discussed with the family. She is given empiric antibiotics and we will observe her response to these measures. Chetan Hull M.D. DR: JULIETA JOB#: [id number] CC:
[2018-03-30 04:00] VITALS: BP 112/65
[2018-03-30 08:00] VITALS: BP 127/65
[2018-03-30 08:51] LABS: INR 1.1 (0.9-1.1)
[2018-03-30 08:53] LABS: BASOPHILS % (AUTO) 1.4 % (0.0-2.0); EOSINOPHILS % (AUTO) 2.5 % (0.0-3.0); HEMOGLOBIN 13.6 G/DL (12.0-16.0); LYMPHOCYTES % (AUTO) 22.4 % (20.0-45.0); MEAN CORPUSCULAR VOLUME 87 FL (80-99); NEUTROPHILS % (AUTO) 63.8 % (45.0-75.0); PLATELET COUNT 127 K/UL (150-450); RED BLOOD COUNT 4.85 M/UL (4.20-5.40); RED CELL DISTRIBUTION WIDTH 12.5 % (11.6-14.8); WHITE BLOOD COUNT 6.9 K/UL (4.8-10.8)
[2018-03-30] MEDS: Atenolol 25mg tab ORAL SCH ×2 (09:16→17:01)
[2018-03-30] MEDS: Losartan 50mg tab ORAL SCH ×2 (09:17→21:00)
[2018-03-30] MEDS: Furosemide 40mg tab ORAL SCH (09:17)
[2018-03-30] MEDS: Docusate 100mg cap ORAL SCH (09:17)
[2018-03-30] MEDS: Cefepime HCl 1 GM in D5W 55 ML IVPB SCH (09:18)
[2018-03-30] MEDS: Enoxaparin Sodium 300mg/3ml vial SUBQ SCH ×2 (09:26→21:36)
[2018-03-30 09:45] LABS: ANION GAP 7 mmol/L (5-15); BLOOD UREA NITROGEN 12 mg/dL (7-18); CALCIUM 8.9 MG/DL (8.5-10.1); CARBON DIOXIDE 26 MMOL/L (21-32); CHLORIDE 106 MMOL/L (98-107); CREATININE 0.8 MG/DL (0.55-1.30); POTASSIUM 4.6 MMOL/L (3.5-5.1); SODIUM 139 MMOL/L (136-145)
[2018-03-30 12:00] VITALS: BP 124/60
[2018-03-30 16:00] VITALS: BP 151/67
[2018-03-30] MEDS ORDERED: Warfarin Sodium 5mg ORAL ONE (17:00)
--- NOTE | 2018-03-30 19:32 | General Progress Note ---
Assessment/Plan Problem List: (1) CVA (cerebral vascular accident) ICD Codes: I63.9 - Cerebral infarction, unspecified SNOMED: 013299845 (2) HTN (hypertension) ICD Codes: I10 - Essential (primary) hypertension SNOMED: 73882705 (3) DVT (deep venous thrombosis) ICD Codes: I82.409 - Acute embolism and thrombosis of unspecified deep veins of unspecified lower extremity SNOMED: 825965313 (4) Congestive heart failure (CHF) ICD Codes: I50.9 - Heart failure, unspecified SNOMED: 23588563 (5) Acute DVT (deep venous thrombosis) ICD Codes: I82.409 - Acute embolism and thrombosis of unspecified deep veins of unspecified lower extremity SNOMED: 526540115634615 Qualifiers: Qualified Codes: I82.411 - Acute embolism and thrombosis of right femoral vein Assessment/Plan lovenox, warfarin Subjective ROS Limited/Unobtainable: Yes Allergies: Coded Allergies: No Known Allergies (Unverified , 05/07/16) Objective Last 24 Hour Vital Signs Date Time Temp Pulse Resp B/P (MAP) Pulse Ox O2 Delivery O2 Flow Rate FiO2 03/30/18 17:01 75 151/67 03/30/18 16:00 98.6 75 23 151/67 (95) 93 98.6 03/30/18 12:00 97.6 66 22 124/60 (81) 93 97.6 03/30/18 09:17 127/65 03/30/18 09:16 70 127/65 03/30/18 09:00 Room Air 03/30/18 08:00 97.8 70 20 127/65 (85) 96 97.8 03/30/18 07:18 77 18 Room Air 21 03/30/18 04:00 97.2 77 22 112/65 (81) 95 97.2 03/30/18 00:00 97.1 66 22 101/52 (68) 97 97.1 03/29/18 21:50 162/77 03/29/18 21:11 73 24 Room Air 21 03/29/18 21:00 Room Air 03/29/18 20:00 99.6 97 19 169/80 (109) 95 99.6 Intake and Output 03/29/18 03/30/18 19:00 07:00 Intake Total 360 ml 480 ml Balance 360 ml 480 ml Intake Oral 360 ml 480 ml # Voids 2 3 # Bowel Movements 1 1 Laboratory Tests 03/30/18 07:40: White Blood Count 6.9, Red Blood Count 4.85, Hemoglobin 13.6, Hematocrit 42.0, Mean Corpuscular Volume 87, Mean Corpuscular Hemoglobin 28.0, Mean Corpuscular Hemoglobin Concent 32.4, Red Cell Distribution Width 12.5, Platelet Count 127L, Mean Platelet Volume 8.2, Neutrophils (%) (Auto) 63.8, Lymphocytes (%) (Auto) 22.4, Monocytes (%) (Auto) 10.0, Eosinophils (%) (Auto) 2.5, Basophils (%) (Auto ) 1.4, Prothrombin Time 12.0H, Prothromb Time International Ratio 1.1, Sodium Level 139, Potassium Level 4.6, Chloride Level 106, Carbon Dioxide Level 26, Anion Gap 7, Blood Urea Nitrogen 12, Creatinine 0.8, Estimat Glomerular Filtration Rate , Glucose Level 94, Calcium Level 8.9, Pro-B-Type Natriuretic Peptide 1425H Height (Feet): 5 Height (Inches): 5.00 Weight (Pounds): 150 General Appearance: no apparent distress, overweight EENT: normal ENT inspection Neck: normal alignment Cardiovascular: normal rate, regular rhythm Respiratory/Chest: lungs clear Abdomen: non tender Edema: moderate edema Neurologic: alert, motor weakness GLENDY BUTLER Mar 30, 2018 19:32
[2018-03-30] MEDS: LORazepam 1mg tab ORAL SCH (20:59)
[2018-03-30] MEDS: Donepezil 10mg tab ORAL SCH (20:59)
[2018-03-30 21:00] VITALS: BP 142/90
[2018-03-31 04:00] VITALS: BP 122/71
[2018-03-31 08:00] VITALS: BP 177/92
[2018-03-31] MEDS: Docusate 100mg cap ORAL SCH (08:15)
[2018-03-31] MEDS: Furosemide 40mg tab ORAL SCH (08:16)
[2018-03-31] MEDS: Atenolol 25mg tab ORAL SCH ×2 (08:16→18:42)
[2018-03-31] MEDS: Losartan 50mg tab ORAL SCH ×2 (08:16→21:46)
[2018-03-31] MEDS: Cefepime HCl 1 GM in D5W 55 ML IVPB SCH (08:17)
[2018-03-31] MEDS: Enoxaparin Sodium 300mg/3ml vial SUBQ SCH ×2 (10:53→21:45)
[2018-03-31 12:00] VITALS: BP 133/77
[2018-03-31 14:18] LABS: INR 1.2 (0.9-1.1)
[2018-03-31 16:00] VITALS: BP 146/73
[2018-03-31] MEDS ORDERED: Warfarin Sodium 5mg ORAL ONE (17:00)
--- NOTE | 2018-03-31 18:31 | General Progress Note ---
Assessment/Plan Problem List: (1) CVA (cerebral vascular accident) ICD Codes: I63.9 - Cerebral infarction, unspecified SNOMED: 959863490 (2) HTN (hypertension) ICD Codes: I10 - Essential (primary) hypertension SNOMED: 65546508 (3) DVT (deep venous thrombosis) ICD Codes: I82.409 - Acute embolism and thrombosis of unspecified deep veins of unspecified lower extremity SNOMED: 526021941 (4) Congestive heart failure (CHF) ICD Codes: I50.9 - Heart failure, unspecified SNOMED: 90938793 (5) Acute DVT (deep venous thrombosis) ICD Codes: I82.409 - Acute embolism and thrombosis of unspecified deep veins of unspecified lower extremity SNOMED: 859965671445899 Qualifiers: Qualified Codes: I82.411 - Acute embolism and thrombosis of right femoral vein Assessment/Plan lovenox, warfarin,atb d/w C Subjective ROS Limited/Unobtainable: Yes Allergies: Coded Allergies: No Known Allergies (Unverified , 05/07/16) Objective Last 24 Hour Vital Signs Date Time Temp Pulse Resp B/P (MAP) Pulse Ox O2 Delivery O2 Flow Rate FiO2 03/31/18 16:00 97.0 82 22 146/73 (97) 95 97.0 03/31/18 12:00 97.3 88 21 133/77 (95) 95 97.3 03/31/18 09:00 Room Air Room Air 03/31/18 08:16 120 177/92 03/31/18 08:16 177/92 03/31/18 08:11 79 20 Room Air 21 03/31/18 08:00 97.5 120 20 177/92 (120) 94 97.5 03/31/18 04:00 98.5 79 21 122/71 (88) 92 98.5 03/30/18 21:00 142/90 03/30/18 21:00 Room Air Room Air 03/30/18 21:00 97.8 88 19 142/90 (107) 92 97.8 03/30/18 19:58 75 22 Room Air 21 Intake and Output 03/30/18 03/31/18 19:00 07:00 Intake Total 240 ml Balance 240 ml Intake Oral 240 ml # Voids 3 3 # Bowel Movements 1 Laboratory Tests 03/31/18 03:50: Prothrombin Time 13.0H, Prothromb Time International Ratio 1.2H Height (Feet): 5 Height (Inches): 5.00 Weight (Pounds): 150 General Appearance: no apparent distress, confused EENT: normal ENT inspection Neck: normal alignment Cardiovascular: normal rate Respiratory/Chest: lungs clear Abdomen: non tender, soft Edema: moderate edema Neurologic: motor weakness GLENDY BUTLER Mar 31, 2018 18:31
[2018-03-31 20:00] VITALS: BP 142/66
[2018-03-31] MEDS: Donepezil 10mg tab ORAL SCH (21:46)
[2018-03-31] MEDS: LORazepam 1mg tab ORAL SCH (21:47)
[2018-04-01] VITALS: BP 91/44
[2018-04-01 04:00] VITALS: BP 108/70
[2018-04-01 06:44] LABS: INR 1.4 (0.9-1.1)
[2018-04-01 08:36] VITALS: BP 135/65
[2018-04-01] MEDS: Atenolol 25mg tab ORAL SCH ×2 (08:59→17:13)
[2018-04-01] MEDS: Docusate 100mg cap ORAL SCH (08:59)
[2018-04-01] MEDS: Losartan 50mg tab ORAL SCH ×2 (09:00→21:48)
[2018-04-01] MEDS: Furosemide 40mg tab ORAL SCH (09:00)
[2018-04-01] MEDS: Cefepime HCl 1 GM in D5W 55 ML IVPB SCH (09:00)
[2018-04-01] MEDS: Enoxaparin Sodium 300mg/3ml vial SUBQ SCH ×2 (09:35→21:54)
[2018-04-01 12:00] VITALS: BP 126/63
[2018-04-01 16:00] VITALS: BP 118/71
--- NOTE | 2018-04-01 16:40 | General Progress Note ---
Assessment/Plan Problem List: (1) CVA (cerebral vascular accident) ICD Codes: I63.9 - Cerebral infarction, unspecified SNOMED: 636122381 (2) HTN (hypertension) ICD Codes: I10 - Essential (primary) hypertension SNOMED: 36113763 (3) DVT (deep venous thrombosis) ICD Codes: I82.409 - Acute embolism and thrombosis of unspecified deep veins of unspecified lower extremity SNOMED: 069384316 (4) Congestive heart failure (CHF) ICD Codes: I50.9 - Heart failure, unspecified SNOMED: 25171269 (5) Acute DVT (deep venous thrombosis) ICD Codes: I82.409 - Acute embolism and thrombosis of unspecified deep veins of unspecified lower extremity SNOMED: 594768228242271 Qualifiers: Qualified Codes: I82.411 - Acute embolism and thrombosis of right femoral vein Assessment/Plan lovenox, warfarin,atb change to keflex d/w C Subjective ROS Limited/Unobtainable: Yes Allergies: Coded Allergies: No Known Allergies (Unverified , 05/07/16) Objective Last 24 Hour Vital Signs Date Time Temp Pulse Resp B/P (MAP) Pulse Ox O2 Delivery O2 Flow Rate FiO2 04/01/18 12:00 98.1 65 18 126/63 (84) 92 98.1 04/01/18 09:00 Room Air Room Air 04/01/18 09:00 135/65 04/01/18 08:59 78 135/65 04/01/18 08:36 98.9 78 19 135/65 (88) 92 98.9 04/01/18 04:00 98.2 62 20 108/70 (83) 92 98.2 04/01/18 00:00 98.4 65 20 91/44 (60) 93 98.4 03/31/18 21:46 142/66 03/31/18 21:00 Room Air Room Air 03/31/18 20:15 82 18 Room Air 21 03/31/18 20:00 97.1 80 19 142/66 (91) 93 97.1 03/31/18 18:42 82 146/73 Intake and Output 03/31/18 04/01/18 19:00 07:00 Intake Total 480 ml Balance 480 ml Intake Oral 480 ml # Voids 2 2 # Bowel Movements 1 Laboratory Tests 04/01/18 05:45: Prothrombin Time 14.4H, Prothromb Time International Ratio 1.4H Height (Feet): 5 Height (Inches): 5.00 Weight (Pounds): 164 General Appearance: no apparent distress, alert EENT: normal ENT inspection Neck: normal alignment Cardiovascular: normal rate Respiratory/Chest: lungs clear Abdomen: non tender, soft Edema: mild edema Neurologic: disoriented GLENDY BUTLER Apr 01, 2018 16:40
[2018-04-01] MEDS ORDERED: Warfarin Sodium 3mg ORAL ONE (17:00)
[2018-04-01] MEDS: Cephalexin 500mg cap ORAL SCH ×2 (17:13→21:49)
[2018-04-01 20:00] VITALS: BP 149/73
[2018-04-01] MEDS: LORazepam 1mg tab ORAL SCH (21:49)
[2018-04-01] MEDS: Donepezil 10mg tab ORAL SCH (21:49)
[2018-04-02] VITALS: BP 115/54
[2018-04-02 04:00] VITALS: BP 125/60
[2018-04-02 06:39] LABS: INR 2.1 (0.9-1.1)
[2018-04-02 08:00] VITALS: BP 154/77
[2018-04-02] MEDS ORDERED: Enoxaparin 80mg Inj SUBQ SCH (09:00)
[2018-04-02] MEDS: Cephalexin 500mg cap ORAL SCH ×4 (09:56→21:08)
[2018-04-02] MEDS: Docusate 100mg cap ORAL SCH (09:56)
[2018-04-02] MEDS: Furosemide 40mg tab ORAL SCH (09:56)
[2018-04-02] MEDS: Atenolol 25mg tab ORAL SCH ×2 (09:56→17:45)
[2018-04-02] MEDS: Losartan 50mg tab ORAL SCH ×2 (09:56→21:09)
[2018-04-02 12:00] VITALS: BP 136/70
[2018-04-02] MEDS ORDERED: WARFARIN SODIUM3 MG ORAL (12:52)
[2018-04-02] MEDS ORDERED: CEPHALEXIN500 MG ORAL (12:52)
--- NOTE | 2018-04-02 12:57 | General Progress Note ---
Assessment/Plan Problem List: (1) CVA (cerebral vascular accident) ICD Codes: I63.9 - Cerebral infarction, unspecified SNOMED: 153018960 (2) HTN (hypertension) ICD Codes: I10 - Essential (primary) hypertension SNOMED: 73668806 (3) DVT (deep venous thrombosis) ICD Codes: I82.409 - Acute embolism and thrombosis of unspecified deep veins of unspecified lower extremity SNOMED: 668366887 (4) Congestive heart failure (CHF) ICD Codes: I50.9 - Heart failure, unspecified SNOMED: 75762199 (5) Acute DVT (deep venous thrombosis) ICD Codes: I82.409 - Acute embolism and thrombosis of unspecified deep veins of unspecified lower extremity SNOMED: 834662550762930 Qualifiers: Qualified Codes: I82.411 - Acute embolism and thrombosis of right femoral vein Assessment/Plan lovenox can dc now , warfarin,atb change to keflex d/w CM dc planned Subjective ROS Limited/Unobtainable: Yes Allergies: Coded Allergies: No Known Allergies (Unverified , 05/07/16) Objective Last 24 Hour Vital Signs Date Time Temp Pulse Resp B/P (MAP) Pulse Ox O2 Delivery O2 Flow Rate FiO2 04/02/18 09:56 78 154/77 04/02/18 09:56 154/77 04/02/18 09:00 Room Air Room Air 04/02/18 08:00 98.1 19 154/77 (102) 96 98.1 04/02/18 04:00 97.5 78 20 125/60 (81) 93 97.5 04/02/18 01:35 68 18 95 Room Air 21 04/02/18 01:25 65 18 92 Room Air 21 04/02/18 00:37 92 04/02/18 00:00 97.1 75 24 115/54 (74) 90 97.1 04/01/18 21:48 149/73 04/01/18 21:00 Room Air Room Air 04/01/18 20:00 98.0 76 17 149/73 (98) 92 98.0 04/01/18 20:00 70 18 Room Air 21 04/01/18 17:13 69 118/71 04/01/18 16:00 98.8 69 17 118/71 (87) 93 98.8 Intake and Output 04/01/18 04/02/18 19:00 07:00 Intake Total 200 ml Balance 200 ml Other 200 ml # Voids 3 2 Laboratory Tests 04/02/18 06:10: Prothrombin Time 21.2H, Prothromb Time International Ratio 2.1H Height (Feet): 5 Height (Inches): 5.00 Weight (Pounds): 164 General Appearance: no apparent distress, alert, confused EENT: normal ENT inspection Neck: supple Cardiovascular: normal rate, regular rhythm Respiratory/Chest: lungs clear Abdomen: non tender, soft Edema: mild edema Neurologic: customer experience associate II-XII grossly normal GLENDY BUTLER Apr 02, 2018 12:57
--- NOTE | 2018-04-02 14:00 | Diagnostic Imaging Report ---
APPROVED REPORT CPT Code: 83151 Present Symptoms Lower Extremity Pain: Right Lower Extremity Edema: Right RIGHT LEG: Venous imaging reveals acute thrombus in the superficial femoral and popliteal veins. The calf veins not well visualized, due to swelling. There is no evidence of thrombus in the common femoral vein. The greater saphenous vein is also within normal limits. ER Doctor was notified of abnormal results at 2340 hours.
[2018-04-02 16:00] VITALS: BP 166/88
[2018-04-02] MEDS ORDERED: Albuterol ud Inhalation HHN PRN (16:00)
[2018-04-02] MEDS ORDERED: Warfarin Sodium 1mg ORAL SCH (17:00)
[2018-04-02 20:00] VITALS: BP 176/92
[2018-04-02] MEDS: LORazepam 1mg tab ORAL SCH (21:08)
[2018-04-02] MEDS: Donepezil 10mg tab ORAL SCH (21:08)
[2018-04-03] VITALS: BP 100/41
--- NOTE | 2018-04-03 02:15 | Discharge Summary ---
DATE OF ADMISSION: 03/29/2018 DATE OF DISCHARGE: 04/03/2018 PERTINENT HISTORY: See the dictated History and Physical for full details. The patient is an 87-year-old lady with dementia, agitation, prior DVT and IVC filter. She presents with a swollen leg. PERTINENT PHYSICAL FINDINGS: LUNGS: Clear. HEART: Regular rhythm. EXTREMITIES: Show marked swelling and redness of the right lower extremity. Degenerative changes in the knees. NEUROLOGIC: She is alert, somewhat confused. COURSE IN THE HOSPITAL: The patient was treated for UTI and DVT with Lovenox and warfarin. She had no fever or chills. Her exam remained stable, but the swelling and redness improved. On the day of discharge, her vital signs were stable. Lungs, clear. Heart, regular rhythm and she had only mild swelling and no redness of her right lower extremity. Her INR was 2.1 on 04/02/2018. She was discharged home on Coumadin 3 mg daily, Keflex 500 mg q.i.d. for 4 days and her prior to admission medications. Follow up in the office with Dr. Hull or her prior provider as per family choice. Chetan Hull M.D. DR: JULIETA JOB#: [id number] CC: SEDA
[2018-04-03 04:00] VITALS: BP 97/47
[2018-04-03 06:55] LABS: INR 2.8 (0.9-1.1)
[2018-04-03 08:00] VITALS: BP 141/78
[2018-04-03] MEDS: Cephalexin 500mg cap ORAL SCH ×2 (08:23→12:19)
[2018-04-03] MEDS: Furosemide 40mg tab ORAL SCH (08:23)
[2018-04-03] MEDS: Docusate 100mg cap ORAL SCH (08:23)
[2018-04-03] MEDS: Atenolol 25mg tab ORAL SCH (08:31)
[2018-04-03] MEDS: Losartan 50mg tab ORAL SCH (08:32)
[2018-04-03 12:00] VITALS: BP 138/69
[2018-04-03] MEDS ORDERED: Warfarin Sodium 3mg ORAL ONE (17:00)
== END 2018-04-03 16:30 | disposition home or self-care (01) | DRG 197 ==
LOC: EMR 22:00 → EDBEDREQ 23:02 → 4E 03-29 00:47
DX: I82.411 Acute embolism and thrombosis of right femoral vein (principal); I50.9 Heart failure, unspecified; I69.354 Hemiplegia and hemiparesis following cerebral infarction affecting left non-dominant side; I11.0 Hypertensive heart disease with heart failure; G30.9 Alzheimer's disease, unspecified; F02.80 Dementia in other diseases classified elsewhere, unspecified severity, without behavioral disturbance, psychotic disturbance, mood disturbance, and anxiety; Z66 Do not resuscitate; E66.9 Obesity, unspecified; M19.90 Unspecified osteoarthritis, unspecified site; K29.70 Gastritis, unspecified, without bleeding; Z68.27 Body mass index [BMI] 27.0-27.9, adult; Z96.641 Presence of right artificial hip joint
CPT/HCPCS: 36415; 71045; 80048; 80053; 81003; 83605; 83880; 84484; 85007; 85025; 85610; 85730; 87086; 87181; 93971; 94640; 94664; 99285

== ENCOUNTER 2018-10-13 17:40 | Inpatient (IN) | payer MEDICAID ==
[~2018-10-13] VITALS: Ht 167.6 cm; Wt 86.6 kg
[2018-10-13] VITALS (9 sets, daily range): BP systolic 74–115; BP diastolic 32–62
[~2018-10-13 17:40] MED LIST changes: +ARICEPT23 MG ORAL; +CEPHALEXIN500 MG ORAL; +LORAZEPAM2 MG ORAL; +NITROFURANTOIN100 M2 ORAL; +OMEPRAZOLE20 M2 ORAL; +QUETIAPINE FUM300 MG ORAL; +RISPERDAL1 MG/1 ML PO; +TENORMIN100 MG ORAL; +WARFARIN SODIUM3 MG ORAL
[2018-10-13 18:38] LABS: APPEARANCE,URINE SLIGHTLY CLOUDY; BILIRUBIN, URINE NEGATIVE (NEGATIVE); EOSINOPHILS % (AUTO) 0.2 % (0.0-3.0); GLUCOSE, URINE (UA) NEGATIVE (NEGATIVE); HEMATOCRIT 35.7 % (37.0-47.0); HEMOGLOBIN 11.2 G/DL (12.0-16.0); KETONES,URINE NEGATIVE (NEGATIVE); LEUKOCYTE ESTERASE ,URINE 1+ (NEGATIVE); LYMPHOCYTES % (AUTO) 10.9 % (20.0-45.0); MEAN CORPUSCULAR VOLUME 84 FL (80-99); MONOCYTES % (AUTO) 13.9 % (1.0-10.0); NITRITE,URINE POSITIVE (NEGATIVE); PH,URINE 5 (4.5-8.0); PLATELET COUNT 109 K/UL (150-450); PROTEIN,URINE 2+ (NEGATIVE); RED BLOOD COUNT 4.23 M/UL (4.20-5.40); UROBILINOGEN,URINE NORMAL MG/DL (0.0-1.0); WHITE BLOOD COUNT 8.9 K/UL (4.8-10.8)
[2018-10-13 18:43] LABS: COLOR,URINE YELLOW
[2018-10-13] MEDS ORDERED: Solu-MEDROL 125mg Inj IVP ONE (18:45)
[2018-10-13 18:50] LABS: ANION GAP 7 mmol/L (5-15); BLOOD UREA NITROGEN 25 mg/dL (7-18); CALCIUM 8.1 MG/DL (8.5-10.1); CARBON DIOXIDE 26 MMOL/L (21-32); CHLORIDE 107 MMOL/L (98-107); CREATININE 1.1 MG/DL (0.55-1.30); POTASSIUM 4.3 MMOL/L (3.5-5.1); SODIUM 140 MMOL/L (136-145)
[2018-10-13] MEDS ORDERED: RISPERDAL0.25 MG ORAL (18:55)
[2018-10-13] MEDS ORDERED: SEROQUEL25 MG ORAL (18:55)
[2018-10-13] MEDS ORDERED: RISPERDAL0.5 MG ORAL (18:55)
[2018-10-13] MEDS ORDERED: ATENOLOL25 MG ORAL (18:55)
[2018-10-13] MEDS ORDERED: WARFARIN SODIUM3 MG ORAL (18:55)
[2018-10-13] MEDS ORDERED: QUETIAPINE FUMA25 MG ORAL (18:55)
[2018-10-13] MEDS ORDERED: Vancomycin 1.5 GM in NS 275 ML IVPB ONE (19:00)
[2018-10-13] MEDS ORDERED: Azithromycin 500 MG in D5W 275 ML IVPB ONE (19:00)
[2018-10-13] MEDS ORDERED: Piperacillin/Tazobactam 4.5 GM in NS 110 ML IVPB ONE (19:00)
[2018-10-13 19:02] LABS: ALANINE AMINOTRANSFERASE 14 U/L (12-78); ALBUMIN 2.8 G/DL (3.4-5.0); ALBUMIN/GLOBULIN RATIO 0.7 (1.0-2.7); ALKALINE PHOSPHATASE 51 U/L (46-116); ASPARTATE AMINO TRANSFERASE 24 U/L (15-37); BILIRUBIN,TOTAL 0.3 MG/DL (0.2-1.0)
[2018-10-13] MEDS: Albuterol/Ipratropium 3ml neb HHN SCH ×9 (19:15→20:45)
[2018-10-13] MEDS ORDERED: Lidocaine 1% Plain 30 ml INJ ONE (19:40)
[2018-10-13] MEDS: DOPamine 400mg/250ml 250 ML IV SCH (21:30)
[2018-10-13] MEDS ORDERED: Midazolam/D5W 100ml 100 ML IVPB SCH (21:30)
--- NOTE | 2018-10-13 21:53 | Emergency Room Report ---
History of Present Illness General Chief Complaint: Generalized Weakness Source: Patient, Family Member, EMS Present Illness HPI Patient presents emergency department today with acute shortness of breath fever. Patient was recently admitted to [facility] and discharge or leg edema. Presumably patient has CHF. Patient has not been feeling well. And was noted to be hypotensive short of breath and was brought here for further evaluation. Patient was brought in by the paramedics. Symptoms noted to be highly severe to critical. Patient was unable to thrive much history. History is essentially provide patient's family. Patient was full code very short of breath some cough and some suggestion of possible fever. No other complaints are noted by family symptoms noted to be highly severe to critical.No other modifying factors. No other associated signs and symptoms. No other complaints were noted. Allergies: Coded Allergies: No Known Allergies (Unverified , 05/07/16) Patient History Past Medical History: HTN, CAD, dementia, other - Brain aneurysm Pertinent Family History: none Social History: Denies: smoking, alcohol use, drug use Reviewed Nursing Documentation: PMH: Agreed; PSxH: Agreed Nursing Documentation-PMH Past Medical History: No History, Except For Hx Cardiac Problems: Yes Hx Hypertension: Yes Hx Cancer: No Hx Gastrointestinal Problems: Yes Hx Neurological Problems: Yes - BRAIN ANEURYSM Hx Dementia: Yes Review of Systems All Other Systems: limited - Poor mental status Physical Exam Vital Signs Date Time Temp Pulse Resp B/P (MAP) Pulse Ox O2 Delivery O2 Flow Rate FiO2 10/13/18 17:35 99.9 82 20 104/68 99 Non-Rebreather 15.0 10/13/18 18:50 100 Sp02 EP Interpretation: reviewed, normal General Appearance: alert, severe distress Head: normocephalic, atraumatic Eyes: bilateral eye normal inspection ENT: hearing grossly normal, normal voice, dry mucus membranes Neck: normal inspection, full range of motion, supple, no bony tend Respiratory: respiratory distress, decreased breath sounds, accessory muscle use, crackles - Basilar, wheezing, expiration, inspiration Cardiovascular #1: regular rate, rhythm, no edema Gastrointestinal: normal inspection, normal bowel sounds, non tender, soft, no guarding, no hernia Genitourinary: no CVA tenderness Musculoskeletal: decreased range of motion - Bilateral lower extremity, swelling - Bilateral lower extremity worse on right Neurologic: alert, responsive, other - Nonfocal but very weak confused Psychiatric: depressed affect, other - And unable to fully assess Skin: normal inspection, normal color, no rash Procedures Critical Care Time Critical Care Time Patient had a critical medical condition which untreated could potentially result in life or limb threatening injury. Total critical care time excluding procedures was approximately 65 minutes. Central Line Central Line : Consent: Verbal Central Line Lumen: triple Maximal Sterile Barrier Tech: yes cap, yes mask, yes sterile gown, yes sterile gloves, yes large sterile sheet, yes hand hygiene, yes chlorhexidine prep Central Line Postion: subclavian (R) Anesthesia: local cc's of anesthesia: 5 Complications: none Central Line Post Position: sutured, good blood return Attempts: Other Patient Tolerated: Well Complications: None Progress Patient require central line placement. Initial central line attempt was in patient's left groin. Left groin was prepped in a sterile manner. Unfortunately I wasn't able to insert the central line into the left femoral vein. Therefore the site was abandoned. Approximate 3 attempts were performed. Patient's left neck was prepped in a sterile manner and attempt was performed to place a left internal jugular central venous catheter. Unfortunately I wasn' t able to aspirate blood from the internal jugular vein. Therefore site was abandoned. Approximate 3 attempts were performed. I did not aspirate any air there was no comp lesions associated with the procedure other than a failed attempt. Been patient's left subclavian area was prepped in a sterile manner. I was able to aspirate blood from the subclavian vein with one attempt. X-ray confirms this to be in good position. There is no comp lesions associate with the procedure patient help or seizure without difficulty. Blood was aspirated from the subclavian vein. Guidewire was placed in the needle. Dilated then was placed in the guidewire. Central line was placed and then tied into place at approximately 15 cm. X-ray shows of the central line unfortunately is not deep enough and appeared to be against the SVC. Therefore the central line was pulled back so that it will reside in the subclavian. X-rays show that the central line was in good position working. There is no complications associated with this procedure. Intubation Intubation : Consent: Verbal Intubation Method: orotracheal Tube Size (cm): 7.5 Medications: Etomidate, Rocuronium Breath Sounds after Intubation: equal Intubation Complications: no complications Post Intubation Xray: Yes Progress/Xray Impression: Pulse x-ray showed ET tube to be a little deep it as pulled back 2 cm Attempts: One Patient Tolerated: Well Complications: None Medical Decision Making Diagnostic Impression: Primary Impression: Congestive heart failure (CHF) Additional Impressions: Respiratory distress Respiratory failure Hypotension Sepsis Septic shock DVT (deep vein thrombosis) in Peripheral edema ER Course Patient presents emergency department today complaining of shortness of breath. Differential diagnoses include acute pneumonia, CHF, acute coronary syndrome, pneumothorax, asthma, COPD flare, just to name a few. Patient was also noted to be hypotensive. Patient was initially placed on BiPAP started with albuterol Atrovent as well as Solu-Medrol. Patient was given a small fluid bolus. Unfortunately patient did not improve significantly she still appear to be short of breath. Then patient's blood pressure unfortunately decreased to the 80s systolic. Patient was more combative and altered. Because of this I felt the patient require intubation. Patient was then intubated. Central line was also initiated and finally was placed in her left subclavian. Patient was given IV antibiotics as well as started on pressors to control her blood pressure. Chest x-ray shows evidence of infiltrate. Was only also evidence of CHF. Because of patient's respiratory failure patient was intubated. Case was discussed in detail with Dr. Tristan Grant. Patient will be admitted to the ICU for further treatment. Because of patient's hypotension patient was started on a dopamine drip and blood pressure did improve significantly. Patient also no was also given a fluid bolus after she was intubated because airway was already controlled and that she needed likely the fluid to try to maintain blood pressure. Patient's family was aware of what is happening. Patient's family was also aware of patient's poor prognosis. Patient remains full code. Case was also discussed with Dr. Chetan Hull who admitted patient in the past. Dr. Tubbs however isn't available therefore case was discussed with Dr. Xie. Dr. Grant will consult on ICU management.Patient also has a history of DVT but currently has IVC filter. Patient has evidence of sepsis was started on broad-spectrum IV antibiotics. His felt the patient could have a pneumonia urine infection likely cellulitis. Involving the right lower extremity. Labs Test 10/13/18 18:06 10/13/18 18:38 White Blood Count 8.9 K/UL (4.8-10.8) Red Blood Count 4.23 M/UL (4.20-5.40) Hemoglobin 11.2 G/DL (12.0-16.0) Hematocrit 35.7 % (37.0-47.0) Mean Corpuscular Volume 84 FL (80-99) Mean Corpuscular Hemoglobin 26.4 PG (27.0-31.0) Mean Corpuscular Hemoglobin Concent 31.3 G/DL (32.0-36.0) Red Cell Distribution Width 15.0 % (11.6-14.8) Platelet Count 109 K/UL (150-450) Mean Platelet Volume 7.8 FL (6.5-10.1) Neutrophils (%) (Auto) 74.0 % (45.0-75.0) Lymphocytes (%) (Auto) 10.9 % (20.0-45.0) Monocytes (%) (Auto) 13.9 % (1.0-10.0) Eosinophils (%) (Auto) 0.2 % (0.0-3.0) Basophils (%) (Auto) 1.0 % (0.0-2.0) Urine Color Yellow Urine Appearance Slightly cloudy Urine pH 5 (4.5-8.0) Urine Specific [place] 1.020 (1.005-1.035) Urine Protein 2+ (NEGATIVE) Urine Glucose (UA) Negative (NEGATIVE) Urine Ketones Negative (NEGATIVE) Urine Blood 5+ (NEGATIVE) Urine Nitrite Positive (NEGATIVE) Urine Bilirubin Negative (NEGATIVE) Urine Urobilinogen Normal MG/DL (0.0-1.0) Urine Leukocyte Esterase 1+ (NEGATIVE) Urine RBC 30-40 /HPF (0 - 2) Urine WBC 2-4 /HPF (0 - 2) Urine Squamous Epithelial Cells Few /LPF (NONE/OCC) Urine Bacteria Moderate /HPF (NONE) Sodium Level 140 MMOL/L (136-145) Potassium Level 4.3 MMOL/L (3.5-5.1) Chloride Level 107 MMOL/L (98-107) Carbon Dioxide Level 26 MMOL/L (21-32) Anion Gap 7 mmol/L (5-15) Blood Urea Nitrogen 25 mg/dL (7-18) Creatinine 1.1 MG/DL (0.55-1.30) Estimat Glomerular Filtration Rate mL/min (>60) Glucose Level 99 MG/DL (74-106) Lactic Acid Level 0.90 mmol/L (0.4-2.0) Calcium Level 8.1 MG/DL (8.5-10.1) Total Bilirubin 0.3 MG/DL (0.2-1.0) Aspartate Amino Transf (AST/SGOT) 24 U/L (15-37) Alanine Aminotransferase (ALT/SGPT) 14 U/L (12-78) Alkaline Phosphatase 51 U/L (46-116) Troponin I 0.010 ng/mL (0.000-0.056) Pro-B-Type Natriuretic Peptide 900 pg/mL (0-125) Total Protein 6.8 G/DL (6.4-8.2) Albumin 2.8 G/DL (3.4-5.0) Globulin 4.0 g/dL Albumin/Globulin Ratio 0.7 (1.0-2.7) Lipase 172 U/L (73-393) Arterial Blood pH 7.385 (7.350-7.450) Arterial Blood Partial Pressure CO2 36.6 mmHg (35.0-45.0) Arterial Blood Partial Pressure O2 313.8 mmHg (75.0-100.0) Arterial Blood HCO3 21.4 mmol/L (22.0-26.0) Arterial Blood Oxygen Saturation 99.1 % (95-100) Arterial Blood Base Excess -3.1 (-2-2) Roberto Test Positive EKG Diagnostic Results Rate: normal Rhythm: NSR ST Segments: no acute changes Rhythm Strip Diag. Results EP Interpretation: yes Rate: 77 Rhythm: NSR, no PVC's, no ectopy Chest X-Ray Diagnostic Results Chest X-Ray Diagnostic Results #1: Chest X-Ray Ordered: Yes # of Views/Limited/Complete: 1 View Indication: Shortness of Breath EP Interpretation: Yes Interpretation: no pneumothorax, other - Pulmonary congestion, cardiomegaly , Questionable basilar infiltrate Impression: Other - Left-sided pneumonia, pul congestion Electronically Signed by: Electronically signed by Cliff Zhu MD Chest X-Ray Diagnostic Results #2: Chest X-Ray Ordered: Yes # of Views/Limited/Complete: 1 View Indication: Shortness of Breath EP Interpretation: Yes Interpretation: no pneumothorax, other - Cardiomegaly, pulmonary congestion , left side infiltrate, ET tube in place,, subclavian in place Impression: Other - Interval placement of ET tube and left subclav Electronically Signed by: Electronically signed by Cliff Zhu MD Chest X-Ray Diagnostic Results #3: Chest X-Ray Ordered: Yes # of Views/Limited/Complete: 1 View Indication: Shortness of Breath EP Interpretation: Yes Interpretation: other - Left lower lobe infiltrate. ET better position.Left subclavian line pulled back Impression: Other - Pneumonia appropriate placement of Et tube, central line Electronically Signed by: Electronically signed by Cliff Zhu MD Last Vital Signs Date Time Temp Pulse Resp B/P (MAP) Pulse Ox O2 Delivery O2 Flow Rate FiO2 10/13/18 21:30 151/64 10/13/18 20:38 132 16 100 10/13/18 19:42 100 Bi-pap 10/13/18 18:55 15.0 10/13/18 18:17 98.7 Status: improved Disposition: ADMITTED INPATIENT Condition: Critical Referrals: [facility],REFERRING (PCP) Cliff Zhu MD Oct 13, 2018 21:53
[2018-10-14] VITALS (28 sets, daily range): BP systolic 95–143; BP diastolic 46–64
[2018-10-14 06:08] LABS: HEMATOCRIT 38.3 % (37.0-47.0); MEAN CORPUSCULAR VOLUME 84 FL (80-99); PLATELET COUNT 99 K/UL (150-450); RED BLOOD COUNT 4.57 M/UL (4.20-5.40); RED CELL DISTRIBUTION WIDTH 14.9 % (11.6-14.8); WHITE BLOOD COUNT 5.5 K/UL (4.8-10.8)
[2018-10-14 06:36] LABS: ALANINE AMINOTRANSFERASE 15 U/L (12-78); ALBUMIN 2.6 G/DL (3.4-5.0); ALBUMIN/GLOBULIN RATIO 0.6 (1.0-2.7); ALKALINE PHOSPHATASE 54 U/L (46-116); ANION GAP 8 mmol/L (5-15); ASPARTATE AMINO TRANSFERASE 26 U/L (15-37); BILIRUBIN,TOTAL 0.4 MG/DL (0.2-1.0); BLOOD UREA NITROGEN 23 mg/dL (7-18); CALCIUM 8.2 MG/DL (8.5-10.1); CARBON DIOXIDE 23 MMOL/L (21-32); CHLORIDE 108 MMOL/L (98-107); CREATININE 0.9 MG/DL (0.55-1.30); POTASSIUM 4.3 MMOL/L (3.5-5.1); SODIUM 139 MMOL/L (136-145)
--- NOTE | 2018-10-14 08:45 | History & Physical ---
History and Physical History & Physicial [id number] Bernard Xie MD Oct 14, 2018 08:45
[2018-10-14] MEDS ORDERED: Heparin 5000 units/ml inj SUBQ SCH (09:00)
--- NOTE | 2018-10-14 13:14 | Consultation ---
Consult Note Consult Note dictated Tristan Grant MD Oct 14, 2018 13:14
[2018-10-14] MEDS: DOPamine 400mg/250ml 250 ML IV SCH (21:00)
[2018-10-15] VITALS (24 sets, daily range): BP systolic 112–179; BP diastolic 45–68
[2018-10-15 06:13] LABS: BASOPHILS % (AUTO) 0.1 % (0.0-2.0); HEMATOCRIT 36.4 % (37.0-47.0); HEMOGLOBIN 11.5 G/DL (12.0-16.0); LYMPHOCYTES % (AUTO) 5.6 % (20.0-45.0); MEAN CORPUSCULAR VOLUME 84 FL (80-99); MONOCYTES % (AUTO) 10.1 % (1.0-10.0); NEUTROPHILS % (AUTO) 84.2 % (45.0-75.0); PLATELET COUNT 112 K/UL (150-450); RED BLOOD COUNT 4.32 M/UL (4.20-5.40); RED CELL DISTRIBUTION WIDTH 14.9 % (11.6-14.8); WHITE BLOOD COUNT 8.6 K/UL (4.8-10.8)
[2018-10-15 06:41] LABS: ANION GAP 8 mmol/L (5-15); BLOOD UREA NITROGEN 32 mg/dL (7-18); CALCIUM 8.6 MG/DL (8.5-10.1); CARBON DIOXIDE 26 MMOL/L (21-32); CHLORIDE 107 MMOL/L (98-107); CREATININE 1.1 MG/DL (0.55-1.30); POTASSIUM 3.8 MMOL/L (3.5-5.1); SODIUM 141 MMOL/L (136-145)
[2018-10-15 07:35] LABS: INR 9.4 (0.9-1.1)
[2018-10-15 09:26] LABS: INR > 10.0 (0.9-1.1)
--- NOTE | 2018-10-15 09:31 | Diagnostic Imaging Report ---
Indication: Cough, status post adjustment of endotracheal tube position Technique: One view of the chest Comparison: One half hour earlier Findings: Interim improvement of position of previously low endotracheal tube, tip now projecting approximately 3 cm above the priscilla. And left subclavian central venous catheter is again demonstrated There is persistent and perhaps increased administration of the left hemidiaphragm, suspect developing consolidation and/or pleural fluid. The heart size is normal. Generalized interstitial prominence, central bronchial wall thickening, and central pulmonary arterial prominence is again noted. Impression: Improved and now satisfactory position of endotracheal tube Increased left basilar opacity, likely increased pleural fluid and/or parenchymal consolidation
--- NOTE | 2018-10-15 09:31 | Diagnostic Imaging Report ---
Indication: Cough, shortness of breath Technique: One view of the chest Comparison: 03/28/2018 Findings: Bilateral interstitial prominence and central bronchial wall thickening is probably on the basis of senescent changes and chronic bronchitis changes. This appears similar to the previous exam although may be slightly more prominent. No focal airspace consolidation. No effusions. Normal heart size. Tortuous calcite aorta. Impression: No definite acute process Mild interstitial prominence and central bronchial wall thickening, likely reflects senescent changes and chronic bronchitis changes.
--- NOTE | 2018-10-15 09:31 | Diagnostic Imaging Report ---
Indication: Post line placement. Post intubation Technique: One view of the chest Comparison: 2 1/2 hours earlier Findings: Current exam is less heavily exposed an inspiration is less optimal. Interim placement of left jugular central venous catheter, tip which projects at the level of the innominate venous confluence. No pneumothorax demonstrated. Interim endotracheal intubation, endotracheal tube tip projecting at the level of the priscilla. The left hemidiaphragm is obscured, may indicate atelectasis or developing infiltrate at the left lung base. Impression: Interim endotracheal intubation, endotracheal tube tip somewhat low at the level of the priscilla. This is noted to be improved on subsequent chest radiograph Interim left central venous catheter placement, no radiographic evident complication Obscured left hemidiaphragm, probably due to suboptimal inspiration but developing consolidation also possible.
--- NOTE | 2018-10-15 09:33 | Diagnostic Imaging Report ---
APPROVED REPORT CPT Code: 12034 Present Symptoms Shortness of breath RIGHT LEG: Venous imaging reveals acute thrombus in the superficial femoral vein. Venous imaging reveals recanalized chronic thrombus in the common femoral, popliteal and calf veins. LEFT LEG: Venous imaging reveals recanalized chronic thrombus in the common femoral, superficial femoral and popliteal veins. Imaging also reveals patency of the calf veins. The greater saphenous vein is also within normal limits. Doppler indicates normal spontaneous flow within these segments. RENATO Rich was notified of abnormal results at 0845 hours.
--- NOTE | 2018-10-15 09:33 | Cardiology Report ---
APPROVED REPORT EXAM: Two-dimensional and M-mode echocardiogram with Doppler and color Doppler. INDICATION Congestive Heart Failure M-Mode DIMENSIONS IVSd0.9 (0.7-1.1cm)Left Atrium (MM)4.1 (1.6-4.0cm) LVDd6.8 (3.5-5.6cm)Aortic Root2.8 (2.0-3.7cm) PWd1.0 (0.7-1.1cm)Aortic Cusp Exc.1.3 (1.5-2.0cm) IVSs1.4 cm LVDs4.2 (2.5-4.0cm) PWs1.2 cm Normal left ventricular chamber size, systolic function and wall motion. Left ventricular ejection fraction estimated to be 55-60 %. Mild left ventricular hypertrophy by 2-D. Anterior Echo-free space, may be due to pericardial fat or effusion. All other cardiac chamber sizes are within normal limits. Aortic valve calcification with decreased cusp excursion c/w aortic stenosis. Thickened mitral valve leaflets with normal excursion. Mitral annulus and aortic root calcification. Pulmonic valve not well visualized. Normal tricuspid valve structure. IVC at normal size without physiologic collapse. A color flow and spectral Doppler study was performed and revealed: Mild aortic regurgitation. Peak aortic valve gradient of 23 mm Hg and a mean of 11 mmHg. Aortic valve area 1.2 cm2 calculated by continuity equation. Trace mitral regurgitation. Mitral diastolic velocities suggest reduced left ventricular relaxation c/w mild LV diastolic dysfunction (Grade I ). Mild tricuspid regurgitation. Tricuspid systolic velocities suggests peak right ventricular systolic pressure of 34 mmHg Mild pulmonic regurgitation present .
[2018-10-15] MEDS ORDERED: Phytonadione 10 mg/mL 1ml amp SUBQ SCH (10:00)
--- NOTE | 2018-10-15 13:13 | Consultation ---
DATE OF CONSULTATION: 10/14/2018 PULMONARY CONSULTATION: CONSULTING PHYSICIAN: Tristan Grant M.D. HISTORY OF PRESENT ILLNESS: The patient is an elderly woman who was brought in from home because of shortness of breath. She was seen in the emergency department and found to have congestive heart failure. She was noted to be hypotensive briefly and was started on vasopressors. She was intubated and placed on ventilator support and I was called to see her in consultation. PAST MEDICAL HISTORY: This is obtained from the medical records. The patient can provide no history. There is notation of hypertension, coronary disease, dementia, cerebral aneurysm, GI problems. ALLERGIES: No known allergies. MEDICATIONS: Reviewed. PHYSICAL EXAMINATION: VITAL SIGNS: Presently stable. The temperature was as high as 99.9. The blood pressure is not elevated on vasopressors. The other vital signs are stable. GENERAL: She is not alert. HEENT: The head is normocephalic. NECK: Has jugular vein distention. CHEST: Has few rales. CARDIAC: Rhythm is regular. ABDOMEN: Soft and nontender. EXTREMITIES: 3+ edema on the right, 2+ on the left leg. IMAGING: Chest x-ray is not available for review, but is said to show the endotracheal tube malpositioned. It was repositioned by the emergency physician. IMPRESSION: 1. Congestive heart failure. 2. Acute respiratory failure. 3. Hypotension. 4. Possible pneumonia. PLAN: The patient will be diuresed. We will maintain ventilator support until she is more alert and able to breathe well on her own. Of note, the white blood count is normal and there is no fever since in the emergency room, so it is unclear if there is any infection evident. I have discussed the case with Dr. Mccoy and I will follow her closely with you. Tristan Grant M.D. DR: CESAR JOB#: [id number] CC: Chetan Hull M.D.; Fax#: [phone] NASH MCCOY M.D. ; FAX#: [phone] TRISTAN GRANT M.D.; FAX#: [phone]
--- NOTE | 2018-10-15 13:13 | History and Physical Report ---
DATE OF ADMISSION: 10/13/2018 REASON OF ADMISSION: Respiratory failure. HISTORY OF PRESENT ILLNESS: This is a very pleasant 88-year-old white female, who is obese, has history of hypercoagulable state with DVT and PE in the past, has had also underlying dementia, was brought to the emergency room of [facility] with increasing shortness of breath. In the emergency room, chest x-ray was performed showing apical redistribution of the vessels and interstitial marking enhancement. However, she was put on BiPAP and according to the ER doctor, her blood pressure dropped, however, I do not see any decrease in her blood pressure below 98 systolic and she was treated for presumably pneumonia with vancomycin, Zosyn, and Zithromax. She has been intubated and was sent to the intensive care unit for further treatment. She is somewhat lethargic and is not able to give me a very fruitful history at this point. PAST MEDICAL HISTORY: Significant for underlying dementia, iron deficiency, previous DVT and PE status post IVC filter placement, dysphagia, depression, brain aneurysm, health-care associated pneumonia, hypertension, previous CVA, and congestive heart failure as well as previous respiratory failure. PAST SURGICAL HISTORY: Status post right intertrochanteric femoral fracture status post ORIF apparently and status post cataract surgery removal. SOCIAL HISTORY: She is a nonsmoker, nondrinker, and no illicit drugs. MEDICATIONS: Prior to admission has been atenolol 100 mg p.o. daily, Aricept 10 mg p.o. daily, [place] 10/325 mg by mouth every 8 hours as needed, lorazepam 2 mg by mouth nightly, losartan 50 mg p.o. q.12 h., omeprazole 20 mg p.o. daily, potassium chloride 20 mEq by mouth daily, Seroquel 25 mg by mouth twice a day, Risperdal 0.25 mg by mouth daily, and warfarin 3 mg by mouth daily. REVIEW OF SYSTEMS: She is not able to give me any history. She is on the ventilator lethargic. PHYSICAL EXAMINATION: GENERAL: She does not seem to be in much acute distress, lying in bed. VITAL SIGNS: Blood pressure is 110/53, pulse 54, respirations 16, and temperature 98.5. HEENT: Head is atraumatic. Eyes, pupils are reactive to light. No evidence of papilledema. Ears, canals are clear. Tympanic membranes are intact. She has ET tube in place. NECK: Supple. Jugular venous distention is somewhat increased. No cervical adenopathies. HEART: Regular rhythm. No gallop. LUNGS: There is very fine crackles in bases. ABDOMEN: Supple. Bowel sounds positive. No hepatosplenomegaly. EXTREMITIES: Lower extremity shows 2+ pedal edema bilaterally. NEUROLOGICAL: Difficult to assess. She is very lethargic at this point. There is no focal neurological deficit present. LABORATORY DATA: Shows WBC 5.5, hemoglobin 12, hematocrit 38, and platelets 99,000. Sodium 139, potassium 4.3, chloride 108, carbon dioxide 23, BUN 23, and creatinine 0.9. Albumin is 2.6. troponin has been 0.01 and also 0.007. Chest x-ray, as I mentioned showing apical redistribution of the vessels with some enhancement of the interstitial markings. EKG, 12-lead EKG showing normal sinus rhythm. No signs of acute ischemic changes. IMPRESSION: 1. Respiratory failure, most likely due to congestive heart failure. I doubt pneumonia in the absence of leukocytosis and purulent secretions. 2. She has history of deep venous thrombosis and pulmonary embolism, status post previous IVC filter placement. She is on anticoagulation with Coumadin. 3. Obesity. PLAN: We are going to arrange diuresis on her. The vent management is going to be performed by the Pulmonary, I am consulting Dr. Grant. We are going to obtain bilateral lower extremity venous Doppler. A pro time has been ordered and we go from there. Bernard Xie M.D. DR: NATHALY JOB#: [id number] CC:
--- NOTE | 2018-10-15 15:00 | General Progress Note ---
Assessment/Plan Status: stable Status Narrative 1) S/P respiratory failure most likely due to acute eaxacerbation of diastolic CHF 2) Dementia 3) DVT 4) Hypoprothrombinemia Plan: Vitamin K 10 mg SQ x1 Try to wean of vent Subjective Allergies: Coded Allergies: No Known Allergies (Unverified , 05/07/16) Subjective She is still on the vent, INR is 10, no [id number] , she had good diuresis, I/O -2.1 L, TTE shows EF of 55%, more alert Objective Last 24 Hour Vital Signs Date Time Temp Pulse Resp B/P (MAP) Pulse Ox O2 Delivery O2 Flow Rate FiO2 10/15/18 14:00 65 17 136/62 (86) 97 10/15/18 13:06 67 16 40 10/15/18 13:00 72 18 136/52 (80) 96 10/15/18 12:00 Mechanical Ventilator 10/15/18 12:00 63 10/15/18 12:00 40 10/15/18 12:00 98.0 69 20 143/51 (81) 97 10/15/18 11:19 68 17 40 10/15/18 11:00 64 16 116/54 (74) 97 10/15/18 10:00 65 18 145/50 (81) 99 10/15/18 09:00 62 18 120/53 (75) 100 10/15/18 08:52 66 19 40 10/15/18 08:00 98.5 63 21 142/54 (83) 100 10/15/18 08:00 61 10/15/18 08:00 40 10/15/18 08:00 Mechanical Ventilator 10/15/18 07:15 64 20 40 10/15/18 07:00 61 19 142/52 (82) 100 10/15/18 06:00 70 24 136/46 (76) 100 10/15/18 05:21 82 26 40 10/15/18 05:00 63 22 113/54 (73) 100 10/15/18 04:00 40 10/15/18 04:00 59 10/15/18 04:00 Mechanical Ventilator 10/15/18 04:00 100.1 62 20 134/46 (75) 99 10/15/18 03:30 65 16 40 10/15/18 03:00 67 16 112/51 (71) 97 10/15/18 02:00 71 18 123/55 (77) 97 10/15/18 01:30 67 16 40 10/15/18 01:00 71 17 119/52 (74) 98 10/15/18 00:00 Mechanical Ventilator 10/15/18 00:00 98.6 68 16 116/61 (79) 97 10/15/18 00:00 63 10/15/18 00:00 40 10/14/18 23:30 70 20 40 10/14/18 23:00 73 21 136/64 (88) 98 10/14/18 22:00 63 17 125/59 (81) 97 10/14/18 21:11 71 18 40 10/14/18 21:00 71 21 123/58 (79) 98 10/14/18 20:00 40 10/14/18 20:00 62 10/14/18 20:00 Mechanical Ventilator 10/14/18 20:00 98.3 55 16 107/49 (68) 97 10/14/18 19:30 74 18 40 10/14/18 19:00 66 16 135/63 (87) 100 10/14/18 18:00 55 16 119/48 (71) 100 10/14/18 17:00 54 16 124/55 (78) 100 10/14/18 16:33 71 20 40 10/14/18 16:00 66 10/14/18 16:00 Mechanical Ventilator 10/14/18 16:00 40 10/14/18 16:00 98.5 63 16 114/48 (70) 100 10/14/18 15:00 61 16 118/50 (72) 100 Intake and Output 10/14/18 10/15/18 18:59 06:59 Output Total 790 ml 1390 ml Balance -790 ml -1390 ml Output Urine Total 790 ml 1390 ml Laboratory Tests 10/14/18 22:40: Troponin I 0.000 10/15/18 04:00: Troponin I 0.003, White Blood Count 8.6#, Red Blood Count 4.32, Hemoglobin 11.5L , Hematocrit 36.4L, Mean Corpuscular Volume 84, Mean Corpuscular Hemoglobin 26.6L, Mean Corpuscular Hemoglobin Concent 31.7L, Red Cell Distribution Width 14.9H, Platelet Count 112L, Mean Platelet Volume 9.7, Neutrophils (%) (Auto) 84.2H, Lymphocytes (%) (Auto) 5.6L, Monocytes (%) (Auto) 10.1H, Eosinophils (%) (Auto) 0.0, Basophils (%) (Auto) 0.1, Prothrombin Time 87.3H, Prothromb Time International Ratio 9.4*H, Sodium Level 141, Potassium Level 3.8, Chloride Level 107, Carbon Dioxide Level 26, Anion Gap 8, Blood Urea Nitrogen 32H, Creatinine 1.1, Estimat Glomerular Filtration Rate , Glucose Level 111H, Calcium Level 8.6 10/15/18 08:10: Prothrombin Time > 100.0H, Prothromb Time International Ratio > 10.0*H Height (Feet): 5 Height (Inches): 6.00 Weight (Pounds): 181 General Appearance: WD/WN, no apparent distress, confused EENT: PERRL/EOMI Neck: non-tender, normal alignment, supple Cardiovascular: normal rate, regular rhythm Respiratory/Chest: lungs clear, normal breath sounds Abdomen: soft, no mass Edema: 2+ Leg (L), 2+ Leg (R) Neurologic: moisture meter reader II-XII grossly normal Bernard Xie MD Oct 15, 2018 15:00
--- NOTE | 2018-10-15 16:28 | Pulmonology Progress Note ---
Assessment/Plan Assessment/Plan 1. Congestive heart failure. 2. Acute respiratory failure. 3. Hypotension. 4. Possible pneumonia. CXR w infiltrates poor weaning parameters c/s sputum abx disc w RN, daughter at bedside Subjective ROS Limited/Unobtainable: Yes Allergies: Coded Allergies: No Known Allergies (Unverified , 05/07/16) Objective Last 24 Hour Vital Signs Date Time Temp Pulse Resp B/P (MAP) Pulse Ox O2 Delivery O2 Flow Rate FiO2 10/15/18 16:00 98.2 68 18 167/54 (91) 98 10/15/18 16:00 40 10/15/18 16:00 Mechanical Ventilator 10/15/18 15:00 67 17 153/53 (86) 97 10/15/18 14:00 65 17 136/62 (86) 97 10/15/18 13:06 67 16 40 10/15/18 13:00 72 18 136/52 (80) 96 10/15/18 12:00 Mechanical Ventilator 10/15/18 12:00 63 10/15/18 12:00 40 10/15/18 12:00 98.0 69 20 143/51 (81) 97 10/15/18 11:19 68 17 40 10/15/18 11:00 64 16 116/54 (74) 97 10/15/18 10:00 65 18 145/50 (81) 99 10/15/18 09:00 62 18 120/53 (75) 100 10/15/18 08:52 66 19 40 10/15/18 08:00 98.5 63 21 142/54 (83) 100 10/15/18 08:00 61 10/15/18 08:00 40 10/15/18 08:00 Mechanical Ventilator 10/15/18 07:15 64 20 40 10/15/18 07:00 61 19 142/52 (82) 100 10/15/18 06:00 70 24 136/46 (76) 100 10/15/18 05:21 82 26 40 10/15/18 05:00 63 22 113/54 (73) 100 10/15/18 04:00 40 10/15/18 04:00 59 10/15/18 04:00 Mechanical Ventilator 10/15/18 04:00 100.1 62 20 134/46 (75) 99 10/15/18 03:30 65 16 40 10/15/18 03:00 67 16 112/51 (71) 97 10/15/18 02:00 71 18 123/55 (77) 97 10/15/18 01:30 67 16 40 10/15/18 01:00 71 17 119/52 (74) 98 10/15/18 00:00 Mechanical Ventilator 10/15/18 00:00 98.6 68 16 116/61 (79) 97 10/15/18 00:00 63 10/15/18 00:00 40 10/14/18 23:30 70 20 40 10/14/18 23:00 73 21 136/64 (88) 98 10/14/18 22:00 63 17 125/59 (81) 97 10/14/18 21:11 71 18 40 10/14/18 21:00 71 21 123/58 (79) 98 10/14/18 20:00 40 10/14/18 20:00 62 10/14/18 20:00 Mechanical Ventilator 10/14/18 20:00 98.3 55 16 107/49 (68) 97 10/14/18 19:30 74 18 40 10/14/18 19:00 66 16 135/63 (87) 100 10/14/18 18:00 55 16 119/48 (71) 100 10/14/18 17:00 54 16 124/55 (78) 100 10/14/18 16:33 71 20 40 Intake and Output 10/14/18 10/15/18 18:59 06:59 Output Total 790 ml 1390 ml Balance -790 ml -1390 ml Output Urine Total 790 ml 1390 ml General Appearance: no acute distress HEENT: atraumatic Respiratory/Chest: rhonchi Cardiovascular: normal rate Microbiology Date/Time Source Procedure Growth Status 10/13/18 18:06 Blood Blood Culture - Preliminary Resulted 10/13/18 18:06 Blood Blood Culture - Preliminary NO GROWTH AFTER 24 HOURS Resulted 10/13/18 18:06 Nasal Nares Influenza Types A,B Antigen (LOULOU) - Final Complete 10/13/18 18:06 Urine,Clean Catch Urine Culture - Final Escherichia Coli Complete 10/14/18 04:00 Rectum Received Laboratory Tests 10/14/18 22:40: Troponin I 0.000 10/15/18 04:00: Troponin I 0.003, White Blood Count 8.6#, Red Blood Count 4.32, Hemoglobin 11.5L , Hematocrit 36.4L, Mean Corpuscular Volume 84, Mean Corpuscular Hemoglobin 26.6L, Mean Corpuscular Hemoglobin Concent 31.7L, Red Cell Distribution Width 14.9H, Platelet Count 112L, Mean Platelet Volume 9.7, Neutrophils (%) (Auto) 84.2H, Lymphocytes (%) (Auto) 5.6L, Monocytes (%) (Auto) 10.1H, Eosinophils (%) (Auto) 0.0, Basophils (%) (Auto) 0.1, Prothrombin Time 87.3H, Prothromb Time International Ratio 9.4*H, Sodium Level 141, Potassium Level 3.8, Chloride Level 107, Carbon Dioxide Level 26, Anion Gap 8, Blood Urea Nitrogen 32H, Creatinine 1.1, Estimat Glomerular Filtration Rate , Glucose Level 111H, Calcium Level 8.6 10/15/18 08:10: Prothrombin Time > 100.0H, Prothromb Time International Ratio > 10.0*H Current Medications Medications (Trade) Dose Ordered Sig/Arabella Route PRN Reason Start Time Stop Time Status Last Admin Dose Admin Dextrose (Dextrose 50%) 25 ml Q30M PRN IV Hypoglycemia 10/13/18 22:45 11/12/18 22:44 Dextrose (Dextrose 50%) 50 ml Q30M PRN IV Hypoglycemia 10/13/18 22:45 11/12/18 22:44 Dopamine HCl/ Dextrose 250 ml @ 0 mls/hr Q24H IV 10/13/18 21:00 11/12/18 20:59 10/13/18 21:30 Furosemide (Lasix) 40 mg EVERY 12 HOURS IV 10/14/18 09:00 11/13/18 08:59 10/15/18 08:44 Ondansetron HCl (Zofran) 4 mg Q6H PRN IVP Nausea & Vomiting 10/13/18 22:45 11/12/18 22:44 Potassium Chloride (K-Dur) 20 meq DAILY NGT 10/14/18 09:00 11/13/18 08:59 10/15/18 08:44 Tristan Grant MD Oct 15, 2018 16:28
[2018-10-15] MEDS: cefTRIAXone 1 GM in D5W 55 ML IVPB SCH (18:21)
[2018-10-15] MEDS: Azithromycin 500 MG in D5W 275 ML IV SCH (18:56)
[2018-10-15] MEDS: Dyna-Hex 2% Top Sol 2oz TOPIC SCH (20:08)
[2018-10-15] MEDS: DOPamine 400mg/250ml 250 ML IV SCH (20:22)
[2018-10-16] VITALS (25 sets, daily range): BP systolic 99–175; BP diastolic 42–71
--- NOTE | 2018-10-16 03:30 | Consultation ---
DATE OF CONSULTATION: 10/15/2018 CONSULTING PHYSICIAN: Vel Jones M.D. REQUESTING PHYSICIAN: Dr. Chetan Hull, Dr. Xie. REASON FOR CONSULTATION: Coagulopathy and hypotension. HISTORY OF PRESENT ILLNESS: This is an 88-year-old female resides at a shelter facility. She was brought into the emergency room with shortness of breath and low blood pressure. She was started on pressors and noted to have signs of acute congestive heart failure. She subsequently required intubation and mechanical ventilation. PAST MEDICAL HISTORY: Hypertension, coronary artery disease, cerebral aneurysm, dementia, and history of DVT. ALLERGIES: None. MEDICATIONS: Reviewed. SOCIAL HISTORY: Nonsmoker. No alcohol use. REVIEW OF SYSTEMS: Not obtainable from the patient. PHYSICAL EXAMINATION: VITAL SIGNS: Blood pressure 153/67, pulse 67, respiratory rate 19. LUNGS: Orally intubated. Bilateral breath sounds. Scattered rhonchi. HEART: Regular rhythm and rate. Normal S1 and S2. ABDOMEN: Soft. EXTREMITIES: No edema. LABORATORY DATA: INR is greater than 10. ABG 7.38, 37, ___. White count 8.6 and hemoglobin 11.5. Sodium 141, potassium 3.8, bicarbonate 26, BUN 32, and creatinine 1.1. Troponin is negative. Echocardiogram revealed normal ejection fraction, mild aortic stenosis with aortic valve area of 1.2. IMPRESSION: 1. Aspiration pneumonia. 2. Respiratory failure. 3. Acute on chronic diastolic congestive heart failure. 4. Sepsis with shock, now recovering. 5. 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 6. Acute DVT. PLAN: 1. Antimicrobials. 2. Respiratory hygiene. 3. Weaning efforts. 4. Ventilator support for now. 5. Stress ulcer prophylaxis. 6. Reverse coagulopathy. 7. Bleeding precautions. 8. Diuresis. 9. Resume full anticoagulation for INR 2-3. Vel Jones M.D. DRPer BALDWIN JOB#: [id number] CC: [facility]
[2018-10-16 05:47] LABS: HEMOGLOBIN 12.2 G/DL (12.0-16.0); MEAN CORPUSCULAR VOLUME 84 FL (80-99); PLATELET COUNT 91 K/UL (150-450); RED BLOOD COUNT 4.53 M/UL (4.20-5.40); RED CELL DISTRIBUTION WIDTH 14.9 % (11.6-14.8); WHITE BLOOD COUNT 8.1 K/UL (4.8-10.8)
[2018-10-16 06:06] LABS: ANION GAP 8 mmol/L (5-15); BLOOD UREA NITROGEN 35 mg/dL (7-18); CALCIUM 8.8 MG/DL (8.5-10.1); CARBON DIOXIDE 27 MMOL/L (21-32); CHLORIDE 107 MMOL/L (98-107); CREATININE 1.1 MG/DL (0.55-1.30); POTASSIUM 3.3 MMOL/L (3.5-5.1); SODIUM 142 MMOL/L (136-145)
[2018-10-16 06:14] LABS: INR 2.2 (0.9-1.1)
--- NOTE | 2018-10-16 09:31 | Diagnostic Imaging Report ---
Indication: Dyspnea Technique: One view of the chest Comparison: 10/13/2018 Findings: Stable satisfactory positions of endotracheal tube and left subclavian central venous catheter. There has been interim placement of an endotracheal tube, tip projected beyond the edge of image but probably within the gastric antrum. There has been interim clearing of previously demonstrated hazy left basilar opacity, lungs and pleural spaces currently clear. There is mild central bronchial wall thickening and central hilar vascular prominence again demonstrated. Impression: Since 10/13/2018, interim clearing of previously demonstrated left basilar hazy parenchymal disease and/or pleural fluid Satisfactory nasogastric intubation Stable tube and line positions otherwise
--- NOTE | 2018-10-16 13:51 | Pulmonology Progress Note ---
Assessment/Plan Assessment/Plan 1. Congestive heart failure. 2. Acute respiratory failure. 3. Hypotension. 4. Pneumonia. poor weaning parameters c/s sputum abx disc w RN, RT wean when better parameters Subjective ROS Limited/Unobtainable: Yes Allergies: Coded Allergies: No Known Allergies (Unverified , 05/07/16) Objective Last 24 Hour Vital Signs Date Time Temp Pulse Resp B/P (MAP) Pulse Ox O2 Delivery O2 Flow Rate FiO2 10/16/18 13:00 60 16 99/45 (63) 95 10/16/18 12:36 65 20 40 10/16/18 12:00 Mechanical Ventilator Mechanical Ventilator 10/16/18 12:00 52 10/16/18 12:00 40 10/16/18 12:00 98.0 69 18 165/53 (90) 99 10/16/18 11:00 54 16 119/44 (69) 99 10/16/18 10:52 55 16 40 10/16/18 10:00 54 16 159/56 (90) 97 10/16/18 09:00 64 16 159/59 (92) 98 10/16/18 09:00 99 10/16/18 08:54 67 16 40 10/16/18 08:00 97.5 57 16 141/60 (87) 97 10/16/18 08:00 57 10/16/18 08:00 40 10/16/18 08:00 Mechanical Ventilator Mechanical Ventilator 10/16/18 07:08 71 16 40 10/16/18 07:00 65 16 151/70 (97) 98 10/16/18 06:00 56 16 101/46 (64) 97 10/16/18 05:00 65 16 119/47 (71) 97 10/16/18 04:50 70 19 40 10/16/18 04:00 40 10/16/18 04:00 Mechanical Ventilator Mechanical Ventilator 10/16/18 04:00 98.3 74 19 153/66 (95) 97 10/16/18 04:00 78 10/16/18 03:30 74 20 40 10/16/18 03:00 68 19 149/60 (89) 97 10/16/18 02:00 70 19 133/71 (91) 97 10/16/18 01:30 65 22 40 10/16/18 01:00 98.6 71 21 133/61 (85) 97 10/16/18 00:00 66 10/16/18 00:00 67 19 147/63 (91) 98 10/16/18 00:00 Mechanical Ventilator Mechanical Ventilator 10/15/18 23:30 68 24 40 10/15/18 23:00 68 17 144/55 (84) 97 10/15/18 22:00 98.2 67 20 149/45 (79) 97 10/15/18 21:00 75 22 179/56 (97) 97 10/15/18 20:53 80 16 40 10/15/18 20:22 148/64 10/15/18 20:00 99.1 70 16 154/68 (96) 98 10/15/18 20:00 Mechanical Ventilator Mechanical Ventilator 10/15/18 20:00 40 10/15/18 20:00 72 10/15/18 19:30 82 17 40 10/15/18 19:00 66 19 149/60 (89) 98 10/15/18 18:00 67 19 153/67 (95) 97 10/15/18 17:00 69 19 147/67 (93) 98 10/15/18 16:47 67 22 40 10/15/18 16:00 98.2 68 18 167/54 (91) 98 10/15/18 16:00 40 10/15/18 16:00 65 10/15/18 16:00 Mechanical Ventilator 10/15/18 15:00 67 17 153/53 (86) 97 10/15/18 14:36 62 17 40 10/15/18 14:00 65 17 136/62 (86) 97 Intake and Output 10/15/18 10/16/18 19:00 07:00 Intake Total 55 ml Output Total 1275 ml 1350 ml Balance -1275 ml -1295 ml Intake IV Total 55 ml Output Urine Total 1275 ml 1350 ml General Appearance: no acute distress HEENT: atraumatic Respiratory/Chest: lungs clear Cardiovascular: normal rate Microbiology Date/Time Source Procedure Growth Status 10/13/18 18:06 Blood Blood Culture - Preliminary Staphylococcus Sp Coag Neg Resulted 10/13/18 18:06 Blood Blood Culture - Preliminary NO GROWTH AFTER 48 HOURS Resulted 10/14/18 04:00 Nasal Nares MRSA Culture - Final NO METHICILLIN RESISTANT STAPH AUREUS... Complete 10/13/18 18:06 Nasal Nares Influenza Types A,B Antigen (LOULOU) - Final Complete 10/13/18 18:06 Urine,Clean Catch Urine Culture - Final Escherichia Coli Complete 10/14/18 04:00 Rectum VRE Culture - Final NO VANCOMYCIN RESISTANT ENTEROCOCCUS ... Complete Laboratory Tests 10/16/18 05:00: White Blood Count 8.1, Red Blood Count 4.53, Hemoglobin 12.2, Hematocrit 38.0, Mean Corpuscular Volume 84, Mean Corpuscular Hemoglobin 26.9L, Mean Corpuscular Hemoglobin Concent 32.1, Red Cell Distribution Width 14.9H, Platelet Count 91L, Mean Platelet Volume 10.0, Neutrophils (%) (Auto) , Lymphocytes (%) (Auto) , Monocytes (%) (Auto) , Eosinophils (%) (Auto) , Basophils (%) (Auto) , Prothrombin Time 22.4H, Prothromb Time International Ratio 2.2H, Sodium Level 142, Potassium Level 3.3L, Chloride Level 107, Carbon Dioxide Level 27, Anion Gap 8, Blood Urea Nitrogen 35H, Creatinine 1.1, Estimat Glomerular Filtration Rate , Glucose Level 137H, Calcium Level 8.8, Magnesium Level 1.6L, Pro-B-Type Natriuretic Peptide 1477H Current Medications Medications (Trade) Dose Ordered Sig/Arabella Route PRN Reason Start Time Stop Time Status Last Admin Dose Admin Azithromycin 500 mg/Dextrose 275 ml @ 275 mls/hr Q24HRS IV 10/15/18 18:30 10/21/18 19:29 10/15/18 18:56 Ceftriaxone Sodium 1 gm/ Dextrose 55 ml @ 110 mls/hr Q24H IVPB 10/15/18 18:00 10/22/18 17:59 10/15/18 18:21 Chlorhexidine Gluconate (Hyacinth-Hex 2%) 1 applic DAILY@2000 TOPIC 10/15/18 20:00 11/14/18 19:59 10/15/18 20:08 Dextrose (Dextrose 50%) 25 ml Q30M PRN IV Hypoglycemia 10/13/18 22:45 11/12/18 22:44 Dextrose (Dextrose 50%) 50 ml Q30M PRN IV Hypoglycemia 10/13/18 22:45 11/12/18 22:44 Dopamine HCl/ Dextrose 250 ml @ 0 mls/hr Q24H IV 10/13/18 21:00 4/11/19 20:59 10/13/18 21:30 Furosemide (Lasix) 40 mg EVERY 12 HOURS IV 10/14/18 09:00 11/13/18 08:59 10/16/18 09:42 Ondansetron HCl (Zofran) 4 mg Q6H PRN IVP Nausea & Vomiting 10/13/18 22:45 11/12/18 22:44 Potassium Chloride (K-Dur) 20 meq DAILY NGT 10/14/18 09:00 11/13/18 08:59 10/16/18 09:42 Tristan Grant MD Oct 16, 2018 13:51
[2018-10-16] MEDS: cefTRIAXone 1 GM in D5W 55 ML IVPB SCH (18:29)
[2018-10-16] MEDS: Azithromycin 500 MG in D5W 275 ML IV SCH (18:33)
--- NOTE | 2018-10-16 19:56 | General Progress Note ---
Assessment/Plan Status Narrative 1) S/P respiratory failure most likely due to acute exacerbation of diastolic CHF 2) Dementia 3) DVT 4) Hypoprothrombinemia improved Plan: Continue diuresis Replete K and MG Work on getting her off the vent She is started on TF Subjective Allergies: Coded Allergies: No Known Allergies (Unverified , 05/07/16) Subjective She is still on the vent, INR is 2.2 post vitamin K, alert, good diuresis, K is 3.3 Objective Last 24 Hour Vital Signs Date Time Temp Pulse Resp B/P (MAP) Pulse Ox O2 Delivery O2 Flow Rate FiO2 10/16/18 18:07 65 19 164/56 (92) 100 10/16/18 18:00 62 18 175/61 (99) 100 10/16/18 17:01 51 16 40 10/16/18 17:00 67 16 154/63 (93) 99 10/16/18 16:00 98.0 63 17 159/59 (92) 99 10/16/18 15:00 50 16 107/42 (63) 97 10/16/18 14:50 55 16 40 10/16/18 14:00 52 17 118/46 (70) 98 10/16/18 13:00 60 16 99/45 (63) 95 10/16/18 12:36 65 20 40 10/16/18 12:00 Mechanical Ventilator Mechanical Ventilator 10/16/18 12:00 52 10/16/18 12:00 40 10/16/18 12:00 98.0 69 18 165/53 (90) 99 10/16/18 11:00 54 16 119/44 (69) 99 10/16/18 10:52 55 16 40 10/16/18 10:00 54 16 159/56 (90) 97 10/16/18 09:00 64 16 159/59 (92) 98 10/16/18 09:00 99 10/16/18 08:54 67 16 40 10/16/18 08:00 97.5 57 16 141/60 (87) 97 10/16/18 08:00 57 10/16/18 08:00 40 10/16/18 08:00 Mechanical Ventilator Mechanical Ventilator 10/16/18 07:08 71 16 40 10/16/18 07:00 65 16 151/70 (97) 98 10/16/18 06:00 56 16 101/46 (64) 97 10/16/18 05:00 65 16 119/47 (71) 97 10/16/18 04:50 70 19 40 10/16/18 04:00 40 10/16/18 04:00 Mechanical Ventilator Mechanical Ventilator 10/16/18 04:00 98.3 74 19 153/66 (95) 97 10/16/18 04:00 78 10/16/18 03:30 74 20 40 10/16/18 03:00 68 19 149/60 (89) 97 10/16/18 02:00 70 19 133/71 (91) 97 10/16/18 01:30 65 22 40 10/16/18 01:00 98.6 71 21 133/61 (85) 97 10/16/18 00:00 66 10/16/18 00:00 67 19 147/63 (91) 98 10/16/18 00:00 Mechanical Ventilator Mechanical Ventilator 10/15/18 23:30 68 24 40 10/15/18 23:00 68 17 144/55 (84) 97 10/15/18 22:00 98.2 67 20 149/45 (79) 97 10/15/18 21:00 75 22 179/56 (97) 97 10/15/18 20:53 80 16 40 10/15/18 20:22 148/64 10/15/18 20:00 99.1 70 16 154/68 (96) 98 10/15/18 20:00 Mechanical Ventilator Mechanical Ventilator 10/15/18 20:00 40 10/15/18 20:00 72 Intake and Output 10/15/18 10/16/18 18:59 06:59 Intake Total 55 ml Output Total 1275 ml 1405 ml Balance -1275 ml -1350 ml Intake IV Total 55 ml Output Urine Total 1275 ml 1405 ml Laboratory Tests 10/16/18 05:00: White Blood Count 8.1, Red Blood Count 4.53, Hemoglobin 12.2, Hematocrit 38.0, Mean Corpuscular Volume 84, Mean Corpuscular Hemoglobin 26.9L, Mean Corpuscular Hemoglobin Concent 32.1, Red Cell Distribution Width 14.9H, Platelet Count 91L, Mean Platelet Volume 10.0, Neutrophils (%) (Auto) , Lymphocytes (%) (Auto) , Monocytes (%) (Auto) , Eosinophils (%) (Auto) , Basophils (%) (Auto) , Prothrombin Time 22.4H, Prothromb Time International Ratio 2.2H, Sodium Level 142, Potassium Level 3.3L, Chloride Level 107, Carbon Dioxide Level 27, Anion Gap 8, Blood Urea Nitrogen 35H, Creatinine 1.1, Estimat Glomerular Filtration Rate , Glucose Level 137H, Calcium Level 8.8, Magnesium Level 1.6L, Pro-B-Type Natriuretic Peptide 1477H Height (Feet): 5 Height (Inches): 6.00 Weight (Pounds): 181 General Appearance: WD/WN, no apparent distress, alert, other - On the vent EENT: PERRL/EOMI Neck: non-tender, normal alignment, supple Cardiovascular: normal rate, regular rhythm, JVD - high Respiratory/Chest: chest wall non-tender, no respiratory distress, crackles/ rales Edema: 2+ Leg (L), 2+ Leg (R) Edema: moderate edema Neurologic: alert Bernard Xie MD Oct 16, 2018 19:56
[2018-10-16] MEDS: Dyna-Hex 2% Top Sol 2oz TOPIC SCH (20:46)
[2018-10-17] VITALS (24 sets, daily range): BP systolic 93–163; BP diastolic 49–67
--- NOTE | 2018-10-17 | Progress Note ---
DATE: 10/16/2018 CARDIOLOGY PROGRESS NOTE SUBJECTIVE: The patient remains on ventilator support. Weaning parameters have been poor. OBJECTIVE: VITAL SIGNS: Blood pressure 99/45 to 165/53, heart rate 50 to 70, respiratory rate 18 to 20. GENERAL: The patient remains afebrile. LUNGS: Reveals coarse breath sounds and rhonchi. HEART: Regular rhythm. Slow rate. Normal S1, S2. ABDOMEN: Soft. EXTREMITIES: No edema. Left weakness. LABORATORY AND DIAGNOSTIC DATA: White count 8.1, hemoglobin 12.2. Potassium 3.3, magnesium 1.6. BUN 35 and creatinine 1.1. Pro-natriuretic peptide is 1477. IMPRESSION: 1. Respiratory failure. 2. Acute on chronic diastolic congestive heart failure. 3. Hypokalemia. 4. Hypomagnesemia. 5. History of cerebrovascular accident due to aneurysm. 6. Labile blood pressure with episodes of hypotension. 7. Aspiration pneumonia. 8. Recovering sepsis. PLAN: 1. Check blood gas. 2. Check thyroid panel. 3. Replace potassium and magnesium with lot of intravenous fluids. 4. Decrease diuretic dosing with hold parameters for low range blood pressure, remains tenuous and high risk. Vel Jones M.D. DR: Leopoldo JOB#: [id number] CC:
[2018-10-17 08:03] LABS: ALANINE AMINOTRANSFERASE 37 U/L (12-78); ALBUMIN 2.8 G/DL (3.4-5.0); ALBUMIN/GLOBULIN RATIO 0.6 (1.0-2.7); ALKALINE PHOSPHATASE 59 U/L (46-116); ANION GAP 4 mmol/L (5-15); ASPARTATE AMINO TRANSFERASE 53 U/L (15-37); BILIRUBIN,TOTAL 0.5 MG/DL (0.2-1.0); BLOOD UREA NITROGEN 36 mg/dL (7-18); CALCIUM 8.9 MG/DL (8.5-10.1); CARBON DIOXIDE 31 MMOL/L (21-32); CHLORIDE 108 MMOL/L (98-107); CREATININE 0.9 MG/DL (0.55-1.30); POTASSIUM 3.3 MMOL/L (3.5-5.1); SODIUM 143 MMOL/L (136-145)
[2018-10-17] MEDS ORDERED: NS 275ml ONE (15:49)
[2018-10-17] MEDS: Azithromycin 500 MG in D5W 275 ML IV SCH (17:31)
[2018-10-17] MEDS: cefTRIAXone 1 GM in D5W 55 ML IVPB SCH (17:31)
--- NOTE | 2018-10-17 17:56 | Pulmonolgy Critical Care Note ---
Critical Care - Asmt/Plan Assessment/Plan: Assessment/Plan 1. Congestive heart failure. 2. Acute respiratory failure on vent 3. Hypotension. 4. Pneumonia. 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 Discussed with: nurses Critical Care - Objective Last 24 Hour Vital Signs Date Time Temp Pulse Resp B/P (MAP) Pulse Ox O2 Delivery O2 Flow Rate FiO2 10/17/18 17:05 68 18 40 10/17/18 17:00 68 18 142/63 (89) 99 10/17/18 16:00 92 10/17/18 16:00 40 10/17/18 16:00 Mechanical Ventilator Mechanical Ventilator 10/17/18 16:00 98.7 63 16 120/65 (83) 98 10/17/18 15:00 63 16 93/49 (64) 98 10/17/18 14:49 66 16 40 10/17/18 14:16 40 10/17/18 14:15 40 10/17/18 14:00 76 29 158/67 (97) 97 10/17/18 13:05 67 32 40 10/17/18 13:00 74 21 150/63 (92) 100 10/17/18 12:40 40 10/17/18 12:00 40 10/17/18 12:00 62 10/17/18 12:00 Mechanical Ventilator Mechanical Ventilator 10/17/18 12:00 98.4 68 30 155/49 (84) 97 10/17/18 11:00 67 29 145/58 (87) 98 10/17/18 10:50 40 10/17/18 10:48 63 29 40 10/17/18 10:00 71 29 163/61 (95) 99 10/17/18 09:12 65 29 40 10/17/18 09:10 40 10/17/18 09:08 100 10/17/18 09:00 61 17 152/56 (88) 100 10/17/18 08:00 Mechanical Ventilator Mechanical Ventilator 10/17/18 08:00 40 10/17/18 08:00 98.6 52 16 131/52 (78) 100 10/17/18 08:00 72 10/17/18 07:45 57 16 40 10/17/18 07:00 58 16 155/58 (90) 99 10/17/18 06:00 56 22 131/55 (80) 100 10/17/18 05:11 60 20 40 10/17/18 05:00 59 22 160/59 (92) 100 10/17/18 04:00 63 10/17/18 04:00 40 10/17/18 04:00 98.1 61 20 149/61 (90) 99 10/17/18 04:00 Mechanical Ventilator Mechanical Ventilator 10/17/18 03:00 62 22 151/57 (88) 100 10/17/18 02:56 70 24 40 10/17/18 02:00 61 21 154/61 (92) 100 10/17/18 01:03 66 19 40 10/17/18 01:00 65 20 156/52 (86) 100 10/17/18 00:00 56 10/17/18 00:00 98.0 61 19 137/55 (82) 99 10/17/18 00:00 Mechanical Ventilator Mechanical Ventilator 10/16/18 23:00 61 20 146/55 (85) 100 10/16/18 23:00 57 17 40 10/16/18 22:00 84 21 157/57 (90) 100 10/16/18 21:15 50 16 40 10/16/18 21:00 51 16 111/51 (71) 95 10/16/18 20:00 64 10/16/18 20:00 67 22 151/62 (91) 100 10/16/18 20:00 40 10/16/18 20:00 Mechanical Ventilator Mechanical Ventilator 10/16/18 19:25 59 16 40 10/16/18 19:00 98.0 58 16 130/56 (80) 99 10/16/18 18:07 65 19 164/56 (92) 100 10/16/18 18:00 62 18 175/61 (99) 100 Status: awake Condition: improving Lungs: rhonchi Heart: HR/BP stable Abdomen: soft, non-tender Extremities: edema Objective: Current Medications Medications (Trade) Dose Ordered Sig/Arabella Route PRN Reason Start Time Stop Time Status Last Admin Dose Admin Azithromycin 500 mg/Dextrose 275 ml @ 275 mls/hr Q24HRS IV 10/15/18 18:30 10/21/18 19:29 10/17/18 17:31 Ceftriaxone Sodium 1 gm/ Dextrose 55 ml @ 110 mls/hr Q24H IVPB 10/15/18 18:00 10/22/18 17:59 10/17/18 17:31 Chlorhexidine Gluconate (Hyacinth-Hex 2%) 1 applic DAILY@2000 TOPIC 10/15/18 20:00 11/14/18 19:59 10/16/18 20:46 Dextrose (Dextrose 50%) 25 ml Q30M PRN IV Hypoglycemia 10/13/18 22:45 11/12/18 22:44 Dextrose (Dextrose 50%) 50 ml Q30M PRN IV Hypoglycemia 10/13/18 22:45 11/12/18 22:44 Furosemide (Lasix) 40 mg DAILY IV 10/17/18 09:00 11/16/18 08:59 10/17/18 09:40 Magnesium Oxide (Mag-Ox 400mg) 400 mg THREE TIMES A DAY ORAL 10/17/18 18:00 11/16/18 17:59 10/17/18 18:29 Ondansetron HCl (Zofran) 4 mg Q6H PRN IVP Nausea & Vomiting 10/13/18 22:45 11/12/18 22:44 Potassium Chloride (K-Dur) 20 meq TID NGT 10/17/18 18:00 11/16/18 17:59 10/17/18 18:29 Laboratory Tests Test 10/17/18 06:06 10/17/18 08:45 10/17/18 11:35 10/17/18 14:20 Sodium Level 143 MMOL/L (136-145) Potassium Level 3.3 MMOL/L (3.5-5.1) L Chloride Level 108 MMOL/L (98-107) H Carbon Dioxide Level 31 MMOL/L (21-32) Anion Gap 4 mmol/L (5-15) L Blood Urea Nitrogen 36 mg/dL (7-18) H Creatinine 0.9 MG/DL (0.55-1.30) Estimat Glomerular Filtration Rate mL/min (>60) Glucose Level 142 MG/DL (74-106) H Calcium Level 8.9 MG/DL (8.5-10.1) Total Bilirubin 0.5 MG/DL (0.2-1.0) Aspartate Amino Transf (AST/SGOT) 53 U/L (15-37) H Alanine Aminotransferase (ALT/SGPT) 37 U/L (12-78) Alkaline Phosphatase 59 U/L (46-116) Total Protein 7.3 G/DL (6.4-8.2) Albumin 2.8 G/DL (3.4-5.0) L Globulin 4.5 g/dL Albumin/Globulin Ratio 0.6 (1.0-2.7) L Thyroid Stimulating Hormone (TSH) 0.327 uiU/mL (0.358-3.740) Arterial Blood pH 7.464 (7.350-7.450) 7.465 (7.350-7.450) 7.451 (7.350-7.450) Arterial Blood Partial Pressure CO2 39.2 mmHg (35.0-45.0) 43.3 mmHg (35.0-45.0) 46.4 mmHg (35.0-45.0) H Arterial Blood Partial Pressure O2 108.7 mmHg (75.0-100.0) H 93.5 mmHg (75.0-100.0) 79.8 mmHg (75.0-100.0) Arterial Blood HCO3 27.5 mmol/L (22.0-26.0) H 30.6 mmol/L (22.0-26.0) H 31.6 mmol/L (22.0-26.0) H Arterial Blood Oxygen Saturation 97.5 % (95-100) 97.1 % (95-100) 95.6 % (95-100) Arterial Blood Base Excess 3.6 (-2-2) H 6.1 (-2-2) H 6.7 (-2-2) H Roberto Test Positive Positive Positive Critical Care - Subjective ROS Limited/Unobtainable: Yes Condition: critical EKG Rhythm: Sinus Rhythm FI02: 40 Vent Support Breath Rate: 16 Vent Support Mode: AC Vent Tidal Volume: 500 Sputum Amount: Small PEEP: 0.0 PIP: 23 Tube Feeding Amount: 50 I&O: Intake and Output 10/16/18 10/17/18 19:00 07:00 Intake Total 410 ml 805 ml Output Total 775 ml 420 ml Balance -365 ml 385 ml IV Total 210 ml 275 ml Tube Feeding 200 ml 530 ml Output Urine Total 775 ml 420 ml CXR: 10/16 improved binfiltrates effusions ET-Tube: 7.5 ET Position: 20 Labs: weaned dotday to ps of 8 for 4 hours then back on ac rr incrased to 30's no cp nv or bleeding toleratign tf no fever noted minimal secretions no pressors Margaret Forte DO Oct 17, 2018 17:56
--- NOTE | 2018-10-17 17:59 | General Progress Note ---
Assessment/Plan Problem List: (1) Hypomagnesemia ICD Codes: E83.42 - Hypomagnesemia SNOMED: 628160956 (2) HCAP (healthcare-associated pneumonia) ICD Codes: J18.9 - Pneumonia, unspecified organism SNOMED: 186931643 (3) Dyspnea ICD Codes: R06.00 - Dyspnea, unspecified SNOMED: 621528883 (4) Hypokalemia ICD Codes: E87.6 - Hypokalemia SNOMED: 53150929 (5) Alzheimer's dementia ICD Codes: G30.9 - Alzheimer's disease, unspecified SNOMED: 07472181 (6) HTN (hypertension) ICD Codes: I10 - Essential (primary) hypertension SNOMED: 76857587 (7) CVA (cerebral vascular accident) ICD Codes: I63.9 - Cerebral infarction, unspecified SNOMED: 670773179 (8) Respiratory distress ICD Codes: R06.00 - Dyspnea, unspecified SNOMED: 883612494 (9) Peripheral edema ICD Codes: R60.9 - Edema, unspecified SNOMED: 028576800, 667749329 (10) Congestive heart failure (CHF) ICD Codes: I50.9 - Heart failure, unspecified SNOMED: 62839905 (11) Respiratory failure ICD Codes: J96.90 - Respiratory failure, unspecified, unspecified whether with hypoxia or hypercapnia SNOMED: 675805503, 859893233 (12) Cellulitis of leg ICD Codes: L03.119 - Cellulitis of unspecified part of limb SNOMED: 952231050 Assessment/Plan still on vent, peep, frail cxr better, continue iv antibiotics, replace K, Mg, titration cardiac meds, full code per daughter Subjective ROS Limited/Unobtainable: Yes Allergies: Coded Allergies: No Known Allergies (Unverified , 05/07/16) Objective Last 24 Hour Vital Signs Date Time Temp Pulse Resp B/P (MAP) Pulse Ox O2 Delivery O2 Flow Rate FiO2 10/17/18 17:05 68 18 40 10/17/18 17:00 68 18 142/63 (89) 99 10/17/18 16:00 92 10/17/18 16:00 40 10/17/18 16:00 Mechanical Ventilator Mechanical Ventilator 10/17/18 16:00 98.7 63 16 120/65 (83) 98 10/17/18 15:00 63 16 93/49 (64) 98 10/17/18 14:49 66 16 40 10/17/18 14:16 40 10/17/18 14:15 40 10/17/18 14:00 76 29 158/67 (97) 97 10/17/18 13:05 67 32 40 10/17/18 13:00 74 21 150/63 (92) 100 10/17/18 12:40 40 10/17/18 12:00 40 10/17/18 12:00 62 10/17/18 12:00 Mechanical Ventilator Mechanical Ventilator 10/17/18 12:00 98.4 68 30 155/49 (84) 97 10/17/18 11:00 67 29 145/58 (87) 98 10/17/18 10:50 40 10/17/18 10:48 63 29 40 10/17/18 10:00 71 29 163/61 (95) 99 10/17/18 09:12 65 29 40 10/17/18 09:10 40 10/17/18 09:08 100 10/17/18 09:00 61 17 152/56 (88) 100 10/17/18 08:00 Mechanical Ventilator Mechanical Ventilator 10/17/18 08:00 40 10/17/18 08:00 98.6 52 16 131/52 (78) 100 10/17/18 08:00 72 10/17/18 07:45 57 16 40 10/17/18 07:00 58 16 155/58 (90) 99 10/17/18 06:00 56 22 131/55 (80) 100 10/17/18 05:11 60 20 40 10/17/18 05:00 59 22 160/59 (92) 100 10/17/18 04:00 63 10/17/18 04:00 40 10/17/18 04:00 98.1 61 20 149/61 (90) 99 10/17/18 04:00 Mechanical Ventilator Mechanical Ventilator 10/17/18 03:00 62 22 151/57 (88) 100 10/17/18 02:56 70 24 40 10/17/18 02:00 61 21 154/61 (92) 100 10/17/18 01:03 66 19 40 10/17/18 01:00 65 20 156/52 (86) 100 10/17/18 00:00 56 10/17/18 00:00 98.0 61 19 137/55 (82) 99 10/17/18 00:00 Mechanical Ventilator Mechanical Ventilator 10/16/18 23:00 61 20 146/55 (85) 100 10/16/18 23:00 57 17 40 10/16/18 22:00 84 21 157/57 (90) 100 10/16/18 21:15 50 16 40 10/16/18 21:00 51 16 111/51 (71) 95 10/16/18 20:00 64 10/16/18 20:00 67 22 151/62 (91) 100 10/16/18 20:00 40 10/16/18 20:00 Mechanical Ventilator Mechanical Ventilator 10/16/18 19:25 59 16 40 10/16/18 19:00 98.0 58 16 130/56 (80) 99 10/16/18 18:07 65 19 164/56 (92) 100 10/16/18 18:00 62 18 175/61 (99) 100 Intake and Output 10/16/18 10/17/18 19:00 07:00 Intake Total 410 ml 805 ml Output Total 775 ml 420 ml Balance -365 ml 385 ml IV Total 210 ml 275 ml Tube Feeding 200 ml 530 ml Output Urine Total 775 ml 420 ml Laboratory Tests 10/17/18 06:06: Sodium Level 143, Potassium Level 3.3L, Chloride Level 108H, Carbon Dioxide Level 31, Anion Gap 4L, Blood Urea Nitrogen 36H, Creatinine 0.9, Estimat Glomerular Filtration Rate , Glucose Level 142H, Calcium Level 8.9, Total Bilirubin 0.5, Aspartate Amino Transf (AST/SGOT) 53H, Alanine Aminotransferase ( ALT/SGPT) 37, Alkaline Phosphatase 59, Total Protein 7.3, Albumin 2.8L, Globulin 4.5, Albumin/Globulin Ratio 0.6L, Thyroid Stimulating Hormone (TSH) 0.327L 10/17/18 08:45: Arterial Blood pH 7.464H, Arterial Blood Partial Pressure CO2 39.2, Arterial Blood Partial Pressure O2 108.7H, Arterial Blood HCO3 27.5H, Arterial Blood Oxygen Saturation 97.5, Arterial Blood Base Excess 3.6H, Roberto Test Positive 10/17/18 11:35: Arterial Blood pH 7.465H, Arterial Blood Partial Pressure CO2 43.3, Arterial Blood Partial Pressure O2 93.5, Arterial Blood HCO3 30.6H, Arterial Blood Oxygen Saturation 97.1, Arterial Blood Base Excess 6.1H, Roberto Test Positive 10/17/18 14:20: Arterial Blood pH 7.451H, Arterial Blood Partial Pressure CO2 46.4H, Arterial Blood Partial Pressure O2 79.8, Arterial Blood HCO3 31.6H, Arterial Blood Oxygen Saturation 95.6, Arterial Blood Base Excess 6.7H, Roberto Test Positive Height (Feet): 5 Height (Inches): 6.00 Weight (Pounds): 182 General Appearance: mild distress, other - awake weak on vent EENT: normal ENT inspection Neck: normal alignment Cardiovascular: regular rhythm Respiratory/Chest: accessory muscle use, rhonchi - bilaterally Abdomen: non tender, soft Edema: 1+ Leg (L), 1+ Leg (R) 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
[2018-10-17] MEDS: Magnesium Oxide 400mg tab ORAL SCH (18:29)
[2018-10-17] MEDS: Dyna-Hex 2% Top Sol 2oz TOPIC SCH (20:11)
[2018-10-17] MEDS ORDERED: Zemuron 50mg/5ml Inj IV ONE (22:34)
[2018-10-17] MEDS ORDERED: Etomidate 40mg/20ml Inj IV ONE (22:34)
[2018-10-17] MEDS ORDERED: Succinylcholine 20mg/ml 10ml vial ONE (22:34)
[2018-10-18] VITALS (24 sets, daily range): BP systolic 100–159; BP diastolic 46–71
[2018-10-18] MEDS ORDERED: Warfarin Sodium 3mg ORAL SCH ×2 (00:15→09:00)
--- NOTE | 2018-10-18 03:45 | Progress Note ---
DATE: 10/17/2018 CARDIOLOGY PROGRESS NOTE SUBJECTIVE: The patient is on weaning efforts. Continue to require nebulizer therapy and aggressive suctioning. OBJECTIVE: VITAL SIGNS: Blood pressure 142/63, pulse 68, respirations 18. LUNGS: Coarse breath sounds. Scattered rhonchi. HEART: Regular rhythm and rate. Normal S1, S2. ABDOMEN: Soft. EXTREMITIES: No edema. Monitored rhythm, sinus with rare episodes of bradycardia. Cultures of the urine E. coli. ABG, 7.45, 46, 80. Sodium 143, potassium 3.3, bicarbonate 31, BUN 36, creatinine 0.9. Albumin 2.8. Magnesium yesterday 1.6. IMPRESSION: 1. Respiratory failure. 2. Hypokalemia. 3. Hypomagnesemia. 4. Dysphagia. 5. Aspiration pneumonia. 6. Cerebrovascular disease with left hemiparesis. 7. Hypertensive heart disease. 8. Acute on chronic diastolic congestive heart failure, improved. PLAN: 1. Ventilator support. 2. Weaning as able. 3. Replace the electrolytes. 4. Diuresis based on clinical parameters. Vel Jones M.D. DR: DEISY JOB#: [id number] CC:
[2018-10-18 06:18] LABS: INR 1.1 (0.9-1.1)
[2018-10-18 06:19] LABS: BASOPHILS % (AUTO) 0.2 % (0.0-2.0); EOSINOPHILS % (AUTO) 0.2 % (0.0-3.0); HEMATOCRIT 36.1 % (37.0-47.0); HEMOGLOBIN 11.5 G/DL (12.0-16.0); LYMPHOCYTES % (AUTO) 10.2 % (20.0-45.0); MEAN CORPUSCULAR VOLUME 83 FL (80-99); MONOCYTES % (AUTO) 11.6 % (1.0-10.0); NEUTROPHILS % (AUTO) 77.8 % (45.0-75.0); PLATELET COUNT 104 K/UL (150-450); RED BLOOD COUNT 4.34 M/UL (4.20-5.40); RED CELL DISTRIBUTION WIDTH 14.7 % (11.6-14.8)
[2018-10-18 06:33] LABS: ANION GAP 3 mmol/L (5-15); BLOOD UREA NITROGEN 34 mg/dL (7-18); CALCIUM 8.7 MG/DL (8.5-10.1); CARBON DIOXIDE 34 MMOL/L (21-32); CHLORIDE 108 MMOL/L (98-107); CREATININE 0.9 MG/DL (0.55-1.30); POTASSIUM 3.2 MMOL/L (3.5-5.1); SODIUM 145 MMOL/L (136-145)
--- NOTE | 2018-10-18 07:02 | Pulmonolgy Critical Care Note ---
Critical Care - Asmt/Plan Assessment/Plan: Assessment/Plan 1. Congestive heart failure. 2. Acute respiratory failure on vent 3. Hypotension. 4. Pneumonia. 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 with: nurses Critical Care - Objective Last 24 Hour Vital Signs Date Time Temp Pulse Resp B/P (MAP) Pulse Ox O2 Delivery O2 Flow Rate FiO2 10/18/18 06:00 65 18 136/52 (80) 97 10/18/18 05:39 64 16 35 40 10/18/18 05:00 56 16 120/55 (76) 95 10/18/18 04:00 66 10/18/18 04:00 Mechanical Ventilator Mechanical Ventilator 10/18/18 04:00 35 10/18/18 04:00 56 16 114/49 (70) 96 10/18/18 03:28 61 16 35 40 10/18/18 03:00 63 17 150/55 (86) 97 10/18/18 02:00 64 17 145/64 (91) 96 10/18/18 01:23 66 21 35 40 10/18/18 01:00 69 18 118/70 (86) 98 10/18/18 00:00 54 10/18/18 00:00 Mechanical Ventilator Mechanical Ventilator 10/18/18 00:00 35 10/18/18 00:00 63 17 156/54 (88) 98 10/17/18 23:03 64 17 35 40 10/17/18 23:00 58 16 137/53 (81) 95 10/17/18 22:00 65 20 150/62 (91) 98 10/17/18 21:00 66 17 111/51 (71) 97 10/17/18 20:53 58 16 35 40 10/17/18 20:00 66 10/17/18 20:00 Mechanical Ventilator Mechanical Ventilator 10/17/18 20:00 35 10/17/18 20:00 65 19 128/56 (80) 97 10/17/18 19:27 62 23 35 40 10/17/18 19:00 68 20 128/62 (84) 97 10/17/18 18:00 65 16 94/49 (64) 96 10/17/18 17:05 68 18 40 10/17/18 17:00 68 18 142/63 (89) 99 10/17/18 16:00 92 10/17/18 16:00 40 10/17/18 16:00 Mechanical Ventilator Mechanical Ventilator 10/17/18 16:00 98.7 63 16 120/65 (83) 98 10/17/18 15:00 63 16 93/49 (64) 98 10/17/18 14:49 66 16 40 10/17/18 14:16 40 10/17/18 14:15 40 10/17/18 14:00 76 29 158/67 (97) 97 10/17/18 13:05 67 32 40 10/17/18 13:00 74 21 150/63 (92) 100 10/17/18 12:40 40 10/17/18 12:00 40 10/17/18 12:00 62 10/17/18 12:00 Mechanical Ventilator Mechanical Ventilator 10/17/18 12:00 98.4 68 30 155/49 (84) 97 10/17/18 11:00 67 29 145/58 (87) 98 10/17/18 10:50 40 10/17/18 10:48 63 29 40 10/17/18 10:00 71 29 163/61 (95) 99 10/17/18 09:12 65 29 40 10/17/18 09:10 40 10/17/18 09:08 100 10/17/18 09:00 61 17 152/56 (88) 100 10/17/18 08:00 Mechanical Ventilator Mechanical Ventilator 10/17/18 08:00 40 10/17/18 08:00 98.6 52 16 131/52 (78) 100 10/17/18 08:00 72 10/17/18 07:45 57 16 40 Status: awake Condition: improving Lungs: rhonchi Heart: HR/BP stable Abdomen: soft, non-tender Extremities: edema Objective: Current Medications Medications (Trade) Dose Ordered Sig/Arabella Route PRN Reason Start Time Stop Time Status Last Admin Dose Admin Azithromycin 500 mg/Dextrose 275 ml @ 275 mls/hr Q24HRS IV 10/15/18 18:30 10/21/18 19:29 10/17/18 17:31 Ceftriaxone Sodium 1 gm/ Dextrose 55 ml @ 110 mls/hr Q24H IVPB 10/15/18 18:00 10/22/18 17:59 10/17/18 17:31 Chlorhexidine Gluconate (Hyacinth-Hex 2%) 1 applic DAILY@2000 TOPIC 10/15/18 20:00 11/14/18 19:59 10/16/18 20:46 Dextrose (Dextrose 50%) 25 ml Q30M PRN IV Hypoglycemia 10/13/18 22:45 11/12/18 22:44 Dextrose (Dextrose 50%) 50 ml Q30M PRN IV Hypoglycemia 10/13/18 22:45 11/12/18 22:44 Furosemide (Lasix) 40 mg DAILY IV 10/17/18 09:00 11/16/18 08:59 10/17/18 09:40 Magnesium Oxide (Mag-Ox 400mg) 400 mg THREE TIMES A DAY ORAL 10/17/18 18:00 11/16/18 17:59 10/17/18 18:29 Ondansetron HCl (Zofran) 4 mg Q6H PRN IVP Nausea & Vomiting 10/13/18 22:45 11/12/18 22:44 Potassium Chloride (K-Dur) 20 meq TID NGT 10/17/18 18:00 11/16/18 17:59 10/17/18 18:29 Laboratory Tests Test 10/17/18 06:06 10/17/18 08:45 10/17/18 11:35 10/17/18 14:20 Sodium Level 143 MMOL/L (136-145) Potassium Level 3.3 MMOL/L (3.5-5.1) L Chloride Level 108 MMOL/L (98-107) H Carbon Dioxide Level 31 MMOL/L (21-32) Anion Gap 4 mmol/L (5-15) L Blood Urea Nitrogen 36 mg/dL (7-18) H Creatinine 0.9 MG/DL (0.55-1.30) Estimat Glomerular Filtration Rate mL/min (>60) Glucose Level 142 MG/DL (74-106) H Calcium Level 8.9 MG/DL (8.5-10.1) Total Bilirubin 0.5 MG/DL (0.2-1.0) Aspartate Amino Transf (AST/SGOT) 53 U/L (15-37) H Alanine Aminotransferase (ALT/SGPT) 37 U/L (12-78) Alkaline Phosphatase 59 U/L (46-116) Total Protein 7.3 G/DL (6.4-8.2) Albumin 2.8 G/DL (3.4-5.0) L Globulin 4.5 g/dL Albumin/Globulin Ratio 0.6 (1.0-2.7) L Thyroid Stimulating Hormone (TSH) 0.327 uiU/mL (0.358-3.740) Arterial Blood pH 7.464 (7.350-7.450) 7.465 (7.350-7.450) 7.451 (7.350-7.450) Arterial Blood Partial Pressure CO2 39.2 mmHg (35.0-45.0) 43.3 mmHg (35.0-45.0) 46.4 mmHg (35.0-45.0) H Arterial Blood Partial Pressure O2 108.7 mmHg (75.0-100.0) H 93.5 mmHg (75.0-100.0) 79.8 mmHg (75.0-100.0) Arterial Blood HCO3 27.5 mmol/L (22.0-26.0) H 30.6 mmol/L (22.0-26.0) H 31.6 mmol/L (22.0-26.0) H Arterial Blood Oxygen Saturation 97.5 % (95-100) 97.1 % (95-100) 95.6 % (95-100) Arterial Blood Base Excess 3.6 (-2-2) H 6.1 (-2-2) H 6.7 (-2-2) H Roberto Test Positive Positive Positive Micro: Microbiology Date/Time Source Procedure Growth Status 10/17/18 03:00 Sputum Induced Gram Stain - Final Resulted 10/17/18 03:00 Sputum Induced Sputum Culture Pending Resulted Critical Care - Subjective ROS Limited/Unobtainable: Yes Condition: improving FI02: 35 Vent Support Breath Rate: 16 Vent Support Mode: AC Vent Tidal Volume: 500 Sputum Amount: Small PEEP: 0.0 PIP: 22 Tube Feeding Amount: 50 I&O: Intake and Output 10/17/18 10/18/18 19:00 07:00 Intake Total 1030 ml 550 ml Output Total 2500 ml 360 ml Balance -1470 ml 190 ml Intake Free Water 100 ml IV Total 330 ml Tube Feeding 600 ml 550 ml Output Urine Total 2500 ml 360 ml Subjective: awake to wean today no cp nv or bleeding no fever cxr pending this am ET-Tube: 7.5 ET Position: 20 Labs: Microbiology Date/Time Source Procedure Growth Status 10/17/18 03:00 Sputum Induced Gram Stain - Final Resulted 10/17/18 03:00 Sputum Induced Sputum Culture Pending Resulted Current Medications Medications (Trade) Dose Ordered Sig/Arabella Route PRN Reason Start Time Stop Time Status Last Admin Dose Admin Azithromycin 500 mg/Dextrose 275 ml @ 275 mls/hr Q24HRS IV 10/15/18 18:30 10/21/18 19:29 10/17/18 17:31 Ceftriaxone Sodium 1 gm/ Dextrose 55 ml @ 110 mls/hr Q24H IVPB 10/15/18 18:00 10/22/18 17:59 10/17/18 17:31 Chlorhexidine Gluconate (Hyacinth-Hex 2%) 1 applic DAILY@2000 TOPIC 10/15/18 20:00 11/14/18 19:59 10/17/18 20:11 Dextrose (Dextrose 50%) 25 ml Q30M PRN IV Hypoglycemia 10/13/18 22:45 11/12/18 22:44 Dextrose (Dextrose 50%) 50 ml Q30M PRN IV Hypoglycemia 10/13/18 22:45 11/12/18 22:44 Furosemide (Lasix) 40 mg DAILY IV 10/17/18 09:00 11/16/18 08:59 10/17/18 09:40 Magnesium Oxide (Mag-Ox 400mg) 400 mg THREE TIMES A DAY ORAL 10/17/18 18:00 11/16/18 17:59 10/17/18 18:29 Ondansetron HCl (Zofran) 4 mg Q6H PRN IVP Nausea & Vomiting 10/13/18 22:45 11/12/18 22:44 Potassium Chloride (K-Dur) 20 meq TID NGT 10/17/18 18:00 11/16/18 17:59 10/17/18 18:29 Warfarin Sodium (Coumadin per pharmacy) 1 ea DAILY PRN MISC Per rx protocol 10/18/18 00:15 11/17/18 00:14 UNV Warfarin Sodium (Coumadin) 3 mg ONCE ONCE ORAL 10/18/18 00:30 10/18/18 00:31 UNV Laboratory Tests Test 10/17/18 08:45 10/17/18 11:35 10/17/18 14:20 10/18/18 05:28 Arterial Blood pH 7.464 (7.350-7.450) 7.465 (7.350-7.450) 7.451 (7.350-7.450) Arterial Blood Partial Pressure CO2 39.2 mmHg (35.0-45.0) 43.3 mmHg (35.0-45.0) 46.4 mmHg (35.0-45.0) H Arterial Blood Partial Pressure O2 108.7 mmHg (75.0-100.0) H 93.5 mmHg (75.0-100.0) 79.8 mmHg (75.0-100.0) Arterial Blood HCO3 27.5 mmol/L (22.0-26.0) H 30.6 mmol/L (22.0-26.0) H 31.6 mmol/L (22.0-26.0) H Arterial Blood Oxygen Saturation 97.5 % (95-100) 97.1 % (95-100) 95.6 % (95-100) Arterial Blood Base Excess 3.6 (-2-2) H 6.1 (-2-2) H 6.7 (-2-2) H Roberto Test Positive Positive Positive White Blood Count 9.0 K/UL (4.8-10.8) Red Blood Count 4.34 M/UL (4.20-5.40) Hemoglobin 11.5 G/DL (12.0-16.0) L Hematocrit 36.1 % (37.0-47.0) L Mean Corpuscular Volume 83 FL (80-99) Mean Corpuscular Hemoglobin 26.4 PG (27.0-31.0) L Mean Corpuscular Hemoglobin Concent 31.8 G/DL (32.0-36.0) L Red Cell Distribution Width 14.7 % (11.6-14.8) Platelet Count 104 K/UL (150-450) L Mean Platelet Volume 10.0 FL (6.5-10.1) Neutrophils (%) (Auto) 77.8 % (45.0-75.0) H Lymphocytes (%) (Auto) 10.2 % (20.0-45.0) L Monocytes (%) (Auto) 11.6 % (1.0-10.0) H Eosinophils (%) (Auto) 0.2 % (0.0-3.0) Basophils (%) (Auto) 0.2 % (0.0-2.0) Prothrombin Time 11.7 SEC (9.30-11.50) H Prothromb Time International Ratio 1.1 (0.9-1.1) Sodium Level 145 MMOL/L (136-145) Potassium Level 3.2 MMOL/L (3.5-5.1) L Chloride Level 108 MMOL/L (98-107) H Carbon Dioxide Level 34 MMOL/L (21-32) H Anion Gap 3 mmol/L (5-15) L Blood Urea Nitrogen 34 mg/dL (7-18) H Creatinine 0.9 MG/DL (0.55-1.30) Estimat Glomerular Filtration Rate mL/min (>60) Glucose Level 149 MG/DL (74-106) H Calcium Level 8.7 MG/DL (8.5-10.1) Magnesium Level 1.9 MG/DL (1.8-2.4) Pro-B-Type Natriuretic Peptide 2035 pg/mL (0-125) H Margaret Forte DO Oct 18, 2018 07:02
[2018-10-18] MEDS: Magnesium Oxide 400mg tab ORAL SCH ×3 (09:30→18:26)
--- NOTE | 2018-10-18 10:02 | Diagnostic Imaging Report ---
EXAM: XR Chest, 1 View CLINICAL HISTORY: ABN CHST TECHNIQUE: Frontal view of the chest. COMPARISON: Chest x-rays dated 10/16/18 FINDINGS: Lungs: Unchanged appearance of increased interstitial markings. The lungs are otherwise clear without focal consolidation. Pleural space: Unremarkable. The costophrenic angles are sharp. No visible pneumothorax. Heart: Unremarkable. No cardiomegaly. Mediastinum: Unremarkable. Bones/joints: Degenerative changes throughout the visualized spine and shoulder joints. Vasculature: Atherosclerotic calcifications within the aortic arch. Tubes, lines and devices: Endotracheal tube tip 4.2 cm above the priscilla. NG tube extends below the diaphragm and its tip is not visualized. IMPRESSION: Unchanged appearance of increased interstitial markings. This is nonspecific but may suggest bronchitis or interstitial pneumonitis. No focal consolidation.
--- NOTE | 2018-10-18 10:47 | General Progress Note ---
Assessment/Plan Problem List: (1) Hypomagnesemia ICD Codes: E83.42 - Hypomagnesemia SNOMED: 372720950 (2) HCAP (healthcare-associated pneumonia) ICD Codes: J18.9 - Pneumonia, unspecified organism SNOMED: 221078792 (3) Dyspnea ICD Codes: R06.00 - Dyspnea, unspecified SNOMED: 324011349 (4) Hypokalemia ICD Codes: E87.6 - Hypokalemia SNOMED: 71854659 (5) Alzheimer's dementia ICD Codes: G30.9 - Alzheimer's disease, unspecified SNOMED: 36321781 (6) HTN (hypertension) ICD Codes: I10 - Essential (primary) hypertension SNOMED: 41403880 (7) CVA (cerebral vascular accident) ICD Codes: I63.9 - Cerebral infarction, unspecified SNOMED: 615026842 (8) Respiratory distress ICD Codes: R06.00 - Dyspnea, unspecified SNOMED: 638753077 (9) Peripheral edema ICD Codes: R60.9 - Edema, unspecified SNOMED: 544505594, 417094490 (10) Congestive heart failure (CHF) ICD Codes: I50.9 - Heart failure, unspecified SNOMED: 02394170 (11) Respiratory failure ICD Codes: J96.90 - Respiratory failure, unspecified, unspecified whether with hypoxia or hypercapnia SNOMED: 168002417, 932902762 (12) Cellulitis of leg ICD Codes: L03.119 - Cellulitis of unspecified part of limb SNOMED: 346402216 Assessment/Plan still on vent, cpap trials , frail cxr better, continue iv antibiotics, replace K, Mg, titration cardiac meds, full code per daughter Subjective ROS Limited/Unobtainable: Yes Allergies: Coded Allergies: No Known Allergies (Unverified , 05/07/16) Objective Last 24 Hour Vital Signs Date Time Temp Pulse Resp B/P (MAP) Pulse Ox O2 Delivery O2 Flow Rate FiO2 10/18/18 10:30 74 32 30 10/18/18 10:00 79 27 105/46 (65) 96 10/18/18 09:30 30 10/18/18 09:22 100 10/18/18 09:13 30 30 10/18/18 09:04 60 16 30 10/18/18 09:00 75 32 150/61 (90) 96 10/18/18 08:00 30 10/18/18 08:00 63 10/18/18 08:00 Mechanical Ventilator Mechanical Ventilator 10/18/18 08:00 98.5 64 16 136/50 (78) 97 10/18/18 07:15 80 21 30 10/18/18 07:00 65 16 155/62 (93) 97 10/18/18 06:00 65 18 136/52 (80) 97 10/18/18 05:39 64 16 35 40 10/18/18 05:00 56 16 120/55 (76) 95 10/18/18 04:00 66 10/18/18 04:00 Mechanical Ventilator Mechanical Ventilator 10/18/18 04:00 35 10/18/18 04:00 56 16 114/49 (70) 96 10/18/18 03:28 61 16 35 40 10/18/18 03:00 63 17 150/55 (86) 97 10/18/18 02:00 64 17 145/64 (91) 96 10/18/18 01:23 66 21 35 40 10/18/18 01:00 69 18 118/70 (86) 98 10/18/18 00:00 54 10/18/18 00:00 Mechanical Ventilator Mechanical Ventilator 10/18/18 00:00 35 10/18/18 00:00 63 17 156/54 (88) 98 10/17/18 23:03 64 17 35 40 10/17/18 23:00 58 16 137/53 (81) 95 10/17/18 22:00 65 20 150/62 (91) 98 10/17/18 21:00 66 17 111/51 (71) 97 10/17/18 20:53 58 16 35 40 10/17/18 20:00 66 10/17/18 20:00 Mechanical Ventilator Mechanical Ventilator 10/17/18 20:00 35 10/17/18 20:00 65 19 128/56 (80) 97 10/17/18 19:27 62 23 35 40 10/17/18 19:00 68 20 128/62 (84) 97 10/17/18 18:00 65 16 94/49 (64) 96 10/17/18 17:05 68 18 40 10/17/18 17:00 68 18 142/63 (89) 99 10/17/18 16:00 92 10/17/18 16:00 40 10/17/18 16:00 Mechanical Ventilator Mechanical Ventilator 10/17/18 16:00 98.7 63 16 120/65 (83) 98 10/17/18 15:00 63 16 93/49 (64) 98 10/17/18 14:49 66 16 40 10/17/18 14:16 40 10/17/18 14:15 40 10/17/18 14:00 76 29 158/67 (97) 97 10/17/18 13:05 67 32 40 10/17/18 13:00 74 21 150/63 (92) 100 10/17/18 12:40 40 10/17/18 12:00 40 10/17/18 12:00 62 10/17/18 12:00 Mechanical Ventilator Mechanical Ventilator 10/17/18 12:00 98.4 68 30 155/49 (84) 97 10/17/18 11:00 67 29 145/58 (87) 98 10/17/18 10:50 40 10/17/18 10:48 63 29 40 Intake and Output 10/17/18 10/18/18 19:00 07:00 Intake Total 1030 ml 600 ml Output Total 2500 ml 390 ml Balance -1470 ml 210 ml Intake Free Water 100 ml IV Total 330 ml Tube Feeding 600 ml 600 ml Output Urine Total 2500 ml 390 ml Laboratory Tests 10/17/18 11:35: Arterial Blood pH 7.465H, Arterial Blood Partial Pressure CO2 43.3, Arterial Blood Partial Pressure O2 93.5, Arterial Blood HCO3 30.6H, Arterial Blood Oxygen Saturation 97.1, Arterial Blood Base Excess 6.1H, Roberto Test Positive 10/17/18 14:20: Arterial Blood pH 7.451H, Arterial Blood Partial Pressure CO2 46.4H, Arterial Blood Partial Pressure O2 79.8, Arterial Blood HCO3 31.6H, Arterial Blood Oxygen Saturation 95.6, Arterial Blood Base Excess 6.7H, Roberto Test Positive 10/18/18 05:28: White Blood Count 9.0, Red Blood Count 4.34, Hemoglobin 11.5L, Hematocrit 36.1L , Mean Corpuscular Volume 83, Mean Corpuscular Hemoglobin 26.4L, Mean Corpuscular Hemoglobin Concent 31.8L, Red Cell Distribution Width 14.7, Platelet Count 104L, Mean Platelet Volume 10.0, Neutrophils (%) (Auto) 77.8H, Lymphocytes (%) (Auto) 10.2L, Monocytes (%) (Auto) 11.6H, Eosinophils (%) (Auto ) 0.2, Basophils (%) (Auto) 0.2, Prothrombin Time 11.7H, Prothromb Time International Ratio 1.1, Sodium Level 145, Potassium Level 3.2L, Chloride Level 108H, Carbon Dioxide Level 34H, Anion Gap 3L, Blood Urea Nitrogen 34H, Creatinine 0.9, Estimat Glomerular Filtration Rate , Glucose Level 149H, Calcium Level 8.7, Magnesium Level 1.9, Pro-B-Type Natriuretic Peptide 2035H 10/18/18 09:25: Arterial Blood pH 7.483H, Arterial Blood Partial Pressure CO2 44.7, Arterial Blood Partial Pressure O2 83.2, Arterial Blood HCO3 32.8H, Arterial Blood Oxygen Saturation 96.2, Arterial Blood Base Excess 8.3H, Roberto Test Positive Height (Feet): 5 Height (Inches): 6.00 Weight (Pounds): 181 General Appearance: confused, other - awake on vent EENT: normal ENT inspection Neck: normal alignment Cardiovascular: normal rate, regular rhythm Respiratory/Chest: rhonchi - bilaterally Abdomen: non tender, soft Edema: 1+ Leg (L); 2+ Leg (R) Neurologic: disoriented Skin: other - cellulitis leg Chetan Hull MD Oct 18, 2018 10:47
[2018-10-18] MEDS: cefTRIAXone 1 GM in D5W 55 ML IVPB SCH (18:25)
[2018-10-18] MEDS: Azithromycin 500 MG in D5W 275 ML IV SCH (18:26)
[2018-10-18] MEDS ORDERED: NS 275ml ONE (19:17)
[2018-10-18] MEDS ORDERED: Tubing IV Secondary IV ONE (19:17)
[2018-10-18] MEDS: Dyna-Hex 2% Top Sol 2oz TOPIC SCH (19:54)
[2018-10-19] VITALS (24 sets, daily range): BP systolic 93–176; BP diastolic 43–75
--- NOTE | 2018-10-19 00:30 | Progress Note ---
DATE: 10/18/2018 CARDIOLOGY PROGRESS NOTE: SUBJECTIVE: The patient remains on vent. Ongoing weaning trials. She continues on antimicrobials. Secretions are decreasing in quantity. OBJECTIVE: VITAL SIGNS: Blood pressure 148/61, pulse 69, respirations 16, afebrile. LUNGS: Coarse breath sounds. Few rhonchi. HEART: Regular rhythm and rate. Normal S1, S2. ABDOMEN: Soft. EXTREMITIES: No edema. NEUROLOGIC: Left-sided weakness. LABORATORY AND DIAGNOSTIC DATA: White count 9, hemoglobin 11.5. ABG 7.48, 45, 83. Sodium 145, potassium 3.2, magnesium 1.9, bicarb 34, BUN 34, creatinine 0.9. Pro-natriuretic peptide 2035. INR 1.1. Chest x-ray today reveals interstitial increased interstitial markings. IMPRESSION: 1. Coagulopathy, corrected. 2. CVA. 3. History of DVT and pulmonary embolism. 4. Respiratory failure. 5. Hypertensive heart disease. 6. Anemia. 7. Hypokalemia. 8. Acute on chronic diastolic congestive heart failure. RECOMMENDATIONS: 1. Weaning efforts. 2. Warfarin to INR goal of 2 to 2.5. 3. Replace potassium. 4. Recheck magnesium as needed. 5. Cautious diuresis based on clinical parameters and trending of natriuretic peptide assay. 6. Antimicrobials. 7. Stress ulcer prophylaxis. Vel Jones M.D. DR: HANNAH JOB#: [id number] CC:
[2018-10-19 05:45] LABS: INR 1.2 (0.9-1.1)
[2018-10-19 06:00] LABS: ANION GAP 7 mmol/L (5-15); BLOOD UREA NITROGEN 31 mg/dL (7-18); CALCIUM 8.9 MG/DL (8.5-10.1); CARBON DIOXIDE 35 MMOL/L (21-32); CHLORIDE 105 MMOL/L (98-107); CREATININE 0.8 MG/DL (0.55-1.30); POTASSIUM 3.1 MMOL/L (3.5-5.1); SODIUM 147 MMOL/L (136-145)
[2018-10-19] MEDS: Magnesium Oxide 400mg tab ORAL SCH ×3 (08:14→18:19)
--- NOTE | 2018-10-19 12:43 | Pulmonology Progress Note ---
Assessment/Plan Assessment/Plan 1. Congestive heart failure. 2. Acute respiratory failure. 3. Hypotension. 4. Pneumonia. poor weaning parameters; I checked at bedside today c/s sputum with GNR cont abx, nebs disc w RN wean when better parameters Subjective ROS Limited/Unobtainable: Yes Allergies: Coded Allergies: No Known Allergies (Unverified , 05/07/16) Objective Last 24 Hour Vital Signs Date Time Temp Pulse Resp B/P (MAP) Pulse Ox O2 Delivery O2 Flow Rate FiO2 10/19/18 11:27 72 16 35 10/19/18 11:00 59 16 104/51 (68) 97 10/19/18 10:11 100 10/19/18 10:07 96 36 35 10/19/18 10:00 83 30 158/74 (102) 96 10/19/18 09:35 78 32 30 30 10/19/18 09:00 59 16 93/46 (62) 95 10/19/18 08:00 35 10/19/18 08:00 98.9 66 16 144/64 (90) 93 10/19/18 08:00 Mechanical Ventilator Mechanical Ventilator 10/19/18 08:00 56 10/19/18 07:29 70 17 35 10/19/18 07:00 61 16 93/47 (62) 93 10/19/18 06:00 75 16 106/47 (66) 97 10/19/18 05:28 68 20 35 10/19/18 05:00 67 16 106/47 (66) 98 10/19/18 04:00 98.6 63 16 154/48 (83) 96 10/19/18 04:00 35 10/19/18 04:00 Mechanical Ventilator Mechanical Ventilator 10/19/18 03:22 91 18 35 10/19/18 03:09 68 10/19/18 03:00 74 20 132/63 (86) 99 10/19/18 02:00 69 16 156/58 (90) 100 10/19/18 01:17 51 16 35 10/19/18 01:00 68 16 157/53 (87) 99 10/19/18 00:00 Mechanical Ventilator Mechanical Ventilator 10/19/18 00:00 35 10/19/18 00:00 99.0 55 16 96/47 (63) 98 10/18/18 23:27 67 19 35 10/18/18 23:05 66 10/18/18 23:00 68 20 159/63 (95) 99 10/18/18 22:00 63 18 158/57 (90) 97 10/18/18 21:27 65 16 35 10/18/18 21:00 69 16 148/61 (90) 96 10/18/18 20:00 35 10/18/18 20:00 Mechanical Ventilator Mechanical Ventilator 10/18/18 20:00 98.5 59 16 100/54 (69) 97 10/18/18 19:41 72 16 35 10/18/18 19:16 68 10/18/18 19:00 76 16 111/54 (73) 95 10/18/18 18:00 65 17 152/64 (93) 95 10/18/18 17:00 99.3 56 20 152/65 (94) 96 10/18/18 16:53 81 21 35 10/18/18 16:00 64 10/18/18 16:00 Mechanical Ventilator Mechanical Ventilator 10/18/18 16:00 56 16 145/59 (87) 94 10/18/18 15:00 68 18 121/61 (81) 97 10/18/18 14:30 71 17 35 10/18/18 14:00 64 20 105/53 (70) 93 10/18/18 13:00 68 18 104/47 (66) 97 Intake and Output 10/18/18 10/19/18 19:00 07:00 Intake Total 645 ml 915 ml Output Total 1245 ml 1175 ml Balance -600 ml -260 ml Intake Free Water 150 ml IV Total 55 ml 275 ml Tube Feeding 440 ml 640 ml Output Urine Total 1245 ml 1175 ml General Appearance: no acute distress HEENT: normocephalic Respiratory/Chest: lungs clear Cardiovascular: normal rate Microbiology Date/Time Source Procedure Growth Status 10/17/18 03:00 Sputum Induced Gram Stain - Final Resulted 10/17/18 03:00 Sputum Culture - Preliminary Gram Negative Bacillus 1 Resulted Laboratory Tests 10/19/18 04:25: Prothrombin Time 12.1H, Prothromb Time International Ratio 1.2H, Sodium Level 147H, Potassium Level 3.1L, Chloride Level 105, Carbon Dioxide Level 35H, Anion Gap 7, Blood Urea Nitrogen 31H, Creatinine 0.8, Estimat Glomerular Filtration Rate , Glucose Level 134H, Calcium Level 8.9 Current Medications Medications (Trade) Dose Ordered Sig/Arabella Route PRN Reason Start Time Stop Time Status Last Admin Dose Admin Azithromycin 500 mg/Dextrose 275 ml @ 275 mls/hr Q24HRS IV 10/15/18 18:30 10/21/18 19:29 10/18/18 18:26 Ceftriaxone Sodium 1 gm/ Dextrose 55 ml @ 110 mls/hr Q24H IVPB 10/15/18 18:00 10/22/18 17:59 10/18/18 18:25 Chlorhexidine Gluconate (Hyacinth-Hex 2%) 1 applic DAILY@2000 TOPIC 10/15/18 20:00 11/14/18 19:59 10/18/18 19:54 Dextrose (Dextrose 50%) 25 ml Q30M PRN IV Hypoglycemia 10/13/18 22:45 11/12/18 22:44 Dextrose (Dextrose 50%) 50 ml Q30M PRN IV Hypoglycemia 10/13/18 22:45 11/12/18 22:44 Famotidine (Pepcid) 20 mg BID ORAL 10/18/18 18:00 11/17/18 17:59 10/19/18 08:14 Furosemide (Lasix) 40 mg DAILY IV 10/17/18 09:00 11/16/18 08:59 10/19/18 08:14 Magnesium Oxide (Mag-Ox 400mg) 400 mg THREE TIMES A DAY ORAL 10/17/18 18:00 11/16/18 17:59 10/19/18 08:14 Ondansetron HCl (Zofran) 4 mg Q6H PRN IVP Nausea & Vomiting 10/13/18 22:45 11/12/18 22:44 Potassium Chloride (K-Dur) 40 meq TID NGT 10/18/18 13:00 11/17/18 12:59 10/19/18 08:15 Warfarin Sodium (Coumadin per pharmacy) 1 ea DAILY PRN MISC Per rx protocol 10/18/18 00:15 11/17/18 00:14 Tristan Grant MD Oct 19, 2018 12:43
--- NOTE | 2018-10-19 18:18 | General Progress Note ---
Assessment/Plan Problem List: (1) Hypomagnesemia ICD Codes: E83.42 - Hypomagnesemia SNOMED: 116024531 (2) HCAP (healthcare-associated pneumonia) ICD Codes: J18.9 - Pneumonia, unspecified organism SNOMED: 287163850 (3) Dyspnea ICD Codes: R06.00 - Dyspnea, unspecified SNOMED: 056174647 (4) Hypokalemia ICD Codes: E87.6 - Hypokalemia SNOMED: 56558340 (5) Alzheimer's dementia ICD Codes: G30.9 - Alzheimer's disease, unspecified SNOMED: 90432446 (6) HTN (hypertension) ICD Codes: I10 - Essential (primary) hypertension SNOMED: 18870148 (7) CVA (cerebral vascular accident) ICD Codes: I63.9 - Cerebral infarction, unspecified SNOMED: 343493217 (8) Respiratory distress ICD Codes: R06.00 - Dyspnea, unspecified SNOMED: 470708221 (9) Peripheral edema ICD Codes: R60.9 - Edema, unspecified SNOMED: 192654857, 255637021 (10) Congestive heart failure (CHF) ICD Codes: I50.9 - Heart failure, unspecified SNOMED: 16306373 (11) Respiratory failure ICD Codes: J96.90 - Respiratory failure, unspecified, unspecified whether with hypoxia or hypercapnia SNOMED: 615566795, 273132851 (12) Cellulitis of leg ICD Codes: L03.119 - Cellulitis of unspecified part of limb SNOMED: 175154835 Assessment/Plan still on vent, cpap trials , failed 10/19 as tachypnea, anxious to add seroquel, frail cxr better, continue iv antibiotics, replace K, Mg, titration cardiac meds, full code per daughter Subjective ROS Limited/Unobtainable: Yes Allergies: Coded Allergies: No Known Allergies (Unverified , 05/07/16) Objective Last 24 Hour Vital Signs Date Time Temp Pulse Resp B/P (MAP) Pulse Ox O2 Delivery O2 Flow Rate FiO2 10/19/18 18:00 70 18 159/65 (96) 95 10/19/18 17:13 54 16 35 10/19/18 17:00 56 16 113/46 (68) 96 10/19/18 16:00 99.2 71 18 167/69 (101) 97 10/19/18 16:00 Mechanical Ventilator Mechanical Ventilator 10/19/18 16:00 35 10/19/18 16:00 57 10/19/18 15:07 66 16 35 10/19/18 15:00 59 16 94/43 (60) 94 10/19/18 14:00 70 19 165/66 (99) 96 10/19/18 13:12 69 17 35 10/19/18 13:00 72 18 176/75 (108) 98 10/19/18 12:00 35 10/19/18 12:00 59 10/19/18 12:00 Mechanical Ventilator Mechanical Ventilator 10/19/18 12:00 99.0 55 16 106/46 (66) 96 10/19/18 11:27 72 16 35 10/19/18 11:00 59 16 104/51 (68) 97 10/19/18 10:11 100 10/19/18 10:07 96 36 35 10/19/18 10:00 83 30 158/74 (102) 96 10/19/18 09:35 78 32 30 30 10/19/18 09:00 59 16 93/46 (62) 95 10/19/18 08:00 35 10/19/18 08:00 98.9 66 16 144/64 (90) 93 10/19/18 08:00 Mechanical Ventilator Mechanical Ventilator 10/19/18 08:00 56 10/19/18 07:29 70 17 35 10/19/18 07:00 61 16 93/47 (62) 93 10/19/18 06:00 75 16 106/47 (66) 97 10/19/18 05:28 68 20 35 10/19/18 05:00 67 16 106/47 (66) 98 10/19/18 04:00 98.6 63 16 154/48 (83) 96 10/19/18 04:00 35 10/19/18 04:00 Mechanical Ventilator Mechanical Ventilator 10/19/18 03:22 91 18 35 10/19/18 03:09 68 10/19/18 03:00 74 20 132/63 (86) 99 10/19/18 02:00 69 16 156/58 (90) 100 10/19/18 01:17 51 16 35 10/19/18 01:00 68 16 157/53 (87) 99 10/19/18 00:00 Mechanical Ventilator Mechanical Ventilator 10/19/18 00:00 35 10/19/18 00:00 99.0 55 16 96/47 (63) 98 10/18/18 23:27 67 19 35 10/18/18 23:05 66 10/18/18 23:00 68 20 159/63 (95) 99 10/18/18 22:00 63 18 158/57 (90) 97 10/18/18 21:27 65 16 35 10/18/18 21:00 69 16 148/61 (90) 96 10/18/18 20:00 35 10/18/18 20:00 Mechanical Ventilator Mechanical Ventilator 10/18/18 20:00 98.5 59 16 100/54 (69) 97 10/18/18 19:41 72 16 35 10/18/18 19:16 68 10/18/18 19:00 76 16 111/54 (73) 95 Intake and Output 10/18/18 10/19/18 19:00 07:00 Intake Total 645 ml 915 ml Output Total 1245 ml 1175 ml Balance -600 ml -260 ml Intake Free Water 150 ml IV Total 55 ml 275 ml Tube Feeding 440 ml 640 ml Output Urine Total 1245 ml 1175 ml Laboratory Tests 10/19/18 04:25: Prothrombin Time 12.1H, Prothromb Time International Ratio 1.2H, Sodium Level 147H, Potassium Level 3.1L, Chloride Level 105, Carbon Dioxide Level 35H, Anion Gap 7, Blood Urea Nitrogen 31H, Creatinine 0.8, Estimat Glomerular Filtration Rate , Glucose Level 134H, Calcium Level 8.9 Height (Feet): 5 Height (Inches): 6.00 Weight (Pounds): 171 General Appearance: alert, mild distress EENT: normal ENT inspection Neck: normal alignment Cardiovascular: normal rate, regular rhythm Respiratory/Chest: rhonchi - bilaterally Abdomen: non tender, soft Edema: mild edema 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
[2018-10-19] MEDS: cefTRIAXone 1 GM in D5W 55 ML IVPB SCH (18:20)
[2018-10-19] MEDS: Azithromycin 500 MG in D5W 275 ML IV SCH (18:20)
[2018-10-19] MEDS: Spironolactone 25mg tab ORAL SCH (18:36)
[2018-10-19] MEDS ORDERED: Warfarin Sodium 3mg ORAL SCH (20:00)
[2018-10-19] MEDS: Dyna-Hex 2% Top Sol 2oz TOPIC SCH (20:17)
[2018-10-20] VITALS (24 sets, daily range): BP systolic 87–168; BP diastolic 45–72
--- NOTE | 2018-10-20 04:15 | Progress Note ---
DATE: 10/19/2018 CARDIOLOGY PROGRESS NOTE SUBJECTIVE: The patient's weaning parameters remained poor. She remains on ventilator support, orally intubated. OBJECTIVE: VITAL SIGNS: Blood pressure 104/51, heart rate 59 to 96, respiratory 16 to 36. She is afebrile. LUNGS: Coarse breath sounds with rhonchi. CARDIAC: Regular rhythm and rate. Normal S1 and S2. ABDOMEN: Soft. No edema. NEUROLOGIC: Left-sided weakness. LABORATORY DATA: Sodium 147, potassium 3.1, bicarb 35, BUN 31, creatinine 0.8, and INR 1.2. IMPRESSION: 1. Respiratory failure. 2. Aspiration pneumonia. 3. DVT. 4. Hypomagnesemia. 5. Dehydration. 6. ____. 7. Prerenal azotemia. 8. Acute on chronic diastolic congestive heart failure. 9. Cellulitis, right leg. RECOMMENDATIONS: 1. Antimicrobials. 2. Skin care. 3. Weaning efforts. 4. Diuresis. 5. Full anticoagulation with INR goal of 2 to 3. Vel Jones M.D. DR: DENNY JOB#: [id number] CC:
[2018-10-20 05:57] LABS: ANION GAP 8 mmol/L (5-15); BLOOD UREA NITROGEN 34 mg/dL (7-18); CALCIUM 9.3 MG/DL (8.5-10.1); CARBON DIOXIDE 33 MMOL/L (21-32); CHLORIDE 106 MMOL/L (98-107); CREATININE 0.8 MG/DL (0.55-1.30); SODIUM 146 MMOL/L (136-145)
[2018-10-20 06:03] LABS: INR 1.2 (0.9-1.1)
[2018-10-20] MEDS: Magnesium Oxide 400mg tab ORAL SCH ×3 (08:19→17:32)
[2018-10-20] MEDS: Spironolactone 25mg tab ORAL SCH (08:19)
--- NOTE | 2018-10-20 11:02 | Pulmonology Progress Note ---
Assessment/Plan Assessment/Plan 1. Congestive heart failure. 2. Acute respiratory failure. 3. Hypotension. 4. Pneumonia. better weaning parameters; I checked at bedside today c/s sputum with GNR; adjust abx, disc w pharmacist cont nebs disc w RN possible extubation Subjective ROS Limited/Unobtainable: Yes Allergies: Coded Allergies: No Known Allergies (Unverified , 05/07/16) Objective Last 24 Hour Vital Signs Date Time Temp Pulse Resp B/P (MAP) Pulse Ox O2 Delivery O2 Flow Rate FiO2 10/20/18 10:00 74 16 127/50 (75) 94 10/20/18 09:08 65 22 35 10/20/18 09:00 63 16 91/45 (60) 94 10/20/18 08:47 100 10/20/18 08:00 30 10/20/18 08:00 Mechanical Ventilator Mechanical Ventilator 10/20/18 08:00 71 16 87/47 (60) 94 10/20/18 07:38 77 21 35 10/20/18 07:00 98.8 75 16 148/52 (84) 94 10/20/18 06:00 58 16 96/50 (65) 94 10/20/18 05:26 84 16 30 10/20/18 05:00 56 16 112/51 (71) 96 10/20/18 04:00 98.8 60 16 94/51 (65) 97 10/20/18 04:00 30 10/20/18 04:00 58 10/20/18 04:00 Mechanical Ventilator Mechanical Ventilator 10/20/18 03:28 72 17 30 10/20/18 03:00 57 16 123/59 (80) 97 10/20/18 02:00 69 17 141/68 (92) 97 10/20/18 01:02 84 17 30 10/20/18 01:00 86 20 168/72 (104) 100 10/20/18 00:00 Mechanical Ventilator Mechanical Ventilator 10/20/18 00:00 99.6 79 17 156/61 (92) 97 10/20/18 00:00 30 10/20/18 00:00 60 10/19/18 23:00 76 18 136/51 (79) 98 10/19/18 22:41 62 16 30 10/19/18 22:00 62 16 104/52 (69) 97 10/19/18 21:04 89 16 30 10/19/18 21:00 62 16 107/60 (76) 94 10/19/18 20:00 Mechanical Ventilator Mechanical Ventilator 10/19/18 20:00 63 10/19/18 20:00 98.9 63 16 144/69 (94) 96 10/19/18 20:00 30 10/19/18 19:10 80 17 30 10/19/18 19:00 78 19 143/74 (97) 96 10/19/18 18:00 70 18 159/65 (96) 95 10/19/18 17:13 54 16 35 10/19/18 17:00 56 16 113/46 (68) 96 10/19/18 16:00 99.2 71 18 167/69 (101) 97 10/19/18 16:00 Mechanical Ventilator Mechanical Ventilator 10/19/18 16:00 35 10/19/18 16:00 57 10/19/18 15:07 66 16 35 10/19/18 15:00 59 16 94/43 (60) 94 10/19/18 14:00 70 19 165/66 (99) 96 10/19/18 13:12 69 17 35 10/19/18 13:00 72 18 176/75 (108) 98 10/19/18 12:00 35 10/19/18 12:00 59 10/19/18 12:00 Mechanical Ventilator Mechanical Ventilator 10/19/18 12:00 99.0 55 16 106/46 (66) 96 10/19/18 11:27 72 16 35 Intake and Output 10/19/18 10/20/18 18:59 06:59 Intake Total 600 ml 600 ml Output Total 570 ml 600 ml Balance 30 ml 0 ml Tube Feeding 600 ml 600 ml Output Urine Total 570 ml 600 ml General Appearance: no acute distress HEENT: atraumatic Respiratory/Chest: lungs clear Cardiovascular: normal rate Laboratory Tests 10/20/18 04:00: Prothrombin Time 12.7H, Prothromb Time International Ratio 1.2H, Sodium Level 146H, Potassium Level 4.0, Chloride Level 106, Carbon Dioxide Level 33H, Anion Gap 8, Blood Urea Nitrogen 34H, Creatinine 0.8, Estimat Glomerular Filtration Rate , Glucose Level 106, Calcium Level 9.3 10/20/18 08:10: Arterial Blood pH 7.510H, Arterial Blood Partial Pressure CO2 39.8, Arterial Blood Partial Pressure O2 82.9, Arterial Blood HCO3 31.0H, Arterial Blood Oxygen Saturation 96.0, Arterial Blood Base Excess 7.5H, Roberto Test Positive Current Medications Medications (Trade) Dose Ordered Sig/Arabella Route PRN Reason Start Time Stop Time Status Last Admin Dose Admin Chlorhexidine Gluconate (Hyacinth-Hex 2%) 1 applic DAILY@2000 TOPIC 10/15/18 20:00 11/14/18 19:59 10/19/18 20:17 Dextrose (Dextrose 50%) 25 ml Q30M PRN IV Hypoglycemia 10/13/18 22:45 11/12/18 22:44 Dextrose (Dextrose 50%) 50 ml Q30M PRN IV Hypoglycemia 10/13/18 22:45 11/12/18 22:44 Famotidine (Pepcid) 20 mg BID ORAL 10/18/18 18:00 11/17/18 17:59 10/20/18 08:19 Levofloxacin 150 ml @ 150 mls/hr Q48H IVPB 10/20/18 11:00 10/27/18 10:59 10/20/18 10:50 Magnesium Oxide (Mag-Ox 400mg) 400 mg THREE TIMES A DAY ORAL 10/17/18 18:00 11/16/18 17:59 10/20/18 08:19 Ondansetron HCl (Zofran) 4 mg Q6H PRN IVP Nausea & Vomiting 10/13/18 22:45 11/12/18 22:44 Potassium Chloride (K-Dur) 40 meq TID NGT 10/18/18 13:00 11/17/18 12:59 10/20/18 08:19 Quetiapine Fumarate (SEROquel) 25 mg Q12HR ORAL 10/19/18 21:00 11/18/18 20:59 10/20/18 08:19 Spironolactone (Aldactone) 25 mg DAILY ORAL 10/19/18 18:30 11/18/18 18:29 10/20/18 08:19 Warfarin Sodium (Coumadin per pharmacy) 1 ea DAILY PRN MISC Per rx protocol 10/18/18 00:15 11/17/18 00:14 Warfarin Sodium (Coumadin) 3 mg COUMADIN ONCE ORAL 10/20/18 17:00 10/20/18 17:01 Tristan Grant MD Oct 20, 2018 11:02
[2018-10-20] MEDS ORDERED: Heparin1,000 units/500ml Premix(Conc:2 units/ml) IV PRN ×2 (13:30→19:01)
[2018-10-20] MEDS ORDERED: Lidocaine 1% Plain 30 ml INJ PRN ×2 (13:30→19:01)
[2018-10-20] MEDS ORDERED: Sterile Water Irrig 1000ml IRRIG ONE (16:44)
[2018-10-20] MEDS ORDERED: NS 275ml ONE ×2 (16:44→16:46)
[2018-10-20] MEDS ORDERED: Tubing IV Secondary IV ONE (16:46)
--- NOTE | 2018-10-20 16:52 | Diagnostic Imaging Report ---
Indication: NG tube Comparison: None Single view of the abdomen obtained Findings: NG tube is projected over the stomach. IVC filter is noted also. IMPRESSION: NG tube satisfactory position
[2018-10-20] MEDS ORDERED: Warfarin Sodium 3mg ORAL ONE (17:00)
--- NOTE | 2018-10-20 19:07 | General Progress Note ---
Assessment/Plan Problem List: (1) Hypomagnesemia ICD Codes: E83.42 - Hypomagnesemia SNOMED: 478700980 (2) HCAP (healthcare-associated pneumonia) ICD Codes: J18.9 - Pneumonia, unspecified organism SNOMED: 465069753 (3) Dyspnea ICD Codes: R06.00 - Dyspnea, unspecified SNOMED: 293653116 (4) Hypokalemia ICD Codes: E87.6 - Hypokalemia SNOMED: 33014552 (5) Alzheimer's dementia ICD Codes: G30.9 - Alzheimer's disease, unspecified SNOMED: 67430081 (6) HTN (hypertension) ICD Codes: I10 - Essential (primary) hypertension SNOMED: 51729271 (7) CVA (cerebral vascular accident) ICD Codes: I63.9 - Cerebral infarction, unspecified SNOMED: 501683739 (8) Respiratory distress ICD Codes: R06.00 - Dyspnea, unspecified SNOMED: 607644781 (9) Peripheral edema ICD Codes: R60.9 - Edema, unspecified SNOMED: 255195215, 235068346 (10) Congestive heart failure (CHF) ICD Codes: I50.9 - Heart failure, unspecified SNOMED: 38059984 (11) Respiratory failure ICD Codes: J96.90 - Respiratory failure, unspecified, unspecified whether with hypoxia or hypercapnia SNOMED: 107910376, 211215694 (12) Cellulitis of leg ICD Codes: L03.119 - Cellulitis of unspecified part of limb SNOMED: 569529624 (13) Dementia ICD Codes: F03.90 - Unspecified dementia without behavioral disturbance SNOMED: 00805512 Assessment/Plan extubated, anxious to add seroquel, prior on ativan 40 yrs but benzo high risk in elderly, frail cxr better, continue iv antibiotics,change levaquin for pseudomonas in sjputum replace K, Mg, titration cardiac meds, full code per daughter Subjective ROS Limited/Unobtainable: Yes Allergies: Coded Allergies: No Known Allergies (Unverified , 05/07/16) Objective Last 24 Hour Vital Signs Date Time Temp Pulse Resp B/P (MAP) Pulse Ox O2 Delivery O2 Flow Rate FiO2 10/20/18 18:00 72 35 143/63 (89) 97 10/20/18 17:00 73 35 146/66 (92) 95 10/20/18 16:00 98.8 75 33 144/65 (91) 97 10/20/18 16:00 Nasal Cannula 3.0 Venturi Mask 10/20/18 16:00 85 10/20/18 15:00 77 34 133/67 (89) 96 10/20/18 14:00 78 35 157/71 (99) 97 10/20/18 13:00 77 32 157/70 (99) 98 10/20/18 12:47 12.0 40 10/20/18 12:46 12.0 40 10/20/18 12:00 98.9 84 29 119/56 (77) 98 10/20/18 12:00 Venturi Mask Venturi Mask 10/20/18 12:00 82 10/20/18 12:00 10.0 40 10/20/18 11:02 86 31 10/20/18 11:00 97 32 138/72 (94) 98 10/20/18 10:00 74 16 127/50 (75) 94 10/20/18 09:08 65 22 35 10/20/18 09:00 63 16 91/45 (60) 94 10/20/18 08:47 100 10/20/18 08:00 74 10/20/18 08:00 30 10/20/18 08:00 Mechanical Ventilator Mechanical Ventilator 10/20/18 08:00 71 16 87/47 (60) 94 10/20/18 07:38 77 21 35 10/20/18 07:00 98.8 75 16 148/52 (84) 94 10/20/18 06:00 58 16 96/50 (65) 94 10/20/18 05:26 84 16 30 10/20/18 05:00 56 16 112/51 (71) 96 10/20/18 04:00 98.8 60 16 94/51 (65) 97 10/20/18 04:00 30 10/20/18 04:00 58 10/20/18 04:00 Mechanical Ventilator Mechanical Ventilator 10/20/18 03:28 72 17 30 10/20/18 03:00 57 16 123/59 (80) 97 10/20/18 02:00 69 17 141/68 (92) 97 10/20/18 01:02 84 17 30 10/20/18 01:00 86 20 168/72 (104) 100 10/20/18 00:00 Mechanical Ventilator Mechanical Ventilator 10/20/18 00:00 99.6 79 17 156/61 (92) 97 10/20/18 00:00 30 10/20/18 00:00 60 10/19/18 23:00 76 18 136/51 (79) 98 10/19/18 22:41 62 16 30 10/19/18 22:00 62 16 104/52 (69) 97 10/19/18 21:04 89 16 30 10/19/18 21:00 62 16 107/60 (76) 94 10/19/18 20:00 Mechanical Ventilator Mechanical Ventilator 10/19/18 20:00 63 10/19/18 20:00 98.9 63 16 144/69 (94) 96 10/19/18 20:00 30 10/19/18 19:10 80 17 30 Intake and Output 10/19/18 10/20/18 19:00 07:00 Intake Total 600 ml 600 ml Output Total 600 ml 580 ml Balance 0 ml 20 ml Tube Feeding 600 ml 600 ml Output Urine Total 600 ml 580 ml Laboratory Tests 10/20/18 04:00: Prothrombin Time 12.7H, Prothromb Time International Ratio 1.2H, Sodium Level 146H, Potassium Level 4.0, Chloride Level 106, Carbon Dioxide Level 33H, Anion Gap 8, Blood Urea Nitrogen 34H, Creatinine 0.8, Estimat Glomerular Filtration Rate , Glucose Level 106, Calcium Level 9.3 10/20/18 08:10: Arterial Blood pH 7.510H, Arterial Blood Partial Pressure CO2 39.8, Arterial Blood Partial Pressure O2 82.9, Arterial Blood HCO3 31.0H, Arterial Blood Oxygen Saturation 96.0, Arterial Blood Base Excess 7.5H, Roberto Test Positive 10/20/18 12:00: Arterial Blood pH 7.458H, Arterial Blood Partial Pressure CO2 48.1H, Arterial Blood Partial Pressure O2 94.1, Arterial Blood HCO3 33.3H, Arterial Blood Oxygen Saturation 96.9, Arterial Blood Base Excess 8.2H, Roberto Test Positive Height (Feet): 5 Height (Inches): 6.00 Weight (Pounds): 171 General Appearance: alert, confused, mild distress EENT: normal ENT inspection Neck: normal alignment Cardiovascular: normal rate, regular rhythm Respiratory/Chest: lungs clear Abdomen: non tender, soft Extremities: inflammation Edema: mild edema Neurologic: disoriented Chetan Hull MD Oct 20, 2018 19:07
[2018-10-20] MEDS ORDERED: Dyna-Hex 2% Top Sol 2oz TOPIC SCH (20:00)
[2018-10-20] MEDS: Dyna-Hex 2% Top Sol 2oz TOPIC SCH (20:45)
[2018-10-21] VITALS (24 sets, daily range): BP systolic 97–159; BP diastolic 34–71
[2018-10-21] MEDS ORDERED: Warfarin Sodium 3mg ORAL SCH
--- NOTE | 2018-10-21 01:15 | Progress Note ---
DATE: 10/20/2018 CARDIOLOGY PROGRESS NOTE SUBJECTIVE: Extubated this morning with no distress thus far. On antimicrobials. Maintenance hydration. Remaining NPO. Monitored sinus. Atrial ectopics were noted. OBJECTIVE: VITAL SIGNS: Blood pressure 156/58, pulse 72, respirations 35, and on 2 liters nasal cannula 97% sat. LUNGS: Coarse breath sounds and rhonchi. HEART: Regular rhythm and rate. Normal S1, S2. ABDOMEN: Soft. EXTREMITIES: No edema. NEUROLOGIC: Left hemiparesis. LABORATORY DATA: Sodium 146, potassium 4.0, bicarb 33, BUN 34, and creatinine 0.8. ABG, pH 7.45, pCO2 48, and pO2 94. INR 1.2. IMPRESSION: 1. Subtherapeutic INR. 2. History of DVT. 3. Hypomagnesemia. 4. Hypokalemia. 5. Cerebrovascular accident. 6. Hypertensive heart disease. 7. Labile blood pressure. PLAN: 1. Additional warfarin added. 2. NPO pending swallow evaluation. 3. Antimicrobials. 4. Replace potassium and magnesium. 5. Anxiolytics as tolerated. Vel Jones M.D. DR: MANDEEP JOB#: [id number] CC:
[2018-10-21 06:13] LABS: INR 1.3 (0.9-1.1)
[2018-10-21 06:29] LABS: ANION GAP 7 mmol/L (5-15); BLOOD UREA NITROGEN 31 mg/dL (7-18); CALCIUM 9.5 MG/DL (8.5-10.1); CARBON DIOXIDE 33 MMOL/L (21-32); CHLORIDE 107 MMOL/L (98-107); CREATININE 0.8 MG/DL (0.55-1.30); POTASSIUM 4.1 MMOL/L (3.5-5.1); SODIUM 147 MMOL/L (136-145)
[2018-10-21] MEDS ORDERED: Warfarin Sodium 3mg ORAL ONE ×2 (08:00→17:00)
[2018-10-21] MEDS: Spironolactone 25mg tab ORAL SCH (08:45)
[2018-10-21] MEDS: Magnesium Oxide 400mg tab ORAL SCH ×3 (08:46→17:53)
--- NOTE | 2018-10-21 10:19 | Diagnostic Imaging Report ---
Indications: Needs long-term IV access Technique: Procedure performed at bedside. Procedural timeout performed. Ultrasound confirms patent compressible right basilic vein. Total sterile technique, including sterile probe cover and sterile gel, sterile gloves, hand hygiene, hat, mask,, sterile gown, large sterile drape, and preparation with 2% chlorhexidine utilized. Local anesthesia with 1% lidocaine. Under real-time ultrasound guidance, puncture basilic vein using 21-gauge needle, passage 0.018 guidewire, exchange for 4 Guamanian peel-away sheath. 4 [place] Bard dual-lumen power PICC cut to 41 cm. It was inserted through the peel-away sheath. Peel-away sheath and guidewire removed. Catheter fixed to the skin. Both catheter ports aspirated and flushed. Patient tolerated procedure well, without immediate complication. Followup chest x-ray obtained, documents catheter tip position at the cavoatrial junction Impression: Successful bedside placement of right arm PICC under sonographic guidance, as described above.
--- NOTE | 2018-10-21 12:52 | Pulmonology Progress Note ---
Assessment/Plan Assessment/Plan 1. Congestive heart failure. 2. Acute respiratory failure. 3. Hypotension. 4. Pneumonia. 5. Tardive dyskinesia extubated yesterday with no complications c/s sputum with pseudomonas; rx levaquin cont nebs swallow eval disc w RN Subjective ROS Limited/Unobtainable: Yes Respiratory: Denies: shortness of breath Allergies: Coded Allergies: No Known Allergies (Unverified , 05/07/16) Objective Last 24 Hour Vital Signs Date Time Temp Pulse Resp B/P (MAP) Pulse Ox O2 Delivery O2 Flow Rate FiO2 10/21/18 12:00 77 10/21/18 12:00 97.9 80 29 139/61 (87) 97 10/21/18 12:00 Nasal Cannula 2.0 Nasal Cannula 2.0 10/21/18 11:00 70 23 122/53 (76) 99 10/21/18 10:00 67 23 112/44 (66) 100 10/21/18 09:36 98 Nasal Cannula 2.0 28 10/21/18 09:36 Nasal Cannula 2.0 28 10/21/18 09:00 86 36 145/65 (91) 98 10/21/18 08:00 80 10/21/18 08:00 99.2 83 33 155/63 (93) 95 10/21/18 08:00 Nasal Cannula 2.0 Nasal Cannula 2.0 10/21/18 07:00 69 26 137/56 (83) 96 10/21/18 06:00 72 25 137/53 (81) 96 10/21/18 05:00 70 29 123/45 (71) 97 10/21/18 04:00 77 10/21/18 04:00 Nasal Cannula 2.0 Nasal Cannula 2.0 10/21/18 04:00 99.3 72 34 132/52 (78) 97 10/21/18 03:00 82 38 159/66 (97) 96 10/21/18 02:00 86 37 157/66 (96) 94 10/21/18 01:00 80 34 154/62 (92) 98 10/21/18 00:00 85 10/21/18 00:00 92 27 158/70 (99) 93 10/21/18 00:00 Nasal Cannula 2.0 Nasal Cannula 2.0 10/20/18 23:00 71 26 132/53 (79) 98 10/20/18 22:00 75 26 122/57 (78) 96 10/20/18 21:00 84 31 138/60 (86) 95 10/20/18 20:00 Nasal Cannula 2.0 Nasal Cannula 2.0 10/20/18 20:00 98.8 86 36 160/61 (94) 97 10/20/18 20:00 77 10/20/18 19:00 72 35 156/58 (90) 97 10/20/18 18:00 72 35 143/63 (89) 97 10/20/18 17:00 73 35 146/66 (92) 95 10/20/18 16:00 98.8 75 33 144/65 (91) 97 10/20/18 16:00 Nasal Cannula 3.0 Venturi Mask 10/20/18 16:00 85 10/20/18 15:00 77 34 133/67 (89) 96 10/20/18 14:00 78 35 157/71 (99) 97 10/20/18 13:00 77 32 157/70 (99) 98 Intake and Output 10/20/18 10/21/18 18:59 06:59 Intake Total 420 ml 855 ml Output Total 600 ml 480 ml Balance -180 ml 375 ml Intake Free Water 120 ml IV Total 330 ml Tube Feeding 300 ml 525 ml Output Urine Total 600 ml 480 ml General Appearance: no acute distress HEENT: atraumatic, other - tardive dyskinesia Respiratory/Chest: lungs clear Cardiovascular: normal rate Laboratory Tests 10/21/18 04:00: Prothrombin Time 13.5H, Prothromb Time International Ratio 1.3H, Sodium Level 147H, Potassium Level 4.1, Chloride Level 107, Carbon Dioxide Level 33H, Anion Gap 7, Blood Urea Nitrogen 31H, Creatinine 0.8, Estimat Glomerular Filtration Rate , Glucose Level 119H, Calcium Level 9.5 Current Medications Medications (Trade) Dose Ordered Sig/Arabella Route PRN Reason Start Time Stop Time Status Last Admin Dose Admin Chlorhexidine Gluconate (Hyacinth-Hex 2%) 1 applic DAILY@1999 TOPIC 10/20/18 20:00 11/19/18 19:59 10/20/18 20:45 Dextrose (Dextrose 50%) 25 ml Q30M PRN IV Hypoglycemia 10/13/18 22:45 11/12/18 22:44 Dextrose (Dextrose 50%) 50 ml Q30M PRN IV Hypoglycemia 10/13/18 22:45 11/12/18 22:44 Famotidine (Pepcid) 20 mg BID ORAL 10/18/18 18:00 11/17/18 17:59 10/21/18 08:48 Furosemide (Lasix) 20 mg DAILY ORAL 10/21/18 09:00 11/20/18 08:59 10/21/18 08:46 Heparin Sodium/ Sodium Chloride (Heparin 1000 units/500ml Premix) 1,000 unit ONCE PRN IV PICC 10/20/18 19:01 10/21/18 23:59 Levofloxacin 150 ml @ 150 mls/hr Q48H IVPB 10/20/18 11:00 10/27/18 10:59 10/20/18 10:50 Lidocaine HCl (Xylocaine 1% 30ml) 30 ml ONCE PRN INJ picc 10/20/18 19:01 10/21/18 23:59 Magnesium Oxide (Mag-Ox 400mg) 400 mg THREE TIMES A DAY ORAL 10/17/18 18:00 11/16/18 17:59 10/21/18 08:46 Ondansetron HCl (Zofran) 4 mg Q6H PRN IVP Nausea & Vomiting 10/13/18 22:45 11/12/18 22:44 Quetiapine Fumarate (SEROquel) 25 mg Q12HR ORAL 10/19/18 21:00 11/18/18 20:59 10/21/18 08:48 Spironolactone (Aldactone) 25 mg DAILY ORAL 10/19/18 18:30 11/18/18 18:29 10/21/18 08:45 Warfarin Sodium (Coumadin per pharmacy) 1 ea DAILY PRN MISC Per rx protocol 10/18/18 00:15 11/17/18 00:14 Tristan Grant MD Oct 21, 2018 12:52
[2018-10-21] MEDS ORDERED: Milk of Magnesia 30ml Ud ORAL SCH (18:42)
[2018-10-21] MEDS ORDERED: Milk of Magnesia 30ml Ud ORAL PRN (18:45)
--- NOTE | 2018-10-21 18:45 | General Progress Note ---
Assessment/Plan Problem List: (1) Hypomagnesemia ICD Codes: E83.42 - Hypomagnesemia SNOMED: 850875291 (2) HCAP (healthcare-associated pneumonia) ICD Codes: J18.9 - Pneumonia, unspecified organism SNOMED: 352534585 (3) Dyspnea ICD Codes: R06.00 - Dyspnea, unspecified SNOMED: 019070663 (4) Hypokalemia ICD Codes: E87.6 - Hypokalemia SNOMED: 20518468 (5) Alzheimer's dementia ICD Codes: G30.9 - Alzheimer's disease, unspecified SNOMED: 06890844 (6) HTN (hypertension) ICD Codes: I10 - Essential (primary) hypertension SNOMED: 69033066 (7) CVA (cerebral vascular accident) ICD Codes: I63.9 - Cerebral infarction, unspecified SNOMED: 603154710 (8) Respiratory distress ICD Codes: R06.00 - Dyspnea, unspecified SNOMED: 138716179 (9) Peripheral edema ICD Codes: R60.9 - Edema, unspecified SNOMED: 463208210, 382456206 (10) Congestive heart failure (CHF) ICD Codes: I50.9 - Heart failure, unspecified SNOMED: 61615496 (11) Respiratory failure ICD Codes: J96.90 - Respiratory failure, unspecified, unspecified whether with hypoxia or hypercapnia SNOMED: 751791178, 008855703 (12) Cellulitis of leg ICD Codes: L03.119 - Cellulitis of unspecified part of limb SNOMED: 138740765 (13) Dementia ICD Codes: F03.90 - Unspecified dementia without behavioral disturbance SNOMED: 63168580 Assessment/Plan extubated, anxious to add seroquel, prior on ativan 40 yrs but benzo high risk in elderly, frail cxr better, continue iv antibiotics,change levaquin for pseudomonas in sputum replace K, Mg, titration cardiac meds, full code per daughter swollow eval pending Subjective ROS Limited/Unobtainable: Yes Allergies: Coded Allergies: No Known Allergies (Unverified , 05/07/16) Objective Last 24 Hour Vital Signs Date Time Temp Pulse Resp B/P (MAP) Pulse Ox O2 Delivery O2 Flow Rate FiO2 10/21/18 18:00 78 30 142/71 (94) 96 10/21/18 17:00 78 32 142/58 (86) 97 10/21/18 16:00 76 10/21/18 16:00 Nasal Cannula 2.0 Nasal Cannula 2.0 10/21/18 16:00 97.8 79 28 140/58 (85) 95 10/21/18 16:00 79 28 140/58 (85) 95 10/21/18 15:00 78 27 125/46 (72) 96 10/21/18 15:00 78 27 125/46 (72) 96 10/21/18 14:00 69 24 101/35 (57) 98 10/21/18 13:00 87 32 142/58 (86) 96 10/21/18 12:00 77 10/21/18 12:00 97.9 80 29 139/61 (87) 97 10/21/18 12:00 Nasal Cannula 2.0 Nasal Cannula 2.0 10/21/18 11:00 70 23 122/53 (76) 99 10/21/18 10:00 67 23 112/44 (66) 100 10/21/18 09:36 98 Nasal Cannula 2.0 28 10/21/18 09:36 Nasal Cannula 2.0 28 10/21/18 09:00 86 36 145/65 (91) 98 10/21/18 08:00 80 10/21/18 08:00 99.2 83 33 155/63 (93) 95 10/21/18 08:00 Nasal Cannula 2.0 Nasal Cannula 2.0 10/21/18 07:00 69 26 137/56 (83) 96 10/21/18 06:00 72 25 137/53 (81) 96 10/21/18 05:00 70 29 123/45 (71) 97 10/21/18 04:00 77 10/21/18 04:00 Nasal Cannula 2.0 Nasal Cannula 2.0 10/21/18 04:00 99.3 72 34 132/52 (78) 97 10/21/18 03:00 82 38 159/66 (97) 96 10/21/18 02:00 86 37 157/66 (96) 94 10/21/18 01:00 80 34 154/62 (92) 98 10/21/18 00:00 85 10/21/18 00:00 92 27 158/70 (99) 93 10/21/18 00:00 Nasal Cannula 2.0 Nasal Cannula 2.0 10/20/18 23:00 71 26 132/53 (79) 98 10/20/18 22:00 75 26 122/57 (78) 96 10/20/18 21:00 84 31 138/60 (86) 95 10/20/18 20:00 Nasal Cannula 2.0 Nasal Cannula 2.0 10/20/18 20:00 98.8 86 36 160/61 (94) 97 10/20/18 20:00 77 10/20/18 19:00 72 35 156/58 (90) 97 Intake and Output 10/20/18 10/21/18 19:00 07:00 Intake Total 420 ml 855 ml Output Total 590 ml 510 ml Balance -170 ml 345 ml Intake Free Water 120 ml IV Total 330 ml Tube Feeding 300 ml 525 ml Output Urine Total 590 ml 510 ml Laboratory Tests 10/21/18 04:00: Prothrombin Time 13.5H, Prothromb Time International Ratio 1.3H, Sodium Level 147H, Potassium Level 4.1, Chloride Level 107, Carbon Dioxide Level 33H, Anion Gap 7, Blood Urea Nitrogen 31H, Creatinine 0.8, Estimat Glomerular Filtration Rate , Glucose Level 119H, Calcium Level 9.5 Height (Feet): 5 Height (Inches): 6.00 Weight (Pounds): 169 General Appearance: alert, confused EENT: normal ENT inspection Neck: normal alignment Cardiovascular: normal rate, regular rhythm Respiratory/Chest: rhonchi - bilaterally Abdomen: non tender, soft Edema: mild edema Neurologic: disoriented Chetan Hull MD Oct 21, 2018 18:45
[2018-10-21] MEDS: Dyna-Hex 2% Top Sol 2oz TOPIC SCH (20:01)
[2018-10-22] VITALS (11 sets, daily range): BP systolic 93–144; BP diastolic 31–76
[2018-10-22 05:19] LABS: BASOPHILS % (AUTO) 0.5 % (0.0-2.0); EOSINOPHILS % (AUTO) 1.7 % (0.0-3.0); HEMATOCRIT 35.8 % (37.0-47.0); HEMOGLOBIN 11.1 G/DL (12.0-16.0); LYMPHOCYTES % (AUTO) 10.8 % (20.0-45.0); MEAN CORPUSCULAR VOLUME 86 FL (80-99); MONOCYTES % (AUTO) 8.8 % (1.0-10.0); NEUTROPHILS % (AUTO) 78.3 % (45.0-75.0); PLATELET COUNT 144 K/UL (150-450); RED BLOOD COUNT 4.17 M/UL (4.20-5.40); RED CELL DISTRIBUTION WIDTH 15.5 % (11.6-14.8)
[2018-10-22 05:30] LABS: INR 1.4 (0.9-1.1)
[2018-10-22 05:32] LABS: ANION GAP 5 mmol/L (5-15); BLOOD UREA NITROGEN 31 mg/dL (7-18); CALCIUM 9.3 MG/DL (8.5-10.1); CARBON DIOXIDE 33 MMOL/L (21-32); CHLORIDE 108 MMOL/L (98-107); CREATININE 0.8 MG/DL (0.55-1.30); POTASSIUM 4.1 MMOL/L (3.5-5.1); SODIUM 146 MMOL/L (136-145)
--- NOTE | 2018-10-22 08:19 | General Progress Note ---
Assessment/Plan Problem List: (1) Hypomagnesemia ICD Codes: E83.42 - Hypomagnesemia SNOMED: 214280974 (2) HCAP (healthcare-associated pneumonia) ICD Codes: J18.9 - Pneumonia, unspecified organism SNOMED: 753193367 (3) Dyspnea ICD Codes: R06.00 - Dyspnea, unspecified SNOMED: 081702491 (4) Hypokalemia ICD Codes: E87.6 - Hypokalemia SNOMED: 53217950 (5) Alzheimer's dementia ICD Codes: G30.9 - Alzheimer's disease, unspecified SNOMED: 00960831 (6) HTN (hypertension) ICD Codes: I10 - Essential (primary) hypertension SNOMED: 91512402 (7) CVA (cerebral vascular accident) ICD Codes: I63.9 - Cerebral infarction, unspecified SNOMED: 219523728 (8) Respiratory distress ICD Codes: R06.00 - Dyspnea, unspecified SNOMED: 476430803 (9) Peripheral edema ICD Codes: R60.9 - Edema, unspecified SNOMED: 567696891, 383391545 (10) Congestive heart failure (CHF) ICD Codes: I50.9 - Heart failure, unspecified SNOMED: 42559186 (11) Respiratory failure ICD Codes: J96.90 - Respiratory failure, unspecified, unspecified whether with hypoxia or hypercapnia SNOMED: 020056727, 198068378 (12) Cellulitis of leg ICD Codes: L03.119 - Cellulitis of unspecified part of limb SNOMED: 870900914 (13) Dementia ICD Codes: F03.90 - Unspecified dementia without behavioral disturbance SNOMED: 26761881 Assessment/Plan extubated, anxious to add seroquel, prior on ativan 40 yrs but benzo high risk in elderly, frail cxr better, continue iv antibiotics,change levaquin for pseudomonas in sputum replace K, Mg, titration cardiac meds, full code per daughter swollow eval pending Subjective ROS Limited/Unobtainable: Yes Allergies: Coded Allergies: No Known Allergies (Unverified , 05/07/16) Objective Last 24 Hour Vital Signs Date Time Temp Pulse Resp B/P (MAP) Pulse Ox O2 Delivery O2 Flow Rate FiO2 10/22/18 06:00 81 23 121/45 (70) 99 10/22/18 05:00 67 23 123/34 (63) 99 10/22/18 04:00 98.0 61 22 93/31 (51) 98 10/22/18 04:00 62 10/22/18 04:00 Nasal Cannula 2.0 Nasal Cannula 2.0 10/22/18 03:00 82 21 125/74 (91) 98 10/22/18 02:00 81 26 125/55 (78) 99 10/22/18 01:00 70 22 94/40 (58) 94 10/22/18 00:00 63 10/22/18 00:00 71 24 102/40 (60) 98 10/22/18 00:00 Nasal Cannula 2.0 Nasal Cannula 2.0 10/21/18 23:00 98.3 67 23 99/34 (55) 98 10/21/18 22:00 77 23 97/42 (60) 98 10/21/18 21:00 82 25 129/47 (74) 94 10/21/18 20:42 Nasal Cannula 2.0 28 10/21/18 20:42 96 Nasal Cannula 2.0 28 10/21/18 20:00 Nasal Cannula 2.0 Nasal Cannula 2.0 10/21/18 20:00 98.2 72 24 117/48 (71) 95 10/21/18 20:00 68 10/21/18 19:00 66 26 110/51 (70) 95 10/21/18 18:00 97.9 78 30 142/71 (94) 96 10/21/18 17:00 78 32 142/58 (86) 97 10/21/18 16:00 76 10/21/18 16:00 Nasal Cannula 2.0 Nasal Cannula 2.0 10/21/18 16:00 79 28 140/58 (85) 95 10/21/18 15:00 78 27 125/46 (72) 96 10/21/18 14:00 69 24 101/35 (57) 98 10/21/18 13:00 87 32 142/58 (86) 96 10/21/18 12:00 77 10/21/18 12:00 97.9 80 29 139/61 (87) 97 10/21/18 12:00 Nasal Cannula 2.0 Nasal Cannula 2.0 10/21/18 11:00 70 23 122/53 (76) 99 10/21/18 10:00 67 23 112/44 (66) 100 10/21/18 09:36 98 Nasal Cannula 2.0 28 10/21/18 09:36 Nasal Cannula 2.0 28 10/21/18 09:00 86 36 145/65 (91) 98 Intake and Output 10/21/18 10/22/18 19:00 07:00 Intake Total 660 ml 700 ml Output Total 755 ml 430 ml Balance -95 ml 270 ml Intake Free Water 150 ml Tube Feeding 600 ml 550 ml Other 60 ml Output Urine Total 755 ml 430 ml Laboratory Tests 10/22/18 04:30: White Blood Count 12.0H, Red Blood Count 4.17L, Hemoglobin 11.1L, Hematocrit 35.8L, Mean Corpuscular Volume 86, Mean Corpuscular Hemoglobin 26.6L, Mean Corpuscular Hemoglobin Concent 31.0L, Red Cell Distribution Width 15.5H, Platelet Count 144L, Mean Platelet Volume 8.3, Neutrophils (%) (Auto) 78.3H, Lymphocytes (%) (Auto) 10.8L, Monocytes (%) (Auto) 8.8, Eosinophils (%) (Auto) 1.7, Basophils (%) (Auto) 0.5, Prothrombin Time 14.5H, Prothromb Time International Ratio 1.4H, Sodium Level 146H, Potassium Level 4.1, Chloride Level 108H, Carbon Dioxide Level 33H, Anion Gap 5, Blood Urea Nitrogen 31H, Creatinine 0.8, Estimat Glomerular Filtration Rate , Glucose Level 133H, Calcium Level 9.3, Magnesium Level 2.2, Pro-B-Type Natriuretic Peptide 1070H Height (Feet): 5 Height (Inches): 6.00 Weight (Pounds): 171 General Appearance: no apparent distress, alert, confused EENT: normal ENT inspection Neck: normal alignment Cardiovascular: normal rate Respiratory/Chest: lungs clear Abdomen: non tender, soft Edema: trace edema Neurologic: disoriented Chetan Hull MD Oct 22, 2018 08:19
[2018-10-22] MEDS: Magnesium Oxide 400mg tab ORAL SCH ×3 (09:22→17:07)
[2018-10-22] MEDS: Spironolactone 25mg tab ORAL SCH (09:22)
--- NOTE | 2018-10-22 10:45 | Progress Note ---
DATE: 10/21/2018 CARDIOLOGY PROGRESS NOTE SUBJECTIVE: The patient was extubated yesterday, in no respiratory distress. Continues with antimicrobials for Pseudomonas lung infection. Continues on bronchodilator. She is status post PICC line insertion. OBJECTIVE: VITAL SIGNS: Blood pressure 139/61, pulse 80, respirations 29, afebrile, and 2L oxygen saturation is 97%. LUNGS: Coarse breath sounds. Rhonchi. HEART: Regular rhythm and rate. Normal S1 and S2. ABDOMEN: Soft. EXTREMITIES: Left-sided weakness. Trace edema. IMPRESSION: 1. Cerebrovascular accident. 2. Dysphagia. 3. Respiratory failure, status post extubation. 4. Dehydration. 5. Hyponatremia. 6. Acute on chronic diastolic congestive heart failure. 7. Deep venous thrombosis, chronic and recurrent. PLAN: 1. Free water replacement. 2. Hold diuretics. 3. Pending correction of metabolic abnormalities. 4. Respiratory hygiene. 5. Warfarin to INR goal of 2 to 3. Vel Jones M.D. DR: MAAME JOB#: [id number] CC:
--- NOTE | 2018-10-22 13:05 | Diagnostic Imaging Report ---
Indication: Dyspnea Comparison: 10/18/2018 A single view chest radiograph was obtained. Findings: Patient has been extubated. There is no significant change otherwise accounting for the slightly lower lung volumes currently. Bronchovascular markings are prominent. PICC line in nasogastric tubes appear stable. Heart is enlarged but stable. IMPRESSION: Postextubation. No significant change otherwise.
[2018-10-22] MEDS ORDERED: Warfarin Sodium 4mg PO ONE (17:00)
--- NOTE | 2018-10-22 18:09 | Pulmonology Progress Note ---
Assessment/Plan Assessment/Plan 1. Congestive heart failure. 2. Acute respiratory failure. 3. Hypotension. 4. Pneumonia. 5. Tardive dyskinesia nods yes/no - no pain or SOB MODERATELY SEVERE OROPHARYNGEAL DYSPHAGIA - needs PEG c/s sputum with pseudomonas; rx levaquin cont nebs disc w Dtr at bedside Subjective ROS Limited/Unobtainable: Yes Allergies: Coded Allergies: No Known Allergies (Unverified , 05/07/16) Objective Last 24 Hour Vital Signs Date Time Temp Pulse Resp B/P (MAP) Pulse Ox O2 Delivery O2 Flow Rate FiO2 10/22/18 16:00 Nasal Cannula 2.0 Nasal Cannula 2.0 10/22/18 16:00 98.9 74 29 144/67 (92) 95 10/22/18 16:00 77 10/22/18 12:00 Nasal Cannula 2.0 Nasal Cannula 2.0 10/22/18 12:00 99.1 71 26 112/48 (69) 93 10/22/18 12:00 63 10/22/18 09:45 Nasal Cannula 2.0 Nasal Cannula 2.0 10/22/18 08:00 Nasal Cannula 2.0 Nasal Cannula 2.0 10/22/18 08:00 98.8 82 30 137/76 (96) 98 10/22/18 08:00 75 10/22/18 06:00 81 23 121/45 (70) 99 10/22/18 05:00 67 23 123/34 (63) 99 10/22/18 04:00 98.0 61 22 93/31 (51) 98 10/22/18 04:00 62 10/22/18 04:00 Nasal Cannula 2.0 Nasal Cannula 2.0 10/22/18 03:00 82 21 125/74 (91) 98 10/22/18 02:00 81 26 125/55 (78) 99 10/22/18 01:00 70 22 94/40 (58) 94 10/22/18 00:00 63 10/22/18 00:00 71 24 102/40 (60) 98 10/22/18 00:00 Nasal Cannula 2.0 Nasal Cannula 2.0 10/21/18 23:00 98.3 67 23 99/34 (55) 98 10/21/18 22:00 77 23 97/42 (60) 98 10/21/18 21:00 82 25 129/47 (74) 94 10/21/18 20:42 Nasal Cannula 2.0 28 10/21/18 20:42 96 Nasal Cannula 2.0 28 10/21/18 20:00 Nasal Cannula 2.0 Nasal Cannula 2.0 10/21/18 20:00 98.2 72 24 117/48 (71) 95 10/21/18 20:00 68 10/21/18 19:00 66 26 110/51 (70) 95 Intake and Output 10/21/18 10/22/18 19:00 07:00 Intake Total 660 ml 750 ml Output Total 755 ml 430 ml Balance -95 ml 320 ml Intake Free Water 150 ml Tube Feeding 600 ml 600 ml Other 60 ml Output Urine Total 755 ml 430 ml General Appearance: no acute distress Respiratory/Chest: lungs clear Cardiovascular: normal rate Laboratory Tests 10/22/18 04:30: White Blood Count 12.0H, Red Blood Count 4.17L, Hemoglobin 11.1L, Hematocrit 35.8L, Mean Corpuscular Volume 86, Mean Corpuscular Hemoglobin 26.6L, Mean Corpuscular Hemoglobin Concent 31.0L, Red Cell Distribution Width 15.5H, Platelet Count 144L, Mean Platelet Volume 8.3, Neutrophils (%) (Auto) 78.3H, Lymphocytes (%) (Auto) 10.8L, Monocytes (%) (Auto) 8.8, Eosinophils (%) (Auto) 1.7, Basophils (%) (Auto) 0.5, Prothrombin Time 14.5H, Prothromb Time International Ratio 1.4H, Sodium Level 146H, Potassium Level 4.1, Chloride Level 108H, Carbon Dioxide Level 33H, Anion Gap 5, Blood Urea Nitrogen 31H, Creatinine 0.8, Estimat Glomerular Filtration Rate , Glucose Level 133H, Calcium Level 9.3, Magnesium Level 2.2, Pro-B-Type Natriuretic Peptide 1070H Current Medications Medications (Trade) Dose Ordered Sig/Arabella Route PRN Reason Start Time Stop Time Status Last Admin Dose Admin Chlorhexidine Gluconate (Hyacinth-Hex 2%) 1 applic DAILY@1999 TOPIC 10/22/18 20:00 11/19/18 19:59 Dextrose (Dextrose 50%) 25 ml Q30M PRN IV Hypoglycemia 10/22/18 07:15 11/12/18 22:44 Dextrose (Dextrose 50%) 50 ml Q30M PRN IV Hypoglycemia 10/22/18 07:15 11/12/18 22:44 Famotidine (Pepcid) 20 mg BID ORAL 10/22/18 09:00 11/17/18 17:59 10/22/18 09:22 Levofloxacin 150 ml @ 150 mls/hr Q48H IVPB 10/22/18 11:00 10/27/18 10:59 10/22/18 11:12 Magnesium Hydroxide (Mom) 30 ml DAILYPRN PRN ORAL Constipation 10/22/18 18:45 11/20/18 18:44 Magnesium Oxide (Mag-Ox 400mg) 400 mg THREE TIMES A DAY ORAL 10/22/18 09:00 11/16/18 17:59 10/22/18 09:22 Ondansetron HCl (Zofran) 4 mg Q6H PRN IVP Nausea & Vomiting 10/22/18 10:45 11/12/18 22:44 Quetiapine Fumarate (SEROquel) 25 mg Q12HR ORAL 10/22/18 09:00 11/18/18 20:59 10/22/18 09:22 Spironolactone (Aldactone) 25 mg DAILY ORAL 10/22/18 09:00 11/18/18 18:29 10/22/18 09:22 Warfarin Sodium (Coumadin per pharmacy) 1 ea DAILY PRN MISC Per rx protocol 10/22/18 09:00 11/17/18 00:14 Tristan Grant MD Oct 22, 2018 18:09
[2018-10-22] MEDS ORDERED: Milk of Magnesia 30ml Ud ORAL PRN (18:45)
[2018-10-22] MEDS: Dyna-Hex 2% Top Sol 2oz TOPIC SCH (21:03)
[2018-10-23] VITALS (8 sets, daily range): BP systolic 118–154; BP diastolic 56–74
[2018-10-23 04:34] LABS: BASOPHILS % (AUTO) 0.5 % (0.0-2.0); EOSINOPHILS % (AUTO) 1.1 % (0.0-3.0); HEMATOCRIT 37.6 % (37.0-47.0); HEMOGLOBIN 11.8 G/DL (12.0-16.0); LYMPHOCYTES % (AUTO) 12.1 % (20.0-45.0); MEAN CORPUSCULAR VOLUME 84 FL (80-99); MONOCYTES % (AUTO) 8.7 % (1.0-10.0); NEUTROPHILS % (AUTO) 77.7 % (45.0-75.0); PLATELET COUNT 154 K/UL (150-450); RED BLOOD COUNT 4.45 M/UL (4.20-5.40); RED CELL DISTRIBUTION WIDTH 15.8 % (11.6-14.8); WHITE BLOOD COUNT 11.7 K/UL (4.8-10.8)
[2018-10-23 04:35] LABS: INR 1.4 (0.9-1.1)
[2018-10-23 04:36] LABS: ANION GAP 5 mmol/L (5-15); BLOOD UREA NITROGEN 25 mg/dL (7-18); CALCIUM 9.1 MG/DL (8.5-10.1); CARBON DIOXIDE 31 MMOL/L (21-32); CHLORIDE 109 MMOL/L (98-107); CREATININE 0.8 MG/DL (0.55-1.30); POTASSIUM 4.1 MMOL/L (3.5-5.1); SODIUM 144 MMOL/L (136-145)
--- NOTE | 2018-10-23 08:04 | General Progress Note ---
Assessment/Plan Problem List: (1) Hypomagnesemia ICD Codes: E83.42 - Hypomagnesemia SNOMED: 226917379 (2) HCAP (healthcare-associated pneumonia) ICD Codes: J18.9 - Pneumonia, unspecified organism SNOMED: 591156558 (3) Dyspnea ICD Codes: R06.00 - Dyspnea, unspecified SNOMED: 906349891 (4) Hypokalemia ICD Codes: E87.6 - Hypokalemia SNOMED: 71992265 (5) Alzheimer's dementia ICD Codes: G30.9 - Alzheimer's disease, unspecified SNOMED: 59631024 (6) HTN (hypertension) ICD Codes: I10 - Essential (primary) hypertension SNOMED: 85873370 (7) CVA (cerebral vascular accident) ICD Codes: I63.9 - Cerebral infarction, unspecified SNOMED: 484647229 (8) Respiratory distress ICD Codes: R06.00 - Dyspnea, unspecified SNOMED: 284403554 (9) Peripheral edema ICD Codes: R60.9 - Edema, unspecified SNOMED: 392693795, 367969788 (10) Congestive heart failure (CHF) ICD Codes: I50.9 - Heart failure, unspecified SNOMED: 64605352 (11) Respiratory failure ICD Codes: J96.90 - Respiratory failure, unspecified, unspecified whether with hypoxia or hypercapnia SNOMED: 342918156, 937350590 (12) Cellulitis of leg ICD Codes: L03.119 - Cellulitis of unspecified part of limb SNOMED: 988849731 (13) Dementia ICD Codes: F03.90 - Unspecified dementia without behavioral disturbance SNOMED: 86993010 (14) Dysphagia ICD Codes: R13.10 - Dysphagia, unspecified SNOMED: 24315234, 002268497 (15) DVT (deep venous thrombosis) ICD Codes: I82.409 - Acute embolism and thrombosis of unspecified deep veins of unspecified lower extremity SNOMED: 180314967 Assessment/Plan extubated, anxious to add seroquel, prior on ativan 40 yrs but benzo high risk in elderly, frail cxr better, continue iv antibiotics,change levaquin for pseudomonas in sputum replace K, Mg, titration cardiac meds, full code per daughter swollow eval failed, daughter agrees to peg, has ivc filter would try off coumadin as high risk Subjective ROS Limited/Unobtainable: Yes Allergies: Coded Allergies: No Known Allergies (Unverified , 05/07/16) Objective Last 24 Hour Vital Signs Date Time Temp Pulse Resp B/P (MAP) Pulse Ox O2 Delivery O2 Flow Rate FiO2 10/23/18 04:00 Nasal Cannula 2.0 Nasal Cannula 2.0 10/23/18 04:00 73 10/23/18 04:00 98.3 66 24 118/62 (80) 97 10/22/18 20:00 62 10/22/18 20:00 98.9 79 24 132/54 (80) 95 10/22/18 20:00 Nasal Cannula 2.0 Nasal Cannula 2.0 10/22/18 16:00 Nasal Cannula 2.0 Nasal Cannula 2.0 10/22/18 16:00 98.9 74 29 144/67 (92) 95 10/22/18 16:00 77 10/22/18 12:00 Nasal Cannula 2.0 Nasal Cannula 2.0 10/22/18 12:00 99.1 71 26 112/48 (69) 93 10/22/18 12:00 63 10/22/18 09:45 Nasal Cannula 2.0 Nasal Cannula 2.0 Intake and Output 10/22/18 10/23/18 19:00 07:00 Intake Total 300 ml Output Total 550 ml 500 ml Balance -250 ml -500 ml Intake Free Water 50 ml IV Total 150 ml Tube Feeding 100 ml Output Urine Total 550 ml 500 ml Laboratory Tests 10/23/18 04:00: White Blood Count 11.7H, Red Blood Count 4.45, Hemoglobin 11.8L, Hematocrit 37.6 , Mean Corpuscular Volume 84, Mean Corpuscular Hemoglobin 26.4L, Mean Corpuscular Hemoglobin Concent 31.3L, Red Cell Distribution Width 15.8H, Platelet Count 154, Mean Platelet Volume 7.6, Neutrophils (%) (Auto) 77.7H, Lymphocytes (%) (Auto) 12.1L, Monocytes (%) (Auto) 8.7, Eosinophils (%) (Auto) 1.1, Basophils (%) (Auto) 0.5, Prothrombin Time 14.8H, Prothromb Time International Ratio 1.4H, Activated Partial Thromboplast Time 28, Sodium Level 144, Potassium Level 4.1, Chloride Level 109H, Carbon Dioxide Level 31, Anion Gap 5, Blood Urea Nitrogen 25H, Creatinine 0.8, Estimat Glomerular Filtration Rate , Glucose Level 92, Calcium Level 9.1 Height (Feet): 5 Height (Inches): 6.00 Weight (Pounds): 170 General Appearance: confused, mild distress EENT: normal ENT inspection Neck: normal alignment Cardiovascular: normal rate, regular rhythm Respiratory/Chest: lungs clear, normal breath sounds Abdomen: soft, no organomegaly Edema: trace edema, mild edema Neurologic: disoriented Chetan Hull MD Oct 23, 2018 08:04
--- NOTE | 2018-10-23 08:25 | General Progress Note ---
Assessment/Plan Problem List: (1) DVT (deep venous thrombosis) ICD Codes: I82.409 - Acute embolism and thrombosis of unspecified deep veins of unspecified lower extremity SNOMED: 243445066 (2) Dysphagia ICD Codes: R13.10 - Dysphagia, unspecified SNOMED: 64982835, 006987196 (3) Dementia ICD Codes: F03.90 - Unspecified dementia without behavioral disturbance SNOMED: 49244531 (4) HCAP (healthcare-associated pneumonia) ICD Codes: J18.9 - Pneumonia, unspecified organism SNOMED: 929739327 (5) HTN (hypertension) ICD Codes: I10 - Essential (primary) hypertension SNOMED: 04108265 Assessment/Plan dc coumadin INR 1.4 today plan PEG for today Subjective ROS Limited/Unobtainable: No Allergies: Coded Allergies: No Known Allergies (Unverified , 05/07/16) Objective Last 24 Hour Vital Signs Date Time Temp Pulse Resp B/P (MAP) Pulse Ox O2 Delivery O2 Flow Rate FiO2 10/23/18 04:00 Nasal Cannula 2.0 Nasal Cannula 2.0 10/23/18 04:00 73 10/23/18 04:00 98.3 66 24 118/62 (80) 97 10/22/18 20:00 62 10/22/18 20:00 98.9 79 24 132/54 (80) 95 10/22/18 20:00 Nasal Cannula 2.0 Nasal Cannula 2.0 10/22/18 16:00 Nasal Cannula 2.0 Nasal Cannula 2.0 10/22/18 16:00 98.9 74 29 144/67 (92) 95 10/22/18 16:00 77 10/22/18 12:00 Nasal Cannula 2.0 Nasal Cannula 2.0 10/22/18 12:00 99.1 71 26 112/48 (69) 93 10/22/18 12:00 63 10/22/18 09:45 Nasal Cannula 2.0 Nasal Cannula 2.0 Intake and Output 10/22/18 10/23/18 19:00 07:00 Intake Total 300 ml Output Total 550 ml 500 ml Balance -250 ml -500 ml Intake Free Water 50 ml IV Total 150 ml Tube Feeding 100 ml Output Urine Total 550 ml 500 ml Laboratory Tests 10/23/18 04:00: White Blood Count 11.7H, Red Blood Count 4.45, Hemoglobin 11.8L, Hematocrit 37.6 , Mean Corpuscular Volume 84, Mean Corpuscular Hemoglobin 26.4L, Mean Corpuscular Hemoglobin Concent 31.3L, Red Cell Distribution Width 15.8H, Platelet Count 154, Mean Platelet Volume 7.6, Neutrophils (%) (Auto) 77.7H, Lymphocytes (%) (Auto) 12.1L, Monocytes (%) (Auto) 8.7, Eosinophils (%) (Auto) 1.1, Basophils (%) (Auto) 0.5, Prothrombin Time 14.8H, Prothromb Time International Ratio 1.4H, Activated Partial Thromboplast Time 28, Sodium Level 144, Potassium Level 4.1, Chloride Level 109H, Carbon Dioxide Level 31, Anion Gap 5, Blood Urea Nitrogen 25H, Creatinine 0.8, Estimat Glomerular Filtration Rate , Glucose Level 92, Calcium Level 9.1 Height (Feet): 5 Height (Inches): 6.00 Weight (Pounds): 170 General Appearance: lethargic EENT: normal ENT inspection Neck: supple Cardiovascular: normal rate Respiratory/Chest: decreased breath sounds Abdomen: normal bowel sounds, non tender, soft Extremities: non-tender Hemant Chairez MD Oct 23, 2018 08:25
--- NOTE | 2018-10-23 08:26 | Pre-Procedure Note/Attestation ---
Pre-Procedure Note/Attestation Complete Prior to Procedure Planned Procedure: not applicable Procedure Narrative: egd/peg Indications for Procedure Pre-Operative Diagnosis: dysphagia Attestation I attest that I discussed the nature of the procedure; its benefits; risks and complications; and alternatives (and the risks and benefits of such alternatives ), prior to the procedure, with the patient (or the patient's legal digital media representative). I attest that, if there was a reasonable possibility of needing a blood transfusion, the patient (or the patient's legal digital media representative) was given the [facility] standardized written summary, pursuant to the Johnathan Melanie Blood Safety Act ([place] Health and Safety Code # 1645, as amended). I attest that I re-evaluated the patient just prior to the surgery and that there has been no change in the patient's H&P, except as documented below: Hemant Chairez MD Oct 23, 2018 08:26
[2018-10-23] MEDS: Fleet's Enema 133ml RECTAL SCH ×2 (08:30→09:49)
[2018-10-23] MEDS: Magnesium Oxide 400mg tab ORAL SCH ×3 (09:00→17:34)
[2018-10-23] MEDS: Spironolactone 25mg tab ORAL SCH (09:00)
--- NOTE | 2018-10-23 10:03 | Anethesia Preoperative Eval ---
Anesthesia Pre-op PMH/ROS General Date of Evaluation: Oct 23, 2018 Time of Evaluation: 10:00 Anesthesiologist: Nick ASA Score: ASA 4 Mallampati Score Class I : Soft palate, uvula, fauces, pillars visible Class II: Soft palate, uvula, fauces visible Class III: Soft palate, base of uvula visible Class IV: Only hard plate visible Mallampati Classification: Class II Surgeon: Mihaela Diagnosis: Dysphagia Surgical Procedure: EGD PEG tube placement Anesthesia History: none Family History: no anesthesia problems Allergies: Coded Allergies: No Known Allergies (Unverified , 05/07/16) Medications: see eMAR Patient NPO?: Yes Past Medical History Cardiovascular: Reports: HTN; Denies: CAD, ND, valve dz, arrhythmia, other Pulmonary: Reports: other - erespiratory failure; Denies: asthma, COPD, FRANCISCO JAVIER Gastrointestinal/Genitourinary: Reports: GERD, other - dysphagia; Denies: CRI, ESRD Neurologic/Psychiatric: Reports: dementia, CVA; Denies: depression/anxiety, TIA, other Endocrine: Reports: hypothyroidism; Denies: DM, steroids, other HEENT: Reports: cataract (L), cataract (R); Denies: glaucoma, RENO-SPARKS (L), RENO-SPARKS (R), other Hematology/Immune: Reports: anemia; Denies: DVT, bleeding disorder, other Musculoskeletal/Integumentary: Reports: DJD; Denies: OA, RA, DDD, edema, other PMH Narrative: as above PSxH Narrative: See H&P Anesthesia Pre-op Phys. Exam Physician Exam Last Vital Signs Date Time Temp Pulse Resp B/P (MAP) Pulse Ox O2 Delivery O2 Flow Rate FiO2 10/23/18 08:00 98.0 74 25 154/63 (93) 97 10/23/18 04:00 Nasal Cannula 2.0 Nasal Cannula 2.0 10/21/18 20:42 28 Constitutional: NAD Neurologic: CN 2-12 intact Cardiovascular: RRR, no M/R/G Respiratory: CTA Gastrointestinal: S/NT/ND Airway Exam Mallampati Score: Class III MO: limited Neck: stiff ROM: limited Teeth: missing Dentures: no upper, no lower Anesthesia Pre-op A/P Labs Hematology Test 10/23/18 04:00 White Blood Count 11.7 K/UL (4.8-10.8) H Red Blood Count 4.45 M/UL (4.20-5.40) Hemoglobin 11.8 G/DL (12.0-16.0) L Hematocrit 37.6 % (37.0-47.0) Mean Corpuscular Volume 84 FL (80-99) Mean Corpuscular Hemoglobin 26.4 PG (27.0-31.0) L Mean Corpuscular Hemoglobin Concent 31.3 G/DL (32.0-36.0) L Red Cell Distribution Width 15.8 % (11.6-14.8) H Platelet Count 154 K/UL (150-450) Mean Platelet Volume 7.6 FL (6.5-10.1) Neutrophils (%) (Auto) 77.7 % (45.0-75.0) H Lymphocytes (%) (Auto) 12.1 % (20.0-45.0) L Monocytes (%) (Auto) 8.7 % (1.0-10.0) Eosinophils (%) (Auto) 1.1 % (0.0-3.0) Basophils (%) (Auto) 0.5 % (0.0-2.0) Coagulation Test 10/23/18 04:00 Prothrombin Time 14.8 SEC (9.30-11.50) H Prothromb Time International Ratio 1.4 (0.9-1.1) H Activated Partial Thromboplast Time 28 SEC (23-33) Chemistry Test 10/23/18 04:00 Sodium Level 144 MMOL/L (136-145) Potassium Level 4.1 MMOL/L (3.5-5.1) Chloride Level 109 MMOL/L (98-107) H Carbon Dioxide Level 31 MMOL/L (21-32) Anion Gap 5 mmol/L (5-15) Blood Urea Nitrogen 25 mg/dL (7-18) H Creatinine 0.8 MG/DL (0.55-1.30) Estimat Glomerular Filtration Rate mL/min (>60) Glucose Level 92 MG/DL (74-106) Calcium Level 9.1 MG/DL (8.5-10.1) Risk Assessment & Plan Assessment: ASA 4 Plan: MAC Status Change Before Surgery: No Pre-Antibiotics Drug: Tadeo Mcmullen MD Oct 23, 2018 10:03
[2018-10-23] MEDS ORDERED: NS 500ML IVPB ONE (10:10)
[2018-10-23] MEDS ORDERED: Propofol 200mg/20ml IV ONE (10:12)
[2018-10-23] MEDS ORDERED: fentaNYL 100 mcg/2 mL IV ONE (10:12)
--- NOTE | 2018-10-23 10:29 | Endoscopy Procedure Note ---
Endoscopy Procedure Note General Indication for Procedure: dysphagia Procedures Performed: EGD, PEG Operative Findings/Diagnosis: gastritis Specimen: none Pt Tolerated Procedure Well: Yes Estimated Blood Loss: none Anesthesia Anesthesiologist: sergio Anesthesia: MAC Inserted Devices Implant(s) used?: No GI Core Measures 50 yrs or older w/o bx or poly: Not Applicable 10yrs. F/U not recommended: Not Applicable Hemant Chairez MD Oct 23, 2018 10:29
--- NOTE | 2018-10-23 10:38 | Immediate Post-Op Evaluation ---
Immediate Post-Op Evalulation Immediate Post-Op Evalulation Procedure: EGD PEG tube placement Date of Evaluation: Oct 23, 2018 Time of Evaluation: 10:37 IV Fluids: 200 Blood Products: none Estimated Blood Loss: min Urinary Output: none Blood Pressure Systolic: 148 Blood Pressure Diastolic: 74 Pulse Rate: 76 Respiratory Rate: 22 O2 Sat by Pulse Oximetry: 98 Temperature (Fahrenheit): 97.8 Pain Score (1-10): 1 Nausea: No Vomiting: No Complications none Patient Status: reacts, patent, none Hydration Status: adequate Tadeo Rahman MD Oct 23, 2018 10:38
--- NOTE | 2018-10-23 11:20 | 48 Hour Post Anesthesia Eval ---
Post Anesthesia Evaluation Procedure: EGD PEG tube placement Date of Evaluation: Oct 23, 2018 Time of Evaluation: 11:19 Blood Pressure Systolic: 128 0: 76 Pulse Rate: 68 Respiratory Rate: 22 Temperature (Fahrenheit): 97.6 O2 Sat by Pulse Oximetry: 98 Airway: patent Nausea: No Vomiting: No Pain Intensity: 1 Hydration Status: adequate Cardiopulmonary Status: stable Mental Status/LOC: patient returned to baseline Follow-up Care/Observations: n/a Post-Anesthesia Complications: none Follow-up care needed: N/A Tadeo Rahman MD Oct 23, 2018 11:20
--- NOTE | 2018-10-23 12:00 | Pulmonology Progress Note ---
Assessment/Plan Assessment/Plan 1. Congestive heart failure. 2. Acute respiratory failure. 3. Hypotension. 4. Pneumonia. 5. Tardive dyskinesia nods yes/no PEG today continue levaquin cont nebs Subjective ROS Limited/Unobtainable: Yes Allergies: Coded Allergies: No Known Allergies (Unverified , 05/07/16) Objective Last 24 Hour Vital Signs Date Time Temp Pulse Resp B/P (MAP) Pulse Ox O2 Delivery O2 Flow Rate FiO2 10/23/18 11:20 68 22 98 10/23/18 10:44 97.0 68 21 148/64 96 Room Air 10/23/18 10:40 75 20 139/74 98 Nasal Cannula 3 10/23/18 10:38 76 22 98 10/23/18 10:36 97.2 73 22 145/70 98 Nasal Cannula 3 10/23/18 10:00 Nasal Cannula 2.0 Nasal Cannula 2.0 10/23/18 08:00 Nasal Cannula 2.0 Nasal Cannula 2.0 10/23/18 08:00 98.0 74 25 154/63 (93) 97 10/23/18 08:00 75 10/23/18 04:00 Nasal Cannula 2.0 Nasal Cannula 2.0 10/23/18 04:00 73 10/23/18 04:00 98.3 66 24 118/62 (80) 97 10/22/18 20:00 62 10/22/18 20:00 98.9 79 24 132/54 (80) 95 10/22/18 20:00 Nasal Cannula 2.0 Nasal Cannula 2.0 10/22/18 16:00 Nasal Cannula 2.0 Nasal Cannula 2.0 10/22/18 16:00 98.9 74 29 144/67 (92) 95 10/22/18 16:00 77 10/22/18 12:00 Nasal Cannula 2.0 Nasal Cannula 2.0 10/22/18 12:00 99.1 71 26 112/48 (69) 93 10/22/18 12:00 63 Intake and Output 10/22/18 10/23/18 19:00 07:00 Intake Total 300 ml Output Total 550 ml 500 ml Balance -250 ml -500 ml Intake Free Water 50 ml IV Total 150 ml Tube Feeding 100 ml Output Urine Total 550 ml 500 ml Objective tardive dyskinesia General Appearance: no acute distress HEENT: atraumatic, anicteric Respiratory/Chest: lungs clear Cardiovascular: normal rate Laboratory Tests 10/23/18 04:00: White Blood Count 11.7H, Red Blood Count 4.45, Hemoglobin 11.8L, Hematocrit 37.6 , Mean Corpuscular Volume 84, Mean Corpuscular Hemoglobin 26.4L, Mean Corpuscular Hemoglobin Concent 31.3L, Red Cell Distribution Width 15.8H, Platelet Count 154, Mean Platelet Volume 7.6, Neutrophils (%) (Auto) 77.7H, Lymphocytes (%) (Auto) 12.1L, Monocytes (%) (Auto) 8.7, Eosinophils (%) (Auto) 1.1, Basophils (%) (Auto) 0.5, Prothrombin Time 14.8H, Prothromb Time International Ratio 1.4H, Activated Partial Thromboplast Time 28, Sodium Level 144, Potassium Level 4.1, Chloride Level 109H, Carbon Dioxide Level 31, Anion Gap 5, Blood Urea Nitrogen 25H, Creatinine 0.8, Estimat Glomerular Filtration Rate , Glucose Level 92, Calcium Level 9.1 Current Medications Medications (Trade) Dose Ordered Sig/Arabella Route PRN Reason Start Time Stop Time Status Last Admin Dose Admin Chlorhexidine Gluconate (Hyacinth-Hex 2%) 1 applic DAILY@2000 TOPIC 10/22/18 20:00 11/19/18 19:59 10/22/18 21:03 Dextrose (Dextrose 50%) 25 ml Q30M PRN IV Hypoglycemia 10/22/18 07:15 11/12/18 22:44 Dextrose (Dextrose 50%) 50 ml Q30M PRN IV Hypoglycemia 10/22/18 07:15 11/12/18 22:44 Famotidine (Pepcid) 20 mg BID ORAL 10/22/18 09:00 11/17/18 17:59 10/22/18 09:22 Levofloxacin 150 ml @ 150 mls/hr Q48H IVPB 10/22/18 11:00 10/27/18 10:59 10/22/18 11:12 Magnesium Hydroxide (Mom) 30 ml DAILYPRN PRN ORAL Constipation 10/22/18 18:45 11/20/18 18:44 Magnesium Oxide (Mag-Ox 400mg) 400 mg THREE TIMES A DAY ORAL 10/22/18 09:00 11/16/18 17:59 10/22/18 09:22 Ondansetron HCl (Zofran) 4 mg Q6H PRN IVP Nausea & Vomiting 10/22/18 10:45 11/12/18 22:44 Quetiapine Fumarate (SEROquel) 25 mg Q12HR ORAL 10/22/18 09:00 11/18/18 20:59 10/22/18 09:22 Spironolactone (Aldactone) 25 mg DAILY ORAL 10/22/18 09:00 11/18/18 18:29 10/22/18 09:22 Tristan Grant MD Oct 23, 2018 12:00
--- NOTE | 2018-10-23 14:07 | Cardiology Report ---
APPROVED REPORT EKG Measurement Heart [id number] Normal sinus rhythm Cannot rule out Anterior infarct, age undetermined Abnormal ECG
--- NOTE | 2018-10-23 18:30 | Procedure Note ---
DATE OF PROCEDURE: 10/23/2018 SURGEON: Hemant Chairez M.D. ANESTHESIA: Per Dr. Rahman. PROCEDURE: Upper endoscopy with PEG placement. INSTRUMENT: Olympus adult flexible upper endoscope. REASON FOR PROCEDURE: The procedure, risks, benefits, and possible consequences, including hemorrhage, aspiration, perforation and infection, and alternative treatments, were explained to the patient/legal guardian by Dr. Hemant Chairez and the patient/legal guardian understood and accepted these risks. The procedure, risks, benefits, and possible consequences, including hemorrhage, aspiration, perforation and infection, and alternative treatments, were explained to the patient/legal guardian by Dr. Hemant Chairez and the patient/legal guardian understood and accepted these risks. INDICATION: Dysphagia. DESCRIPTION OF PROCEDURE: After informed consent was obtained and the patient was adequately sedated, Olympus upper endoscope was advanced from the mouth into the second portion of the duodenum and retroflexion was performed in the stomach. Then, under endoscopic guidance, under sterile condition, a 20-Bhutanese pull type of G-tube was successfully placed in the epigastric area. The distance from the tip of the tube to skin was about 2.5 cm in size. The patient tolerated the procedure very well without any complication. SUMMARY OF FINDINGS: Status post successful PEG placement. RECOMMENDATIONS: 1. Abdominal binder. 2. Elevate the head of the bed at all times. 3. G-tube flush. 4. G-tube care. 5. Start tube feeding later today. 6. The patient was on Levaquin and the patient got a dose today. I want to thank Dr. Chetan Hull for this kind referral. Hemant Chairez M.D. DR: HOMER JOB#: [id number] CC: Chetan Hull M.D.; Fax#: [phone]
--- NOTE | 2018-10-23 19:15 | Progress Note ---
DATE: 10/23/2018 CARDIOLOGY PROGRESS NOTE: SUBJECTIVE: The patient is status post PEG. No complications. Now alert. OBJECTIVE: VITAL SIGNS: Blood pressure 148/64, pulse 68, respirations 21, afebrile. LUNGS: Coarse breath sounds. No wheezing. HEART: Regular rhythm and rate. Normal S1, S2. ABDOMEN: Soft. G-tube site intact. EXTREMITIES: Trace edema. LABORATORY DATA: INR 1.4. IMPRESSION: 1. Respiratory failure. 2. Dysphagia, status post PEG. 3. Dehydration. 4. Hyponatremia, now corrected. 5. Acute on chronic diastolic congestive heart failure. 6. 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 7. CVA with left-sided weakness. PLAN: 1. Resume warfarin to INR goal 2 to 3. 2. Respiratory hygiene. 3. Reassess for diuresis based on clinical parameters titrating cardiovascular regimen. Vel Jones M.D. DR: HANNAH JOB#: [id number] CC:
--- NOTE | 2018-10-23 19:30 | Progress Note ---
DATE: 10/22/2018 CARDIOLOGY PROGRESS NOTE Late entry for 10/22/2018. SUBJECTIVE: The patient is seen and evaluated. Plans for PEG discussed tomorrow due to advanced dysphagia. The patient is responsive. Off the ventilator. OBJECTIVE: VITAL SIGNS: Blood pressure 148/64, pulse 68, and respirations 21. LUNGS: Coarse breath sounds. HEART: Regular rhythm and rate. Normal S1, S2. ABDOMEN: Soft. EXTREMITIES: No edema. LABORATORY DATA: White count 12 and hemoglobin 11. Potassium 4.1, sodium 146, bicarb 33, BUN 31, and creatinine 0.8. INR 1.4. IMPRESSION: 1. Respiratory failure. 2. Acute on chronic diastolic congestive heart failure. 3. 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 4. Coagulopathy secondary to warfarin. 5. Dehydration. 6. Hypernatremia. 7. Mild to moderate aortic stenosis. PLAN: 1. Continue free water replacement. 2. Holding diuretics. 3. Respiratory hygiene. 4. Hold warfarin. 5. Pending percutaneous endoscopic gastrostomy. 6. Avoid tight BP control. Vel Jones M.D. DR: MANDEEP JOB#: [id number] CC: SEDA
[2018-10-23] MEDS: Dyna-Hex 2% Top Sol 2oz TOPIC SCH (20:43)
[2018-10-24] VITALS: BP 104/58
[2018-10-24 04:00] VITALS: BP 123/61
[2018-10-24 05:20] LABS: HEMATOCRIT 36.2 % (37.0-47.0); HEMOGLOBIN 11.5 G/DL (12.0-16.0); MEAN CORPUSCULAR VOLUME 84 FL (80-99); PLATELET COUNT 161 K/UL (150-450); RED BLOOD COUNT 4.29 M/UL (4.20-5.40); RED CELL DISTRIBUTION WIDTH 15.8 % (11.6-14.8)
[2018-10-24 05:23] LABS: ANION GAP 4 mmol/L (5-15); BLOOD UREA NITROGEN 31 mg/dL (7-18); CARBON DIOXIDE 31 MMOL/L (21-32); CHLORIDE 110 MMOL/L (98-107); CREATININE 0.8 MG/DL (0.55-1.30); POTASSIUM 3.9 MMOL/L (3.5-5.1); SODIUM 145 MMOL/L (136-145)
[2018-10-24 08:00] VITALS: BP 114/54
[2018-10-24] MEDS: Spironolactone 25mg tab ORAL SCH (08:53)
[2018-10-24] MEDS: Magnesium Oxide 400mg tab ORAL SCH ×3 (08:53→17:13)
[2018-10-24 12:00] VITALS: BP 113/63
[2018-10-24] MEDS ORDERED: NS 275ml ONE ×2 (14:43→14:44)
[2018-10-24 16:00] VITALS: BP 133/70
--- NOTE | 2018-10-24 16:33 | General Progress Note ---
Assessment/Plan Problem List: (1) Hypomagnesemia ICD Codes: E83.42 - Hypomagnesemia SNOMED: 135711398 (2) HCAP (healthcare-associated pneumonia) ICD Codes: J18.9 - Pneumonia, unspecified organism SNOMED: 928695508 (3) Dyspnea ICD Codes: R06.00 - Dyspnea, unspecified SNOMED: 305675960 (4) Hypokalemia ICD Codes: E87.6 - Hypokalemia SNOMED: 69240294 (5) Alzheimer's dementia ICD Codes: G30.9 - Alzheimer's disease, unspecified SNOMED: 50984197 (6) HTN (hypertension) ICD Codes: I10 - Essential (primary) hypertension SNOMED: 43843825 (7) CVA (cerebral vascular accident) ICD Codes: I63.9 - Cerebral infarction, unspecified SNOMED: 137666528 (8) Respiratory distress ICD Codes: R06.00 - Dyspnea, unspecified SNOMED: 497779903 (9) Peripheral edema ICD Codes: R60.9 - Edema, unspecified SNOMED: 847906580, 643098778 (10) Congestive heart failure (CHF) ICD Codes: I50.9 - Heart failure, unspecified SNOMED: 39819088 (11) Respiratory failure ICD Codes: J96.90 - Respiratory failure, unspecified, unspecified whether with hypoxia or hypercapnia SNOMED: 580562482, 519551924 (12) Cellulitis of leg ICD Codes: L03.119 - Cellulitis of unspecified part of limb SNOMED: 479337518 (13) Dementia ICD Codes: F03.90 - Unspecified dementia without behavioral disturbance SNOMED: 33584915 (14) Dysphagia ICD Codes: R13.10 - Dysphagia, unspecified SNOMED: 97723271, 928649347 (15) DVT (deep venous thrombosis) ICD Codes: I82.409 - Acute embolism and thrombosis of unspecified deep veins of unspecified lower extremity SNOMED: 386920232 Assessment/Plan extubated, anxious to add seroquel, prior on ativan 40 yrs but benzo high risk in elderly, frail cxr better, continue iv antibiotics,change levaquin for pseudomonas in sputum replace K, Mg, titration cardiac meds, full code per daughter swollow eval failed, daughter agrees to peg, has ivc filter would try off coumadin as high risk start tube feed, dc planning Subjective ROS Limited/Unobtainable: Yes Allergies: Coded Allergies: No Known Allergies (Unverified , 05/07/16) Objective Last 24 Hour Vital Signs Date Time Temp Pulse Resp B/P (MAP) Pulse Ox O2 Delivery O2 Flow Rate FiO2 10/24/18 16:00 106 10/24/18 16:00 Room Air Room Air 10/24/18 12:00 66 10/24/18 12:00 97.9 81 20 113/63 (80) 98 10/24/18 11:58 Room Air Room Air 10/24/18 08:00 86 10/24/18 08:00 Room Air Room Air 10/24/18 08:00 97.7 87 20 114/54 (74) 97 10/24/18 04:00 Room Air Room Air 10/24/18 04:00 69 10/24/18 04:00 98.1 74 20 123/61 (81) 98 10/24/18 00:00 69 10/24/18 00:00 97.7 79 20 104/58 (73) 92 10/24/18 00:00 Room Air Room Air 10/23/18 20:00 93 10/23/18 20:00 Room Air Room Air 10/23/18 20:00 99.4 81 20 135/56 (82) 95 Intake and Output 10/23/18 10/24/18 18:59 06:59 Intake Total 870 ml 710 ml Output Total 200 ml 500 ml Balance 670 ml 210 ml Intake Free Water 170 ml 140 ml IV Total 250 ml Tube Feeding 450 ml 570 ml Output Urine Total 200 ml 500 ml Estimated Blood Loss 0 ml # Voids 2 Laboratory Tests 10/24/18 04:30: White Blood Count 19.0#H, Red Blood Count 4.29, Hemoglobin 11.5L, Hematocrit 36.2L, Mean Corpuscular Volume 84, Mean Corpuscular Hemoglobin 26.8L, Mean Corpuscular Hemoglobin Concent 31.7L, Red Cell Distribution Width 15.8H, Platelet Count 161, Mean Platelet Volume 7.9, Neutrophils (%) (Auto) , Lymphocytes (%) (Auto) , Monocytes (%) (Auto) , Eosinophils (%) (Auto) , Basophils (%) (Auto) , Differential Total Cells Counted 100, Neutrophils % ( Manual) 85H, Lymphocytes % (Manual) 7L, Monocytes % (Manual) 7, Eosinophils % ( Manual) 1, Basophils % (Manual) 0, Band Neutrophils 0, Platelet Estimate Adequate, Platelet Morphology Normal, Anisocytosis 1+, Sodium Level 145, Potassium Level 3.9, Chloride Level 110H, Carbon Dioxide Level 31, Anion Gap 4L , Blood Urea Nitrogen 31H, Creatinine 0.8, Estimat Glomerular Filtration Rate , Glucose Level 137H, Calcium Level 9.0 Height (Feet): 5 Height (Inches): 6.00 Weight (Pounds): 174 General Appearance: alert, confused EENT: normal ENT inspection Neck: normal alignment Cardiovascular: normal rate Respiratory/Chest: rhonchi - bilaterally Abdomen: non tender Extremities: non-tender Edema: trace edema Neurologic: disoriented Chetan Hull MD Oct 24, 2018 16:33
[2018-10-24] MEDS ORDERED: Furosemide 40mg tab ORAL SCH (16:45)
--- NOTE | 2018-10-24 17:15 | General Progress Note ---
Assessment/Plan Assessment/Plan Assessment (1) DVT (deep venous thrombosis) ICD Codes: I82.409 - Acute embolism and thrombosis of unspecified deep veins of unspecified lower extremity SNOMED: 158526601 (2) Dysphagia ICD Codes: R13.10 - Dysphagia, unspecified SNOMED: 73410750, 257328482 (3) Dementia ICD Codes: F03.90 - Unspecified dementia without behavioral disturbance SNOMED: 82263814 (4) HCAP (healthcare-associated pneumonia) ICD Codes: J18.9 - Pneumonia, unspecified organism SNOMED: 157908212 (5) HTN (hypertension) ICD Codes: I10 - Essential (primary) hypertension SNOMED: 21014523 Recommendations - TF - GT care - Elevate HOB - anticoagulation per primary team Subjective Allergies: Coded Allergies: No Known Allergies (Unverified , 05/07/16) Subjective awake minimally interactive POD # 1 s/p PEG Objective Last 24 Hour Vital Signs Date Time Temp Pulse Resp B/P (MAP) Pulse Ox O2 Delivery O2 Flow Rate FiO2 10/24/18 16:00 106 10/24/18 16:00 Room Air Room Air 10/24/18 16:00 98.4 94 28 133/70 (91) 98 10/24/18 12:00 66 10/24/18 12:00 97.9 81 20 113/63 (80) 98 10/24/18 11:58 Room Air Room Air 10/24/18 08:00 86 10/24/18 08:00 Room Air Room Air 10/24/18 08:00 97.7 87 20 114/54 (74) 97 10/24/18 04:00 Room Air Room Air 10/24/18 04:00 69 10/24/18 04:00 98.1 74 20 123/61 (81) 98 10/24/18 00:00 69 10/24/18 00:00 97.7 79 20 104/58 (73) 92 10/24/18 00:00 Room Air Room Air 10/23/18 20:00 93 10/23/18 20:00 Room Air Room Air 10/23/18 20:00 99.4 81 20 135/56 (82) 95 Intake and Output 10/23/18 10/24/18 18:59 06:59 Intake Total 870 ml 710 ml Output Total 200 ml 500 ml Balance 670 ml 210 ml Intake Free Water 170 ml 140 ml IV Total 250 ml Tube Feeding 450 ml 570 ml Output Urine Total 200 ml 500 ml Estimated Blood Loss 0 ml # Voids 2 Laboratory Tests 10/24/18 04:30: White Blood Count 19.0#H, Red Blood Count 4.29, Hemoglobin 11.5L, Hematocrit 36.2L, Mean Corpuscular Volume 84, Mean Corpuscular Hemoglobin 26.8L, Mean Corpuscular Hemoglobin Concent 31.7L, Red Cell Distribution Width 15.8H, Platelet Count 161, Mean Platelet Volume 7.9, Neutrophils (%) (Auto) , Lymphocytes (%) (Auto) , Monocytes (%) (Auto) , Eosinophils (%) (Auto) , Basophils (%) (Auto) , Differential Total Cells Counted 100, Neutrophils % ( Manual) 85H, Lymphocytes % (Manual) 7L, Monocytes % (Manual) 7, Eosinophils % ( Manual) 1, Basophils % (Manual) 0, Band Neutrophils 0, Platelet Estimate Adequate, Platelet Morphology Normal, Anisocytosis 1+, Sodium Level 145, Potassium Level 3.9, Chloride Level 110H, Carbon Dioxide Level 31, Anion Gap 4L , Blood Urea Nitrogen 31H, Creatinine 0.8, Estimat Glomerular Filtration Rate , Glucose Level 137H, Calcium Level 9.0 Height (Feet): 5 Height (Inches): 6.00 Weight (Pounds): 174 Objective WDWN elderly WW NCAT supple CTA RR soft ND NT, (+) PEG no edema Dano Jones MD Oct 24, 2018 17:15
--- NOTE | 2018-10-24 19:50 | Pulmonology Progress Note ---
Assessment/Plan Assessment/Plan 1. Congestive heart failure. 2. Acute respiratory failure. 3. Hypotension. 4. Pneumonia. 5. Tardive dyskinesia o2 aspiration precautions PEG npo and TF continue levaquin cont nebs cxr friday Subjective ROS Limited/Unobtainable: Yes Allergies: Coded Allergies: No Known Allergies (Unverified , 05/07/16) Subjective on o2 stable npo on tf nonverbal no distress no fever not getting oob Objective Last 24 Hour Vital Signs Date Time Temp Pulse Resp B/P (MAP) Pulse Ox O2 Delivery O2 Flow Rate FiO2 10/24/18 16:00 106 10/24/18 16:00 Room Air Room Air 10/24/18 16:00 98.4 94 28 133/70 (91) 98 10/24/18 12:00 66 10/24/18 12:00 97.9 81 20 113/63 (80) 98 10/24/18 11:58 Room Air Room Air 10/24/18 08:00 86 10/24/18 08:00 Room Air Room Air 10/24/18 08:00 97.7 87 20 114/54 (74) 97 10/24/18 04:00 Room Air Room Air 10/24/18 04:00 69 10/24/18 04:00 98.1 74 20 123/61 (81) 98 10/24/18 00:00 69 10/24/18 00:00 97.7 79 20 104/58 (73) 92 10/24/18 00:00 Room Air Room Air 10/23/18 20:00 93 10/23/18 20:00 Room Air Room Air 10/23/18 20:00 99.4 81 20 135/56 (82) 95 Intake and Output 10/23/18 10/24/18 18:59 06:59 Intake Total 870 ml 710 ml Output Total 200 ml 500 ml Balance 670 ml 210 ml Intake Free Water 170 ml 140 ml IV Total 250 ml Tube Feeding 450 ml 570 ml Output Urine Total 200 ml 500 ml Estimated Blood Loss 0 ml # Voids 2 General Appearance: cachetic Respiratory/Chest: rhonchi Cardiovascular: normal rate, regular rhythm, murmur systolic Abdomen: soft, non tender, no organomegaly Extremities: no cyanosis Neurologic/Psychiatric: responsive Lymphatic: no groin adenopathy Laboratory Tests 10/24/18 04:30: White Blood Count 19.0#H, Red Blood Count 4.29, Hemoglobin 11.5L, Hematocrit 36.2L, Mean Corpuscular Volume 84, Mean Corpuscular Hemoglobin 26.8L, Mean Corpuscular Hemoglobin Concent 31.7L, Red Cell Distribution Width 15.8H, Platelet Count 161, Mean Platelet Volume 7.9, Neutrophils (%) (Auto) , Lymphocytes (%) (Auto) , Monocytes (%) (Auto) , Eosinophils (%) (Auto) , Basophils (%) (Auto) , Differential Total Cells Counted 100, Neutrophils % ( Manual) 85H, Lymphocytes % (Manual) 7L, Monocytes % (Manual) 7, Eosinophils % ( Manual) 1, Basophils % (Manual) 0, Band Neutrophils 0, Platelet Estimate Adequate, Platelet Morphology Normal, Anisocytosis 1+, Sodium Level 145, Potassium Level 3.9, Chloride Level 110H, Carbon Dioxide Level 31, Anion Gap 4L , Blood Urea Nitrogen 31H, Creatinine 0.8, Estimat Glomerular Filtration Rate , Glucose Level 137H, Calcium Level 9.0 Current Medications Medications (Trade) Dose Ordered Sig/Arabella Route PRN Reason Start Time Stop Time Status Last Admin Dose Admin Chlorhexidine Gluconate (Hyacinth-Hex 2%) 1 applic DAILY@2000 TOPIC 10/24/18 20:00 11/19/18 19:59 Dextrose (Dextrose 50%) 25 ml Q30M PRN IV Hypoglycemia 10/24/18 19:15 11/12/18 22:44 Dextrose (Dextrose 50%) 50 ml Q30M PRN IV Hypoglycemia 10/24/18 19:15 11/12/18 22:44 Famotidine (Pepcid) 20 mg BID ORAL 10/25/18 09:00 11/17/18 17:59 Furosemide (Lasix) 40 mg DAILY ORAL 10/25/18 09:00 11/24/18 08:59 Levofloxacin 150 ml @ 150 mls/hr Q48H IVPB 10/26/18 11:00 10/27/18 10:59 Magnesium Hydroxide (Mom) 30 ml DAILYPRN PRN ORAL Constipation 10/25/18 18:45 11/20/18 18:44 Magnesium Oxide (Mag-Ox 400mg) 400 mg THREE TIMES A DAY ORAL 10/25/18 09:00 11/16/18 17:59 Ondansetron HCl (Zofran) 4 mg Q6H PRN IVP Nausea & Vomiting 10/24/18 17:30 11/12/18 17:29 Quetiapine Fumarate (SEROquel) 25 mg Q12HR ORAL 10/24/18 21:00 11/18/18 20:59 Spironolactone (Aldactone) 25 mg DAILY ORAL 10/25/18 09:00 11/18/18 18:29 Margaret Forte DO Oct 24, 2018 19:50
[2018-10-24 20:00] VITALS: BP 137/70
[2018-10-24] MEDS: Dyna-Hex 2% Top Sol 2oz TOPIC SCH (20:00)
[2018-10-24] MEDS ORDERED: Warfarin Sodium 10mg GT ONE (22:30)
[2018-10-25] VITALS: BP 140/68
--- NOTE | 2018-10-25 03:15 | Progress Note ---
DATE: 10/24/2018 CARDIOLOGY PROGRESS NOTE SUBJECTIVE: The patient is status post PEG. She is on feedings now by G-tube. Still with some cough and congestion. No chest pain. OBJECTIVE: VITAL SIGNS: Blood pressure 133/70, heart rate 66 to 94, respiratory 20 to 28, and afebrile. LUNGS: Coarse breath sounds. Scattered rhonchi. HEART: Regular rhythm and rate. Normal S1 and S2. ABDOMEN: Soft. EXTREMITIES: Trace edema. NEUROLOGIC: Left hemiparesis. LABORATORY DATA: G-tube intact. White count 19 and hemoglobin 11.5. Potassium 3.9, BUN 31, and creatinine 0.8. IMPRESSION: 1. Status post respiratory failure. 2. Dysphagia, status post G-tube. 3. DVT. 4. Leukocytosis. 5. Acute on chronic diastolic congestive heart failure. 6. Degenerative aortic valve stenosis. PLAN: 1. Avoid positive fluid balance. 2. Continue diuresis. 3. Trend natriuretic peptide. 4. Warfarin dosing for full anticoagulation to INR of 2 to 3. Vel Jones M.D. DR: DENNY JOB#: [id number] CC: SEDA
[2018-10-25 04:00] VITALS: BP 141/71
[2018-10-25 07:01] LABS: INR 1.2 (0.9-1.1)
[2018-10-25 07:26] LABS: ANION GAP 8 mmol/L (5-15); BLOOD UREA NITROGEN 32 mg/dL (7-18); CALCIUM 9.7 MG/DL (8.5-10.1); CARBON DIOXIDE 32 MMOL/L (21-32); CHLORIDE 106 MMOL/L (98-107); CREATININE 0.9 MG/DL (0.55-1.30); POTASSIUM 4.1 MMOL/L (3.5-5.1); SODIUM 146 MMOL/L (136-145)
[2018-10-25 07:29] LABS: BASOPHILS % (AUTO) 0.3 % (0.0-2.0); EOSINOPHILS % (AUTO) 0.6 % (0.0-3.0); HEMATOCRIT 38.8 % (37.0-47.0); HEMOGLOBIN 12.2 G/DL (12.0-16.0); MEAN CORPUSCULAR VOLUME 86 FL (80-99); MONOCYTES % (AUTO) 8.3 % (1.0-10.0); NEUTROPHILS % (AUTO) 83.9 % (45.0-75.0); PLATELET COUNT 164 K/UL (150-450); RED BLOOD COUNT 4.51 M/UL (4.20-5.40); RED CELL DISTRIBUTION WIDTH 16.6 % (11.6-14.8); WHITE BLOOD COUNT 17.8 K/UL (4.8-10.8)
[2018-10-25 08:00] VITALS: BP 143/63
[2018-10-25] MEDS ORDERED: Furosemide 40mg tab ORAL SCH ×2 (09:00)
[2018-10-25] MEDS: Spironolactone 25mg tab ORAL SCH (09:36)
[2018-10-25] MEDS: Magnesium Oxide 400mg tab ORAL SCH ×3 (09:37→18:27)
[2018-10-25 12:24] VITALS: BP 115/88
--- NOTE | 2018-10-25 13:10 | General Progress Note ---
Assessment/Plan Problem List: (1) Hypomagnesemia ICD Codes: E83.42 - Hypomagnesemia SNOMED: 819037886 (2) HCAP (healthcare-associated pneumonia) ICD Codes: J18.9 - Pneumonia, unspecified organism SNOMED: 881942331 (3) Dyspnea ICD Codes: R06.00 - Dyspnea, unspecified SNOMED: 961376035 (4) Hypokalemia ICD Codes: E87.6 - Hypokalemia SNOMED: 15275184 (5) Alzheimer's dementia ICD Codes: G30.9 - Alzheimer's disease, unspecified SNOMED: 98701873 (6) HTN (hypertension) ICD Codes: I10 - Essential (primary) hypertension SNOMED: 17307544 (7) CVA (cerebral vascular accident) ICD Codes: I63.9 - Cerebral infarction, unspecified SNOMED: 137278470 (8) Respiratory distress ICD Codes: R06.00 - Dyspnea, unspecified SNOMED: 878045208 (9) Peripheral edema ICD Codes: R60.9 - Edema, unspecified SNOMED: 239506986, 444970531 (10) Congestive heart failure (CHF) ICD Codes: I50.9 - Heart failure, unspecified SNOMED: 36112969 (11) Respiratory failure ICD Codes: J96.90 - Respiratory failure, unspecified, unspecified whether with hypoxia or hypercapnia SNOMED: 088898043, 438836469 (12) Cellulitis of leg ICD Codes: L03.119 - Cellulitis of unspecified part of limb SNOMED: 559013717 (13) Dementia ICD Codes: F03.90 - Unspecified dementia without behavioral disturbance SNOMED: 22894161 (14) Dysphagia ICD Codes: R13.10 - Dysphagia, unspecified SNOMED: 99033052, 244748585 (15) DVT (deep venous thrombosis) ICD Codes: I82.409 - Acute embolism and thrombosis of unspecified deep veins of unspecified lower extremity SNOMED: 949717870 Assessment/Plan extubated, anxious to add seroquel, prior on ativan 40 yrs but benzo high risk in elderly, frail cxr better, discontinue iv antibiotics,change levaquin for pseudomonas in sputum change to po as pulled out line replace K, Mg, titration cardiac meds, full code per daughter swollow eval failed, daughter agrees to peg, has ivc filter would try off coumadin as high risk start tube feed, dc planning Subjective ROS Limited/Unobtainable: Yes Allergies: Coded Allergies: No Known Allergies (Unverified , 05/07/16) Objective Last 24 Hour Vital Signs Date Time Temp Pulse Resp B/P (MAP) Pulse Ox O2 Delivery O2 Flow Rate FiO2 10/25/18 12:24 98.0 85 115/88 (97) 94 10/25/18 08:00 96.4 95 24 143/63 (89) 94 10/25/18 04:00 99.1 105 23 141/71 (94) 93 10/25/18 00:00 99.3 105 24 140/68 (92) 95 10/24/18 21:00 Room Air Room Air 10/24/18 20:00 99.0 95 19 137/70 (92) 94 10/24/18 16:00 106 10/24/18 16:00 Room Air Room Air 10/24/18 16:00 98.4 94 28 133/70 (91) 98 Intake and Output 10/24/18 10/25/18 19:00 07:00 Intake Total 1120 ml 1110 ml Output Total 1275 ml 300 ml Balance -155 ml 810 ml Intake Free Water 230 ml 450 ml Tube Feeding 650 ml 660 ml Other 240 ml Output Urine Total 1275 ml 300 ml Laboratory Tests 10/25/18 06:41: White Blood Count 17.8H, Red Blood Count 4.51, Hemoglobin 12.2, Hematocrit 38.8 , Mean Corpuscular Volume 86, Mean Corpuscular Hemoglobin 27.1, Mean Corpuscular Hemoglobin Concent 31.5L, Red Cell Distribution Width 16.6H, Platelet Count 164, Mean Platelet Volume 7.7, Neutrophils (%) (Auto) 83.9H, Lymphocytes (%) (Auto) 7.0L, Monocytes (%) (Auto) 8.3, Eosinophils (%) (Auto) 0.6, Basophils (%) (Auto) 0.3, Prothrombin Time 12.6H, Prothromb Time International Ratio 1.2H, Sodium Level 146H, Potassium Level 4.1, Chloride Level 106, Carbon Dioxide Level 32, Anion Gap 8, Blood Urea Nitrogen 32H, Creatinine 0.9, Estimat Glomerular Filtration Rate , Glucose Level 118H, Calcium Level 9.7, Pro-B-Type Natriuretic Peptide 603H Height (Feet): 5 Height (Inches): 6.00 Weight (Pounds): 180 General Appearance: no apparent distress, alert, confused EENT: normal ENT inspection Neck: normal alignment Cardiovascular: normal rate, regular rhythm Respiratory/Chest: lungs clear Abdomen: non tender, soft Edema: trace edema Neurologic: disoriented Chetan Hull MD Oct 25, 2018 13:09
[2018-10-25] MEDS ORDERED: Warfarin Sodium 10mg GT ONE (17:00)
[2018-10-25 17:06] VITALS: BP 115/63
[2018-10-25] MEDS ORDERED: Milk of Magnesia 30ml Ud ORAL PRN (18:45)
[2018-10-25 20:00] VITALS: BP 112/65
[2018-10-25] MEDS: Dyna-Hex 2% Top Sol 2oz TOPIC SCH (20:00)
--- NOTE | 2018-10-25 20:09 | General Progress Note ---
Assessment/Plan Assessment/Plan Assessment (1) DVT (deep venous thrombosis) ICD Codes: I82.409 - Acute embolism and thrombosis of unspecified deep veins of unspecified lower extremity SNOMED: 850742409 (2) Dysphagia ICD Codes: R13.10 - Dysphagia, unspecified SNOMED: 65452308, 495871850 (3) Dementia ICD Codes: F03.90 - Unspecified dementia without behavioral disturbance SNOMED: 97738891 (4) HCAP (healthcare-associated pneumonia) ICD Codes: J18.9 - Pneumonia, unspecified organism SNOMED: 029100260 (5) HTN (hypertension) ICD Codes: I10 - Essential (primary) hypertension SNOMED: 18609897 (6) Leukocytosis Recommendations - TF - GT care - Elevate HOB - follow labs - anticoagulation per primary team Subjective Allergies: Coded Allergies: No Known Allergies (Unverified , 05/07/16) Subjective awake minimally interactive POD # 2 s/p PEG Objective Last 24 Hour Vital Signs Date Time Temp Pulse Resp B/P (MAP) Pulse Ox O2 Delivery O2 Flow Rate FiO2 10/25/18 17:06 98.4 104 21 115/63 (80) 95 10/25/18 12:24 98.0 85 22 115/88 (97) 94 10/25/18 08:00 96.4 95 24 143/63 (89) 94 10/25/18 04:00 99.1 105 23 141/71 (94) 93 10/25/18 00:00 99.3 105 24 140/68 (92) 95 10/24/18 21:00 Room Air Room Air Intake and Output 10/24/18 10/25/18 19:00 07:00 Intake Total 1120 ml 1110 ml Output Total 1275 ml 300 ml Balance -155 ml 810 ml Intake Free Water 230 ml 450 ml Tube Feeding 650 ml 660 ml Other 240 ml Output Urine Total 1275 ml 300 ml Laboratory Tests 10/25/18 06:41: White Blood Count 17.8H, Red Blood Count 4.51, Hemoglobin 12.2, Hematocrit 38.8 , Mean Corpuscular Volume 86, Mean Corpuscular Hemoglobin 27.1, Mean Corpuscular Hemoglobin Concent 31.5L, Red Cell Distribution Width 16.6H, Platelet Count 164, Mean Platelet Volume 7.7, Neutrophils (%) (Auto) 83.9H, Lymphocytes (%) (Auto) 7.0L, Monocytes (%) (Auto) 8.3, Eosinophils (%) (Auto) 0.6, Basophils (%) (Auto) 0.3, Prothrombin Time 12.6H, Prothromb Time International Ratio 1.2H, Sodium Level 146H, Potassium Level 4.1, Chloride Level 106, Carbon Dioxide Level 32, Anion Gap 8, Blood Urea Nitrogen 32H, Creatinine 0.9, Estimat Glomerular Filtration Rate , Glucose Level 118H, Calcium Level 9.7, Pro-B-Type Natriuretic Peptide 603H Height (Feet): 5 Height (Inches): 6.00 Weight (Pounds): 180 Objective WDWN elderly WW NCAT supple CTA RR soft ND NT, (+) PEG no edema Dano Jones MD Oct 25, 2018 20:08
--- NOTE | 2018-10-25 20:54 | Pulmonology Progress Note ---
Assessment/Plan Assessment/Plan 1. Congestive heart failure. 2. Acute respiratory failure. 3. Hypotension. 4. Pneumonia. 5. Tardive dyskinesia o2 aspiration precautions PEG npo and TF continue levaquin cont nebs cxr friday Subjective ROS Limited/Unobtainable: Yes Allergies: Coded Allergies: No Known Allergies (Unverified , 05/07/16) Subjective no events over night on o2 stable npo on tf nonverbal no distress no fever not getting oob Objective Last 24 Hour Vital Signs Date Time Temp Pulse Resp B/P (MAP) Pulse Ox O2 Delivery O2 Flow Rate FiO2 10/25/18 17:06 98.4 104 21 115/63 (80) 95 10/25/18 12:24 98.0 85 22 115/88 (97) 94 10/25/18 08:00 96.4 95 24 143/63 (89) 94 10/25/18 04:00 99.1 105 23 141/71 (94) 93 10/25/18 00:00 99.3 105 24 140/68 (92) 95 10/24/18 21:00 Room Air Room Air Intake and Output 10/24/18 10/25/18 19:00 07:00 Intake Total 1120 ml 1110 ml Output Total 1275 ml 300 ml Balance -155 ml 810 ml Intake Free Water 230 ml 450 ml Tube Feeding 650 ml 660 ml Other 240 ml Output Urine Total 1275 ml 300 ml General Appearance: cachetic Respiratory/Chest: rhonchi Cardiovascular: normal rate, regular rhythm Abdomen: normal bowel sounds, no organomegaly Extremities: no cyanosis Neurologic/Psychiatric: alert, disoriented Laboratory Tests 10/25/18 06:41: White Blood Count 17.8H, Red Blood Count 4.51, Hemoglobin 12.2, Hematocrit 38.8 , Mean Corpuscular Volume 86, Mean Corpuscular Hemoglobin 27.1, Mean Corpuscular Hemoglobin Concent 31.5L, Red Cell Distribution Width 16.6H, Platelet Count 164, Mean Platelet Volume 7.7, Neutrophils (%) (Auto) 83.9H, Lymphocytes (%) (Auto) 7.0L, Monocytes (%) (Auto) 8.3, Eosinophils (%) (Auto) 0.6, Basophils (%) (Auto) 0.3, Prothrombin Time 12.6H, Prothromb Time International Ratio 1.2H, Sodium Level 146H, Potassium Level 4.1, Chloride Level 106, Carbon Dioxide Level 32, Anion Gap 8, Blood Urea Nitrogen 32H, Creatinine 0.9, Estimat Glomerular Filtration Rate , Glucose Level 118H, Calcium Level 9.7, Pro-B-Type Natriuretic Peptide 603H Current Medications Medications (Trade) Dose Ordered Sig/Arabella Route PRN Reason Start Time Stop Time Status Last Admin Dose Admin Chlorhexidine Gluconate (Haycinth-Hex 2%) 1 applic DAILY@2000 TOPIC 10/24/18 20:00 11/19/18 19:59 Dextrose (Dextrose 50%) 25 ml Q30M PRN IV Hypoglycemia 10/24/18 19:15 11/12/18 22:44 Dextrose (Dextrose 50%) 50 ml Q30M PRN IV Hypoglycemia 10/24/18 19:15 11/12/18 22:44 Famotidine (Pepcid) 20 mg BID ORAL 10/25/18 09:00 11/17/18 17:59 10/25/18 18:27 Furosemide (Lasix) 40 mg DAILY ORAL 10/25/18 09:00 11/24/18 08:59 10/25/18 09:37 Levofloxacin (Levaquin) 750 mg Q48H ORAL 10/26/18 14:00 11/02/18 13:59 Magnesium Hydroxide (Mom) 30 ml DAILYPRN PRN ORAL Constipation 10/25/18 18:45 11/20/18 18:44 Magnesium Oxide (Mag-Ox 400mg) 400 mg THREE TIMES A DAY ORAL 10/25/18 09:00 11/16/18 17:59 10/25/18 18:27 Ondansetron HCl (Zofran) 4 mg Q6H PRN IVP Nausea & Vomiting 10/24/18 17:30 11/12/18 17:29 Quetiapine Fumarate (SEROquel) 25 mg Q12HR ORAL 10/24/18 21:00 11/18/18 20:59 10/25/18 09:37 Spironolactone (Aldactone) 25 mg DAILY ORAL 10/25/18 09:00 11/18/18 18:29 10/25/18 09:36 Margaret Forte 24, 2019 20:54
[2018-10-26] VITALS: BP 118/61
[2018-10-26 04:00] VITALS: BP 120/56
--- NOTE | 2018-10-26 06:15 | Progress Note ---
DATE: 10/26/2018 CARDIOLOGY PROGRESS NOTE SUBJECTIVE: The patient she is receiving nutrition by feeding tube. She is on oral antibiotics. She continues nebulizer therapy. OBJECTIVE: VITAL SIGNS: Blood pressure is 115/63, heart rate 85 to 105, respiratory rate 21, and afebrile. Monitored rhythm is sinus. LUNGS: Few rhonchi. CARDIAC: Regular rate and rhythm. Normal S1 and S2. ABDOMEN: Soft. EXTREMITIES: Trace edema. LABORATORY DATA: White count 17 and hemoglobin 12. Sodium is 146, potassium 4.1, bicarbonate 32, BUN 32, and creatinine 0.9. Pro-natriuretic peptide has decreased . INR is 1.2. IMPRESSION: 1. Status post respiratory failure. 2. Acute deep venous thrombosis. 3. Acute on chronic diastolic congestive heart failure. 4. Cerebrovascular accident with left-sided weakness. 5. Aspiration pneumonia. 6. Dysphagia, status post gastrostomy tube. 7. Dehydration. 8. Hypernatremia. PLAN: 1. Antimicrobials. 2. Respiratory hygiene. 3. Maintenance diuresis. 4. Warfarin titration to INR goal of 2 to 3. 5. Free water replacement. Vel Jones M.D. DR: ALISTAIR JOB#: [id number] CC:
[2018-10-26 08:00] VITALS: BP 132/69
[2018-10-26] MEDS: Magnesium Oxide 400mg tab ORAL SCH ×3 (09:02→17:47)
[2018-10-26] MEDS: Spironolactone 25mg tab ORAL SCH (09:02)
--- NOTE | 2018-10-26 10:02 | General Progress Note ---
Assessment/Plan Problem List: (1) DVT (deep venous thrombosis) ICD Codes: I82.409 - Acute embolism and thrombosis of unspecified deep veins of unspecified lower extremity SNOMED: 145715606 (2) Dysphagia ICD Codes: R13.10 - Dysphagia, unspecified SNOMED: 78259457, 758467675 (3) Dementia ICD Codes: F03.90 - Unspecified dementia without behavioral disturbance SNOMED: 30981430 (4) HCAP (healthcare-associated pneumonia) ICD Codes: J18.9 - Pneumonia, unspecified organism SNOMED: 170969871 (5) HTN (hypertension) ICD Codes: I10 - Essential (primary) hypertension SNOMED: 79222583 Assessment/Plan GTF tolerated last BM yesterday coumadin is ok to be restarted >> defer to primary team fu labs GT care Subjective ROS Limited/Unobtainable: No Allergies: Coded Allergies: No Known Allergies (Unverified , 05/07/16) Objective Last 24 Hour Vital Signs Date Time Temp Pulse Resp B/P (MAP) Pulse Ox O2 Delivery O2 Flow Rate FiO2 10/26/18 08:00 97.9 90 20 132/69 (90) 94 10/26/18 04:00 98.2 78 18 120/56 (77) 100 10/26/18 00:00 97.0 89 18 118/61 (80) 97 10/25/18 21:00 Room Air Room Air 10/25/18 20:00 98.6 82 18 112/65 (81) 93 10/25/18 17:06 98.4 104 21 115/63 (80) 95 10/25/18 12:24 98.0 85 22 115/88 (97) 94 Intake and Output 10/25/18 10/26/18 19:00 07:00 Intake Total 600 ml 960 ml Output Total 650 ml Balance -50 ml 960 ml Intake Free Water 300 ml 300 ml Tube Feeding 300 ml 660 ml Output Urine Total 650 ml Height (Feet): 5 Height (Inches): 6.00 Weight (Pounds): 180 General Appearance: no apparent distress EENT: normal ENT inspection Neck: supple Cardiovascular: normal rate Respiratory/Chest: decreased breath sounds Abdomen: normal bowel sounds, non tender, soft Extremities: non-tender Hemant Chairez MD Oct 26, 2018 10:02
[2018-10-26 10:27] LABS: INR 1.1 (0.9-1.1)
[2018-10-26 12:00] VITALS: BP 129/66
--- NOTE | 2018-10-26 12:38 | Pulmonology Progress Note ---
Assessment/Plan Assessment/Plan 1. Congestive heart failure. 2. Acute respiratory failure, resolved 3. Hypotension, resolved 4. Pneumonia. 5. Tardive dyskinesia PEG feedings tolerated continue levaquin cont nebs dc planning Subjective ROS Limited/Unobtainable: Yes Allergies: Coded Allergies: No Known Allergies (Unverified , 05/07/16) Objective Last 24 Hour Vital Signs Date Time Temp Pulse Resp B/P (MAP) Pulse Ox O2 Delivery O2 Flow Rate FiO2 10/26/18 12:00 98.1 86 20 129/66 (87) 94 10/26/18 08:00 97.9 90 20 132/69 (90) 94 10/26/18 04:00 98.2 78 18 120/56 (77) 100 10/26/18 00:00 97.0 89 18 118/61 (80) 97 10/25/18 21:00 Room Air Room Air 10/25/18 20:00 98.6 82 18 112/65 (81) 93 10/25/18 17:06 98.4 104 21 115/63 (80) 95 Intake and Output 10/25/18 10/26/18 19:00 07:00 Intake Total 600 ml 960 ml Output Total 650 ml Balance -50 ml 960 ml Intake Free Water 300 ml 300 ml Tube Feeding 300 ml 660 ml Output Urine Total 650 ml Objective tardive dyskinesia General Appearance: WD/WN, no acute distress HEENT: atraumatic Respiratory/Chest: lungs clear Cardiovascular: normal rate Laboratory Tests 10/26/18 10:05: Prothrombin Time 11.6H, Prothromb Time International Ratio 1.1 Current Medications Medications (Trade) Dose Ordered Sig/Arabella Route PRN Reason Start Time Stop Time Status Last Admin Dose Admin Chlorhexidine Gluconate (Hyacinth-Hex 2%) 1 applic DAILY@1999 TOPIC 10/24/18 20:00 11/19/18 19:59 Dextrose (Dextrose 50%) 25 ml Q30M PRN IV Hypoglycemia 10/24/18 19:15 11/12/18 22:44 Dextrose (Dextrose 50%) 50 ml Q30M PRN IV Hypoglycemia 10/24/18 19:15 11/12/18 22:44 Famotidine (Pepcid) 20 mg BID ORAL 10/25/18 09:00 11/17/18 17:59 10/26/18 09:02 Furosemide (Lasix) 20 mg DAILY ORAL 10/26/18 09:00 11/25/18 08:59 10/26/18 09:03 Levofloxacin (Levaquin) 750 mg Q48H ORAL 10/26/18 14:00 11/02/18 13:59 Magnesium Hydroxide (Mom) 30 ml DAILYPRN PRN ORAL Constipation 10/25/18 18:45 11/20/18 18:44 Magnesium Oxide (Mag-Ox 400mg) 400 mg THREE TIMES A DAY ORAL 10/25/18 09:00 11/16/18 17:59 10/26/18 09:02 Ondansetron HCl (Zofran) 4 mg Q6H PRN IVP Nausea & Vomiting 10/24/18 17:30 11/12/18 17:29 Quetiapine Fumarate (SEROquel) 25 mg BEDTIME ORAL 10/26/18 21:00 11/25/18 20:59 Spironolactone (Aldactone) 25 mg DAILY ORAL 10/25/18 09:00 11/18/18 18:29 10/26/18 09:02 Warfarin Sodium (Coumadin per pharmacy) 1 ea DAILY PRN MISC Per rx protocol 10/26/18 02:15 11/25/18 02:14 Warfarin Sodium (Coumadin) 7.5 mg COUMADIN ONCE ORAL 10/26/18 17:00 10/26/18 17:01 Tristan Grant MD Oct 26, 2018 12:37
[2018-10-26] MEDS: Levofloxacin 750mg tab ORAL SCH (13:49)
[2018-10-26 16:00] VITALS: BP 105/69
--- NOTE | 2018-10-26 16:49 | General Progress Note ---
Assessment/Plan Problem List: (1) Hypomagnesemia ICD Codes: E83.42 - Hypomagnesemia SNOMED: 001310224 (2) HCAP (healthcare-associated pneumonia) ICD Codes: J18.9 - Pneumonia, unspecified organism SNOMED: 650958476 (3) Dyspnea ICD Codes: R06.00 - Dyspnea, unspecified SNOMED: 914863653 (4) Hypokalemia ICD Codes: E87.6 - Hypokalemia SNOMED: 64603938 (5) Alzheimer's dementia ICD Codes: G30.9 - Alzheimer's disease, unspecified SNOMED: 97545008 (6) HTN (hypertension) ICD Codes: I10 - Essential (primary) hypertension SNOMED: 10166629 (7) CVA (cerebral vascular accident) ICD Codes: I63.9 - Cerebral infarction, unspecified SNOMED: 905554545 (8) Respiratory distress ICD Codes: R06.00 - Dyspnea, unspecified SNOMED: 513280807 (9) Peripheral edema ICD Codes: R60.9 - Edema, unspecified SNOMED: 740163377, 215127210 (10) Congestive heart failure (CHF) ICD Codes: I50.9 - Heart failure, unspecified SNOMED: 86659996 (11) Respiratory failure ICD Codes: J96.90 - Respiratory failure, unspecified, unspecified whether with hypoxia or hypercapnia SNOMED: 783741588, 843220585 (12) Cellulitis of leg ICD Codes: L03.119 - Cellulitis of unspecified part of limb SNOMED: 810678365 (13) Dementia ICD Codes: F03.90 - Unspecified dementia without behavioral disturbance SNOMED: 35438056 (14) Dysphagia ICD Codes: R13.10 - Dysphagia, unspecified SNOMED: 25351442, 061756605 (15) DVT (deep venous thrombosis) ICD Codes: I82.409 - Acute embolism and thrombosis of unspecified deep veins of unspecified lower extremity SNOMED: 514693252 Assessment/Plan extubated, anxious to add seroquel, prior on ativan 40 yrs but benzo high risk in elderly, frail cxr better, discontinue iv antibiotics,change levaquin for pseudomonas in sputum change to po as pulled out line replace K, Mg, titration cardiac meds, full code per daughter swollow eval failed, daughter agrees to peg, has ivc filter would try off coumadin as high risk start tube feed, dc planning Subjective ROS Limited/Unobtainable: Yes Allergies: Coded Allergies: No Known Allergies (Unverified , 05/07/16) Objective Last 24 Hour Vital Signs Date Time Temp Pulse Resp B/P (MAP) Pulse Ox O2 Delivery O2 Flow Rate FiO2 10/26/18 16:00 98.3 102 20 105/69 (81) 94 10/26/18 12:00 98.1 86 20 129/66 (87) 94 10/26/18 08:00 97.9 90 20 132/69 (90) 94 10/26/18 04:00 98.2 78 18 120/56 (77) 100 10/26/18 00:00 97.0 89 18 118/61 (80) 97 10/25/18 21:00 Room Air Room Air 10/25/18 20:00 98.6 82 18 112/65 (81) 93 10/25/18 17:06 98.4 104 21 115/63 (80) 95 Intake and Output 10/25/18 10/26/18 19:00 07:00 Intake Total 600 ml 1020 ml Output Total 650 ml Balance -50 ml 1020 ml Intake Free Water 300 ml 300 ml Tube Feeding 300 ml 720 ml Output Urine Total 650 ml Laboratory Tests 10/26/18 10:05: Prothrombin Time 11.6H, Prothromb Time International Ratio 1.1 Height (Feet): 5 Height (Inches): 6.00 Weight (Pounds): 180 General Appearance: no apparent distress, alert, confused EENT: normal ENT inspection Neck: normal alignment Cardiovascular: normal rate, regular rhythm Respiratory/Chest: rhonchi - bilaterally Abdomen: non tender Edema: mild edema Neurologic: disoriented Chetan Hull MD Oct 26, 2018 16:49
[2018-10-26] MEDS ORDERED: Warfarin Sodium 7.5mg ORAL ONE (17:00)
[2018-10-26] MEDS: Dyna-Hex 2% Top Sol 2oz TOPIC SCH (20:00)
[2018-10-26 20:16] VITALS: BP 145/71
[2018-10-27 00:10] VITALS: BP 141/53
[2018-10-27 04:13] VITALS: BP 135/75
[2018-10-27 08:00] VITALS: BP 136/80
[2018-10-27 08:11] LABS: BASOPHILS % (AUTO) 0.8 % (0.0-2.0); EOSINOPHILS % (AUTO) 1.4 % (0.0-3.0); HEMATOCRIT 39.2 % (37.0-47.0); HEMOGLOBIN 12.2 G/DL (12.0-16.0); LYMPHOCYTES % (AUTO) 9.4 % (20.0-45.0); MEAN CORPUSCULAR VOLUME 86 FL (80-99); NEUTROPHILS % (AUTO) 79.4 % (45.0-75.0); PLATELET COUNT 178 K/UL (150-450); RED BLOOD COUNT 4.56 M/UL (4.20-5.40); RED CELL DISTRIBUTION WIDTH 16.8 % (11.6-14.8); WHITE BLOOD COUNT 14.6 K/UL (4.8-10.8)
[2018-10-27 08:33] LABS: ALANINE AMINOTRANSFERASE 23 U/L (12-78); ALBUMIN 2.9 G/DL (3.4-5.0); ALBUMIN/GLOBULIN RATIO 0.6 (1.0-2.7); ALKALINE PHOSPHATASE 62 U/L (46-116); ANION GAP 8 mmol/L (5-15); ASPARTATE AMINO TRANSFERASE 27 U/L (15-37); BILIRUBIN,TOTAL 0.7 MG/DL (0.2-1.0); BLOOD UREA NITROGEN 32 mg/dL (7-18); CALCIUM 9.6 MG/DL (8.5-10.1); CARBON DIOXIDE 28 MMOL/L (21-32); CHLORIDE 107 MMOL/L (98-107); CREATININE 0.8 MG/DL (0.55-1.30); POTASSIUM 4.3 MMOL/L (3.5-5.1); SODIUM 143 MMOL/L (136-145)
--- NOTE | 2018-10-27 09:03 | General Progress Note ---
Assessment/Plan Problem List: (1) DVT (deep venous thrombosis) ICD Codes: I82.409 - Acute embolism and thrombosis of unspecified deep veins of unspecified lower extremity SNOMED: 051010437 (2) Dysphagia ICD Codes: R13.10 - Dysphagia, unspecified SNOMED: 21323503, 135476640 (3) Dementia ICD Codes: F03.90 - Unspecified dementia without behavioral disturbance SNOMED: 01233421 (4) HCAP (healthcare-associated pneumonia) ICD Codes: J18.9 - Pneumonia, unspecified organism SNOMED: 148695593 (5) HTN (hypertension) ICD Codes: I10 - Essential (primary) hypertension SNOMED: 85847887 Assessment/Plan GTF tolerated last BM yesterday coumadin is ok to be restarted >> defer to primary team fu labs GT care Subjective ROS Limited/Unobtainable: No Allergies: Coded Allergies: No Known Allergies (Unverified , 05/07/16) Objective Last 24 Hour Vital Signs Date Time Temp Pulse Resp B/P (MAP) Pulse Ox O2 Delivery O2 Flow Rate FiO2 10/27/18 04:13 97.9 103 17 135/75 (95) 94 10/27/18 02:22 92 Nasal Cannula 2.0 28 10/27/18 02:22 Nasal Cannula 2.0 28 10/27/18 00:10 98.2 106 18 141/53 (82) 94 10/26/18 20:29 Room Air Room Air 10/26/18 20:16 97.4 107 18 145/71 (95) 92 10/26/18 16:00 98.3 102 20 105/69 (81) 94 10/26/18 12:00 98.1 86 20 129/66 (87) 94 Intake and Output 10/26/18 10/27/18 19:00 07:00 Intake Total 940 ml 930 ml Output Total 200 ml Balance 740 ml 930 ml Intake Free Water 220 ml 210 ml Tube Feeding 720 ml 720 ml Output Urine Total 200 ml # Voids 2 Laboratory Tests 10/26/18 10:05: Prothrombin Time 11.6H, Prothromb Time International Ratio 1.1 10/27/18 07:50: White Blood Count 14.6H, Red Blood Count 4.56, Hemoglobin 12.2, Hematocrit 39.2 , Mean Corpuscular Volume 86, Mean Corpuscular Hemoglobin 26.8L, Mean Corpuscular Hemoglobin Concent 31.2L, Red Cell Distribution Width 16.8H, Platelet Count 178, Mean Platelet Volume 7.7, Neutrophils (%) (Auto) 79.4H, Lymphocytes (%) (Auto) 9.4L, Monocytes (%) (Auto) 9.0, Eosinophils (%) (Auto) 1.4, Basophils (%) (Auto) 0.8, Sodium Level 143, Potassium Level 4.3, Chloride Level 107, Carbon Dioxide Level 28, Anion Gap 8, Blood Urea Nitrogen 32H, Creatinine 0.8, Estimat Glomerular Filtration Rate , Glucose Level 126H, Calcium Level 9.6, Magnesium Level 2.6H, Total Bilirubin 0.7, Aspartate Amino Transf (AST/SGOT) 27, Alanine Aminotransferase (ALT/SGPT) 23, Alkaline Phosphatase 62, Pro-B-Type Natriuretic Peptide 641H, Total Protein 8.1, Albumin 2.9L, Globulin 5.2, Albumin/Globulin Ratio 0.6L Height (Feet): 5 Height (Inches): 6.00 Weight (Pounds): 178 General Appearance: no apparent distress EENT: normal ENT inspection Neck: supple Cardiovascular: normal rate Respiratory/Chest: decreased breath sounds Abdomen: normal bowel sounds, non tender, soft Extremities: non-tender Hemant Chairez MD Oct 27, 2018 09:03
[2018-10-27] MEDS: Magnesium Oxide 400mg tab ORAL SCH ×3 (09:13→18:14)
[2018-10-27] MEDS: Spironolactone 25mg tab ORAL SCH (09:13)
[2018-10-27 12:00] VITALS: BP 109/58
--- NOTE | 2018-10-27 12:00 | General Progress Note ---
Assessment/Plan Problem List: (1) Hypomagnesemia ICD Codes: E83.42 - Hypomagnesemia SNOMED: 554530476 (2) HCAP (healthcare-associated pneumonia) ICD Codes: J18.9 - Pneumonia, unspecified organism SNOMED: 255262242 (3) Dyspnea ICD Codes: R06.00 - Dyspnea, unspecified SNOMED: 540674139 (4) Hypokalemia ICD Codes: E87.6 - Hypokalemia SNOMED: 47989212 (5) Alzheimer's dementia ICD Codes: G30.9 - Alzheimer's disease, unspecified SNOMED: 94891974 (6) HTN (hypertension) ICD Codes: I10 - Essential (primary) hypertension SNOMED: 22391924 (7) CVA (cerebral vascular accident) ICD Codes: I63.9 - Cerebral infarction, unspecified SNOMED: 035194686 (8) Respiratory distress ICD Codes: R06.00 - Dyspnea, unspecified SNOMED: 250888970 (9) Peripheral edema ICD Codes: R60.9 - Edema, unspecified SNOMED: 474283662, 197936612 (10) Congestive heart failure (CHF) ICD Codes: I50.9 - Heart failure, unspecified SNOMED: 31696602 (11) Respiratory failure ICD Codes: J96.90 - Respiratory failure, unspecified, unspecified whether with hypoxia or hypercapnia SNOMED: 076614035, 384950043 (12) Cellulitis of leg ICD Codes: L03.119 - Cellulitis of unspecified part of limb SNOMED: 350821109 (13) Dementia ICD Codes: F03.90 - Unspecified dementia without behavioral disturbance SNOMED: 92394295 (14) Dysphagia ICD Codes: R13.10 - Dysphagia, unspecified SNOMED: 28385278, 047303584 (15) DVT (deep venous thrombosis) ICD Codes: I82.409 - Acute embolism and thrombosis of unspecified deep veins of unspecified lower extremity SNOMED: 548905214 Assessment/Plan extubated, anxious to add seroquel, prior on ativan 40 yrs but benzo high risk in elderly, frail cxr better, discontinue iv antibiotics,change levaquin for pseudomonas in sputum change to po as pulled out line replace K, Mg, titration cardiac meds, full code per daughter swollow eval failed, daughter agrees to peg, has ivc filter would try off coumadin as high risk start tube feed, dc planning Subjective ROS Limited/Unobtainable: Yes Allergies: Coded Allergies: No Known Allergies (Unverified , 05/07/16) Objective Last 24 Hour Vital Signs Date Time Temp Pulse Resp B/P (MAP) Pulse Ox O2 Delivery O2 Flow Rate FiO2 10/27/18 08:00 97.7 106 25 136/80 (98) 93 10/27/18 04:13 97.9 103 17 135/75 (95) 94 10/27/18 02:22 92 Nasal Cannula 2.0 28 10/27/18 02:22 Nasal Cannula 2.0 28 10/27/18 00:10 98.2 106 18 141/53 (82) 94 10/26/18 20:29 Room Air Room Air 10/26/18 20:16 97.4 107 18 145/71 (95) 92 10/26/18 16:00 98.3 102 20 105/69 (81) 94 10/26/18 12:00 98.1 86 20 129/66 (87) 94 Intake and Output 10/26/18 10/27/18 19:00 07:00 Intake Total 940 ml 930 ml Output Total 200 ml Balance 740 ml 930 ml Intake Free Water 220 ml 210 ml Tube Feeding 720 ml 720 ml Output Urine Total 200 ml # Voids 2 Laboratory Tests 10/27/18 07:50: White Blood Count 14.6H, Red Blood Count 4.56, Hemoglobin 12.2, Hematocrit 39.2 , Mean Corpuscular Volume 86, Mean Corpuscular Hemoglobin 26.8L, Mean Corpuscular Hemoglobin Concent 31.2L, Red Cell Distribution Width 16.8H, Platelet Count 178, Mean Platelet Volume 7.7, Neutrophils (%) (Auto) 79.4H, Lymphocytes (%) (Auto) 9.4L, Monocytes (%) (Auto) 9.0, Eosinophils (%) (Auto) 1.4, Basophils (%) (Auto) 0.8, Sodium Level 143, Potassium Level 4.3, Chloride Level 107, Carbon Dioxide Level 28, Anion Gap 8, Blood Urea Nitrogen 32H, Creatinine 0.8, Estimat Glomerular Filtration Rate , Glucose Level 126H, Calcium Level 9.6, Magnesium Level 2.6H, Total Bilirubin 0.7, Aspartate Amino Transf (AST/SGOT) 27, Alanine Aminotransferase (ALT/SGPT) 23, Alkaline Phosphatase 62, Pro-B-Type Natriuretic Peptide 641H, Total Protein 8.1, Albumin 2.9L, Globulin 5.2, Albumin/Globulin Ratio 0.6L Height (Feet): 5 Height (Inches): 6.00 Weight (Pounds): 178 General Appearance: alert, confused EENT: normal ENT inspection Neck: normal alignment Cardiovascular: normal rate Respiratory/Chest: lungs clear Abdomen: non tender, soft Edema: trace edema Neurologic: microbiology coordinator II-XII grossly normal, disoriented Chetan Hull MD Oct 27, 2018 12:00
[2018-10-27] MEDS ORDERED: SPIRONOLACTONE25 MG ORAL (12:03)
[2018-10-27] MEDS ORDERED: FUROSEMIDE20 M1 ORAL (12:03)
[2018-10-27] MEDS ORDERED: FAMOTIDINE20 MG ORAL (12:03)
--- NOTE | 2018-10-27 13:08 | Pulmonology Progress Note ---
Assessment/Plan Assessment/Plan 1. Congestive heart failure. 2. Acute respiratory failure, resolved 3. Hypotension, resolved 4. Pneumonia. 5. Tardive dyskinesia PEG feedings tolerated continue levaquin GT cont nebs dc planning will sign off Subjective ROS Limited/Unobtainable: Yes Allergies: Coded Allergies: No Known Allergies (Unverified , 05/07/16) Objective Last 24 Hour Vital Signs Date Time Temp Pulse Resp B/P (MAP) Pulse Ox O2 Delivery O2 Flow Rate FiO2 10/27/18 12:00 98.8 86 24 109/58 (75) 97 10/27/18 08:00 97.7 106 25 136/80 (98) 93 10/27/18 04:13 97.9 103 17 135/75 (95) 94 10/27/18 02:22 92 Nasal Cannula 2.0 28 10/27/18 02:22 Nasal Cannula 2.0 28 10/27/18 00:10 98.2 106 18 141/53 (82) 94 10/26/18 20:29 Room Air Room Air 10/26/18 20:16 97.4 107 18 145/71 (95) 92 10/26/18 16:00 98.3 102 20 105/69 (81) 94 Intake and Output 10/26/18 10/27/18 19:00 07:00 Intake Total 940 ml 930 ml Output Total 200 ml Balance 740 ml 930 ml Intake Free Water 220 ml 210 ml Tube Feeding 720 ml 720 ml Output Urine Total 200 ml # Voids 2 Objective tardive dyskinesia General Appearance: no acute distress Respiratory/Chest: lungs clear Cardiovascular: normal rate Laboratory Tests 10/27/18 07:50: White Blood Count 14.6H, Red Blood Count 4.56, Hemoglobin 12.2, Hematocrit 39.2 , Mean Corpuscular Volume 86, Mean Corpuscular Hemoglobin 26.8L, Mean Corpuscular Hemoglobin Concent 31.2L, Red Cell Distribution Width 16.8H, Platelet Count 178, Mean Platelet Volume 7.7, Neutrophils (%) (Auto) 79.4H, Lymphocytes (%) (Auto) 9.4L, Monocytes (%) (Auto) 9.0, Eosinophils (%) (Auto) 1.4, Basophils (%) (Auto) 0.8, Sodium Level 143, Potassium Level 4.3, Chloride Level 107, Carbon Dioxide Level 28, Anion Gap 8, Blood Urea Nitrogen 32H, Creatinine 0.8, Estimat Glomerular Filtration Rate , Glucose Level 126H, Calcium Level 9.6, Magnesium Level 2.6H, Total Bilirubin 0.7, Aspartate Amino Transf (AST/SGOT) 27, Alanine Aminotransferase (ALT/SGPT) 23, Alkaline Phosphatase 62, Pro-B-Type Natriuretic Peptide 641H, Total Protein 8.1, Albumin 2.9L, Globulin 5.2, Albumin/Globulin Ratio 0.6L Current Medications Medications (Trade) Dose Ordered Sig/Arabella Route PRN Reason Start Time Stop Time Status Last Admin Dose Admin Chlorhexidine Gluconate (Hyacinth-Hex 2%) 1 applic DAILY@1999 TOPIC 10/24/18 20:00 11/19/18 19:59 Dextrose (Dextrose 50%) 25 ml Q30M PRN IV Hypoglycemia 10/24/18 19:15 11/12/18 22:44 Dextrose (Dextrose 50%) 50 ml Q30M PRN IV Hypoglycemia 10/24/18 19:15 11/12/18 22:44 Famotidine (Pepcid) 20 mg BID ORAL 10/25/18 09:00 11/17/18 17:59 10/27/18 09:13 Furosemide (Lasix) 20 mg DAILY ORAL 10/26/18 09:00 11/25/18 08:59 10/27/18 09:13 Levofloxacin (Levaquin) 750 mg Q48H ORAL 10/26/18 14:00 11/02/18 13:59 10/26/18 13:49 Magnesium Hydroxide (Mom) 30 ml DAILYPRN PRN ORAL Constipation 10/25/18 18:45 11/20/18 18:44 Magnesium Oxide (Mag-Ox 400mg) 400 mg THREE TIMES A DAY ORAL 10/25/18 09:00 11/16/18 17:59 10/27/18 09:13 Ondansetron HCl (Zofran) 4 mg Q6H PRN IVP Nausea & Vomiting 10/24/18 17:30 11/12/18 17:29 Quetiapine Fumarate (SEROquel) 25 mg BEDTIME ORAL 10/26/18 21:00 11/25/18 20:59 10/26/18 20:45 Spironolactone (Aldactone) 25 mg DAILY ORAL 10/25/18 09:00 11/18/18 18:29 10/27/18 09:13 Tristan Grant MD Oct 27, 2018 13:08
--- NOTE | 2018-10-27 13:51 | Progress Note ---
DATE: 10/26/2018 SUBJECTIVE: The patient is without respiratory distress. She is tolerating feedings by G-tube. The patient has an IVC filter noted in place. She has a DVT as well. Bleeding risk were addressed with Dr. Hull and it was felt that anticoagulation should be discontinued based on the risks of bleeding and presence of IVC filter. PHYSICAL EXAMINATION: VITAL SIGNS: Afebrile, blood pressure 129/66, pulse 86, respiratory rate 20. LUNGS: Clear. CARDIAC: Regular. ABDOMEN: Soft. G-tube intact. EXTREMITIES: No edema. IMPRESSION: 1. Status post respiratory failure. 2. DVT with IVC filter. 3. Cerebrovascular disease with left-sided weakness. 4. Acute on chronic diastolic congestive heart failure, now compensated. 5. Dehydration and , post diuretic therapy. PLAN: 1. No anticoagulation. 2. Respiratory hygiene. 3. Free water replacement based on clinical parameters. 4. Maintenance diuretic dose with titration based on clinical parameters. 5. Recheck electrolytes. Vel Jones M.D. DR: Leopoldo JOB#: [id number] CC:
[2018-10-27 16:00] VITALS: BP 121/55
[2018-10-27 20:00] VITALS: BP 146/78
[2018-10-27] MEDS: Dyna-Hex 2% Top Sol 2oz TOPIC SCH (20:00)
[2018-10-28] VITALS: BP 121/57
--- NOTE | 2018-10-28 03:30 | Progress Note ---
DATE: 10/27/2018 CARDIOLOGY PROGRESS NOTE SUBJECTIVE: The patient is tolerating feedings by G-tube. No respiratory distress. Discharge planning is in progress. The patient is off anticoagulation even though she has a DVT, as she has an IVC filter and bleeding risks were felt to be high. OBJECTIVE: VITAL SIGNS: Blood pressure 109/58, pulse 86, and respirations 24. Heart rate ranging from 86 to 107. LUNGS: Good breath sounds. CARDIAC: Regular rhythm and rate. Normal S1, S2. ABDOMEN: Soft. G-tube site intact. EXTREMITIES: No edema. NEUROLOGIC: Left-sided weakness. IMPRESSION AND PLAN: Stable from cardiovascular standpoint on current medication regimen that includes maintenance diuretic dose. Presently, no plans for anticoagulation. Vel Jones M.D. DR: MANDEEP JOB#: [id number] CC:
[2018-10-28 04:00] VITALS: BP 120/62
[2018-10-28 08:00] VITALS: BP 117/70
[2018-10-28] MEDS: Spironolactone 25mg tab ORAL SCH (08:37)
[2018-10-28] MEDS: Magnesium Oxide 400mg tab ORAL SCH ×2 (08:37→13:40)
--- NOTE | 2018-10-28 09:03 | General Progress Note ---
Assessment/Plan Problem List: (1) DVT (deep venous thrombosis) ICD Codes: I82.409 - Acute embolism and thrombosis of unspecified deep veins of unspecified lower extremity SNOMED: 789290802 (2) Dysphagia ICD Codes: R13.10 - Dysphagia, unspecified SNOMED: 00044053, 712741038 (3) Dementia ICD Codes: F03.90 - Unspecified dementia without behavioral disturbance SNOMED: 43696187 (4) HCAP (healthcare-associated pneumonia) ICD Codes: J18.9 - Pneumonia, unspecified organism SNOMED: 658577166 (5) HTN (hypertension) ICD Codes: I10 - Essential (primary) hypertension SNOMED: 96826366 Assessment/Plan GTF tolerated fu labs GT care pending dc Subjective ROS Limited/Unobtainable: No Allergies: Coded Allergies: No Known Allergies (Unverified , 05/07/16) Objective Last 24 Hour Vital Signs Date Time Temp Pulse Resp B/P (MAP) Pulse Ox O2 Delivery O2 Flow Rate FiO2 10/28/18 08:00 97.7 92 24 117/70 (86) 95 10/28/18 04:00 98.6 78 18 120/62 (81) 100 10/28/18 00:00 98.4 75 20 121/57 (78) 100 10/27/18 21:00 Room Air Room Air 10/27/18 20:00 97.3 89 18 146/78 (100) 97 10/27/18 16:00 98.5 86 18 121/55 (77) 98 10/27/18 12:00 98.8 86 24 109/58 (75) 97 10/27/18 09:38 Nasal Cannula 2.0 28 10/27/18 09:38 94 Nasal Cannula 2.0 28 Intake and Output 10/27/18 10/28/18 18:59 06:59 Intake Total 1000 ml 1140 ml Balance 1000 ml 1140 ml Intake Free Water 280 ml 360 ml Tube Feeding 720 ml 780 ml Height (Feet): 5 Height (Inches): 6.00 Weight (Pounds): 191 General Appearance: alert EENT: normal ENT inspection Neck: supple Cardiovascular: normal rate Respiratory/Chest: decreased breath sounds Abdomen: normal bowel sounds, non tender, soft Extremities: non-tender Hemant Chairez MD Oct 28, 2018 09:03
[2018-10-28 12:00] VITALS: BP 133/58
[2018-10-28] MEDS: Levofloxacin 750mg tab ORAL SCH (13:40)
[2018-10-28 16:00] VITALS: BP 102/40
--- NOTE | 2018-10-29 01:45 | Discharge Summary ---
DATE OF ADMISSION: 10/13/2018 DATE OF DISCHARGE: 10/28/2018 HISTORY: The patient is an 88-year-old lady, who presented with respiratory failure. She has Alzheimer's disease. Chest x-ray showed some pneumonitis and congestive heart failure. She was initially on BiPAP and subsequently intubated. PERTINENT PHYSICAL FINDINGS: See the note by on admission. LUNGS: Showed fine crackles. HEART: Regular rhythm. ABDOMEN: Soft. EXTREMITIES: Show 2+ edema. There is some cellulitis of the legs. COURSE IN THE HOSPITAL: The patient had respiratory failure, history of pneumonia, and congestive heart failure. She had a slow improvement and gradually was able to be extubated. The patient had urinary tract infection with E. coli. Blood culture likely contaminant with coag-negative staph and sputum grew Pseudomonas. Antibiotics were adjusted according to cultures. She had a gradual improvement in all parameters. She was extubated. She failed a swallow study and Dr. Chairez placed a gastrostomy after discussion with the family. The patient tolerates feedings and arrangements were made for her to go to a nursing home facility and she was discharged in stable condition. FINAL DIAGNOSES: 1. Acute respiratory failure with hypoxemia. 2. Pneumonia. 3. Congestive heart failure, acute on chronic. 4. Hypotension, resolved. 5. Alzheimer. 6. Tardive dyskinesia. 7. History of anxiety. 8. Urinary tract infection with E. coli. 9. Pseudomonas in the sputum. 10. Coag-negative Staphylococcus coccus, likely contaminant. 11. Bedridden state, nonambulatory. 12. Prior history of DVT. DISCHARGE DISPOSITION: To an ECF with tube feeding and medications per the discharge medication. Follow up by Dr. Hull in the facility. Chetan Hull M.D. DR: MEHDI JOB#: [id number] CC:
--- NOTE | 2018-10-29 02:15 | Progress Note ---
DATE: 10/28/2018 CARDIOLOGY PROGRESS NOTE SUBJECTIVE: The patient is improved. No shortness of breath. Tolerating nutrition by feeding tube. OBJECTIVE: VITAL SIGNS: Blood pressure 126/62, pulse 78, and respirations 18. LUNGS: Clear. CARDIAC: Regular. Normal S1, S2. ABDOMEN: Soft. G-tube intact. EXTREMITIES: Left weakness. Trace edema. IMPRESSION: 1. Status post respiratory failure. 2. DVT with IVC filter. 3. Acute on chronic diastolic congestive heart failure, now compensated. 4. Dysphagia, status post G-tube. PLAN: 1. No anticoagulation due to bleeding risk. The patient has IVC filter. 2. Nutrition by feeding tube. 3. Maintain adequate hydration. 4. Monitor volume status, cardiorenal parameters, and electrolytes. 5. Cardiovascular regimen reviewed and reconciled for discharge to half-way facility. Vel Jones M.D. DR: OPHELIA/FERNY JOB#: [id number] CC:
--- NOTE | 2018-10-29 16:48 | Diagnostic Imaging Report ---
Indication: Cough Comparison: 10/22/2018 A single view chest radiograph was obtained. Findings: No definite infiltrate or pulmonary vascular congestion identified. The heart is enlarged. The aorta is mildly enlarged consistent with atherosclerotic vascular disease. The bones are osteopenic. Impression: No acute disease
== END 2018-10-28 18:00 | DRG 720 ==
LOC: EDBD 17:40 → EDBEDREQ 18:53 → EDBEDREQSVC 18:59 → EMR 19:17 → EDBEDREQ 20:52 → ICU 21:31 → 2W 10-22 07:00 → 4E 10-24 18:15
PROC: 5A1955Z Respiratory Ventilation, Greater than 96 Consecutive Hours (ICD-10-PCS; principal; 2018-10-13)
PROC: 0BH17EZ Insertion of Endotracheal Airway into Trachea, Via Natural or Artificial Opening (ICD-10-PCS; 2018-10-13)
PROC: 05H533Z Insertion of Infusion Device into Right Subclavian Vein, Percutaneous Approach (ICD-10-PCS; 2018-10-13)
PROC: B548ZZA Ultrasonography of Superior Vena Cava, Guidance (ICD-10-PCS; 2018-10-21)
PROC: 02HV33Z Insertion of Infusion Device into Superior Vena Cava, Percutaneous Approach (ICD-10-PCS; 2018-10-21)
PROC: 0DJ08ZZ Inspection of Upper Intestinal Tract, Via Natural or Artificial Opening Endoscopic (ICD-10-PCS; 2018-10-23)
PROC: 0DH63UZ Insertion of Feeding Device into Stomach, Percutaneous Approach (ICD-10-PCS; 2018-10-23 10:17)
DX: A41.9 Sepsis, unspecified organism (principal); J96.01 Acute respiratory failure with hypoxia; J69.0 Pneumonitis due to inhalation of food and vomit; I50.33 Acute on chronic diastolic (congestive) heart failure; R65.21 Severe sepsis with septic shock; D68.9 Coagulation defect, unspecified; E83.42 Hypomagnesemia; G30.9 Alzheimer's disease, unspecified; F02.80 Dementia in other diseases classified elsewhere, unspecified severity, without behavioral disturbance, psychotic disturbance, mood disturbance, and anxiety; I11.0 Hypertensive heart disease with heart failure; I82.411 Acute embolism and thrombosis of right femoral vein; Z86.718 Personal history of other venous thrombosis and embolism; Z86.711 Personal history of pulmonary embolism; R13.10 Dysphagia, unspecified; G24.01 Drug induced subacute dyskinesia; N39.0 Urinary tract infection, site not specified; B96.20 Unspecified Escherichia coli [E. coli] as the cause of diseases classified elsewhere; E87.0 Hyperosmolality and hypernatremia; E86.0 Dehydration; Z86.73 Personal history of transient ischemic attack (TIA), and cerebral infarction without residual deficits; E87.6 Hypokalemia; I35.0 Nonrheumatic aortic (valve) stenosis
CPT/HCPCS: 31500; 36415; 36569; 36600; 71045; 74018; 74230; 76937; 80048; 80053; 81003; 82803; 83605; 83690; 83735; 83880; 84443; 84484; 85007; 85025; 85610; 85730; 86710; 87040; 87070; 87081; 87086; 87181; 87205; 93005; 93306; 93970; 94002; 94003; 94150; 94640; 94664; 94760; 96361; 96365; 96367; 96368; 96375; 99291; J7620; J8499

== ENCOUNTER 2018-11-12 14:06 | Inpatient (IN) | payer MEDICAID ==
[~2018-11-12] VITALS: Ht 152.4 cm; Wt 78.2 kg
[~2018-11-12 14:06] MED LIST changes: +ATENOLOL25 MG ORAL; +FAMOTIDINE20 MG ORAL; +FUROSEMIDE20 M1 ORAL; +SPIRONOLACTONE25 MG ORAL
--- NOTE | 2018-11-12 14:13 | Emergency Room Report ---
History of Present Illness General Chief Complaint: Fever Source: Family Member, Medical Record Present Illness HPI Patient is an 88-year-old female who presented after increased fever. Patient was sent in from facility.Patient been noted to have increased cough as well as elevated sodium. Patient recent hospitalization at [facility] had previously been intubated. Patient had prior history of tardive dyskinesia and had been noted to have increased difficulty with breathing. Allergies: Coded Allergies: No Known Allergies (Unverified , 05/07/16) Patient History Past Medical History: see triage record Last Menstrual Period: na Reviewed Nursing Documentation: PMH: Agreed; PSxH: Agreed Nursing Documentation-PMH Past Medical History: No History, Except For Hx Cardiac Problems: Yes Hx Hypertension: Yes Hx Cancer: No Hx Gastrointestinal Problems: Yes - gtube, GERD History Of Psychiatric Problem: Yes - dementia Hx Neurological Problems: Yes - BRAIN ANEURYSM Hx Cerebrovascular Accident: Yes - aneurysm Hx Dementia: Yes Review of Systems All Other Systems: limited - by mental status Physical Exam Vital Signs Date Time Temp Pulse Resp B/P (MAP) Pulse Ox O2 Delivery O2 Flow Rate FiO2 11/12/18 13:58 70 36 123/70 92 Nasal Cannula 4.0 General Appearance: alert, Chronically Ill Head: normocephalic ENT: uvula midline, dry mucus membranes Neck: limited range of motion Respiratory: respiratory distress, rhonchi Cardiovascular #1: tachycardia, edema - right lower extremity Gastrointestinal: normal inspection, non tender, soft Musculoskeletal: normal inspection, swelling - right lower extremity Neurologic: alert, responsive, aphasia Psychiatric: anxious Skin: other - right lower extremity erythema and edema, no fluctuance Medical Decision Making Diagnostic Impression: Primary Impression: Acute DVT (deep venous thrombosis) Additional Impressions: Sepsis HCAP (healthcare-associated pneumonia) Congestive heart failure (CHF) Hypernatremia ER Course Patient presented for fever as well as hyponatremia. Differential diagnosis include was not limited to sepsis, pneumonia, heart failure, influenza among others. Because of complexity of patient's case laboratory testing and imaging studies were ordered. Laboratory testing was notable for markedly elevated white blood count. Chest x-ray 1 view read by radiology showed suboptimal inspiration and crowding of bronchovascular markings without a definite infiltrate. Duplex ultrasound of the right lower extremity showed right common femoral and femoral vein thrombosis with unclear change from previous. Patient was started on anticoagulation. Dr. Alvarado was contacted for inpatient management due to covering physician for Dr. Chetan Hull. Labs Test 11/12/18 14:20 11/12/18 14:40 11/12/18 16:59 White Blood Count 22.5 K/UL (4.8-10.8) Red Blood Count 4.77 M/UL (4.20-5.40) Hemoglobin 13.4 G/DL (12.0-16.0) Hematocrit 43.2 % (37.0-47.0) Mean Corpuscular Volume 91 FL (80-99) Mean Corpuscular Hemoglobin 28.0 PG (27.0-31.0) Mean Corpuscular Hemoglobin Concent 30.9 G/DL (32.0-36.0) Red Cell Distribution Width 18.2 % (11.6-14.8) Platelet Count 118 K/UL (150-450) Mean Platelet Volume 10.9 FL (6.5-10.1) Neutrophils (%) (Auto) % (45.0-75.0) Lymphocytes (%) (Auto) % (20.0-45.0) Monocytes (%) (Auto) % (1.0-10.0) Eosinophils (%) (Auto) % (0.0-3.0) Basophils (%) (Auto) % (0.0-2.0) Differential Total Cells Counted 100 Neutrophils % (Manual) 87 % (45-75) Lymphocytes % (Manual) 6 % (20-45) Monocytes % (Manual) 2 % (1-10) Eosinophils % (Manual) 0 % (0-3) Basophils % (Manual) 0 % (0-2) Band Neutrophils 5 % (0-8) Platelet Estimate Decreased Platelet Morphology Normal Polychromasia 1+ Anisocytosis 1+ Activated Partial Thromboplast Time 26 SEC (23-33) Sodium Level 161 MMOL/L (136-145) Potassium Level 3.3 MMOL/L (3.5-5.1) Chloride Level 120 MMOL/L (98-107) Carbon Dioxide Level 28 MMOL/L (21-32) Anion Gap 12 mmol/L (5-15) Blood Urea Nitrogen 45 mg/dL (7-18) Creatinine 1.1 MG/DL (0.55-1.30) Estimat Glomerular Filtration Rate mL/min (>60) Glucose Level 210 MG/DL (74-106) Lactic Acid Level 1.80 mmol/L (0.4-2.0) Calcium Level 9.2 MG/DL (8.5-10.1) Phosphorus Level 2.9 MG/DL (2.5-4.9) Magnesium Level 2.6 MG/DL (1.8-2.4) Total Bilirubin 0.7 MG/DL (0.2-1.0) Aspartate Amino Transf (AST/SGOT) 42 U/L (15-37) Alanine Aminotransferase (ALT/SGPT) 51 U/L (12-78) Alkaline Phosphatase 74 U/L (46-116) Total Creatine Kinase 44 U/L (26-308) Creatine Kinase MB 0.6 NG/ML (0.0-3.6) Creatine Kinase MB Relative Index 1.3 Troponin I 0.076 ng/mL (0.000-0.056) Total Protein 8.2 G/DL (6.4-8.2) Albumin 2.9 G/DL (3.4-5.0) Globulin 5.3 g/dL Albumin/Globulin Ratio 0.5 (1.0-2.7) Lipase 121 U/L (73-393) Urine Color Yellow Urine Appearance Clear Urine pH 5 (4.5-8.0) Urine Specific [place] 1.025 (1.005-1.035) Urine Protein 2+ (NEGATIVE) Urine Glucose (UA) Negative (NEGATIVE) Urine Ketones 1+ (NEGATIVE) Urine Blood Negative (NEGATIVE) Urine Nitrite Negative (NEGATIVE) Urine Bilirubin Negative (NEGATIVE) Urine Urobilinogen 4 MG/DL (0.0-1.0) Urine Leukocyte Esterase 1+ (NEGATIVE) Urine RBC 0-2 /HPF (0 - 2) Urine WBC 2-4 /HPF (0 - 2) Urine Squamous Epithelial Cells Few /LPF (NONE/OCC) Urine Amorphous Sediment Few /LPF (NONE) Urine Bacteria Moderate /HPF (NONE) Arterial Blood pH 7.451 (7.350-7.450) Arterial Blood Partial Pressure CO2 37.1 mmHg (35.0-45.0) Arterial Blood Partial Pressure O2 74.4 mmHg (75.0-100.0) Arterial Blood HCO3 25.3 mmol/L (22.0-26.0) Arterial Blood Oxygen Saturation 94.6 % (95-100) Arterial Blood Base Excess 1.5 (-2-2) Roberto Test N/a EKG Diagnostic Results Rate: tachycardiac - sinus tachycardia occasional pacs Rhythm: NSR - 110 Last Vital Signs Date Time Temp Pulse Resp B/P (MAP) Pulse Ox O2 Delivery O2 Flow Rate FiO2 11/12/18 13:58 70 36 123/70 92 Nasal Cannula 4.0 Status: improved Disposition: ADMITTED INPATIENT Condition: Stable Simba Coronado MD Nov 12, 2018 14:13
--- NOTE | 2018-11-12 14:30 | NUR ---
ED Nurse Note:pt. was BIBA from SNF with c/o fever 100.4 rectal and sepsis, blood cultures and flu swab, urine to labs
--- NOTE | 2018-11-12 14:40 | NUR ---
ED Nurse Note:pt. s skin is dry and intact with perianal redness, right leg is inlarged and edemous, ND is aware
[2018-11-12 14:58] LABS: HEMATOCRIT 43.2 % (37.0-47.0); HEMOGLOBIN 13.4 G/DL (12.0-16.0); MEAN CORPUSCULAR VOLUME 91 FL (80-99); PLATELET COUNT 118 K/UL (150-450); RED BLOOD COUNT 4.77 M/UL (4.20-5.40); RED CELL DISTRIBUTION WIDTH 18.2 % (11.6-14.8)
--- NOTE | 2018-11-12 14:58 | Diagnostic Imaging Report ---
Indication: Shortness of breath Technique: One view of the chest Comparison: 10/26/2018 Findings: Inspiration is suboptimal with crowding of the bronchovascular markings. Lungs and pleural spaces are otherwise clear. The heart size is normal. The aorta is tortuous and calcified. Impression: No acute process
[2018-11-12] MEDS ORDERED: Vancomycin 1 GM in NS 275 ML IVPB ONE (15:00)
[2018-11-12] MEDS ORDERED: Cefepime HCl 1 GM in D5W 55 ML IVPB ONE (15:00)
[2018-11-12 15:11] LABS: WHITE BLOOD COUNT 22.5 K/UL (4.8-10.8)
[2018-11-12 15:15] VITALS: BP 123/70
[2018-11-12 15:23] LABS: ALANINE AMINOTRANSFERASE 51 U/L (12-78); ALBUMIN 2.9 G/DL (3.4-5.0); ALBUMIN/GLOBULIN RATIO 0.5 (1.0-2.7); ALKALINE PHOSPHATASE 74 U/L (46-116); ANION GAP 12 mmol/L (5-15); ASPARTATE AMINO TRANSFERASE 42 U/L (15-37); BILIRUBIN,TOTAL 0.7 MG/DL (0.2-1.0); BLOOD UREA NITROGEN 45 mg/dL (7-18); CALCIUM 9.2 MG/DL (8.5-10.1); CARBON DIOXIDE 28 MMOL/L (21-32); CHLORIDE 120 MMOL/L (98-107); CKMB 0.6 NG/ML (0.0-3.6); CREATINE KINASE 44 U/L (26-308); CREATININE 1.1 MG/DL (0.55-1.30); PHOSPHORUS 2.9 MG/DL (2.5-4.9); POTASSIUM 3.3 MMOL/L (3.5-5.1)
[2018-11-12 15:25] LABS: APPEARANCE,URINE CLEAR; BILIRUBIN, URINE NEGATIVE (NEGATIVE); GLUCOSE, URINE (UA) NEGATIVE (NEGATIVE); KETONES,URINE 1+ (NEGATIVE); LEUKOCYTE ESTERASE ,URINE 1+ (NEGATIVE); NITRITE,URINE NEGATIVE (NEGATIVE); PH,URINE 5 (4.5-8.0); PROTEIN,URINE 2+ (NEGATIVE); UROBILINOGEN,URINE 4 MG/DL (0.0-1.0)
[2018-11-12 15:27] LABS: SODIUM 161 MMOL/L (136-145)
--- NOTE | 2018-11-12 15:30 | NUR ---
ED Nurse Note:IV fluids and antibiotics given
[2018-11-12 15:34] LABS: COLOR,URINE YELLOW
[2018-11-12] MEDS ORDERED: Heparin 25,000u/D5W 500ml 500 ML IV SCH ×4 (16:00→23:45)
[2018-11-12] MEDS ORDERED: Heparin 5000 units/ml inj IV ONE (16:00)
[2018-11-12] MEDS ORDERED: LORazepam Inj 2mg/ml 1ml IV PRN ×2 (16:30→18:30)
[2018-11-12 16:32] VITALS: BP 136/72
--- NOTE | 2018-11-12 16:36 | NUR ---
ED Nurse Note:pt. was started on heparin drip with loading melani
--- NOTE | 2018-11-12 16:45 | NUR ---
ED Nurse Note:called SDU with report but they not ready, cleaning room
--- NOTE | 2018-11-12 16:52 | Diagnostic Imaging Report ---
Indication: Right leg pain Technique: Grayscale and duplex images of the right lower extremity veins Comparison: 10/14/2018 Findings: Intraluminal thrombus is seen in the common femoral vein, with resultant decrease Doppler flow and noncompressibility. This is equivocally more extensive than on the prior study. Intraluminal thrombus is also seen within the right femoral and popliteal veins. This results in noncompressibility and absent Doppler signal as well. The calf veins appear to be patent. 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 This is also described on recent study of 10/14/2018, and it is unclear whether current findings represent residual thrombosis or whether there is increased thrombus relative to the prior study Findings discussed by phone with Dr. Coronado in the emergency room at the time of interpretation
--- NOTE | 2018-11-12 17:21 | NUR ---
NURSE NOTES: received report from kaci RN from ER. will bring pt soon. sbar used.
--- NOTE | 2018-11-12 17:30 | NUR ---
ED Nurse Note:called report to SDu-given to RN, pt. taken to the room
--- NOTE | 2018-11-12 17:46 | NUR ---
NURSE NOTES: pt on 3lnc. rhonchi through out with weak cough. abdomen large, non tender. temp oral 996.4 bp 142/62 hr 89, rr 22 o2sat 96%. no c/o pain per daughter at bedside. pt in adult diaper, perianal and perineal redness. purewick applied. 1 bm, brown large. rt leg, edema and hot to touch. heparin drip at 18u/kg/hr. fall precautions in place. bed alarm on. will continue to monitor pt.
[2018-11-12] MEDS ORDERED: Atenolol 25mg tab GT SCH (18:00)
[2018-11-12] MEDS ORDERED: D5W w/KCl 20mEq 1,000 ML IV SCH (18:00)
[2018-11-12] MEDS: D5W w/KCl 20mEq 1,000 ML IV SCH (18:57)
[2018-11-12] MEDS: Atenolol 25mg tab GT SCH (19:00)
--- NOTE | 2018-11-12 19:30 | NUR ---
NURSE NOTES: Received patient from Shayna GROSS. Patient is asleep receiving Oxygen via Nasal Cannula at 2L/min. Gtube is patent and intact. Urine is drained via purewick suctioning well. IV site is left wrist 24 gauge intact and asymptomatic receiving Hpearin drip at 18units/kg at 22.8cc/hr. Right wrist 22g intact and asymptomatic receiving D5W with 20mEq KCl at 50cc/hr. Bed is locked, placed in lowest position, side rails up x3, call light within reach. Will continue to monitor.
--- NOTE | 2018-11-12 20:14 | NUR ---
HAND-OFF: Report given to jed. steiner
--- NOTE | 2018-11-12 20:59 | NUR ---
HAND-OFF: Report given to Autumn GROSS.
[2018-11-12] MEDS ORDERED: Donepezil 10mg tab GT SCH (21:00)
--- NOTE | 2018-11-12 21:00 | NUR ---
NURSE NOTES: Report received from RENATO Mojica. Pt A/Ox1. manager recruitment showing ST. Pt currently on 2L NC. Shows no signs of acute respiratory or cardiac distress. Pt has a GT in place. Glucerna 1.2 to be started @ 15 ml/hr. Purewick present and suctioning well. Perinial redness and irritation found. Pt has a LW24g with heparin running @ 18 u/kg/hr and a RW22g with [id number] running @ 50 ml/hr. Timed PTT set for 2200. Bed in lowest position, bed alarms placed, call light within reach. Will continue to monitor and with patients plan of care.
[2018-11-12] MEDS: Donepezil 10mg tab GT SCH (22:06)
--- NOTE | 2018-11-12 22:30 | History and Physical Report ---
DATE OF ADMISSION: 11/12/2018 PURPOSE FOR ADMISSION: 1. Sepsis. 2. Acute encephalopathy. 3. Hypernatremia. HISTORY OF PRESENT ILLNESS: The patient is an 87-year-old female sent for further evaluation and care from her facility due to increased fever and altered mental status. Noted to have a white count of over 22,000. The patient had a serum sodium of 161 with a BUN of 45 along with possible urinary tract infection. The patient recently had been at [facility] regarding Intensive Care Unit management along with intubation and mechanical ventilation. During this time, the patient had a G-tube placed along with discontinuation of her Coumadin due to high risk of bleeding. She was then stabilized and discharged to a skilled facility. She now returns with an elevated troponin and elevated serum sodium, febrile, and a white count of 22,000. PAST MEDICAL HISTORY: 1. Dementia. 2. Hypertension. 3. Failure to thrive. 4. Respiratory failure. SURGICAL HISTORY: G-tube placement. ALLERGIES: No known drug allergies. FAMILY HISTORY: Positive for hypertension. REVIEW OF SYSTEMS: Cannot obtain as this patient is not answering questions coherently. LABORATORY DATA: Laboratories dated 11/12/2018, sodium 161, potassium 3.3, BUN 45, and creatinine 1.1. WBC 22.5, hemoglobin 13.4, and platelet count 118,000. PHYSICAL EXAMINATION: VITAL SIGNS: Blood pressure 136/72, respiratory rate 30, pulse 90, temperature 98.6, and oxygen saturation 96%. GENERAL: The patient is somnolent, arousable, and nonverbal. HEENT: Extraocular muscles intact. Mouth, opened, mouth breathing, non-communicative. CARDIOVASCULAR: S1, S2. No murmurs, rubs, or gallops. PULMONARY: Upper airway rhonchi. Fair air movement in all lung cabral. ABDOMEN: Nondistended and nontender. EXTREMITY: Right extremity edema from ankle to thigh. ASSESSMENT AND PLAN: 1. Acute DVT of the right lower extremity. The patient does have an IVC filter in place. Coumadin had been discontinued 3 weeks ago. Under Hematology/Oncology were consulted for further evaluation and management, and whether or not to initiate any anticoagulation. The patient does have a history of a brain aneurysm. 2. Sepsis with elevated white count. Possible due to underlying urinary tract infection. The patient being pancultured and broad-spectrum antibiotics have been initiated along with Infectious Disease to manage. 3. Elevated troponin in the setting of sepsis. The patient to be continued managed by her smart energy specialist Dr. Jones. 4. Hypernatremia due to free water deficit. The patient will be started on free water. 5. Nutritional status will be addressed with tube feedings. Steve Alvarado MD DR: IRMA/YConner JOB#: [id number] CC:
--- NOTE | 2018-11-12 22:43 | NUR ---
NURSE NOTES: Pt's aPTT @ 138, per protocol. Heparin to be stopped for 1 hour and continued at 2345 @ a rate of 15 u/kg/hr. Next aPTT set up for 0545. Will continue to monitor
[2018-11-13] VITALS: BP 130/62
[2018-11-13 04:00] VITALS: BP 139/68
[2018-11-13 06:03] LABS: HEMATOCRIT 44.9 % (37.0-47.0); HEMOGLOBIN 13.7 G/DL (12.0-16.0); MEAN CORPUSCULAR VOLUME 91 FL (80-99); PLATELET COUNT 111 K/UL (150-450); RED BLOOD COUNT 4.95 M/UL (4.20-5.40); RED CELL DISTRIBUTION WIDTH 18.3 % (11.6-14.8)
[2018-11-13 06:39] LABS: ANION GAP 7 mmol/L (5-15); BLOOD UREA NITROGEN 36 mg/dL (7-18); CALCIUM 8.8 MG/DL (8.5-10.1); CARBON DIOXIDE 29 MMOL/L (21-32); CHLORIDE 119 MMOL/L (98-107); CREATININE 0.9 MG/DL (0.55-1.30); POTASSIUM 4.4 MMOL/L (3.5-5.1); SODIUM 155 MMOL/L (136-145)
[2018-11-13] MEDS ORDERED: Heparin 5000 units/ml inj IV ONE (06:45)
[2018-11-13] MEDS: Heparin 25,000u/D5W 500ml 500 ML IV SCH ×2 (06:48→18:02)
--- NOTE | 2018-11-13 07:23 | Nephrology Progress Note ---
Assessment/Plan Assessment/Plan A/P 1) Hypernatremia- improved on D5W. 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 Objective Last 24 Hour Vital Signs Date Time Temp Pulse Resp B/P (MAP) Pulse Ox O2 Delivery O2 Flow Rate FiO2 11/13/18 04:00 Nasal Cannula 2.0 11/13/18 04:00 98.7 69 20 139/68 (91) 98 11/13/18 04:00 60 11/13/18 04:00 2.0 11/13/18 00:00 97.7 70 24 130/62 (84) 97 11/13/18 00:00 62 11/13/18 00:00 Nasal Cannula 2.0 11/12/18 20:00 78 11/12/18 20:00 2.0 11/12/18 20:00 Nasal Cannula 2.0 11/12/18 19:00 89 142/62 11/12/18 17:32 Nasal Cannula 3.0 11/12/18 17:27 98.6 90 30 136/72 96 Nasal Cannula 4.0 11/12/18 16:32 98.6 90 30 136/72 96 Nasal Cannula 4.0 11/12/18 15:15 100.4 100 36 123/70 92 Nasal Cannula 4.0 11/12/18 15:15 100 36 Nasal Cannula 4.0 11/12/18 13:58 70 36 123/70 92 Nasal Cannula 4.0 Intake and Output 11/12/18 11/13/18 18:59 06:59 Intake Total 185.722 ml Output Total 100 ml Balance 85.722 ml Intake IV Total 45.722 ml Tube Feeding 140 ml Output Urine Total 100 ml # Voids 3 # Bowel Movements 4 Laboratory Tests 11/12/18 14:20: White Blood Count 22.5*H, Red Blood Count 4.77, Hemoglobin 13.4, Hematocrit 43.2 , Mean Corpuscular Volume 91, Mean Corpuscular Hemoglobin 28.0, Mean Corpuscular Hemoglobin Concent 30.9L, Red Cell Distribution Width 18.2H, Platelet Count 118L, Mean Platelet Volume 10.9H, Neutrophils (%) (Auto) , Lymphocytes (%) (Auto) , Monocytes (%) (Auto) , Eosinophils (%) (Auto) , Basophils (%) (Auto) , Differential Total Cells Counted 100, Neutrophils % ( Manual) 87H, Lymphocytes % (Manual) 6L, Monocytes % (Manual) 2, Eosinophils % ( Manual) 0, Basophils % (Manual) 0, Band Neutrophils 5, Platelet Estimate DecreasedL, Platelet Morphology Normal, Polychromasia 1+, Anisocytosis 1+, Activated Partial Thromboplast Time 26, Sodium Level 161*H, Potassium Level 3.3L , Chloride Level 120H, Carbon Dioxide Level 28, Anion Gap 12, Blood Urea Nitrogen 45H, Creatinine 1.1, Estimat Glomerular Filtration Rate , Glucose Level 210H, Lactic Acid Level 1.80, Calcium Level 9.2, Phosphorus Level 2.9, Magnesium Level 2.6H, Total Bilirubin 0.7, Aspartate Amino Transf (AST/SGOT) 42H , Alanine Aminotransferase (ALT/SGPT) 51, Alkaline Phosphatase 74, Total Creatine Kinase 44, Creatine Kinase MB 0.6, Creatine Kinase MB Relative Index 1.3, Troponin I 0.076H, Total Protein 8.2, Albumin 2.9L, Globulin 5.3, Albumin/ Globulin Ratio 0.5L, Lipase 121 11/12/18 14:40: Urine Color Yellow, Urine Appearance Clear, Urine pH 5, Urine Specific [place] 1.025, Urine Protein 2+H, Urine Glucose (UA) Negative, Urine Ketones 1+H, Urine Blood Negative, Urine Nitrite Negative, Urine Bilirubin Negative, Urine Urobilinogen 4H, Urine Leukocyte Esterase 1+H, Urine RBC 0-2, Urine WBC 2-4, Urine Squamous Epithelial Cells Few, Urine Amorphous Sediment FewH, Urine Bacteria ModerateH 11/12/18 16:59: Arterial Blood pH 7.451H, Arterial Blood Partial Pressure CO2 37.1, Arterial Blood Partial Pressure O2 74.4L, Arterial Blood HCO3 25.3, Arterial Blood Oxygen Saturation 94.6L, Arterial Blood Base Excess 1.5, Roberto Test N/a 11/12/18 22:00: Activated Partial Thromboplast Time 138H 11/13/18 05:53: White Blood Count 16.0H, Red Blood Count 4.95, Hemoglobin 13.7, Hematocrit 44.9 , Mean Corpuscular Volume 91, Mean Corpuscular Hemoglobin 27.6, Mean Corpuscular Hemoglobin Concent 30.4L, Red Cell Distribution Width 18.3H, Platelet Count 111L, Mean Platelet Volume 10.9H, Neutrophils (%) (Auto) , Lymphocytes (%) (Auto) , Monocytes (%) (Auto) , Eosinophils (%) (Auto) , Basophils (%) (Auto) , Neutrophils % (Manual) [Pending], Lymphocytes % (Manual) [Pending], Platelet Estimate [Pending], Platelet Morphology [Pending], Activated Partial Thromboplast Time 58H, Sodium Level 155H, Potassium Level 4.4 , Chloride Level 119H, Carbon Dioxide Level 29, Anion Gap 7, Blood Urea Nitrogen 36H, Creatinine 0.9, Estimat Glomerular Filtration Rate , Glucose Level 242H, Calcium Level 8.8 Height (Feet): 5 Height (Inches): 5.00 Weight (Pounds): 169 General Appearance: no apparent distress, agitated EENT: normal ENT inspection Neck: normal alignment, supple Cardiovascular: normal rate, regular rhythm Respiratory/Chest: rhonchi - bilaterally Abdomen: non tender, soft Edema: no edema noted Arm (L), no edema noted Arm (R), no edema noted Leg (L), no edema noted Leg (R), no edema noted Pedal (L), no edema noted Pedal (R), no edema noted Generalized Steve Alvarado MD Nov 13, 2018 07:23
--- NOTE | 2018-11-13 07:31 | NUR ---
NURSE NOTES: Report received from RENATO Hale. Asleep when received,easily arousal to verbal and tactile stimuli.On N/C at 2LPM.Able to follow command.External catheter in place draining yellowish urine with no apparent sediment. GT in place with placement intact running Glucerna 1.2 at 25cc/hr.No residual at this time.HOB elevated to prevent aspiration.Abdomen soft and non distended.Turned and repositioned for skin management.LW/24G and RW/22G peripheral line patent with no apparent infiltration running heparin drip at 17u/kg/hr and D5W w/20kcl at 50cc/hr. Patient kept clean and comfortable.Will continue to monitor.
[2018-11-13 08:00] VITALS: BP 130/62
[2018-11-13] MEDS: Atenolol 25mg tab GT SCH ×2 (08:42→18:00)
--- NOTE | 2018-11-13 09:47 | NUR ---
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 HCAP . SEPSIS VS: BP 136/72, P 100, T 100.4, RR 36, SpO2 92 on 4.0L O2 NC WBC 22.5, Na 161. 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 IS:PROTONIX 40mg HEPARIN 500ml IV ATENOLOL 25mg GT ADMITTED TO SDU DCP: RETURN TO [facility]
--- NOTE | 2018-11-13 10:01 | NUR ---
NURSE NOTES: Patient turned and repositioned.L hand peripheral line D/C and new line 22G placed on right hand.Tolerated well.
--- NOTE | 2018-11-13 10:28 | NUR ---
NURSE NOTES: Report given to RENATO Blake
[2018-11-13 12:00] VITALS: BP 121/55
--- NOTE | 2018-11-13 12:10 | NUR ---
Received pt from RENATO Blake in stable condition with no cardiopulmonary distress noted. Pt is awake in bed, AAOx1 on 2L O2 via NC. Pt has a GT running Glucerna 1.2 at 25 cc/hr. No residuals noted and pt flushed with 30cc H20. Purewick noted draining yellow urine. No BM noted at this time. Pt pulled out R wrist IV where Heparin was infusing. R hand 20g IV started at this time and Heparin continued. Pt also has another R hand 22g IV patent and flushing. No visible bleeding noted at this time- minor bruising noted on left hand. Skin alterations noted. 2+ pitting edema noted on RLE. Bed is in low with alarm on, side rails up x 4, call light within reach. Will continue to monitor pt.
--- NOTE | 2018-11-13 12:25 | NUR ---
RD ASSESSMENT & RECOMMENDATIONS SEE CARE ACTIVITY FOR COMPLETE ASSESSMENT DAILY ESTIMATED NEEDS: Needs based on Sepsis, wound/ 71kg 25-30 kcals/kg [id number] total kcals 1.25-2 g protein/kg 89-142 g total protein 25-30 mL/kg 6625-6276 total fluid mLs NUTRITION DIAGNOSIS: 1) Swallowing difficulty r/t dysphagia as evidenced by PEG dep. 2) Altered nutrition related lab values R/T clinical condition, Sepsis as evidenced by elev BGs (242 210) elev Na (161* -> 155 trend down), elev wbc (wbc 22.5* -> 16.0 trend down) CURRENT TF:Glucerna 1.2 @ 40ml/hr x 24 hrs ENTERAL NUTRITION RECOMMENDATIONS: Glucerna 1.2 @ 65ml/hr x 24 hrs to provide 1560ml, 1872kcal, 94g prot, 1256ml free water - Increase goal rate to 65ml/hr x 24 hrs - Flush per MD/ HOB over 30 degrees ADDITIONAL RECOMMENDATIONS: * Recalibrate bed scale for accurate CBW * Per SNF: pt's HT=67", DS=[id number] (11/03/18) * Wound care: [place] BID/ f/up with WC eval * A1C for eval of glycemic control- BGs in 200's * Rec accucheck w/ SSI- BGs in 200's.
--- NOTE | 2018-11-13 12:42 | NUR ---
NURSE NOTES: Spoke to Dr Lane about potassium level (4.4) and Sodium (155) to clarify IVF currently running (D5W w/ 20 mEq KCL). Dr Lane instructed me to continue with order.
[2018-11-13] MEDS: D5W w/KCl 20mEq 1,000 ML IV SCH (14:54)
--- NOTE | 2018-11-13 14:56 | Consultation ---
History of Present Illness General Chief Complaint: Fever Present Illness Allergies: Coded Allergies: No Known Allergies (Unverified , 05/07/16) Medication History Scheduled Atenolol (Tenormin), 100 MG ORAL DAILY, (Reported) Atenolol* (Tenormin*), 25 MG ORAL BID, (Reported) Azithromycin* (Zithromax*), 250 MG ORAL DAILY Cephalexin* (Cephalexin*), 500 MG ORAL BID, (Reported) Cephalexin* (Keflex*), 500 MG ORAL EVERY 6 HOURS Docusate Sodium* (Colace*), 100 MG ORAL DAILY, (Reported) Donepezil Hcl (Aricept), 10 MG ORAL DAILY, (Reported) Famotidine (Famotidine), 20 MG ORAL BID Furosemide* (Lasix*), 20 MG ORAL DAILY Lorazepam* (Lorazepam*), 2 MG ORAL BEDTIME, (Reported) Losartan Potassium* (Losartan Potassium*), 50 MG ORAL Q12HR, (Reported) Nitrofurantoin Monohyd/M-Cryst* (Macrobid 100 Mg*), 100 MG ORAL EVERY 12 HOURS Omeprazole (Omeprazole), 20 MG ORAL DAILY, (Reported) Potassium Chloride (Potassium Chloride), 20 MEQ PO BID, (Reported) Quetiapine Fumarate (Quetiapine Fumarate), 100 MG ORAL DAILY, (Reported) Quetiapine Fumarate* (Seroquel*), 50 MG ORAL QHS, (Reported) Quetiapine Fumarate* (Seroquel*), 25 MG ORAL TWICE A DAY, (Reported) Risperidone* (Risperdal*), 0.25 MG ORAL DAILY, (Reported) Risperidone* (Risperdal*), 0.5 MG ORAL QHS, (Reported) Spironolactone* (Aldactone*), 25 MG ORAL DAILY Warfarin Sod* (Warfarin Sod*), 3 MG ORAL DAILY Warfarin Sod* (Warfarin Sod*), 3 MG ORAL DAILY, (Reported) Scheduled PRN Acetaminophen* (Tylenol Extra Strength*), 650 MG ORAL Q4HR PRN for Mild Pain ( Pain Scale 1-3), (Reported) Albuterol Sulfate* (Albuterol Sulfate Hhn*), 3 ML INH Q4H PRN for Shortness of Breath, (Reported) Clonidine Hcl (Clonidine Hcl), 0.1 MG PO PRN PRN for For High Blood Pressure, ( Reported) Diphenhydramine HCl (Benadryl), 25 MG PO PRN PRN for Itching/Pruritis, (Reported ) Hydrocodone Bit/Acetaminophen 10-325* (Clinton 10-325*), 1 TAB ORAL Q8HR PRN for Pain Scale (6-10), (Reported) Pantoprazole* (Protonix*), 40 MG ORAL Q12HR PRN for Abdominal cramps, (Reported) Miscellaneous Medications Risperidone (Risperdal), 1 MG PO, (Reported) Patient History Healthcare decision maker N Resuscitation status Full Code Advanced Directive on File Physical Exam Last 24 Hour Vital Signs Date Time Temp Pulse Resp B/P (MAP) Pulse Ox O2 Delivery O2 Flow Rate FiO2 11/13/18 12:00 2.0 11/13/18 12:00 96.6 61 20 121/55 (77) 99 11/13/18 12:00 71 11/13/18 08:42 70 130/62 11/13/18 08:00 97.0 70 22 130/62 (84) 96 11/13/18 08:00 65 11/13/18 08:00 2.0 11/13/18 08:00 Nasal Cannula 2.0 11/13/18 04:00 Nasal Cannula 2.0 11/13/18 04:00 98.7 69 20 139/68 (91) 98 11/13/18 04:00 60 11/13/18 04:00 2.0 11/13/18 00:00 97.7 70 24 130/62 (84) 97 11/13/18 00:00 62 11/13/18 00:00 Nasal Cannula 2.0 11/12/18 20:00 78 11/12/18 20:00 2.0 11/12/18 20:00 Nasal Cannula 2.0 11/12/18 19:00 89 142/62 11/12/18 17:32 Nasal Cannula 3.0 11/12/18 17:27 98.6 90 30 136/72 96 Nasal Cannula 4.0 11/12/18 16:32 98.6 90 30 136/72 96 Nasal Cannula 4.0 11/12/18 15:15 100.4 100 36 123/70 92 Nasal Cannula 4.0 11/12/18 15:15 100 36 Nasal Cannula 4.0 Intake and Output 11/12/18 11/13/18 19:00 07:00 Intake Total 185.722 ml Output Total 100 ml Balance 85.722 ml Intake IV Total 45.722 ml Tube Feeding 140 ml Output Urine Total 100 ml # Voids 3 # Bowel Movements 4 Laboratory Tests Test 11/12/18 16:59 11/12/18 22:00 11/13/18 05:53 11/13/18 12:50 Arterial Blood pH 7.451 (7.350-7.450) Arterial Blood Partial Pressure CO2 37.1 mmHg (35.0-45.0) Arterial Blood Partial Pressure O2 74.4 mmHg (75.0-100.0) L Arterial Blood HCO3 25.3 mmol/L (22.0-26.0) Arterial Blood Oxygen Saturation 94.6 % (95-100) L Arterial Blood Base Excess 1.5 (-2-2) Roberto Test N/a Activated Partial Thromboplast Time 138 SEC (23-33) H 58 SEC (23-33) H 64 SEC (23-33) H White Blood Count 16.0 K/UL (4.8-10.8) H Red Blood Count 4.95 M/UL (4.20-5.40) Hemoglobin 13.7 G/DL (12.0-16.0) Hematocrit 44.9 % (37.0-47.0) Mean Corpuscular Volume 91 FL (80-99) Mean Corpuscular Hemoglobin 27.6 PG (27.0-31.0) Mean Corpuscular Hemoglobin Concent 30.4 G/DL (32.0-36.0) L Red Cell Distribution Width 18.3 % (11.6-14.8) H Platelet Count 111 K/UL (150-450) L Mean Platelet Volume 10.9 FL (6.5-10.1) H Neutrophils (%) (Auto) % (45.0-75.0) Lymphocytes (%) (Auto) % (20.0-45.0) Monocytes (%) (Auto) % (1.0-10.0) Eosinophils (%) (Auto) % (0.0-3.0) Basophils (%) (Auto) % (0.0-2.0) Differential Total Cells Counted 100 Neutrophils % (Manual) 82 % (45-75) H Lymphocytes % (Manual) 9 % (20-45) L Monocytes % (Manual) 7 % (1-10) Eosinophils % (Manual) 2 % (0-3) Basophils % (Manual) 0 % (0-2) Band Neutrophils 0 % (0-8) Platelet Estimate Decreased L Platelet Morphology Normal Hypochromasia 1+ Anisocytosis 2+ Sodium Level 155 MMOL/L (136-145) H Potassium Level 4.4 MMOL/L (3.5-5.1) Chloride Level 119 MMOL/L (98-107) H Carbon Dioxide Level 29 MMOL/L (21-32) Anion Gap 7 mmol/L (5-15) Blood Urea Nitrogen 36 mg/dL (7-18) H Creatinine 0.9 MG/DL (0.55-1.30) Estimat Glomerular Filtration Rate mL/min (>60) Glucose Level 242 MG/DL (74-106) H Calcium Level 8.8 MG/DL (8.5-10.1) Height (Feet): 5 Height (Inches): 5.00 Weight (Pounds): 169 Medications Current Medications Medications (Trade) Dose Ordered Sig/Arabella Route PRN Reason Start Time Stop Time Status Last Admin Dose Admin Acetaminophen (Tylenol) 650 mg Q4H PRN ORAL fever (temp>100.5F) 11/12/18 18:30 12/12/18 18:29 Atenolol (Tenormin) 25 mg BID GT 11/12/18 18:30 12/12/18 17:59 11/13/18 08:42 Dextrose (Dextrose 50%) 25 ml Q30M PRN IV Hypoglycemia 11/12/18 18:30 12/12/18 16:29 Dextrose (Dextrose 50%) 50 ml Q30M PRN IV Hypoglycemia 11/12/18 18:30 12/12/18 16:29 Dextrose/ Electrolytes 1,000 ml @ 50 mls/hr Q20H IV 11/12/18 18:30 12/12/18 17:59 11/12/18 18:57 Donepezil HCl (Aricept) 10 mg QHS GT 11/12/18 21:00 12/12/18 20:59 11/12/18 22:06 Heparin Sodium/ Dextrose 500 ml @ 21.591 mls/ hr ADJUST PER PROTOCOL IV 11/13/18 06:45 12/12/18 23:44 11/13/18 06:48 Lorazepam (Ativan 2mg/ml 1ml) 0.5 mg Q4H PRN IV For Anxiety 11/12/18 18:30 11/19/18 18:29 Pantoprazole (Protonix) 40 mg DAILY ORAL 11/13/18 09:00 12/13/18 08:59 11/13/18 08:42 Assessment/Plan Assessment/Plan Hematology Consultation NICOLE MD: Alvarado DOS: 11/13/18 Source: Family Member, Medical Record HPI Patient is an 88-year-old female who presented after increased fever. Patient was sent in from facility.Patient been noted to have increased cough as well as elevated sodium. Patient recent hospitalization at [facility] had previously been intubated. Patient had prior history of tardive dyskinesia and had been noted to have increased difficulty with breathing. 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 This is also described on recent study of 10/14/2018, and it is unclear whether current findings represent residual thrombosis or whether there is increased thrombus relative to the prior study was noted on duplex. Allergies: No Known Allergies (Unverified , 05/07/16) Past Medical History: see triage record Last Menstrual Period: na Reviewed Nursing Documentation: PMH: Agreed; PSxH: Agreed Past Medical History: No History, Except For Hx Cardiac Problems: Yes Hx Hypertension: Yes Hx Cancer: No Hx Gastrointestinal Problems: Yes - gtube, GERD History Of Psychiatric Problem: Yes - dementia Hx Neurological Problems: Yes - BRAIN ANEURYSM Hx Cerebrovascular Accident: Yes - aneurysm Hx Dementia: Yes Review of systems: limited - by mental status Vital Signs Date Time Temp Pulse Resp B/P (MAP) Pulse Ox O2 Delivery O2 Flow Rate FiO2 11/13/18 13:58 70 36 123/70 92 Nasal Cannula 4.0 Physical Exam: Vitals: reviewed General Appearance: NAD HEENT: normocephalic, atraumatic Neck: non-tender, normal alignment Respiratory/Chest: normal breath sounds bilaterally Cardiovascular/Chest: normal peripheral pulses, normal rate Abdomen: normal bowel sounds, soft, nontender Extremities: normal range of motion Labs: Reviewed Assessment and Recs: # Acute DVT (deep venous thrombosis) -- 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 This is also described on recent study of 10/14/2018, and it is unclear whether current findings represent residual thrombosis or whether there is increased thrombus relative to the prior study, based on imaging, will consider anticoag --> heparin gtt has been started --> okay with NOAC or coumadin as an outpatient at [facility]/ --> will begin eliquis 5mg po bid to be started at this time x 3 months total # Thrombocytopenia - potential causes multifactorial, evaluate liver and viral etiologies to begin, also could be related to underlying medications patient has received. --> Hep panel and HIV ordered --> US abd to evaluate for cirrhosis and hsm ordered --> Peripheral smear ordered to evaluate for blasts /schistocytes --> abx and other meds have been reviewed --> ok for ppx if plt >50k w/ either heparin or lovenox --> Transfuse if Plt < 20k and fever, or if Plt < 10k without fever # Sepsis with HCAP (healthcare-associated pneumonia) --> on abx at this time # Congestive heart failure (CHF) # Hypernatremia --> fluid management as per renal The timing of this note does not necessarily reflect the time of the patient was seen. Greatly appreciate consultation! Cabrera Hernandez MD Nov 13, 2018 14:56
[2018-11-13 16:00] VITALS: BP 118/52
--- NOTE | 2018-11-13 17:29 | Cardiology Report ---
APPROVED REPORT EKG Measurement Heart [id number] [place] [id number] Sinus tachycardia with premature atrial complexes Otherwise normal ECG
--- NOTE | 2018-11-13 17:31 | NUR ---
HAND-OFF: Report given to RENATO Blake. Pt in stable condition.
--- NOTE | 2018-11-13 17:49 | NUR ---
NURSE NOTES: Received patient from RENATO Blake. Patient VS stable at this time. Patient being placed on P200 mattress at this time. Patient able to be aroused by name but does not answer questions. Patient does not speak except when she feels pain. Patient sleeping at this time. Patient showing sinus rhythm on the monitor. Patient on 2L NC at this time. Patient has G tube that is patent and asymptomatic at this time. Patient has a purewick that is in place and patent. Patient has right wrist 22G and right hand 22G that is running heparin drip at 17units per hour at this time. Patient has acute DVT of the right leg. Patient running D5W with 20mEq at 50mL/hr at this time. Next PTT at 1999. Will follow up. Patient bed in low position with bed alarm on and call light in reach at this time. Patient has small sacral stage 2 pressure ulcer. Patient has perineal redness.
--- NOTE | 2018-11-13 19:30 | NUR ---
NURSE NOTES: Received Pt is resting on the bed and awake and confused. Family; DTR stay at bedside. On Heparin drip with 17U/kg/hr and no sign of acute bleeding noted. IV site intact and no sign of infiltration noted. On O2 2L via nasal cannula and SaO2 97% noted. Dressing is clean and dry on wound area. On P200 mattress for wound management. Changed position. On Tele monitor with SB; 57's. On NPO d/t US abdomen today. Denied pain at this time. Placed fall precaution. Will continue to care plan.
--- NOTE | 2018-11-13 19:40 | NUR ---
HAND-OFF: Report given to RENATO Salmeron. Patient VS stable at this time with no sign of acute distress. Patient has PTT timed draw at 1999. Endorsed to follow up. Patient has an order for abdominal ultrasound. Patient NPO for ultrasound. Endorsed to follow up.
[2018-11-13 20:00] VITALS: BP 98/61
--- NOTE | 2018-11-13 20:45 | Progress Note ---
DATE: 11/13/2018 CARDIOLOGY PROGRESS NOTE SUBJECTIVE: The patient is more alert and interactive and in no distress. OBJECTIVE: VITAL SIGNS: Blood pressure 139/68, pulse 69, and respirations 20. Monitored rhythm, sinus. LUNGS: Bilateral breath sounds. No wheezing. HEART: Regular rhythm and rate. Normal S1, S2 with a fourth heart sound. ABDOMEN: Soft. EXTREMITIES: A 1+ edema. NEUROLOGIC: Left paresis. LABORATORY DATA: White count 16 and hemoglobin 13.7. Sodium 155, potassium 4.4, bicarbonate 29, BUN 36, and creatinine 0.9. Troponin is pending. IMPRESSION: 1. Severe dehydration. 2. Hypernatremia. 3. Hyperchloremia. 4. Prerenal azotemia. 5. Type 2 diabetes mellitus with hyperglycemia. 6. Acute myocardial ischemia and possibly [id number] infarction. 7. Moderate protein-calorie malnutrition. 8. Sepsis. 9. DVT with history of IVC filter. 10. Urinary tract infection. PLAN: 1. Hypotonic IV fluids. 2. Monitor and correct electrolytes as needed. 3. Antianginal therapy. 4. Follow up troponin level. 5. Based on historical data, bleeding risk is probably managed without anticoagulation. Vel Jones M.D. DR: MANDEEP JOB#: [id number] CC:
[2018-11-13] MEDS: Donepezil 10mg tab GT SCH (20:46)
--- NOTE | 2018-11-13 21:00 | Consultation ---
DATE OF CONSULTATION: 11/12/2018 CARDIOLOGY CONSULTATION CONSULTING PHYSICIAN: Vel Jones M.D. REQUESTING PHYSICIAN: Chetan Hull M.D. REASON FOR CONSULTATION: Elevated troponin level. HISTORY OF PRESENT ILLNESS: This is an 88-year-old female, who has been recovering at a [facility] facility and was recently hospitalized with respiratory failure due to pneumonia, was returned to the emergency room with a white count of 22,000 and severely abnormal laboratory studies including an elevated troponin level. I have been asked to assist with further cardiovascular care. PAST MEDICAL HISTORY: Includes respiratory failure, cerebrovascular disease with left-sided weakness, dysphagia with G-tube, hypercoagulable state with history of DVT and IVC filter. Warfarin was discontinued due to high bleeding risk. Coronary artery disease, hypertensive heart disease, and chronic kidney disease. MEDICATIONS: Prior to admission, reviewed and reconciled. ALLERGIES: None known. FAMILY HISTORY: Notable for hypertension. REVIEW OF SYSTEMS: Not obtainable from the patient. A 20 minutes time spent reviewing prior records and hospital stays with pertinent data outlined above. PHYSICAL EXAMINATION: VITAL SIGNS: Blood pressure 136/72, pulse 90, and respirations 30. Afebrile. HEENT: Temporal wasting. Dry mucous membranes. NECK: Supple. LUNGS: With coarse breath sounds. No wheezing. CARDIAC: Regular rhythm and rate. Normal S1, S2 with a fourth heart sound. ABDOMEN: Soft and nontender. G-tube intact. EXTREMITIES: With edema on the right lower extremity. LABORATORY DATA: White count 22.5, hemoglobin 13.4, and platelet count 118,000. Sodium 161, potassium 3.3, chloride 120, bicarb 28, BUN 45, creatinine 1.1, and glucose 210. Troponin 0.076. Albumin 2.9. Lactic acid 1.8. IMPRESSION: 1. Acute myocardial ischemia. 2. Acute DVT. 3. History of hypercoagulable state. 4. History of IVC filter. 5. Urinary tract infection. 6. Sepsis. 7. Severe dehydration. 8. Hypernatremia. 9. Hyperchloremia. 10. Hypokalemia. 11. Acute on chronic kidney injury with prerenal azotemia. 12. Diabetes mellitus with hyperglycemia. 13. Moderate protein-calorie malnutrition. 14. Dysphagia with G-tube. PLAN: 1. Hypotonic IV fluid hydration. 2. Potassium replacement. 3. Anginal therapy. 4. Interim anticoagulation. 5. Observe for bleeding. 6. Continue beta-chung. 7. The patient is high risk. 8. We will readdress long-term anticoagulation prior to discharge. 9. Antimicrobials per primary care physician. Vel Jones M.D. DR: MANDEEP JOB#: [id number] CC:
--- NOTE | 2018-11-13 21:00 | NUR ---
NURSE NOTES: Received report from Alber Patten RN. Patient is asleep in bed, A/O x1, arousable to shaking. Sinus celestino on per diem registered nurse. No s/s of acute distress noted. Saturating well on 2L O2 via nasal cannula. Patient was restarted on Glucerna 1.2 @ 25 cc/hr at 2000 via GT, tolerating well -- goal of 40 cc/hr. Purewick catheter in place and suctioning well. Right hand 22g IV, intact and patent, running heparin drip at 17 units/kg/hr. Right wrist 22g IV, intact and patent, running D5W with 20meq KCl at 50 cc/hr. Bed locked in lowest position with side rails up x3. Call light left within reach. Will continue to monitor.
--- NOTE | 2018-11-13 21:20 | NUR ---
HAND-OFF: Report given to RENATO Gil. Pt is resting on the bed and no sign of acute distress noted. US abdome nwas taken and resumed G-tube feeding. On running with heparin drip 17U/kg/hr and collected PTT lab and result is pending now.
--- NOTE | 2018-11-13 21:23 | NUR ---
NURSE NOTES: Received PTT result 73, pharmacy called to keep Heparin at same rate 17 units/kg/hr.
--- NOTE | 2018-11-13 23:42 | NUR ---
HAND-OFF: Report given to Ariel Ku RN.
[2018-11-14] VITALS: BP 127/47
[2018-11-14 04:00] VITALS: BP_SYST 114; BP_SYST 133; BP_DIAS 51; BP_DIAS 62
[2018-11-14 04:21] LABS: HEMATOCRIT 43.1 % (37.0-47.0); HEMOGLOBIN 13.3 G/DL (12.0-16.0); MEAN CORPUSCULAR VOLUME 90 FL (80-99); PLATELET COUNT 85 K/UL (150-450); RED BLOOD COUNT 4.81 M/UL (4.20-5.40); RED CELL DISTRIBUTION WIDTH 17.7 % (11.6-14.8); WHITE BLOOD COUNT 12.1 K/UL (4.8-10.8)
[2018-11-14 04:36] LABS: ANION GAP 6 mmol/L (5-15); BLOOD UREA NITROGEN 32 mg/dL (7-18); CALCIUM 9.3 MG/DL (8.5-10.1); CARBON DIOXIDE 33 MMOL/L (21-32); CHLORIDE 116 MMOL/L (98-107); CREATININE 0.9 MG/DL (0.55-1.30); POTASSIUM 3.5 MMOL/L (3.5-5.1); SODIUM 155 MMOL/L (136-145)
[2018-11-14 04:48] LABS: CKMB 1.8 NG/ML (0.0-3.6)
--- NOTE | 2018-11-14 07:23 | NUR ---
HAND-OFF: Report given to RENATO HAINES. PT RESTING IN BED, STABLE AT THIS TIME.
--- NOTE | 2018-11-14 07:24 | NUR ---
NURSE NOTES: Received patient from RENATO Rogers. Patient VS stable at this time. Patient able to be aroused by name but does not answer questions. Patient does not speak except when she feels pain. Patient keeps mouth open and is sleeping at this time. Patient showing sinus rhythm on the monitor. Patient on 2L NC at this time. Patient has G tube that is patent and asymptomatic at this time. Patient has a purewick that is in place and patent. Patient has right wrist 22G and right hand 22G that is running heparin drip at 17units per hour at this time. Patient has acute DVT of the right leg with apparent swelling and redness. Will monitor circumference. Patient running D5W with 20mEq at 50mL/hr at this time. Next PTT at 0400 11/14. Patient bed in low position with bed alarm on and call light in reach at this time. Patient has small sacral stage 2 pressure ulcer. Patient has perineal redness.
--- NOTE | 2018-11-14 07:45 | NUR ---
NURSE NOTES: Radha from microbiolgy reported that this patient has a history of VRE of the Rectum from 2015.
--- NOTE | 2018-11-14 07:51 | Nephrology Progress Note ---
Assessment/Plan Assessment/Plan A/P 1) Hypernatremia- improved on D5W. Will increase rate to 75 ml/hr - continue D5W + 20 meq KCL 2) Hypokalemia- corrected. 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- heparin gtt - has IVC filter - Heme to manage 4) Sepsis- urosepsis - Abx per ID to manage going forward 5) ACS/- medical mgmt per cardiology Subjective Date patient seen: Nov 14, 2018 Time patient seen: 07:49 ROS Limited/Unobtainable: Yes Allergies: Coded Allergies: No Known Allergies (Unverified , 05/07/16) Subjective Patient more awake and tracking Objective Last 24 Hour Vital Signs Date Time Temp Pulse Resp B/P (MAP) Pulse Ox O2 Delivery O2 Flow Rate FiO2 11/14/18 04:00 2.0 11/14/18 04:00 Nasal Cannula 2.0 11/14/18 04:00 96.4 60 20 133/51 (78) 96 60 11/14/18 04:00 96.1 83 18 114/62 (79) 96 11/14/18 04:00 65 11/14/18 00:00 96.6 75 20 127/47 (73) 97 11/14/18 00:00 Nasal Cannula 2.0 11/14/18 00:00 68 11/14/18 00:00 2.0 11/13/18 20:00 98.0 65 20 98/61 (73) 99 11/13/18 20:00 2.0 11/13/18 20:00 57 11/13/18 20:00 Nasal Cannula 2.0 11/13/18 18:00 53 118/52 11/13/18 16:00 Nasal Cannula 2.0 11/13/18 16:00 53 11/13/18 16:00 2.0 11/13/18 16:00 97.7 61 16 118/52 (74) 99 11/13/18 12:00 2.0 11/13/18 12:00 96.6 61 20 121/55 (77) 99 11/13/18 12:00 Nasal Cannula 2.0 11/13/18 12:00 71 11/13/18 08:42 70 130/62 11/13/18 08:00 97.0 70 22 130/62 (84) 96 11/13/18 08:00 65 11/13/18 08:00 2.0 11/13/18 08:00 Nasal Cannula 2.0 Intake and Output 11/13/18 11/14/18 18:59 06:59 Intake Total 1158.501 ml 1143.301 ml Output Total 340 ml 600 ml Balance 818.501 ml 543.301 ml Intake Free Water 90 ml 60 ml IV Total 843.501 ml 858.301 ml Tube Feeding 225 ml 225 ml Output Urine Total 340 ml 600 ml # Voids 2 # Bowel Movements 4 2 Laboratory Tests 11/13/18 12:50: Activated Partial Thromboplast Time 64H 11/13/18 20:30: Activated Partial Thromboplast Time 73H, Hepatitis A IgM Antibody [Pending], Hepatitis B Surface Antigen [Pending], Hepatitis B Core IgM Antibody [Pending], Hepatitis C Antibody [Pending] 11/14/18 04:00: Activated Partial Thromboplast Time 70H, White Blood Count 12.1H, Red Blood Count 4.81, Hemoglobin 13.3, Hematocrit 43.1, Mean Corpuscular Volume 90, Mean Corpuscular Hemoglobin 27.7, Mean Corpuscular Hemoglobin Concent 30.9L, Red Cell Distribution Width 17.7H, Platelet Count 85L, Mean Platelet Volume 10.9H, Neutrophils (%) (Auto) , Lymphocytes (%) (Auto) , Monocytes (%) (Auto) , Eosinophils (%) (Auto) , Basophils (%) (Auto) , Neutrophils % (Manual) [Pending] , Lymphocytes % (Manual) [Pending], Platelet Estimate [Pending], Platelet Morphology [Pending], Sodium Level 155H, Potassium Level 3.5, Chloride Level 116H, Carbon Dioxide Level 33H, Anion Gap 6, Blood Urea Nitrogen 32H, Creatinine 0.9, Estimat Glomerular Filtration Rate , Glucose Level 128#H, Calcium Level 9.3, Total Creatine Kinase 71, Creatine Kinase MB 1.8, Creatine Kinase MB Relative Index 2.5, Troponin I 0.017, Pro-B-Type Natriuretic Peptide 1467H Height (Feet): 5 Height (Inches): 5.00 Weight (Pounds): 169 General Appearance: agitated EENT: normal ENT inspection Neck: normal alignment, supple Cardiovascular: normal rate, regular rhythm Respiratory/Chest: rhonchi - bilaterally Abdomen: non tender, soft Edema: no edema noted Arm (L), no edema noted Arm (R), no edema noted Leg (L), no edema noted Leg (R), no edema noted Pedal (L), no edema noted Pedal (R), no edema noted Generalized Steve Alvarado MD Nov 14, 2018 07:51
[2018-11-14 08:00] VITALS: BP 124/67
[2018-11-14] MEDS: Atenolol 25mg tab GT SCH ×2 (09:18→21:00)
[2018-11-14] MEDS ORDERED: D5W w/KCl 20mEq 1,000 ML IV SCH (09:30)
[2018-11-14 12:00] VITALS: BP 113/54
--- NOTE | 2018-11-14 13:16 | NUR ---
HAND-OFF: Report given to RENATO Davis. Patient VS Stable at this time. Patient running Heparin 17units per hour at this time. Patient stable. Patient to be transferred to telemetry. Endorsed to follow up. Friday wound care pictures have been taken. Patient is clean and dry. Oral care had been done.
--- NOTE | 2018-11-14 13:20 | NUR ---
NURSE NOTES: Received report from RENATO Galloway. Patient is resting in bed, in stable condition. No s/sx of SOB, breathing is even and unlabored. Observed no presence of pain or discomfort at this time. Heparin drip is running at prescribed dose. Bed is in lowest position, brakes engaged. Call light is kept within easy reach. Will continue to monitor patient.
--- NOTE | 2018-11-14 13:48 | NUR ---
TRANSFER TO FLOOR: Patient transferred to [facility] RM 219-2, per Dr. Alvarado. Report given to RENATO Brock. Patient has "toy" noted in belongings list, no toy found on patient or drawers, charge nurse is made aware, RENATO Brock made aware. Family informed of transfer.
--- NOTE | 2018-11-14 13:49 | NUR ---
NURSE NOTES: Received patient via gurney from PETER, report given by from Ryan RN. Pt is resting in the bed, non verbal. Breathing is even and unlabored in 2 liter Nasal Cannula. Bed in lowest position with 2 side rails up, breaks are engaged. Heparin drip is running. Call light , and side table are within reach. Bed alarm on. Will continue to monitor.
[2018-11-14] MEDS ORDERED: Heparin 25,000u/D5W 500ml 500 ML IV SCH (14:00)
[2018-11-14] MEDS: D5W w/KCl 20mEq 1,000 ML IV SCH (14:00)
--- NOTE | 2018-11-14 14:28 | NUR ---
NURSE NOTES: Called and reported to pharmacist for uncorrected patient's weight. Pharmacist will calculate and let me know.
[2018-11-14] MEDS ORDERED: LORazepam Inj 2mg/ml 1ml IV PRN (14:30)
--- NOTE | 2018-11-14 14:30 | NUR ---
LAB REPFLOW MACHINE OPERATOR SI:ACUTE DVT . HCAP . SEPSIS VS: BP 108/52, P 54, T 97.5, RR 18, SpO2 93 on NC 2.0L O2 WBC 12.1, Na 155, BUN 32 IS:ARICEPT 10mg GT ATENOLOL 25mg GT MED/SURG STATUS
--- NOTE | 2018-11-14 15:12 | NUR ---
NURSE NOTES: The pharmacist called and new rate is, 14 Unit/ Kg / Hour. The rate will be 21.464 ml/ hour.
[2018-11-14] MEDS: Heparin 25,000u/D5W 500ml 500 ML IV SCH ×2 (15:22→18:21)
[2018-11-14 16:00] VITALS: BP 116/51
--- NOTE | 2018-11-14 19:22 | NUR ---
HAND-OFF: Report given to RENATO Sarkar.
--- NOTE | 2018-11-14 19:23 | NUR ---
NURSE NOTES: Received report from Willard Brandt RN. Pt is resting in the bed, non verbal, arousable by voice. No respiratory distress in 2L NC. GT feeding is running as ordered, no residual, patent. Purewick is applied, and suction is ready to use. P200 is applied. Bed alarm on, bed in lowest position, and breaks are engaged. Heparin drip is running at 21.46ml/hr, [id number] unit. IV sites are asymptomatic and patent. Call light, urinal and side table are within reach. Will follow plans of care.
[2018-11-14 20:00] VITALS: BP 108/52
[2018-11-14] MEDS ORDERED: Donepezil 10mg tab GT SCH (21:00)
[2018-11-14] MEDS ORDERED: cefTRIAXone 1 GM in D5W 55 ML IVPB SCH (23:30)
[2018-11-15] VITALS (7 sets, daily range): BP systolic 96–124; BP diastolic 40–69
--- NOTE | 2018-11-15 02:12 | NUR ---
NURSE NOTES: Pt d/c two IV insertion by her hands and mouth. Pt is non verbal. New IV was given. Afebril, VSS. Pt had BM, brown colored soft small amount. Pt was cleaned, changed, and repositioned. Will continue to monitor.
[2018-11-15] MEDS: D5W w/KCl 20mEq 1,000 ML IV SCH (04:09)
[2018-11-15 04:33] LABS: BLOOD UREA NITROGEN 25 mg/dL (7-18); CALCIUM 8.7 MG/DL (8.5-10.1); CARBON DIOXIDE 29 MMOL/L (21-32); CREATININE 0.8 MG/DL (0.55-1.30)
[2018-11-15 04:37] LABS: CHLORIDE 113 MMOL/L (98-107); POTASSIUM 3.1 MMOL/L (3.5-5.1); SODIUM 135 MMOL/L (136-145)
[2018-11-15] MEDS ORDERED: Heparin 25,000u/D5W 500ml 500 ML IV SCH (05:15)
[2018-11-15 05:23] LABS: BASOPHILS % (AUTO) 0.7 % (0.0-2.0); EOSINOPHILS % (AUTO) 2.5 % (0.0-3.0); HEMATOCRIT 37.2 % (37.0-47.0); HEMOGLOBIN 11.7 G/DL (12.0-16.0); LYMPHOCYTES % (AUTO) 14.3 % (20.0-45.0); MEAN CORPUSCULAR VOLUME 89 FL (80-99); MONOCYTES % (AUTO) 6.1 % (1.0-10.0); NEUTROPHILS % (AUTO) 76.4 % (45.0-75.0); PLATELET COUNT 101 K/UL (150-450); RED BLOOD COUNT 4.19 M/UL (4.20-5.40); WHITE BLOOD COUNT 9.7 K/UL (4.8-10.8)
[2018-11-15] MEDS ORDERED: Heparin 5000 units/ml inj IV ONE ×2 (05:30)
[2018-11-15] MEDS ORDERED: Heparin 25,000u/D5W 500ml (VTE/AF) IV SCH ×2 (06:00→08:30)
--- NOTE | 2018-11-15 07:30 | NUR ---
HAND-OFF: Report given to Willard Brandt RN. Addendum: 11/15/18 at 0755 by EDWAR WHEELER RN Endorsed that next ptt time 1315 and new rate of heparin drip.
--- NOTE | 2018-11-15 07:31 | NUR ---
NURSE NOTES: Received report from RENATO Sarkar. Pt is resting in the bed, non verbal. Breathing is even and unlabored in 2 liter Nasal Cannula. Bed in lowest position with 2 side rails up, breaks are engaged. Heparin drip is running, need to contact the pharmacist to verify new patient's weight . Call light , and side table are within reach. Bed alarm on. Will continue to monitor.
--- NOTE | 2018-11-15 07:45 | Nephrology Progress Note ---
Assessment/Plan Assessment/Plan A/P 1) Hypernatremia- resolved. D5W stopped 2) Hypokalemia- 20 meq KCl today 3) Right common femoral and femoral vein thrombosis- heparin gtt to be stopped and eliquis started - has IVC filter, - Heme to manage 4) Sepsis- urosepsis -Rocephin, WBC improved 5) ACS/- medical mgmt per cardiology Subjective Date patient seen: Nov 15, 2018 Time patient seen: 07:43 ROS Limited/Unobtainable: Yes Allergies: Coded Allergies: No Known Allergies (Unverified , 05/07/16) Subjective Patient more awake and tracking Objective Last 24 Hour Vital Signs Date Time Temp Pulse Resp B/P (MAP) Pulse Ox O2 Delivery O2 Flow Rate FiO2 11/15/18 04:00 97.3 63 20 96/40 (58) 100 11/15/18 03:44 56 11/15/18 00:00 97.4 65 18 124/55 (78) 92 11/14/18 23:39 58 11/14/18 21:00 59 108/52 11/14/18 21:00 Nasal Cannula 2.0 11/14/18 20:00 97.8 59 18 108/52 (70) 93 11/14/18 19:29 54 11/14/18 16:00 97.8 61 18 116/51 (72) 95 11/14/18 16:00 58 11/14/18 12:00 2.0 11/14/18 12:00 57 11/14/18 12:00 Nasal Cannula 2.0 11/14/18 12:00 97.5 59 19 113/54 (73) 96 11/14/18 09:18 65 124/67 11/14/18 08:00 Nasal Cannula 2.0 11/14/18 08:00 96.4 65 18 124/67 (86) 95 11/14/18 08:00 2.0 11/14/18 08:00 64 Intake and Output 11/14/18 11/15/18 19:00 07:00 Intake Total 833.546 ml 246.712 ml Output Total 400 ml 350 ml Balance 433.546 ml -103.288 ml Intake Free Water 50 ml IV Total 543.546 ml 246.712 ml Tube Feeding 240 ml Output Urine Total 400 ml Stool Total 350 ml # Bowel Movements 3 1 Laboratory Tests 11/15/18 04:01: White Blood Count 9.7, Red Blood Count 4.19L, Hemoglobin 11.7L, Hematocrit 37.2 , Mean Corpuscular Volume 89, Mean Corpuscular Hemoglobin 28.0, Mean Corpuscular Hemoglobin Concent 31.5L, Red Cell Distribution Width 17.0H, Platelet Count 101L, Mean Platelet Volume 11.8H, Neutrophils (%) (Auto) 76.4H, Lymphocytes (%) (Auto) 14.3L, Monocytes (%) (Auto) 6.1, Eosinophils (%) (Auto) 2.5, Basophils (%) (Auto) 0.7, Activated Partial Thromboplast Time 50H, Sodium Level 135L, Potassium Level 3.1L, Chloride Level 113H, Carbon Dioxide Level 29, Blood Urea Nitrogen 25H, Creatinine 0.8, Estimat Glomerular Filtration Rate , Glucose Level 128H, Calcium Level 8.7 Height (Feet): 5 Height (Inches): 5.00 Weight (Pounds): 169 General Appearance: no apparent distress EENT: normal ENT inspection Neck: normal alignment, supple Cardiovascular: normal rate, regular rhythm Respiratory/Chest: rhonchi - bilaterally Abdomen: non tender, soft Edema: 2+ Arm (R) Steve Alvarado MD Nov 15, 2018 07:45
[2018-11-15] MEDS ORDERED: Sodium Chloride for KCL Premix x 2hrs IV SCH (09:00)
[2018-11-15] MEDS: Atenolol 25mg tab GT SCH ×2 (09:46→21:00)
[2018-11-15] MEDS ORDERED: Eliquis 2.5mg tablet ORAL SCH ×3 (12:00→21:00)
--- NOTE | 2018-11-15 12:00 | NUR ---
NURSE NOTES: Patient was on Heparin drip. Per Dr. Hernandez's order Heparin drip discontinued. Patient will be on Eliquis 10 mg BID starting at 2100.
--- NOTE | 2018-11-15 14:37 | NUR ---
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 HCAP . SEPSIS VS: BP 96/40, P 53, T 97.3, RR 22, SpO2 96 on 2.0L O2 NC RBC 4.19, Hgb 11.7, Na 135, K 3.1, BUN 25 IS:CEFTRIAXONE 55ml IVPB APIXABAN 10mg ATENOLOL 25mg GT ARICEPT 10mg GT PREVACID 30mg GT CEFTRIAXONE 55ml IVPB ATENOLOL 25mg GT MED/SURG STATUS
--- NOTE | 2018-11-15 15:40 | General Progress Note ---
Assessment/Plan Assessment/Plan # Acute DVT (deep venous thrombosis) -- 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 This is also described on recent study of 10/14/2018, and it is unclear whether current findings represent residual thrombosis or whether there is increased thrombus relative to the prior study, based on imaging, will consider anticoag --> heparin gtt has been started and today (11/15) discontinued --> okay with NOAC or coumadin as an outpatient at [facility]/ --> will begin eliquis 5mg po bid to be started at this time x 3 months total # Thrombocytopenia - potential causes multifactorial,however is very likely related to hepatitis C --> Hep panel and HIV ordered and c/w chronic hep c --> US abd to evaluate for cirrhosis and hsm to be ordered as op --> Peripheral smear ordered to evaluate for blasts /schistocytes does not show any --> abx and other meds have been reviewed --> ok for ppx if plt >50k w/ either heparin or lovenox --> Transfuse if Plt < 20k and fever, or if Plt < 10k without fever # Sepsis with HCAP (healthcare-associated pneumonia) --> on abx at this time # Congestive heart failure (CHF) --> per cards as needed # Hypernatremia --> fluid management as per renal The timing of this note does not necessarily reflect the time of the patient was seen. Greatly appreciate consultation! Subjective Constitutional: Denies: no symptoms, chills, diaphoresis, fever, malaise, weakness, other HEENT: Denies: no symptoms, eye pain, blurred vision, tearing, double vision, ear pain, ear discharge, nose pain, nose congestion, throat pain, throat swelling, mouth pain, mouth swelling, other Cardiovascular: Denies: no symptoms, chest pain, edema, irregular heart rate, lightheadedness, palpitations, syncope, other Respiratory: Denies: no symptoms, cough, orthopnea, shortness of breath, SOB with excertion, SOB at rest, sputum, stridor, wheezing, other Gastrointestinal/Abdominal: Denies: no symptoms, abdomen distended, abdominal pain, black stools, tarry stools, blood in stool, constipated, diarrhea, difficulty swallowing, nausea, poor appetite, poor fluid intake, rectal bleeding , vomiting, other Genitourinary: Denies: no symptoms, burning, discharge, frequency, flank pain, hematuria, incontinence, pain, urgency, other Endocrine: Denies: no symptoms, excessive sweating, flushing, intolerance to cold, intolerance to heat, increased hunger, increased thirst, increased urine, unexplained weight gain, unexplained weight loss, other Allergies: Coded Allergies: No Known Allergies (Unverified , 05/07/16) Subjective 11/15: no fevers or chills, no night sweats, no changes, dced heparin gtt and started on eliquis Objective Last 24 Hour Vital Signs Date Time Temp Pulse Resp B/P (MAP) Pulse Ox O2 Delivery O2 Flow Rate FiO2 11/15/18 12:00 97.3 66 23 121/54 (76) 98 11/15/18 09:46 62 120/50 11/15/18 09:00 Nasal Cannula 2.0 11/15/18 08:00 97.3 62 22 120/50 (73) 96 11/15/18 08:00 53 11/15/18 04:00 97.3 63 20 96/40 (58) 100 11/15/18 03:44 56 11/15/18 00:00 97.4 65 18 124/55 (78) 92 11/14/18 23:39 58 11/14/18 21:00 59 108/52 11/14/18 21:00 Nasal Cannula 2.0 11/14/18 20:00 97.8 59 18 108/52 (70) 93 11/14/18 19:29 54 11/14/18 16:00 97.8 61 18 116/51 (72) 95 11/14/18 16:00 58 Intake and Output 11/14/18 11/15/18 19:00 07:00 Intake Total 833.546 ml 246.712 ml Output Total 400 ml 350 ml Balance 433.546 ml -103.288 ml Intake Free Water 50 ml IV Total 543.546 ml 246.712 ml Tube Feeding 240 ml Output Urine Total 400 ml Stool Total 350 ml # Bowel Movements 3 1 Laboratory Tests 11/15/18 04:01: White Blood Count 9.7, Red Blood Count 4.19L, Hemoglobin 11.7L, Hematocrit 37.2 , Mean Corpuscular Volume 89, Mean Corpuscular Hemoglobin 28.0, Mean Corpuscular Hemoglobin Concent 31.5L, Red Cell Distribution Width 17.0H, Platelet Count 101L, Mean Platelet Volume 11.8H, Neutrophils (%) (Auto) 76.4H, Lymphocytes (%) (Auto) 14.3L, Monocytes (%) (Auto) 6.1, Eosinophils (%) (Auto) 2.5, Basophils (%) (Auto) 0.7, Activated Partial Thromboplast Time 50H, Sodium Level 135L, Potassium Level 3.1L, Chloride Level 113H, Carbon Dioxide Level 29, Blood Urea Nitrogen 25H, Creatinine 0.8, Estimat Glomerular Filtration Rate , Glucose Level 128H, Calcium Level 8.7 11/15/18 14:00: Heparin-PF4 Antibody Screen [Pending] Height (Feet): 5 Height (Inches): 5.00 Weight (Pounds): 172 Objective Physical Exam: Vitals: reviewed General Appearance: NAD HEENT: normocephalic, atraumatic Neck: non-tender, normal alignment Respiratory/Chest: normal breath sounds bilaterally Cardiovascular/Chest: normal peripheral pulses, normal rate Abdomen: normal bowel sounds, soft, nontender Extremities: normal range of motion Cabrera Hernandez MD Nov 15, 2018 15:40
[2018-11-15] MEDS ORDERED: NS 275ml ONE (16:35)
[2018-11-15] MEDS ORDERED: Tubing IV Secondary IV ONE (16:35)
--- NOTE | 2018-11-15 17:00 | NUR ---
TRANSFER TO FLOOR: Patient transferred to Med-surg, per Dr. Zaldivar's order. Report given to RENATO Myers. Patient had no belonging. Patient transferred in stable condition.
--- NOTE | 2018-11-15 17:43 | NUR ---
NURSE NOTES: Patient transferred from [facility] to [facility] around 1645 by bed accompanied by transfering nurse, Delmy. Glucernal 1.2 running at 40 cc running well, no residual noticed and flushes well; patient non verbal, on nasal cannula at 2 liter, no sing of distress and shortness of breath; pictures taken on sacral and left and right heel, also wound care provided; patient had perineal area redness and triad cream applied. belonging lists singed by transferring nurse and receiving nurse, which patient doesn't have any belongings. Right foot had DVT and swollen, elevated by pillow. vitals taken upon arrival to the unite. Purick in place. head of the bed elevated, side rails up x2, breaks engaged. will keep monitoring.
--- NOTE | 2018-11-15 18:24 | NUR ---
NURSE NOTES: Patient had IV on the Right-Hand and Right For-arm flushes well. Right hand had ecchymosis. IV cite and G-tube sites covered so that patient julianna't pull it out.
[2018-11-15] MEDS ORDERED: LORazepam Inj 2mg/ml 1ml IV PRN (18:30)
--- NOTE | 2018-11-15 19:13 | NUR ---
HAND-OFF: Report given to RENATO Bo.
--- NOTE | 2018-11-15 20:00 | NUR ---
NURSE NOTES: Patient in bed, awake, unable to make needs known. Responds to name and touch. Abdomen is soft, noted with Gtube, feeding is infusing. IV site on the right forearm, noted. Patient pulled out right hand iv. Skin is warm and dry to touch. Sacral DTI noted, dressing noted. Respiration is even, nasal cannula noted. Bed in low and locked position. Provided safe environment. Call light is at bedside.
[2018-11-15] MEDS: Donepezil 5mg Tab GT SCH (22:10)
[2018-11-15] MEDS ORDERED: cefTRIAXone 1 GM in D5W 55 ML IVPB SCH (23:30)
[2018-11-16] VITALS: BP 118/63
--- NOTE | 2018-11-16 03:30 | Progress Note ---
DATE: 11/15/2018 SUBJECTIVE: The patient is being transitioned to oral anticoagulants. In the past, she has had complications due to bleeding. OBJECTIVE: LUNGS: Coarse breath sounds. No wheezes. HEART: Regular rhythm and rate. Normal S1, S2. ABDOMEN: Soft. EXTREMITIES: Trace edema. IMPRESSION: History of IVC filter. PLAN: 1. Reassess risk benefit ratio of anticoagulation. 2. Decrease Eliquis to 5 mg twice a day. 3. Continue current cardiovascular regimen. 4. Replace electrolytes. Vel Jones M.D. DR: MANDEEP JOB#: [id number] CC:
--- NOTE | 2018-11-16 03:30 | Progress Note ---
DATE: 11/14/2018 CARDIOLOGY PROGRESS NOTE Late entry for 11/14/2018. SUBJECTIVE: Awake, alert, and interactive, but still not at baseline. OBJECTIVE: VITAL SIGNS: Blood pressure 133/51, pulse 60, and respirations 20. LUNGS: Coarse breath sounds. No wheezing. HEART: Regular rhythm and rate. Normal S1, S2. ABDOMEN: Soft. EXTREMITIES: Trace edema. LABORATORY DATA: White count 12 and hemoglobin 13. Sodium 155, potassium 3.5, bicarbonate 33, BUN 32, and creatinine 0.9. Troponin negative. IMPRESSION: 1. Dehydration. 2. Hypernatremia. 3. Hyperchloremia. 4. Prerenal azotemia. 5. History of DVT. 6. History of IVC filter. 7. CVA with left weakness. 8. Sepsis. PLAN: 1. Antimicrobials. 2. Hypotonic IV's. 3. Once rehydrated, we would consider discontinuing heparin in view of prior history of complications. 4. Maintain current cardiovascular regimen. 5. Follow up chemistry panel. Vel Jones M.D. DR: MANDEEP JOB#: [id number] CC:
[2018-11-16 04:00] VITALS: BP 122/67
[2018-11-16 06:29] LABS: EOSINOPHILS % (AUTO) 2.6 % (0.0-3.0); HEMATOCRIT 36.6 % (37.0-47.0); HEMOGLOBIN 11.5 G/DL (12.0-16.0); LYMPHOCYTES % (AUTO) 17.9 % (20.0-45.0); MEAN CORPUSCULAR VOLUME 89 FL (80-99); MONOCYTES % (AUTO) 7.9 % (1.0-10.0); NEUTROPHILS % (AUTO) 70.6 % (45.0-75.0); PLATELET COUNT 107 K/UL (150-450); RED CELL DISTRIBUTION WIDTH 17.4 % (11.6-14.8); WHITE BLOOD COUNT 7.5 K/UL (4.8-10.8)
[2018-11-16 06:33] LABS: ANION GAP 4 mmol/L (5-15); BLOOD UREA NITROGEN 22 mg/dL (7-18); CALCIUM 8.5 MG/DL (8.5-10.1); CARBON DIOXIDE 29 MMOL/L (21-32); CHLORIDE 114 MMOL/L (98-107); CREATININE 0.7 MG/DL (0.55-1.30); POTASSIUM 4.2 MMOL/L (3.5-5.1); SODIUM 147 MMOL/L (136-145)
--- NOTE | 2018-11-16 07:45 | NUR ---
NURSE NOTES: Received patient on bed, awake. IV site intact and patent. Gtube present and intact and patent. Dressing intact. Bed in low and locked position, call light in reach. No signs of respiratory distress or pain. Room board updated, will continue to monitor.
[2018-11-16] MEDS: Atenolol 25mg tab GT SCH ×3 (09:34→20:56)
[2018-11-16] MEDS: Eliquis 2.5mg tablet ORAL SCH ×2 (09:34→20:43)
[2018-11-16 12:00] VITALS: BP 121/53
--- NOTE | 2018-11-16 14:53 | NUR ---
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 HCAP . SEPSIS VS: BP 122/67, P 63, T 96.9, RR 17, SpO2 96 on NC 2.0L O2 Na 147, BUN 22, RBC 4.10, Hgb 11.5, Hct 36.6 IS:ATENOLOL 25mg APIXABAN 5mg PREVACID 30mg MED/SURG STATUS
--- NOTE | 2018-11-16 15:35 | NUR ---
*-* INSURANCE *-* ALL CLINICALS AND REVIEW HAVE BEEN FAXED TO: ALFONSO MEIER P: [phone] F: [phone] NCM: KANU Anderson P: [phone] F: [phone] (FAX CLINICALS) [facility] NO NCM ASSIGNED. DELEGATED TO BENJIE MEDINA FAX ALL CLINICALS TO [phone]
[2018-11-16 16:00] VITALS: BP 124/63
--- NOTE | 2018-11-16 16:48 | General Progress Note ---
Assessment/Plan Assessment: # Acute DVT (deep venous thrombosis) -- 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 This is also described on recent study of 10/14/2018, and it is unclear whether current findings represent residual thrombosis or whether there is increased thrombus relative to the prior study, based on imaging, will consider anticoag HX of iv FILTER --> heparin gtt has been started and today (11/15) discontinued --> okay with NOAC or coumadin as an outpatient at [facility]/ --> continue on eliuis 5mg po bid to be started at this time x 3 months total --> importanly does have a history of ivc filter # Thrombocytopenia - potential causes multifactorial,however is very likely related to hepatitis C --> Hep panel and HIV ordered and c/w chronic hep c --> US abd to evaluate for cirrhosis and hsm to be ordered as op --> Peripheral smear ordered to evaluate for blasts /schistocytes does not show any --> abx and other meds have been reviewed --> ok for ppx if plt >50k w/ either heparin or lovenox --> Transfuse if Plt < 20k and fever, or if Plt < 10k without fever # Sepsis with HCAP (healthcare-associated pneumonia) --> on abx at this time # Congestive heart failure (CHF) --> per cards as needed # Hypernatremia --> fluid management as per renal The timing of this note does not necessarily reflect the time of the patient was seen. Greatly appreciate consultation! Subjective Constitutional: Denies: no symptoms, chills, diaphoresis, fever, malaise, weakness, other HEENT: Denies: no symptoms, eye pain, blurred vision, tearing, double vision, ear pain, ear discharge, nose pain, nose congestion, throat pain, throat swelling, mouth pain, mouth swelling, other Cardiovascular: Denies: no symptoms, chest pain, edema, irregular heart rate, lightheadedness, palpitations, syncope, other Respiratory: Denies: no symptoms, cough, orthopnea, shortness of breath, SOB with excertion, SOB at rest, sputum, stridor, wheezing, other Gastrointestinal/Abdominal: Denies: no symptoms, abdomen distended, abdominal pain, black stools, tarry stools, blood in stool, constipated, diarrhea, difficulty swallowing, nausea, poor appetite, poor fluid intake, rectal bleeding , vomiting, other Genitourinary: Denies: no symptoms, burning, discharge, frequency, flank pain, hematuria, incontinence, pain, urgency, other Endocrine: Denies: no symptoms, excessive sweating, flushing, intolerance to cold, intolerance to heat, increased hunger, increased thirst, increased urine, unexplained weight gain, unexplained weight loss, other Hematologic/Lymphatic: Denies: no symptoms, anemia, easy bleeding, easy bruising, other Allergies: Coded Allergies: No Known Allergies (Unverified , 05/07/16) Subjective 11/15: no fevers or chills, no night sweats, no changes, dced heparin gtt and started on eliquis 11/16: remains on oral anticoagulant, no complaints Objective Last 24 Hour Vital Signs Date Time Temp Pulse Resp B/P (MAP) Pulse Ox O2 Delivery O2 Flow Rate FiO2 11/16/18 16:00 97.2 63 20 124/63 (83) 95 11/16/18 12:00 97.4 61 20 121/53 (75) 98 11/16/18 09:34 63 122/67 11/16/18 09:00 Nasal Cannula 2.0 11/16/18 04:00 96.9 63 18 122/67 (85) 96 11/16/18 00:00 97.9 60 17 118/63 (81) 96 11/15/18 21:00 60 114/50 11/15/18 21:00 Nasal Cannula 2.0 11/15/18 20:00 97.7 60 16 114/50 (71) 96 Intake and Output 11/15/18 11/16/18 18:59 06:59 Intake Total 148.26 ml 480 ml Balance 148.26 ml 480 ml IV Total 28.26 ml Tube Feeding 120 ml 480 ml # Voids 2 # Bowel Movements 1 1 Laboratory Tests 11/16/18 05:10: White Blood Count 7.5, Red Blood Count 4.10L, Hemoglobin 11.5L, Hematocrit 36.6L , Mean Corpuscular Volume 89, Mean Corpuscular Hemoglobin 28.1, Mean Corpuscular Hemoglobin Concent 31.4L, Red Cell Distribution Width 17.4H, Platelet Count 107L, Mean Platelet Volume 13.1H, Neutrophils (%) (Auto) 70.6, Lymphocytes (%) (Auto) 17.9L, Monocytes (%) (Auto) 7.9, Eosinophils (%) (Auto) 2.6, Basophils (%) (Auto) 1.0, Sodium Level 147H, Potassium Level 4.2, Chloride Level 114H, Carbon Dioxide Level 29, Anion Gap 4L, Blood Urea Nitrogen 22H, Creatinine 0.7, Estimat Glomerular Filtration Rate , Glucose Level 113H, Calcium Level 8.5 Height (Feet): 5 Height (Inches): 5.00 Weight (Pounds): 172 Objective Physical Exam: Vitals: reviewed General Appearance: NAD HEENT: normocephalic, atraumatic Neck: non-tender, normal alignment Respiratory/Chest: normal breath sounds bilaterally Cardiovascular/Chest: normal peripheral pulses, normal rate Abdomen: normal bowel sounds, soft, nontender Extremities: normal range of motion Cabrera Hernandez MD Nov 16, 2018 16:48
--- NOTE | 2018-11-16 17:47 | General Progress Note ---
Assessment/Plan Problem List: (1) Dehydration ICD Codes: E86.0 - Dehydration SNOMED: 61072911 (2) Obesity (BMI 30.0-34.9) ICD Codes: E66.9 - Obesity, unspecified SNOMED: 271689144 (3) CVA (cerebral vascular accident) ICD Codes: I63.9 - Cerebral infarction, unspecified SNOMED: 554241216 (4) Alzheimer's dementia ICD Codes: G30.9 - Alzheimer's disease, unspecified SNOMED: 93779256 (5) DVT (deep venous thrombosis) ICD Codes: I82.409 - Acute embolism and thrombosis of unspecified deep veins of unspecified lower extremity SNOMED: 675215538 (6) Hypernatremia ICD Codes: E87.0 - Hyperosmolality and hypernatremia SNOMED: 882376039 Assessment: improving, on eliquis now, plan ecf am if stable Subjective ROS Limited/Unobtainable: Yes Allergies: Coded Allergies: No Known Allergies (Unverified , 05/07/16) Objective Last 24 Hour Vital Signs Date Time Temp Pulse Resp B/P (MAP) Pulse Ox O2 Delivery O2 Flow Rate FiO2 11/16/18 16:00 97.2 63 20 124/63 (83) 95 11/16/18 12:00 97.4 61 20 121/53 (75) 98 11/16/18 09:34 63 122/67 11/16/18 09:00 Nasal Cannula 2.0 11/16/18 04:00 96.9 63 18 122/67 (85) 96 11/16/18 00:00 97.9 60 17 118/63 (81) 96 11/15/18 21:00 60 114/50 11/15/18 21:00 Nasal Cannula 2.0 11/15/18 20:00 97.7 60 16 114/50 (71) 96 Intake and Output 11/15/18 11/16/18 18:59 06:59 Intake Total 148.26 ml 480 ml Balance 148.26 ml 480 ml IV Total 28.26 ml Tube Feeding 120 ml 480 ml # Voids 2 # Bowel Movements 1 1 Laboratory Tests 11/16/18 05:10: White Blood Count 7.5, Red Blood Count 4.10L, Hemoglobin 11.5L, Hematocrit 36.6L , Mean Corpuscular Volume 89, Mean Corpuscular Hemoglobin 28.1, Mean Corpuscular Hemoglobin Concent 31.4L, Red Cell Distribution Width 17.4H, Platelet Count 107L, Mean Platelet Volume 13.1H, Neutrophils (%) (Auto) 70.6, Lymphocytes (%) (Auto) 17.9L, Monocytes (%) (Auto) 7.9, Eosinophils (%) (Auto) 2.6, Basophils (%) (Auto) 1.0, Sodium Level 147H, Potassium Level 4.2, Chloride Level 114H, Carbon Dioxide Level 29, Anion Gap 4L, Blood Urea Nitrogen 22H, Creatinine 0.7, Estimat Glomerular Filtration Rate , Glucose Level 113H, Calcium Level 8.5 Height (Feet): 5 Height (Inches): 5.00 Weight (Pounds): 172 General Appearance: no apparent distress, confused EENT: normal ENT inspection Neck: normal alignment Cardiovascular: normal rate, regular rhythm Respiratory/Chest: lungs clear, normal breath sounds Abdomen: non tender, soft Edema: mild edema Neurologic: disoriented Chetan Hull MD Nov 16, 2018 17:47
--- NOTE | 2018-11-16 18:03 | NUR ---
NURSE NOTES: Suctioned patient, patient tolerated well.
[2018-11-16] MEDS: 1/2NS w/KCl 20mEq 1000ml 1,000 ML IV SCH (18:38)
--- NOTE | 2018-11-16 19:38 | NUR ---
HAND-OFF: Report given to RENATO Benítez.
[2018-11-16 20:00] VITALS: BP 112/55
--- NOTE | 2018-11-16 20:30 | NUR ---
NURSE NOTES: Received patient in bed, resting, family members at bedside. Patient is alert x1, slightly confused. Patient in on NS 2 ml. No s/s of distress. Tube feeding running at 40ml/hr. Patient is on aspiration precaution, HOB up at 30 degrees. Bed is at the lowest position, bed alarms active, side rails up 2x, call light within reach. Will continue to monitor.
[2018-11-16] MEDS: Donepezil 5mg Tab GT SCH (20:40)
[2018-11-17] VITALS: BP 122/70
--- NOTE | 2018-11-17 03:00 | Progress Note ---
DATE: 11/16/2018 CARDIOLOGY PROGRESS NOTE SUBJECTIVE: The patient is on full anticoagulation with Eliquis. No bleeding signs noted. 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 OBJECTIVE: VITAL SIGNS: Blood pressure 124/63, pulse 63, and respiratory rate 20. Afebrile. Left weakness. LUNGS: Clear. CARDIAC: Regular rhythm and rate. Normal S1, S2 with a fourth heart sound and a 1/6 systolic apical murmur. ABDOMEN: Soft. EXTREMITIES: Without edema. IMPRESSION: 1. DVT. 2. Hypercoagulability. 3. Acute myocardial ischemia, recovered. 4. Hypercoagulable state with IVC filter. 5. Dehydration and hypernatremia, resolved. 6. Acute on chronic kidney injury, recovered. 7. Sepsis due to urinary tract infection, now treated. 8. Dysphagia with G-tube. 9. Moderate protein-calorie malnutrition. PLAN OF CARE: 1. Observe for bleeding. 2. Monitor hemoglobin. 3. Full anticoagulation for now. 4. Maintain adequate hydration. 5. Skin care. 6. Protein supplement. 7. No change in current cardiovascular regimen. Vel Jones M.D. DR: MANDEEP JOB#: [id number] CC:
[2018-11-17 04:37] VITALS: BP 113/58
--- NOTE | 2018-11-17 07:44 | NUR ---
HAND-OFF: Report given to RENATO Perera.
--- NOTE | 2018-11-17 07:45 | NUR ---
NURSE NOTES: Received patient in bed,awake, No s/s of pain or discomfort per FLACC pain scale. HOB elevated for aspiration precaution. GT intact,no residual @ this time. Two IV's intact, no s/s of infiltration running IVF. Noted with purewick.Her right is larger than the other one measured 53cm. no changes since previous shift. On eliquis for DVT prophylaxis. Will continue plan of care.
[2018-11-17 08:00] VITALS: BP 140/61
[2018-11-17] MEDS: 1/2NS w/KCl 20mEq 1000ml 1,000 ML IV SCH (08:49)
--- NOTE | 2018-11-17 10:20 | NUR ---
CASE MANAGE REVIEW SI:ACUTE DVT . HCAP . SEPSIS VS: BP 112/55, P 63, T 97.1, RR 21, SpO2 98 on 2.0L O2 NC IS:SODIUM x1L IV PREVACID 30mg GT APIXABAN 5mg DONEPEZIL 10mg GT LORAZEPAM 0.5mg IV MED/SURG STATUS
[2018-11-17] MEDS: Atenolol 25mg tab GT SCH (10:38)
[2018-11-17] MEDS: Eliquis 2.5mg tablet ORAL SCH (10:39)
--- NOTE | 2018-11-17 10:44 | NUR ---
NURSE NOTES: Rn received call from Dr. Hull. Dr. Hull said to make sure patient has the bed so she can go back to SNF. RN let Ramila MOREL know.She will follow up.
--- NOTE | 2018-11-17 11:00 | NUR ---
RESPIRATORY NOTE: Rn request Nt suction due to pt having mild rhonchi & pt's inability to expectorate independently. Rn professor/teacher at bedside with a student asked to preform the suctioning. Ok per RN & myself. Instructor & student will preform NT suctioning at this time. Pt in no distress whatsoever at rest in bed on 2liters, all vitals and 02 sat >92%. Will continue to closely monitor.
--- NOTE | 2018-11-17 11:35 | NUR ---
RD ASSESSMENT & RECOMMENDATIONS SEE CARE ACTIVITY FOR COMPLETE ASSESSMENT DAILY ESTIMATED NEEDS: Needs based on Sepsis, wound/ 71kg 25-30 kcals/kg 8089-8426 total kcals 1.25-2 g protein/kg 89-142 g total protein 25-30 mL/kg 7353-4622 total fluid mLs NUTRITION DIAGNOSIS: 1) Swallowing difficulty r/t dysphagia as evidenced by PEG dep. 2) Altered nutrition related lab values R/T clinical condition, Sepsis as evidenced by elev BGs (242 210-> 113 128 improved) elev Na (161*->135-> 147 back up), elev wbc (wbc 22.5* -> normalized) CURRENT TF:Glucerna 1.2 @ 40ml/hr x 24 hrs ENTERAL NUTRITION RECOMMENDATIONS: Glucerna 1.2 @ 65ml/hr x 24 hrs to provide 1560ml, 1872kcal, 94g prot, 1256ml free water - Increase goal rate to 65ml/hr x 24 hrs - Flush per MD/ HOB over 30 degrees ADDITIONAL RECOMMENDATIONS: * Recalibrate bed scale for accurate CBW * Per SNF: pt's HT=67", SX=420jkr (11/03/18) * Wound care: [place] BID -> Rec wound eval by WC specialist * A1C for eval of glycemic control- BGs in 200's upon adm, now improved * Monitor BGs closely, need for SSI * Rec DC 1/2NS IVF and increase water flushes instead-> elev Na
[2018-11-17 12:00] VITALS: BP 119/66
--- NOTE | 2018-11-17 13:19 | NUR ---
*-* INSURANCE *-* ALL CLINICALS AND REVIEW HAVE BEEN FAXED TO: ALFONSO MEIER P: [phone] F: [phone] NCM: KANU Anderson P: [phone]
--- NOTE | 2018-11-17 15:50 | General Progress Note ---
Assessment/Plan Assessment: # Acute DVT (deep venous thrombosis) -- 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 This is also described on recent study of 10/14/2018, and it is unclear whether current findings represent residual thrombosis or whether there is increased thrombus relative to the prior study, based on imaging, will consider anticoag HX of iv FILTER --> heparin gtt has been started and today (11/15) discontinued --> okay with NOAC or coumadin as an outpatient at [facility]/ --> continue on eliuis 5mg po bid to be started at this time x 3 months total --> importanly does have a history of ivc filter # Thrombocytopenia - potential causes multifactorial,however is very likely related to hepatitis C --> Hep panel and HIV ordered and c/w chronic hep c --> US abd to evaluate for cirrhosis and hsm to be ordered as op --> Peripheral smear ordered to evaluate for blasts /schistocytes does not show any --> abx and other meds have been reviewed --> ok for ppx if plt >50k w/ either heparin or lovenox --> Transfuse if Plt < 20k and fever, or if Plt < 10k without fever # Sepsis with HCAP (healthcare-associated pneumonia) --> on abx at this time # Congestive heart failure (CHF) --> per cards as needed # Hypernatremia --> fluid management as per renal The timing of this note does not necessarily reflect the time of the patient was seen. Greatly appreciate consultation! Subjective Constitutional: Denies: no symptoms, chills, diaphoresis, fever, malaise, weakness, other HEENT: Denies: no symptoms, eye pain, blurred vision, tearing, double vision, ear pain, ear discharge, nose pain, nose congestion, throat pain, throat swelling, mouth pain, mouth swelling, other Cardiovascular: Denies: no symptoms, chest pain, edema, irregular heart rate, lightheadedness, palpitations, syncope, other Respiratory: Denies: no symptoms, cough, orthopnea, shortness of breath, SOB with excertion, SOB at rest, sputum, stridor, wheezing, other Genitourinary: Denies: no symptoms, burning, discharge, frequency, flank pain, hematuria, incontinence, pain, urgency, other Neurologic/Psychiatric: Denies: no symptoms, anxiety, depressed, emotional problems, headache, numbness, paresthesia, pre-existing deficit, seizure, tingling, tremors, weakness, other Hematologic/Lymphatic: Denies: no symptoms, anemia, easy bleeding, easy bruising, other Allergies: Coded Allergies: No Known Allergies (Unverified , 05/07/16) Subjective 11/15: no fevers or chills, no night sweats, no changes, dced heparin gtt and started on eliquis 11/16: remains on oral anticoagulant, no complaints 11/17: no events to report, no fevers or chills are noted, no night sweats Objective Last 24 Hour Vital Signs Date Time Temp Pulse Resp B/P (MAP) Pulse Ox O2 Delivery O2 Flow Rate FiO2 11/17/18 13:50 Nasal Cannula 2.0 11/17/18 12:00 97.4 72 18 119/66 (83) 94 11/17/18 10:38 72 143/65 11/17/18 08:00 97.4 67 20 140/61 (87) 95 11/17/18 04:37 97.1 64 20 113/58 (76) 98 11/17/18 00:00 97.3 67 21 122/70 (87) 94 11/16/18 21:00 Nasal Cannula 2.0 11/16/18 20:43 63 124/63 11/16/18 20:00 97.6 63 17 112/55 (74) 95 11/16/18 16:00 97.2 63 20 124/63 (83) 95 Intake and Output 11/16/18 11/17/18 18:59 06:59 Intake Total 600 ml 1075 ml Balance 600 ml 1075 ml Intake Free Water 120 ml 110 ml IV Total 525 ml Tube Feeding 480 ml 440 ml # Voids 3 # Bowel Movements 2 Height (Feet): 5 Height (Inches): 5.00 Weight (Pounds): 172 Objective Physical Exam: Vitals: reviewed General Appearance: NAD HEENT: normocephalic, atraumatic Neck: non-tender, normal alignment Respiratory/Chest: normal breath sounds bilaterally Cardiovascular/Chest: normal peripheral pulses, normal rate Abdomen: normal bowel sounds, soft, nontender Extremities: normal range of motion Cabrera Hernandez MD Nov 17, 2018 15:50
[2018-11-17 16:00] VITALS: BP 144/64
--- NOTE | 2018-11-17 16:34 | NUR ---
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 WILL DC TO [facility] SUB[facility] ROOM 11B SKILLED T- FOR NURSE TO NURSE REPORT [facility] WILL INDIVIDUAL PENSION ADVISER AT 0684
--- NOTE | 2018-11-17 17:29 | NUR ---
NURSE NOTES: Interfacility report given to Bianca RN @ [facility]. Awaiting for the ambulance. pictures obtained and upload on sacral, left and right heel.No other skin issue.
--- NOTE | 2018-11-17 18:55 | NUR ---
NURSE NOTES: Patient was discharged to [facility] accompanied by two ambulance personnel via gurney. Prior to discharge, patient's V/S and condition was stable. Inter facility report given to Bianca GROSS. Prior to discharge order, patient was seen by Dr. Hull and Dr. Hull aware of sodium level of 147 with no new order. Skin assessment done, no new skin issue, no skin break. IV and ID was removed. Patient's family Alba aware of discharge. No belongings. Packet given to ambulance personnel.GT intact and flushed and secured.
--- NOTE | 2018-11-17 18:55 | NUR ---
NURSE NOTES: [facility] Addendum: 11/17/18 at 1859 by FRANTZ MORALES RN wrong entry
--- NOTE | 2018-11-18 03:00 | Progress Note ---
DATE: 11/17/2018 CARDIOLOGY PROGRESS NOTE SUBJECTIVE: No shortness of breath. No chest pain noted. The case was discussed with Dr. Hull. The patient has an IVC filter and is at risk of bleeding complication. Discussions with family members in the past has been undertaken and it has been felt that anticoagulation necessary increased risk at this time. As such, Eliquis will be discontinued. OBJECTIVE: VITAL SIGNS: Blood pressure 119/66, pulse 72, and respiratory rate 18. Afebrile. LUNGS: Coarse breath sounds. CARDIOVASCULAR: Regular rhythm and rate. Normal S1, S2. ABDOMEN: Soft. G-tube intact. EXTREMITIES: Left weakness. No edema. IMPRESSION: 1. DVT. 2. IVC filter. 3. Coronary artery disease with acute myocardial ischemia, recovered. 4. Resolved hypernatremia and dehydration. 5. Recovered acute renal failure. 6. Resolved sepsis due to urinary tract infection. 7. History of respiratory failure due to aspiration and cerebrovascular disease. PLAN: 1. Outpatient followup. 2. Discharge medication regimen reviewed and reconciled. 3. Discussed with Dr. Hull. Vel Jones M.D. DR: BERRY JOB#: [id number] CC:
--- NOTE | 2018-11-18 03:45 | Discharge Summary ---
DATE OF ADMISSION: 11/12/2018 DATE OF DISCHARGE: 11/17/2018 PERTINENT HISTORY: The patient is an 87-year-old lady, who came apparently with altered mental status, leukocytosis, sodium of 161, and dehydration. She had recently been treated for pneumonia dysphagia, gastrostomy placement, and Alzheimer's. PERTINENT PHYSICAL FINDINGS: See the note by Dr. Prieto. She had mouth breathing. HEART: Regular rhythm. LUNGS: Upper airway rhonchi. ABDOMEN: Nondistended and nontender. EXTREMITIES: Right leg edema. COURSE IN THE HOSPITAL: The patient was given empiric antibiotics and started on anticoagulants. She has an IVC filter and was started on anticoagulants although there was some controversy. Her leukocytosis abated quickly. She was seen by Dr. Jones in Cardiology consultation. Cultures remained negative. Chest x-ray negative. Her electrolytes corrected and she was discharged to an ECF in stable condition. I had a long discussion with the family with the risks and benefit of anticoagulation in view of the fact that she had an IVC filter and was a high risk of bleeding. I stopped anticoagulants at the time of discharge after discussion with Dr. Vel Jones. FINAL DIAGNOSES: 1. Dehydration. 2. Leukocytosis. 3. History of dysphagia. 4. Dehydration. 5. Alzheimer's disease. 6. Chronic DVT right lower extremity. 7. Nonambulatory state. DISCHARGE DISPOSITION: To the ECF with tube feedings. DISCHARGE MEDICATIONS: Per the discharge medication list. FOLLOWUP: Follow up by Dr. Hull in the facility. Chetan Hull M.D. DR: MEHDI JOB#: [id number] CC:
== END 2018-11-17 18:55 | DRG 720 ==
LOC: EDBD 14:06 → EMR 14:41 → EDBD 14:55 → 2W 14:55 → EDBEDREQ 15:36 → EDBEDREQSVC 15:53 → EDBEDREQ 16:20 → 2E 11-14 13:35 → 4E 11-15 17:00
DX: A41.9 Sepsis, unspecified organism (principal); G93.40 Encephalopathy, unspecified; N17.9 Acute kidney failure, unspecified; E44.0 Moderate protein-calorie malnutrition; J18.9 Pneumonia, unspecified organism; D69.6 Thrombocytopenia, unspecified; E11.22 Type 2 diabetes mellitus with diabetic chronic kidney disease; R13.10 Dysphagia, unspecified; E11.65 Type 2 diabetes mellitus with hyperglycemia; E87.0 Hyperosmolality and hypernatremia; E87.5 Hyperkalemia; E86.0 Dehydration; E87.6 Hypokalemia; B18.2 Chronic viral hepatitis C; E66.9 Obesity, unspecified; Z68.33 Body mass index [BMI] 33.0-33.9, adult; I69.354 Hemiplegia and hemiparesis following cerebral infarction affecting left non-dominant side; I82.511 Chronic embolism and thrombosis of right femoral vein; I13.10 Hypertensive heart and chronic kidney disease without heart failure, with stage 1 through stage 4 chronic kidney disease, or unspecified chronic kidney disease; G30.9 Alzheimer's disease, unspecified; F02.80 Dementia in other diseases classified elsewhere, unspecified severity, without behavioral disturbance, psychotic disturbance, mood disturbance, and anxiety; Z43.1 Encounter for attention to gastrostomy; I25.10 Atherosclerotic heart disease of native coronary artery without angina pectoris; N18.9 Chronic kidney disease, unspecified; N39.0 Urinary tract infection, site not specified; E87.8 Other disorders of electrolyte and fluid balance, not elsewhere classified; I51.3 Intracardiac thrombosis, not elsewhere classified; Z95.828 Presence of other vascular implants and grafts
CPT/HCPCS: 36415; 36600; 71045; 76700; 80048; 80053; 81003; 82550; 82553; 82803; 83605; 83690; 83735; 83880; 84100; 84484; 85007; 85025; 85730; 86703; 86705; 86709; 86710; 86803; 87040; 87081; 87086; 87340; 93005; 93971; 96361; 96365; 96367; 96368; 96375; 99285